=== PATIENT | male | born 1960 | race Two or more races ===

== ENCOUNTER 2020-11-09 14:19 | Emergency (ER) | payer OTHER, SELFPAY ==
[2020-11-09 15:17] VITALS: BP 148/77; BP 159/99; PULSE 102; PULSE 92; RESP 18; TEMP 36.3; O2SAT 100; O2SAT 95; BMI 17.4
--- NOTE | 2020-11-09 16:31 | ED.BACK ---
HPI - Back Pain/Injury General Chief Complaint: Back Pain/Injury Stated Complaint: back pain/fall Time Seen by Provider: 11/09/20 16:21 Source: patient Mode of arrival: ambulatory Limitations: no limitations History of Present Illness HPI Narrative: Patient's history of chronic back pain history of IVDA heroin and cocaine use HIV with undetectable counts history of epidural abscess in 05/23 treated with antibiotics complaining of ongoing pain since then. Patient denies any fever or chills, any acute weakness in the legs no urinary complaints spoke to his primary care doctor last month who advised him to go to hospital for further checkup MD elicited complaint: back pain Pertinent past history: prior back pain Onset (ago): month(s) Timing: constant Severity: moderate Quality: dull Location: lumbar spine Exacerbating factors: movement Relieving factors: none Associated symptoms: weakness Related Data Allergies Allergy/AdvReac Type Severity Reaction Status Date / Time aspirin [ASA] Allergy Intermediate HIVES Unverified 07/21/20 15:26 tuberculin, purified protein Allergy Intermediate RASH, Unverified 07/21/20 15:26 deriva ITCHING [TUBERCULIN,PURIF.PROT.DERIV.] chlorthalidone AdvReac Severe hypokalemia Unverified 07/21/20 15:26 [CHLORTHALIDONE] tb serum Allergy Unknown Uncoded 11/19/19 00:00 Review of Systems Review of Systems: Constitutional : No Weight loss, No Fever, No Chills ENT/Mouth : No sore throat, No Rhinorrhea Eyes: No Eye Pain, No Swelling Cardiovascular : No Chest Pain, no palpitations Respiratory : No Cough, No Sputum, no shortness of breath Gastrointestinal : no Nausea, No Vomiting, No Diarrhea, No abdominal Pain, no black stools Genitourinary : No Dysuria, No Urinary Frequency Musculoskeletal : Back pain++ No Myalgias, No Joint Swelling Skin : No Skin Lesions, No rash Neuro : No Weakness, No Numbness, No Dizziness, No Headache Psych : No Anxiety/Panic, No Depression Heme/Lymph: No Bruising, No Lymphadenopathy Endocrine : No Polyuria, No Polydipsia All other systems reviewed and are negative PMFSH Past Medical History Medical History Back pain Epidural abscess High cholesterol HIV (human immunodeficiency virus infection) HTN (hypertension) Leg cramp Social History Social History Advance Directives: No Advance Directives Information Provided: No Physical Exam Vital Signs: Vital Signs: Last Vital Signs Temp 97.4 F 11/09/20 15:17 Pulse 92 11/09/20 15:17 Resp 18 11/09/20 15:17 BP 148/77 H 11/09/20 15:17 Pulse Ox 95 11/09/20 15:17 Body Mass Index 17.4 Const: General: no acute distress Nutritional Appearance: thin Orientation/consciousness: patient oriented x3 HENMT: Head: Yes normal to inspection and Yes normocephalic Ears: hearing grossly normal bilaterally Mouth: Normal oral and palatal mucosa present Eyes: General: appearance normal, both eyes and all related structures Neck: Neck: Yes normal visual inspection, Yes full ROM and Yes no meningeal signs Chest: Chest palpation & inspection: normal inspection of the chest and normal palpation of entire chest wall Resp: Effort & Inspection: normal respiratory effort Auscultation: clear to auscultation bilaterally Cardio: Rate: regular rate Rhythm: regular rhythm Heart sounds: S1 normal heart sound present and S2 normal heart sound present GI: Inspection: Yes normal to inspection Palpation (GI): Soft to palpation and nontender : General: Yes no CVA tenderness Back/Spine/Pelvis: Back: no CVA tenderness Cervical Spine: cervical spasm Thoracic/Lumbar Spine: straight leg raise negative bilaterally, thoraco-lumbar ROM limited, thoraco-lumbar spasm and No straight leg raise positive Pelvis: no pain with anterior-posterior compression Skin: General skin exam: no rashes or lesions noted Neuro: General: patient oriented x3, tone normal, moves all extremities, Normal light touch and pain sensation, no meningeal signs, no focal motor deficits and CN's II-XI intact bilaterally Gait exam (Neuro): Antalgic gait present and Assistive device used (Cane) Motor exam (neuro): 5/5 motor strength present throughout Course Course Course Narrative: 16:55 : Labs were ordered but patient eloped from the ER MDM - Back Pain/Injury Lab Data Result diagrams: 11/09/20 16:46 11/09/20 16:46
[2020-11-09 16:56] LABS: MANUAL DIFF FLAG NO
--- NOTE | 2020-11-09 16:56 | PC.NURSE ---
Pt presents to the ed with c/o lower back pain. He is alert, rr even, speaks in full sentences, skin is pwdi, and he is in nad. Seen by Dr Aguilar, orders provided. Blood work obtained and sent. Shortly after lab draw pt elopes department.
[2020-11-09 16:58] LABS: Basophils Absolute Auto 0.1 X10*3/uL (0.0-0.2); Basophils Percent Auto 0.6 % (0-2); Eosinophils Absolute Auto 0.1 X10*3/uL (0.0-0.4); Eosinophils Percent Auto 0.8 % (0-4); Hematocrit 39.5 % (42-52); Hemoglobin 12.6 g/dl (14.0-18.0); Imm Gran Abs Auto 0.02 X10*3/uL (0.00-0.03); Imm Gran Pct Auto 0.2 % (0.0-0.4); Lymphocytes Absolute Auto 1.4 X10*3/uL (1.2-4.9); Lymphocytes Percent Auto 16.3 % (20-40); Mean Corpuscular HGB Conc 31.9 g/dl (31.0-36.0); Mean Corpuscular Hemoglobin 28.1 pg (27.0-33.0); Mean Corpuscular Volume 88.2 fL (80-98); Mean Platelet Volume 9.6 fL (9.4-12.4); Monocytes Absolute Auto 0.2 X10*3/uL (0.1-1.2); Monocytes Percent Auto 2.7 % (2-11); Neutrophils Absolute Auto 6.7 X10*3/uL (2.0-8.3); Neutrophils Percent Auto 79.4 % (45-73); Platelet Count 269 X10*3/uL (160-400); Red Blood Count 4.48 X10*6/uL (4.60-5.80); Red Cell Distribution Width 15.2 % (11.0-16.0); White Blood Count 8.4 X10*3/uL (4.8-10.8)
[2020-11-09 17:31] LABS: Alanine Aminotransferase 22 U/L (0-40); Albumin Level 4.5 g/dL (3.5-5.0); Alkaline Phosphatase 227 U/L (39-117); Anion Gap 14 (12-20); Aspartate Amino Transferase 26 U/L (5-37); Bilirubin Direct 0.2 mg/dL (0.0-0.5); Bilirubin Total 0.3 mg/dL (0.0-1.0); Blood Urea Nitrogen 15 mg/dL (9-16); C Reactive Protein 1.14 mg/dL (< or = 0.50); Calcium 9.2 mg/dL (8.4-10.2); Carbon Dioxide 30 mmol/L (22-29); Chloride 100 mmol/L (96-108); Creatinine Clr Calc Pharmacy 75.1; Estimated Glomerular Filt Rate > 60; Glucose Random 94 mg/dL (60-115); Potassium 4.1 mmol/l (3.3-5.1); Sodium 140 mmol/L (135-145); Total Protein 7.6 g/dL (6.5-8.0)
[2020-11-09 18:04] LABS: Erythrocyte Sedimentation Rate 33 MM/HR (0-15)
== END 2020-11-09 17:00 | disposition left against medical advice (07) ==
PROVIDERS: Emergency Provider Internal Medicine
DX: M54.5 Low back pain (principal); F11.10 Opioid abuse, uncomplicated; F14.10 Cocaine abuse, uncomplicated; Z21 Asymptomatic human immunodeficiency virus [HIV] infection status
CPT/HCPCS: 36415; 80048; 80076; 85025; 85652; 86140; 99283

== ENCOUNTER 2020-11-18 13:39 | Outpatient (REF) | payer OTHER, SELFPAY ==
--- NOTE | 2020-11-18 | MR_ITS ---
EXAMINATION: MR LUMBAR SPINE WITHOUT AND WITH CONTRAST CLINICAL INFORMATION: Osteomyelitis of L4-L5. Ongoing pain and weakness. COMPARISON: CT lumbar spine 05/07/2020. TECHNIQUE: MRI of the lumbar spine was obtained using routine sequences with and without contrast. Intravenous contrast: Gadavist 5.5 mL FINDINGS: 10 mm anterolisthesis of L4 and L5 is present unchanged compared with 05/07/2010. Marked erosion of the L4 inferior facets and the L5 superior facet bilaterally is present with enhancing phlegmon-like material noted in the expected location of the L4-L5 facet joint spaces bilaterally. Prominent surrounding enhancement is associated with the left and right L4-L5 facets and a peripherally enhancing fluid collection measuring 11 mm in maximum dimension is noted posterior to the expected location of the right L4-L5 facet immediately lateral to the superior margin of the right L5 lamina. No vertebral body compression deformities are identified. The conus medullaris terminates at the level of T12-L1. The conus medullaris is normal in appearance. T12-L1: No central or foraminal stenoses. Normal intervertebral disc. L1-L2: No central or foraminal stenoses. Normal intervertebral discs. L2-L3: No effusions central or foraminal stenoses. Minimal bilateral parasagittal disc protrusions. Mild bilateral ligamentum flavum hypertrophy. L3-L4: Moderate right foraminal stenosis. Partial bilateral subarticular recess effacement with bilateral parasagittal disc protrusions minimally abutting the traversing bilateral L4 nerve roots. Additionally, moderate bilateral ligamentum flavum hypertrophy is present at this level. L4-L5: Marked bilateral foraminal stenoses. Marked central stenosis. Findings arise in the setting of 10 mm anterolisthesis of L4 and L5 and the presence of a marked posterior broad-based disc bulge with bilateral intraforaminal extension in combination with moderate bilateral ligamentum flavum hypertrophy. Near-complete effacement of the adjacent thecal sac CSF space is noted in greater than 75% bilateral foraminal narrowing is present with bilateral exiting L4 nerve root impingement. L5-S1: Moderate left foraminal stenosis. Mild right foraminal stenosis. Findings arise secondary to a mild posterior broad-based disc bulge in combination with moderate left facet hypertrophic changes resulting in 50% left foraminal narrowing. Trace fluid is present in the left and right L5-S1 facet joints no adjacent subchondral enhancement or edema is noted. MR/MR lumbar spine wo/w con IMPRESSION: 1. L4-L5 bilateral facet joint marked subchondral erosions with intra-articular and periarticular enhancing tissue and a trace fluid collection with peripheral enhancement adjacent to the right facet joint. Overall, findings may represent active bilateral L4-L5 septic arthritis or the sterile sequela of septic arthritis. Aseptic, post infectious changes may present on MR imaging with marked enhancement for as long as several months after the antecedent infection has been cleared. Alternatively, recrudescent or chronic infection could present with similar findings. Facet erosions appear to be progressed compared with 05/07/2020. 10 mm degenerative anterolisthesis of L4 and L5 is unchanged in degree compared with 05/07/2020. The setting of ongoing pain and weakness, findings are suspicious for persistent bilateral L4-L5 septic arthritis. 2. L4-L5 marked central and marked bilateral foraminal stenoses. 3. L3-L4 moderate right foraminal stenosis and mild central stenosis with mild abutment upon the left and right traversing L4 nerve roots. 4. L5-S1 moderate left foraminal stenosis. This critical result was discussed with Dr. Palmira HAGER by telephone at 11/20/2020 1:57 PM and it was ascertained that the content and urgency of the report was understood at the time of direct communication.
== END 2020-11-18 13:40 | disposition home or self-care (01) ==
LOC: HO.MRI 13:39
PROVIDERS: Visit Provider Family Medicine
DX: F11.20 Opioid dependence, uncomplicated (principal); M46.20 Osteomyelitis of vertebra, site unspecified
CPT/HCPCS: 72158; A9585

== ENCOUNTER 2020-12-21 13:38 | Emergency (ER) | payer OTHER, SELFPAY ==
[2020-12-21 13:51] VITALS: BP 130/71; BP 170/90; PULSE 74; PULSE 94; RESP 16; TEMP 36.8; O2SAT 97; BMI 22.8
--- NOTE | 2020-12-21 14:14 | ED.GENADULT ---
HPI - General Adult General Chief complaint: General Medical Stated complaint: ABCESS Time Seen by Provider: 12/21/20 13:49 Source: patient Mode of arrival: ambulatory Limitations: no limitations History of Present Illness HPI narrative: 60 yo male with past medical history of HIV on DTG +FTC/TAF with cd4 534, IV drug abuse here with abnormal MRI. Of note, the patient was admitted to [facility] May 08 for an L4-L5 epidural abscess with L4-L5 facet joint osteomyelitis and extra-spinal abscess. He underwent CT aspiration of the abscess and was discharged to a SNF with a PICC line on linezolid. He was discharged from [facility] 06/01/20 and did complete antibiotics which was post to complete on June 21. He never followed up with [facility]. He was seen outpatient by his primary care doctor for worsening low back pain which radiated to his legs with numbness in the feet approximately 6 weeks ago. He had an outpatient MRI on November 18 which showed L4-L5 bilateral facet joint marked subchondral erosions with intra-articular and periarticular enhancing tissue and a trace fluid collection with peripheral enhancement adjacent to the right facet joint. Overall findings may represent active bilateral L4-L5 septic arthritis. Patient tells me he was referred to the emergency department for further evaluation. He does tell me that he uses heroin daily up to 20 bags and his last use was this morning. He tells me that he has had persistent pain and feels like both of his legs buckle on him when he walks. He is ambulatory with his cane. He is also complaining of some foot numbness which is bilateral. No complaints of saddle anesthesia or incontinence. Related Data Allergies Allergy/AdvReac Type Severity Reaction Status Date / Time aspirin [ASA] Allergy Intermediate HIVES Unverified 07/21/20 15:26 tuberculin, purified protein Allergy Intermediate RASH, Unverified 07/21/20 15:26 deriva ITCHING [TUBERCULIN,PURIF.PROT.DERIV.] chlorthalidone AdvReac Severe hypokalemia Unverified 07/21/20 15:26 [CHLORTHALIDONE] tb serum Allergy Unknown Uncoded 11/19/19 00:00 Review of Systems Review of Systems: Yes all other systems are reviewed and are negative Constitutional: Constitutional: Reports no additional constitutional complaints, Denies body ache(s), Denies chills, Denies fever(s), Denies headache(s) and Denies weakness Eyes: Eyes: Reports no additional eye complaints and Denies change in vision ENT: Reports system reviewed and no additional complaints, except as documented, Denies dizziness, Denies headache(s), Denies nasal congestion, Denies nasal discharge and Denies neck pain Cardiovascular: Cardiovascular: Reports no additional cardiovascular complaints, Denies chest pain, Denies leg edema and Denies dyspnea Respiratory: Respiratory: Reports no additional respiratory complaints, Denies cough and Denies dyspnea Gastrointestinal: Gastrointestinal: Reports no additional gastrointestinal complaints, Denies abdominal pain, Denies diarrhea, Denies nausea and Denies vomiting Genitourinary: Genitourinary: Denies urinary incontinence Musculoskeletal: Musculoskeletal: Reports no additional musculoskeletal complaints, Reports back pain, Denies arthralgias, Denies joint swelling, Denies neck pain, Reports numbness and Denies tingling Integumentary/Breasts: Skin/Breast: Reports system reviewed and no additional complaints, except as docu and Denies rash Neurologic: Reports system reviewed and no additional complaints, except as documented, Denies Abnormal speech present, Denies dizziness, Denies headache(s), Reports numbness, Denies tingling and Denies weakness PMFSH Past Medical History Attestation statement: The following information was validated with the patient. Source: old records reviewed and nursing notes reviewed Medical History Back pain Epidural abscess High cholesterol HIV (human immunodeficiency virus infection) HTN (hypertension) Leg cramp Social History Social History Smoking Status: Current every day smoker Use of substances other than those prescribed or required for medical reasons: Yes Substance Use Type: Heroin Substance Use Frequency: Chronic Longstanding Last Used Substance: Hours (ago) Advance Directives: No Advance Directives Information Provided: Yes Physical Exam Vital Signs: Vital Signs: Last Vital Signs Temp 98.2 F 12/21/20 13:51 Pulse 74 12/21/20 13:51 Resp 16 12/21/20 13:51 BP 130/71 12/21/20 13:51 Pulse Ox 97 12/21/20 13:51 Body Mass Index 22.8 Const: General: cooperative, healthy appearing, comfortable and no acute distress Orientation/consciousness: patient oriented x3 Limitations: no limitations HENMT: Head: Yes normal to inspection Ears: hearing grossly normal bilaterally General nose exam: Normal external nose present Face and sinus: Yes normal facial exam Mouth: Normal oral and palatal mucosa present Throat: Yes posterior oropharynx normal Eyes: General: appearance normal, both eyes and all related structures Pupils: Equal, round and reactive pupils present Neck: Neck: Yes normal visual inspection Chest: Chest palpation & inspection: normal inspection of the chest Resp: Effort & Inspection: normal respiratory effort Auscultation: clear to auscultation bilaterally Cardio: Rate: regular rate Rhythm: regular rhythm Peripheral pulses: Peripheral pulses 2+ throughout GI: Inspection: Yes normal to inspection Palpation (GI): Soft to palpation and nontender Auscultation: normal bowel sounds Rectal Exam - Male: Yes normal sphincter tone (Perianal sensation present) Back/Spine/Pelvis: Other: Patient has lower midline lumbar tenderness with no step-offs or deformities. Thoracic/Lumbar Spine: thoracic and lumbar spine normal to inspection Skin: General skin exam: no rashes or lesions noted Neuro: Other: ambulatory with cane Patient is able to lift the right leg with no difficulty. He does have pain with the left straight leg raise. Patient has 4/5 strength with dorsiflexion and plantar flexion. General: patient oriented x3 and normal sensation to monofilament Cranial nerves: Yes Equal, round and reactive pupils present Cognition (Neuro): normal cognition Speech: No Abnormal speech present Sensory Exam: sensory level loss detected (diminished sensation over bilateral dorsal feet to light touch) Deep tendon reflexes (DTR's): Right patellar reflex intensity grade: 2+ and Left patellar reflex intensity grade: 2+ Extrem: General: Yes normal to inspection Course Course Course Narrative: 60-year-old male with a past medical history of HIV, IV drug abuse and epidural abscess is here with abnormal MRI. Patient tells me that last year in May he had an epidural abscess which he did not complete IV antibiotic treatment for. He tells me over the last month he has had increasing pain in his lower back with weakness in his bilateral lower extremities and numbness. He was seen by his primary care doctor and had a MRI of the lumbar spine 11/18. He followed up in the office with his primary care doctor on November 24 and he was referred to the emergency department for further evaluation as his MRI was concerning for septic arthritis of the spine. The patient was initially referred to [facility] ED however due to transportation and his concern for management of his pain he wanted to come to [facility] instead. Neuro exam shows 4/5 LE strength with intact reflexes, sensation loss over dorsal foot, normal rectal tone and perianal sensation. PVR 208ml. 1400-reviewed MRI from November 18 which shows L4-L5 bilateral facet joint marked subchondral erosions with intra-articular and periarticular enhancing tissue and trace fluid collection with peripheral enhancement adjacent to the right facet joint. May be septic arthritis versus osteomyelitis. There is only a trace fluid collections or less likely epidural abscess. However, the patient did not complete treatment last year for his epidural abscess and there is concern for persistence of this. Patient is adamant that he does not want to go to [facility] and for fear that he may leave against medical advice and not get the appropriate treatment and I did discussed this with our medicine team here. They recommended I speak to the neurosurgical team at [facility] to discuss. 1430-Spoke to Mady PAUL at [facility]. She reviewed the MRI from November and compared this to the previous MRI in May of 2020. Findings are more consistent with septic arthritis. There is no fluid collection that needs drainage. She does not think the patient needs neurosurgical intervention but does need to be managed medically with IV antibiotics and infectious disease consult. At this time she believes it is appropriate the patient can stay at [facility] with q.4 hours neuro checks, medicine and ID management. 1630-spoke to Medicine team Dr. Bailey. Is concerned that patient may have worsening or progressive symptoms and may need neurosurgical intervention and we do not have neurosurgery and this hospital. He feels the patient should be transferred to a tertiary care center. 1630-spoke to neurosurgery BEVERLY thomas. As there is no neurosurgical intervention patient will need to be admitted to the medicine service. Call out to medicine team to admit. 1700-Spoke to Tish DENIS at [facility]. Accepting physician Dr Dominguez. Medical Decision Making Medical Records Medical records reviewed: Yes I reviewed the patient's medical records. Lab Data Lab results reviewed: Yes I reviewed the patient's lab results. Result diagrams: 12/21/20 14:27 12/21/20 14:27 Labs: Lab Results 12/21/20 12/21/20 12/21/20 Range/Units 14:26 14:27 14:27 WBC 7.9 (4.8-10.8) X10*3/uL RBC 3.84 L (4.60-5.80) X10*6/uL Hgb 11.1 L (14.0-18.0) g/dl Hct 34.5 L (42-52) % MCV 89.8 (80-98) fL MCH 28.9 (27.0-33.0) pg MCHC 32.2 (31.0-36.0) g/dl RDW 15.9 (11.0-16.0) % Plt Count 216 (160-400) X10*3/uL MPV 9.8 (9.4-12.4) fL Immature Gran % (Auto) 0.3 (0.0-0.4) % Neut % (Auto) 67.3 (45-73) % Lymph % (Auto) 22.5 (20-40) % Noble % (Auto) 4.8 (2-11) % Eos % (Auto) 4.6 H (0-4) % Baso % (Auto) 0.5 (0-2) % Lymph # (Auto) 1.8 (1.2-4.9) X10*3/uL Noble # (Auto) 0.4 (0.1-1.2) X10*3/uL Eos # (Auto) 0.4 (0.0-0.4) X10*3/uL Baso # (Auto) 0.0 (0.0-0.2) X10*3/uL Abs Immat Gran (auto) 0.02 (0.00-0.03) X10*3/uL Absolute Neuts (auto) 5.3 (2.0-8.3) X10*3/uL Absolute Nucleated RBC 0.000 (0.0-0.012) X10*3/uL Nucleated RBC % (auto) 0.0 (0.0-0.2) /100WBC Sodium 139 (135-145) mmol/L Potassium 4.3 (3.3-5.1) mmol/L Chloride 103 (96-108) mmol/L Carbon Dioxide 28 (22-29) mmol/L Anion Gap 12 (12-20) BUN 18 H (9-16) mg/dL Creatinine 0.81 (0.5-1.4) mg/dL Estim Creat Clear Calc 94.4 Estimated GFR > 60 Random Glucose 74 (60-115) mg/dL Lactic Acid 0.4 L (0.5-2.0) mmol/L Calcium 8.5 D (8.4-10.2) mg/dL Urine Color Urine Appearance Urine pH (5.0-8.0) Ur Specific Robbins (1.005-1.025) Urine Protein (NEG-TRACE) MG/DL Urine Glucose (UA) (NEG) MG/DL Urine Ketones (NEG) MG/DL Urine Blood (NEG) Urine Nitrite (NEG) Ur Leukocyte Esterase (NEG) COVID-19 (OSAWLDO) (Negative) COVID-19 Clin Com 12/21/20 12/21/20 Range/Units 14:30 16:12 WBC (4.8-10.8) X10*3/uL RBC (4.60-5.80) X10*6/uL Hgb (14.0-18.0) g/dl Hct (42-52) % MCV (80-98) fL MCH (27.0-33.0) pg MCHC (31.0-36.0) g/dl RDW (11.0-16.0) % Plt Count (160-400) X10*3/uL MPV (9.4-12.4) fL Immature Gran % (Auto) (0.0-0.4) % Neut % (Auto) (45-73) % Lymph % (Auto) (20-40) % Noble % (Auto) (2-11) % Eos % (Auto) (0-4) % Baso % (Auto) (0-2) % Lymph # (Auto) (1.2-4.9) X10*3/uL Noble # (Auto) (0.1-1.2) X10*3/uL Eos # (Auto) (0.0-0.4) X10*3/uL Baso # (Auto) (0.0-0.2) X10*3/uL Abs Immat Gran (auto) (0.00-0.03) X10*3/uL Absolute Neuts (auto) (2.0-8.3) X10*3/uL Absolute Nucleated RBC (0.0-0.012) X10*3/uL Nucleated RBC % (auto) (0.0-0.2) /100WBC Sodium (135-145) mmol/L Potassium (3.3-5.1) mmol/L Chloride (96-108) mmol/L Carbon Dioxide (22-29) mmol/L Anion Gap (12-20) BUN (9-16) mg/dL Creatinine (0.5-1.4) mg/dL Estim Creat Clear Calc Estimated GFR Random Glucose (60-115) mg/dL Lactic Acid (0.5-2.0) mmol/L Calcium (8.4-10.2) mg/dL Urine Color YELLOW Urine Appearance CLEAR Urine pH 6.0 (5.0-8.0) Ur Specific Robbins >= 1.030 H (1.005-1.025) Urine Protein NEG (NEG-TRACE) MG/DL Urine Glucose (UA) NEG (NEG) MG/DL Urine Ketones NEG (NEG) MG/DL Urine Blood NEG (NEG) Urine Nitrite NEG (NEG) Ur Leukocyte Esterase NEG (NEG) COVID-19 (OSWALDO) Negative (Negative) COVID-19 Clin Com See Note Critical Care Time Critical Care Time Critical Care Time: Yes Total Critical Care Time: 60 Attestation: Neurological re-evaluations, discussion with medicine here, discussion with neurosurgery at [facility], discussion with medicine at [facility]. Discharge Plan Discharge Clinical Impression: Septic arthritis of lumbar spine Patient Disposition: [facility] Transfer Details: [facility]
--- NOTE | 2020-12-21 14:24 | PC.NURSE ---
CALL PLACED @ 1422 TO [facility] PT TX LINE @[email or web address] SYED REQUEST MJ ANSWERS,TAKES PT INFO AND ASKS TO SPEAK WITH SYED LYNCH TAKE OVER CALL RIGHT AWAY
--- NOTE | 2020-12-21 14:29 | PC.NURSE ---
RETURN CALL FROM 1425, REQUESTS TO SPEAK WITH SYED LYNCH TAKES OVER CALL RIGHT AWAY
--- NOTE | 2020-12-21 14:30 | PC.NURSE ---
1424 RETURN CALL FROM [facility], REQUESTS TO SPEAK WITH SYED LYNCH TAKES OVER CALL RIGHT AWAY
[2020-12-21 14:31] LABS: MANUAL DIFF FLAG NO
[2020-12-21 14:34] LABS: Basophils Percent Auto 0.5 % (0-2); Eosinophils Absolute Auto 0.4 X10*3/uL (0.0-0.4); Eosinophils Percent Auto 4.6 % (0-4); Hematocrit 34.5 % (42-52); Hemoglobin 11.1 g/dl (14.0-18.0); Imm Gran Abs Auto 0.02 X10*3/uL (0.00-0.03); Imm Gran Pct Auto 0.3 % (0.0-0.4); Lymphocytes Absolute Auto 1.8 X10*3/uL (1.2-4.9); Lymphocytes Percent Auto 22.5 % (20-40); Mean Corpuscular HGB Conc 32.2 g/dl (31.0-36.0); Mean Corpuscular Hemoglobin 28.9 pg (27.0-33.0); Mean Corpuscular Volume 89.8 fL (80-98); Mean Platelet Volume 9.8 fL (9.4-12.4); Monocytes Absolute Auto 0.4 X10*3/uL (0.1-1.2); Monocytes Percent Auto 4.8 % (2-11); Neutrophils Absolute Auto 5.3 X10*3/uL (2.0-8.3); Neutrophils Percent Auto 67.3 % (45-73); Platelet Count 216 X10*3/uL (160-400); Red Blood Count 3.84 X10*6/uL (4.60-5.80); Red Cell Distribution Width 15.9 % (11.0-16.0); White Blood Count 7.9 X10*3/uL (4.8-10.8)
[2020-12-21 14:59] LABS: COVID-19 Test Negative (Negative); IDNOW Serial# 9DD0AD1C
[2020-12-21 15:02] LABS: Lactic Acid 0.4 mmol/L (0.5-2.0)
[2020-12-21 15:05] LABS: Anion Gap 12 (12-20); Blood Urea Nitrogen 18 mg/dL (9-16); Calcium 8.5 mg/dL (8.4-10.2); Carbon Dioxide 28 mmol/L (22-29); Chloride 103 mmol/L (96-108); Creatinine Clr Calc Pharmacy 94.4; Estimated Glomerular Filt Rate > 60; Glucose Random 74 mg/dL (60-115); Potassium 4.3 mmol/L (3.3-5.1); Sodium 139 mmol/L (135-145)
[2020-12-21 16:19] LABS: Glucose Urine UA NEG (NEG); Leukocyte Esterase Urine NEG (NEG); Nitrite Urine NEG (NEG); Specific Gravity - Urine >= 1.030 (1.005-1.025); Urine Blood NEG (NEG); Urine Ketones NEG (NEG); Urine Protein NEG (NEG-TRACE)
[2020-12-21 16:28] LABS: Appearance Urine CLEAR; Color Urine YELLOW
[2020-12-21] MEDS: vancomycin HCL 1,000 MG in 0.9 % Sodium Chloride 250 ML 270 MG IV (17:01)
[2020-12-21 17:03] VITALS: BP 124/47; PULSE 74; RESP 16; TEMP 36.7; O2SAT 96
--- NOTE | 2020-12-21 19:47 | PC.NURSE ---
REPORT GIVEN TO KIM WARD AT [facility]. AWAITING TRANSPORT FOR TRANSFER TO [facility].
[2020-12-21] MEDS: oxyCODONE HCl Immed Release 5 MG TABLET 10 MG PO (20:31)
== END 2020-12-21 20:54 | disposition short-term general hospital (02) ==
PROVIDERS: Nurse Practitioner Family; Emergency Provider Emergency Medicine
DX: M46.56 Other infective spondylopathies, lumbar region (principal); F11.10 Opioid abuse, uncomplicated; I10 Essential (primary) hypertension; F17.200 Nicotine dependence, unspecified, uncomplicated; Z20.822 Contact with and (suspected) exposure to COVID-19; Z71.6 Tobacco abuse counseling; Z21 Asymptomatic human immunodeficiency virus [HIV] infection status; Z79.899 Other long term (current) drug therapy
CPT/HCPCS: 36415; 51798; 80048; 81003; 83605; 85025; 87040; 87635; 96365; 99284; 99285; 99291; J3370

== ENCOUNTER 2021-09-08 00:41 | Emergency (ER) | payer OTHER, SELFPAY ==
--- NOTE | 2021-09-08 00:56 | ED.SKABFB ---
HPI - Skin/Abscess/Foreign Bdy General Chief complaint: Skin/Abscess/Foreign Body Stated complaint: rash Time Seen by Provider: 09/08/21 00:55 Source: patient Mode of arrival: ambulatory Limitations: no limitations History of Present Illness HPI narrative: Patient been having itching and rash for last 3 days patient's partner also has a rash for 2 weeks poor hygiene at home rodents in the house Related Data Allergies Allergy/AdvReac Type Severity Reaction Status Date / Time aspirin [ASA] Allergy Intermediate HIVES Unverified 07/21/20 15:26 tuberculin, purified protein Allergy Intermediate RASH, Unverified 07/21/20 15:26 deriva ITCHING [TUBERCULIN,PURIF.PROT.DERIV.] chlorthalidone AdvReac Severe hypokalemia Unverified 07/21/20 15:26 [CHLORTHALIDONE] tb serum Allergy Unknown Uncoded 11/19/19 00:00 Review of Systems Review of Systems: Yes all other systems are reviewed and are negative PMFSH Past Medical History Medical History Back pain Epidural abscess High cholesterol HIV (human immunodeficiency virus infection) HTN (hypertension) Leg cramp Social History Social History Substance Use Type: Heroin Advance Directives: No Advance Directives Information Provided: No Physical Exam Const: General: no acute distress HENMT: Head: Yes normocephalic Skin: Other: Scratch arabella nonspecific erythematous rash is likely bug bites no signs of infection mostly is in the exposed area MDM - Skin/Abscess/Foreign Bdy MDM Narrative Medical decision making narrative: Patient with rash nonspecific likely bedbugs, eloped from ER before the discharge Discharge Plan Discharge Clinical Impression: Bed bug bite Qualifiers: Encounter type: initial encounter Qualified Code(s): W57.XXXA - Bitten or stung by nonvenomous insect and other nonvenomous arthropods, initial encounter Patient Disposition: Elopement
[2021-09-08 00:59] VITALS: BP 154/88; PULSE 82
--- NOTE | 2021-09-08 01:07 | PC.NURSE ---
pt was very restless and didnt agree with his treatment plan so he decided to leave after being seen by the provider. steady gait. alert oriented, no s/s/ of distress.
== END 2021-09-08 01:00 | disposition left against medical advice (07) ==
PROVIDERS: Emergency Provider Internal Medicine; PCP Nurse Practitioner Primary Care
DX: T14.8XXA Other injury of unspecified body region, initial encounter (principal); W57.XXXA Bitten or stung by nonvenomous insect and other nonvenomous arthropods, initial encounter; R21 Rash and other nonspecific skin eruption; I10 Essential (primary) hypertension; B20 Human immunodeficiency virus [HIV] disease; Y93.89 Activity, other specified; Y92.032 Bedroom in apartment as the place of occurrence of the external cause; Y99.9 Unspecified external cause status
CPT/HCPCS: 99281

== ENCOUNTER 2021-11-08 10:35 | Emergency (ER) | payer OTHER, SELFPAY ==
[2021-11-08 11:23] VITALS: BP 116/72; BP 168/98; PULSE 104; PULSE 60; RESP 14; TEMP 36.4; O2SAT 97; BMI 19.3
--- NOTE | 2021-11-08 11:35 | ED.SKABFB ---
HPI - Skin/Abscess/Foreign Bdy General Chief complaint: Skin/Abscess/Foreign Body Stated complaint: ITCHY ALL OVER Time Seen by Provider: 11/08/21 11:27 Source: patient Mode of arrival: ambulatory Limitations: language barrier (Bengali-speaking) History of Present Illness HPI narrative: 60-year-old male presenting to the ED with complaints of a rash to his entire body since September that is itchy in nature. Apparently the patient has poor hydrating and has rodents at home. He reports that he was seen here in September, and was told that he had bedbugs and given no treatment. Then he went to another location to be evaluated possibly his PCP although patient is a poor historian and reports they sent the cream to the pharmacy although no one has delivered the cream. Therefore he came here for further evaluation treatment because this morning he noticed he had a mite to his fingernail he cut his finger nail and pulled out a mite. He is nervous that he might get a mite in his eye. He denies any other complaints or concerns at this time. MD complaint: rash Onset (ago): month(s) Location: generalized Severity: moderate Quality: constant and pruritic Pain Consistency: constant Relieving factors: none Exacerbating factors: none Context: other (See above) Associated symptoms: denies other symptoms Treatments prior to arrival: other (See above) Related Data Previous Rx's Medication Instructions Recorded diphenhydramine HCl 2 % topical 1 appl TOPICAL QID PRN #103 ml 11/08/21 gel (Benadryl) diphenhydramine HCl 25 mg tablet 50 mg PO TID PRN #30 tab 11/08/21 (Benadryl Allergy) permethrin 5 % topical cream 1 appl TOPICAL Q14D #60 g 11/08/21 Allergies Allergy/AdvReac Type Severity Reaction Status Date / Time aspirin [ASA] Allergy Intermediate HIVES Unverified 07/21/20 15:26 tuberculin, purified protein Allergy Intermediate RASH, Unverified 07/21/20 15:26 deriva ITCHING [TUBERCULIN,PURIF.PROT.DERIV.] chlorthalidone AdvReac Severe hypokalemia Unverified 07/21/20 15:26 [CHLORTHALIDONE] tb serum Allergy Unknown Uncoded 11/19/19 00:00 Review of Systems Review of Systems: Constitutional : No Fever, No Chills , no body aches, no recent illness Head/Face: No facial swelling, No facial redness ENT/Mouth : No oral/throat swelling, No Hoarseness, No Swallowing Difficulty Eyes: No Eye Pain, No Swelling, No Redness Cardiovascular : No Chest Pain, No SOB, No palpitations Respiratory : No Cough, No Sputum, No Wheezing, No Smoke Exposure, No Dyspnea Gastrointestinal : No Nausea, No Vomiting, No Diarrhea, No abdominal Pain Genitourinary : No Dysuria, No Urinary Frequency, No Hematuria Musculoskeletal : No joint pain, No Myalgias, No Joint Swelling Skin : + Skin Lesions, + rash Neuro : No Weakness, No Numbness, No Headache, No dizziness, No tingling Psych : No Anxiety/Panic, No Depression Heme/Lymph: No Bruising, No Lymphadenopathy Endocrine : No Polyuria, No Polydipsia Denies changes in lotions or detergents. Denies new medications or any changes in medications. Denies drainage from rash. Denies any recent sick contacts or recent travel. Yes all other systems are reviewed and are negative PMFSH Past Medical History Attestation statement: The following information was validated with the patient. Medical History Back pain Epidural abscess High cholesterol HIV (human immunodeficiency virus infection) HTN (hypertension) Leg cramp Social History Social History Substance Use Type: Heroin Advance Directives: No Advance Directives Information Provided: No Physical Exam Vital Signs: Vital Signs: Last Vital Signs Temp 97.5 F 11/08/21 11:23 Pulse 60 11/08/21 11:23 Resp 14 11/08/21 11:23 BP 116/72 11/08/21 11:23 Pulse Ox 97 11/08/21 11:23 BMI result Body Mass Index 19.3 vital signs have been reviewed as normal and appeared to be correct. Blood pressure normal Heart rate normal. Respiration rate normal. Temperature normal. Oxygen saturation normal. Appearance: Alert. Oriented X3. No acute distress. Head: Normal external exam. Normocephalic. Atraumatic. Eyes: PERRLA. EOMI. Conjunctiva and sclera normal. Eyelids normal. ENT: Pharynx normal. Uvula midline. Moist mucous membranes. Neck: Normal inspection. Neck supple. FROM. CVS: Normal heart rate and rhythm. Respiratory: No respiratory distress. Painless inspiration. Skin: Skin warm and dry. Normal skin color. Normal skin turgor. Scattered throughout the patient's body he is noted to have lesions that are pruritic with mild erythema likely bites of some nature. No streaking/induration/fluctuance or signs of infection noted. No additional rashes/lesions/lacerations noted. Extremities: Extremities exhibit normal range of motion. Extremities nontender. Neuro: Oriented X 3. No motor deficit. No sensory deficit. Reflexes normal. Normal steady gait. No focal neuro deficits noted. Vascular: + radial pulses/+ 2 distal pedal pulses/+2 dorsalis pedis b/l. Normal cap refill. No cyanosis noted to upper extremity nails and lower extremity toes nails. Course Course Course Narrative: 60-year-old male presenting to the ED with complaints of a rash to his entire body since September that is itchy in nature. Apparently the patient has poor hydrating and has rodents at home. He reports that he was seen here in September, and was told that he had bedbugs and given no treatment. Then he went to another location to be evaluated possibly his PCP although patient is a poor historian and reports they sent the cream to the pharmacy although no one has delivered the cream. Therefore he came here for further evaluation treatment because this morning he noticed he had a mite to his fingernail he cut his finger nail and pulled out a mite. He is nervous that he might get a mite in his eye. He denies any other complaints or concerns at this time. On exam it appears that the patient has possible bite of some nature possibly bedbugs. Therefore I explained to him that usually they have to have professionals removed the bug from his house and patient continues to request for the cream that he was prescribed and has not been delivered to his house possibly for scabies although this does not appear like scabies on my exam although patient keeps requesting for cream therefore will give him topical Benadryl, scabies treatment due to patient requesting an p.o. Benadryl and instructions to follow-up with primary care provider. Patient understands agrees with this plan. MDM - Skin/Abscess/Foreign Bdy Medical Records Attestation: I reviewed the patient's medical records. Discharge Plan Discharge Clinical Impression: Insect bites Patient Disposition: Home, Self-Care Instructions: Insect Bite or Sting (ED), Bed Bugs (ED) Additional Instructions: Follow-up with your primary care provider Prescriptions: New Benadryl 2 % gel 1 appl topical QID PRN (Reason: itching) Qty: 103 RF: 0 diphenhydramine HCl [Benadryl Allergy] 25 mg tablet 50 mg PO TID PRN (Reason: itching) Qty: 30 RF: 0 permethrin 5 % cream 1 appl topical Q14D Qty: 60 RF: 2 Print Language: Bengali
== END 2021-11-08 12:21 | disposition home or self-care (01) ==
LOC: HO.ED 11:48
PROVIDERS: Emergency Provider Emergency Medicine
DX: T14.8XXA Other injury of unspecified body region, initial encounter (principal); W57.XXXA Bitten or stung by nonvenomous insect and other nonvenomous arthropods, initial encounter; Y93.9 Activity, unspecified; Y92.009 Unspecified place in unspecified non-institutional (private) residence as the place of occurrence of the external cause; Y99.9 Unspecified external cause status
CPT/HCPCS: 99283

== ENCOUNTER 2022-02-07 11:17 | Emergency (ER) | payer OTHER, SELFPAY ==
[2022-02-07 11:33] VITALS: BP 149/92; PULSE 82; O2SAT 99
--- NOTE | 2022-02-07 17:38 | ED.SKABFB ---
HPI - Skin/Abscess/Foreign Bdy General Chief complaint: Skin/Abscess/Foreign Body Stated complaint: MULTIPLE BUG BITES ALL OVER BODY PER EMS History of Present Illness HPI narrative: This patient eloped and was not seen by me Related Data Previous Rx's Medication Instructions Recorded diphenhydramine HCl 2 % topical 1 appl TOPICAL QID PRN #103 ml 11/08/21 gel (Benadryl) diphenhydramine HCl 25 mg tablet 50 mg PO TID PRN #30 tab 11/08/21 (Benadryl Allergy) permethrin 5 % topical cream 1 appl TOPICAL Q14D #60 g 11/08/21 Allergies Allergy/AdvReac Type Severity Reaction Status Date / Time aspirin [ASA] Allergy Intermediate HIVES Unverified 07/21/20 15:26 tuberculin, purified protein Allergy Intermediate RASH, Unverified 07/21/20 15:26 deriva ITCHING [TUBERCULIN,PURIF.PROT.DERIV.] chlorthalidone AdvReac Severe hypokalemia Unverified 07/21/20 15:26 [CHLORTHALIDONE] tb serum Allergy Unknown Uncoded 11/19/19 00:00 PMFSH Past Medical History Medical History (Updated 02/07/22 @ 17:39 by BEVERLY Aguirre) Back pain Epidural abscess High cholesterol HTN (hypertension) Leg cramp Spinal cord abscess Surgical History (Updated 12/11/21 @ 11:33 by SAJAN Kumar) H/O colonoscopy Social History Social History Substance Use Type: Heroin Advance Directives: Yes Advance Directives Information Provided: Yes Advance Directives on File: No Discharge Plan Discharge Clinical Impression: Eloped from emergency department Patient Disposition: Elopement Prescriptions: No Action Benadryl 2 % gel 1 appl topical QID PRN (Reason: itching) Qty: 103 0RF diphenhydramine HCl [Benadryl Allergy] 25 mg tablet 50 mg PO TID PRN (Reason: itching) Qty: 30 0RF permethrin 5 % cream 1 appl topical Q14D Qty: 60 2RF Rx Instructions: apply second treatment 14 days after first treatment if live lice remain Discharge Date/Time: 02/07/22 13:14
== END 2022-02-07 13:14 | disposition left against medical advice (07) ==
PROVIDERS: Emergency Provider Emergency Medicine Emergency Medical Services; PCP Nurse Practitioner Primary Care
DX: T14.8XXA Other injury of unspecified body region, initial encounter (principal); W57.XXXA Bitten or stung by nonvenomous insect and other nonvenomous arthropods, initial encounter; Y93.9 Activity, unspecified; Y92.9 Unspecified place or not applicable; Y99.9 Unspecified external cause status; Z79.899 Other long term (current) drug therapy
CPT/HCPCS: 99281

== ENCOUNTER 2022-03-02 15:52 | Emergency (ER) | payer OTHER, SELFPAY ==
[2022-03-02 15:56] VITALS: BP 154/98; PULSE 92
[2022-03-02 16:00] VITALS: BP 132/77; PULSE 79; RESP 16; TEMP 36.9; O2SAT 99; BMI 16.7
--- NOTE | 2022-03-02 16:12 | ED_ITS ---
HPI - Skin/Abscess/Foreign Bdy General Chief complaint: Animal Bite Stated complaint: MITES BITING HANDS Time Seen by Provider: 03/02/22 16:00 Source: patient Mode of arrival: EMS Limitations: no limitations History of Present Illness HPI narrative: Patient presents emergency department for evaluation of an itchy rash all over his body. Reports has been present for about 1 month. States his is having similar symptoms but she is currently admitted to an inpatient psych facility. He states that last year he was treated for similar symptoms for ?mites?. He states that he feels something crawling all over him and he feels like he is being bitten. He admits to IV drug usage, injecting cocaine and heroin. Related Data Previous Rx's Medication Instructions Recorded diphenhydramine HCl 2 % topical 1 appl TOPICAL QID PRN #103 ml 11/08/21 gel (Benadryl) diphenhydramine HCl 25 mg tablet 50 mg PO TID PRN #30 tab 11/08/21 (Benadryl Allergy) permethrin 5 % topical cream 1 appl TOPICAL Q14D #60 g 11/08/21 permethrin 5 % topical cream 1 appl TOPICAL Q14D #60 g 03/02/22 Allergies Allergy/AdvReac Type Severity Reaction Status Date / Time aspirin [ASA] Allergy Intermediate HIVES Unverified 07/21/20 15:26 tuberculin, purified protein Allergy Intermediate RASH, Unverified 07/21/20 15:26 deriva ITCHING [TUBERCULIN,PURIF.PROT.DERIV.] chlorthalidone AdvReac Severe hypokalemia Unverified 07/21/20 15:26 [CHLORTHALIDONE] tb serum Allergy Unknown Uncoded 11/19/19 00:00 Review of Systems Review of Systems: Constitutional: No weight loss, fever, chills, weakness or fatigue. Skin: Diffuse pruritic rash Cardiovascular: No chest pain, chest pressure or chest discomfort. No palpitations or pedal edema. Respiratory: No shortness of breath, cough or sputum production. Gastrointestinal: No anorexia, nausea, vomiting or diarrhea. No abdominal pain or blood in stool. Genitourinary: No burning micturition. No urinary frequency or incontinence. Musculoskeletal: No muscle pain, back pain, joint pain or stiffness. Psychiatric: No depression or anxiety. Yes all other systems are reviewed and are negative PMFSH Past Medical History Medical History Back pain Epidural abscess High cholesterol HTN (hypertension) Leg cramp Spinal cord abscess Surgical History H/O colonoscopy Social History Social History Substance Use Type: Heroin Advance Directives: No Advance Directives Information Provided: No Physical Exam Vital Signs: Vital Signs: Last Vital Signs Temp 98.5 F 03/02/22 16:00 Pulse 79 03/02/22 16:00 Resp 16 03/02/22 16:00 BP 132/77 03/02/22 16:00 Pulse Ox 99 03/02/22 16:00 BMI result Body Mass Index 16.7 Vital signs have been reviewed as normal and appeared to be correct. Blood pressure normal.? Heart rate normal.? Respiration rate normal. Temperature normal.? Oxygen saturation normal. Appearance: Alert.?Oriented to person, place and time. No acute distress.?Normal affect. Eyes: Pupils equal, round and reactive to light.? ENT: Pharynx normal.?? Neck: Normal inspection.? Neck supple.?? CVS: Heart sounds normal. Normal heart rate and rhythm.? Pulses normal.?? Respiratory: No respiratory distress.? Lung sounds clear to auscultation bilaterally?? Abdomen: Soft and non-tender. Normoactive bowel sounds. Skin: Skin warm and dry.? Normal skin color.? Macular lesions to the bilateral arms, torso, head, and lower extremities. Linear abrasions likely consistent with scratch arteaga. IV injection site marked to bilateral arms without concern for cellulitis Extremities: No lower extremity edema.? No calf ttp? Neuro: Moves all extremities spontaneously. Sensation intact bilaterally. CN II- XII intact. No focal neuro deficits. Ambulates with normal steady gait. Course Course Course Narrative: Patient is a 71-year-old male with a past medical history of late tubular adenoma of colon, osteoarthritis, cholelithiasis, restless leg syndrome, hypercholesterolemia, hypertension, chronic hepatitis-C, asthma, HIV, substance abuse. He presents emergency department for evaluation of a pruritic rash which is reportedly consistent with prior ?might? which improved with permethrin cream. Patient is without any constitutional symptoms. Rash spares the palms of the hands and soles of the feet, no Osler's nodes, no petechiae, he is without chest pain, palpitations, shortness of breath or difficulty breathing. Rashes present to the sides and webbing of the fingers, along the extensor aspect of elbows. Based on his history and presenting rashes this is concerning for scabies. Advised plan of care for treatment with permethrin to be applied to th e entire body from head to the soles of feet, advised to leave on for 8-14 hours before washing off. May repeat in 14 days if symptoms are still present. Advised home care measures. Discussed follow-up with primary care provider. Advised reasons return back to the emergency department. All questions were answered, he was discharged home in stable condition. Discharge Plan Discharge Clinical Impression: Scabies Patient Disposition: Home, Self-Care Instructions: Scabies (ED) Additional Instructions: Use permethrin cream to entire body from head to stools and feet, leave on for 8-14 hours and then shower to remove. May repeat in 14 days if symptoms are still present. Follow-up with your primary care provider. Return to emergency department any new or worsening symptoms or concerns Prescriptions: New permethrin 5 % cream 1 appl topical Q14D Qty: 60 0RF Rx Instructions: apply second treatment 14 days after first treatment if live lice remain No Action Benadryl 2 % gel 1 appl topical QID PRN (Reason: itching) Qty: 103 0RF diphenhydramine HCl [Benadryl Allergy] 25 mg tablet 50 mg PO TID PRN (Reason: itching) Qty: 30 0RF permethrin 5 % cream 1 appl topical Q14D Qty: 60 2RF Rx Instructions: apply second treatment 14 days after first treatment if live lice remain Interventions: ED Discharge Assessment Last Done: 03/02/22 16:32 Discharge Date/Time: 03/02/22 16:33
== END 2022-03-02 16:33 | disposition home or self-care (01) ==
PROVIDERS: Emergency Provider Internal Medicine; PCP Nurse Practitioner Primary Care
DX: B86 Scabies (principal); F11.10 Opioid abuse, uncomplicated; F14.10 Cocaine abuse, uncomplicated; Z79.899 Other long term (current) drug therapy
CPT/HCPCS: 99283

== ENCOUNTER 2022-03-06 16:07 | Emergency (ER) | payer OTHER, SELFPAY | END 2022-03-06 18:59 | disposition left against medical advice (07) | PROVIDERS: Emergency Provider Emergency Medicine | DX: Z04.9 Encounter for examination and observation for unspecified reason (principal) ==

== ENCOUNTER 2022-04-05 23:07 | Emergency (ER) | payer OTHER, SELFPAY ==
--- NOTE | ~2022-04-05 | CT_ITS ---
EXAMINATION: NONCONTRAST HEAD CT NONCONTRAST CERVICAL SPINE CT INDICATION INFORMATION: Fall with neck injury COMPARISON: 05/14/2018 TECHNIQUE: Separate noncontrast CT examinations of the head and cervical spine were performed. Coronal head CT images and coronal and sagittal cervical spine images were created at the technologist workstation. DLP: 1682 mGy-cm DOSE LOWERING TECHNIQUES: This CT examination was performed using dose optimization techniques as appropriate, variously including the following: - Automated exposure control - Adjustment of mA and/or kV according to patient size (this includes techniques or standardized protocols for targeted exams were dose is matched to indication/reason for exam; i.e. extremities or head) - Use of iterative reconstruction technique FINDINGS: Head: Suboptimal assessment in some regions due to motion artifact. There is no evidence of acute intracranial hemorrhage or territorial infarction. No abnormal mass-effect or midline shift is seen. Rios to white matter differentiation is well preserved. No extra-axial fluid collections are identified. The ventricles are normal in size. There is no abnormal attenuation within the brain parenchyma. No acute fracture is seen. High left frontal scalp skin isai are present. There is slight opacification of the left maxillary sinus. The mastoid air cells are well-aerated. Cervical spine: There is slight grade 1 anterolisthesis of C2 on C3 and retrolisthesis of C3 on C4, similar to prior. Vertebral body heights are maintained. There is disc space narrowing throughout the mid and lower cervical spine with associated endplate osteophytes. Mild to moderate bilateral facet arthropathy. No evidence of acute fracture. No prevertebral soft tissue swelling. Visualized portions of the lung apices are unremarkable. The thyroid gland is unremarkable. CT/CT cervical spine wo con IMPRESSION: 1. Head: No acute intracranial findings. 2. Cervical spine: No acute findings identified. Degenerative changes as noted above.
[2022-04-05 23:16] VITALS: BP 116/67; PULSE 74; O2SAT 99; BMI 25.0
[2022-04-05 23:37] VITALS: BP 90/58; PULSE 68; RESP 8; TEMP 36.4; O2SAT 97
--- NOTE | 2022-04-05 23:42 | ED.HEATRA ---
HPI - Head Injury General Chief complaint: Head Injury Stated complaint: Fall W/ Headstrike w/use of heroin Time Seen by Provider: 04/05/22 23:37 Source: patient and EMS Mode of arrival: EMS Limitations: no limitations History of Present Illness HPI Narrative: 61-year-old male came in for evaluation of heroin overdose and fall with head injury. 61-year-old male admitted to using 1 and half bag of heroin, patient sustained a fall hurting the left side of his head, was given 2 mg of Narcan by EMS patient became more awake. In the ED patient is unresponsive to verbal or painful stimuli, sustained 4 cm laceration to the left side of his head, pupil with pinpoint pupils, patient was given 4 mg of nasal Narcan and patient responded shortly after, BS was 91, vital signs were stable. Patient kept an cervical spine collar. No SI or HI or hallucination. Related Data Previous Rx's Medication Instructions Recorded diphenhydramine HCl 2 % topical 1 appl TOPICAL QID PRN #103 ml 11/08/21 gel (Benadryl) diphenhydramine HCl 25 mg tablet 50 mg PO TID PRN #30 tab 11/08/21 (Benadryl Allergy) permethrin 5 % topical cream 1 appl TOPICAL Q14D #60 g 11/08/21 permethrin 5 % topical cream 1 appl TOPICAL Q14D #60 g 03/02/22 Allergies Allergy/AdvReac Type Severity Reaction Status Date / Time aspirin [ASA] Allergy Intermediate HIVES Unverified 07/21/20 15:26 tuberculin, purified protein Allergy Intermediate RASH, Unverified 07/21/20 15:26 deriva ITCHING [TUBERCULIN,PURIF.PROT.DERIV.] chlorthalidone AdvReac Severe hypokalemia Unverified 07/21/20 15:26 [CHLORTHALIDONE] tb serum Allergy Unknown Uncoded 11/19/19 00:00 Review of Systems Review of Systems: All other systems are reviewed and are negative Constitutional: Reports as per HPI and Reports no additional constitutional complaints Eyes: Reports as per HPI and Reports no additional eye complaints Reports system reviewed and no additional complaints, except as documented Cardiovascular: Reports as per HPI and Reports no additional cardiovascular complaints Respiratory: Reports as per HPI and Reports no additional respiratory complaints Gastrointestinal: Reports as per HPI and Reports no additional gastrointestinal complaints Genitourinary: Reports no additional female genitourinary complaints Musculoskeletal: Reports no additional musculoskeletal complaints Skin/Breast: Reports system reviewed and no additional complaints, except as docu Psychiatric: Reports no additional psychiatric complaints Endocrine: Reports no additional endocrine complaints Hematologic/Lymphatic: Reports no additional hematologic/lymphatic complaints Allergic/Immunologic: Reports no additional allergic/immunologic complaints Reports system reviewed and no additional complaints, except as documented and Reports Abnormal speech present [facility] Past Medical History Medical History Back pain Epidural abscess High cholesterol HTN (hypertension) Leg cramp Spinal cord abscess Surgical History H/O colonoscopy Social History Social History Substance Use Type: Heroin Advance Directives: No Physical Exam Vital Signs: Vital Signs: Last Vital Signs Temp 97.6 F 04/05/22 23:37 Pulse 69 04/06/22 02:40 Resp 12 04/06/22 02:40 BP 113/67 04/06/22 02:40 Pulse Ox 98 04/06/22 02:40 BMI result Body Mass Index 25.0 Vital signs have been reviewed as appeared to be correct. Blood pressure normal. Heart rate normal. Respiration rate normal. Temperature normal. Oxygen saturation normal. Appearance: Alert. Oriented X3. No acute distress. Head: Normal external exam. Normocephalic. Atraumatic. No Fraire signs noted. No raccoon eyes noted, 4 cm laceration to the left parietal area with no active bleeding. Eyes: PERRLA. EOMI. Conjunctiva and sclera normal. Eyelids normal. ENT: TM's Normal. Pharynx normal. Uvula midline. Moist mucous membranes. No trismus noted. No drooling noted. No muffled voice noted. Neck: Normal inspection. Neck supple. FROM. No adenopathy. Thyroid Normal. No meningeal signs. No neck mass noted. CVS: Normal heart rate and rhythm. Heart sound normal. No murmurs noted. Pulses normal throughout. Respiratory: No respiratory distress. Painless inspiration. Breath sounds normal. No wheezes/rales/rhonchi noted. Chest nontender. No accessory muscle usage noted or decreased air movement noted. Abdomen: Soft and nontender. Bowel sounds normal in all 4 quadrants. No distention noted. No organomegaly noted. No visible injury noted. Back: No CVA tenderness. Full range of motion noted. Skin: Skin warm and dry. Normal skin color. Normal skin turgor. No rashes/lesions/lacerations noted. Extremities: No lower extremity edema. Extremities exhibit normal range of motion. Extremities nontender. Neuro: Oriented X 3. Cranial nerve exam: II-XII are grossly intact No motor deficit. No sensory deficit. Reflexes normal. Course Course Course Narrative: Assessment and plan. 61-year-old male came in after using heroin and fall. Patient after Narcan have intact neuro exam, patient observed in the emergency department with stable vital signs, patient now is awake ready for discharge. MDM - Head Injury Lab Data Labs: Lab Results 04/05/22 Range/Units 23:33 POC Glucose 91 (60-115) mg/dL Imaging Data Head/C-spine CT: Attestation: I personally reviewed and interpreted this imaging study as follows: Radiologist's impression: 1.? Head: No acute intracranial findings. 2.? Cervical spine: No acute findings identified. Degenerative changes as noted above. Procedures Laceration Laceration 1: Site: scalp Side (If applicable): left Size (cm): 4 Description: linear Depth: simple, single layer Pre-repair: wound explored Skin layer closed with: other (Staple) Number of sutures: 10 Discharge Plan Discharge Clinical Impression: Laceration of scalp, Heroin overdose, Head injury Patient Disposition: Home, Self-Care Instructions: Laceration (ED) Additional Instructions: See your PCP or come back to the emergency department for staple removal Prescriptions: No Action Benadryl 2 % gel 1 appl topical QID PRN (Reason: itching) Qty: 103 0RF diphenhydramine HCl [Benadryl Allergy] 25 mg tablet 50 mg PO TID PRN (Reason: itching) Qty: 30 0RF permethrin 5 % cream 1 appl topical Q14D Qty: 60 2RF Rx Instructions: apply second treatment 14 days after first treatment if live lice remain permethrin 5 % cream 1 appl topical Q14D Qty: 60 0RF Rx Instructions: apply second treatment 14 days after first treatment if live lice remain Referrals: Ilda Reid NP [Primary Care Provider] -
--- NOTE | 2022-04-06 00:09 | PC.NURSE ---
Pt arrived to our facility alert and oriented after receiving narcan from EMS. Shortly afterwards, pt was found to be breathing with five respirations per minute while laying in bed. Pt was given 4 mg nasal narcan. Pt is currently thrashing in bed, complaining that we made him dope sick . Pt is waiting to receive CT scan.
[2022-04-06] MEDS: Naloxone HCl Nasal TAKE HOME 4 MG SPRAY NOSTRILALT (00:15)
[2022-04-06 01:37] LABS: Glucose, Whole Blood 91 mg/dL (60-115)
--- NOTE | 2022-04-06 01:49 | MHC.CARE ---
CARE Team met with pt due to SUDE eval. Pt appeared somnolent and thrashing, appearing to be uncomfortable. Pt declined SUDE at this time and any detox services/referrals.
[2022-04-06 02:40] VITALS: BP 113/67; PULSE 69; RESP 12; O2SAT 98
== END 2022-04-06 06:37 | disposition home or self-care (01) ==
PROVIDERS: Emergency Provider Emergency Medicine; PCP Nurse Practitioner Primary Care
DX: T40.1X1A Poisoning by heroin, accidental (unintentional), initial encounter (principal); S01.01XA Laceration without foreign body of scalp, initial encounter; S09.90XA Unspecified injury of head, initial encounter; I10 Essential (primary) hypertension; W19.XXXA Unspecified fall, initial encounter; Y93.9 Activity, unspecified; Y99.9 Unspecified external cause status; Y92.9 Unspecified place or not applicable
CPT/HCPCS: 12002; 70450; 72125; 82947; 99282; 99284

== ENCOUNTER 2022-06-07 | Emergency (ER) | payer OTHER, SELFPAY ==
--- NOTE | ~2022-06-07 | CT_ITS ---
EXAMINATION: CT HIP WITHOUT CONTRAST, RIGHT CLINICAL INFORMATION: Hip pain COMPARISON: 01/06/2019 TECHNIQUE: Multidetector CT imaging of the right hip was performed without the use of intravenous contrast. Coronal and sagittal reformats are reviewed. This CT examination was performed using dose optimization techniques as appropriate, variously including the following: *Automated exposure control *Adjustment of mA and/or kV according to patient size (this includes techniques or standardized protocols for targeted exams where dose is matched to indication/reason for exam; i.e. extremities or head) *Use of iterative reconstruction technique DLP: 152 mGy-cm FINDINGS: No acute fracture or dislocation. Femoral head is spherical. Hip joint space is observed. Small acetabular and femoral collar marginal osteophytes. Mild degenerative changes of the symphysis pubis and right sacroiliac joints. No suspicious osseous abnormalities. Imaged viscera shows no acute findings. No hernias. Scrotal jacoby present within the left hemiscrotum. CT/CT hip RT wo con IMPRESSION: No acute fracture or dislocation.
[2022-06-07 00:09] VITALS: BP 136/79; BP 138/82; PULSE 80; PULSE 89; RESP 16; TEMP 36.8; O2SAT 98; O2SAT 99; BMI 16.2
[2022-06-07 00:17] VITALS: BP 136/79; PULSE 83; RESP 14; TEMP 36.8; O2SAT 99
--- NOTE | 2022-06-07 01:46 | ED_ITS ---
HPI - Extremity Problem General Chief complaint: Extremity Problem Stated complaint: R HIP PAIN,DENIES TRAUMA PER EMS Time Seen by Provider: 06/07/22 01:21 History of Present Illness HPI Narrative: Patient is a 61-year-old male presents today with having right hip pain. Positive history of osteoarthritis in the right hip. Positive history of IV drug use. Patient has HIV is currently taking his retroviral medications. Patient denies any fever chills. No cough no congestion or upper respiratory symptoms. No diaphoresis. Patient is from home. No chest pain or shortness of breath no nausea no vomiting pain has been ongoing for days. History of the same pain in the past. Denies any trauma. Related Data Previous Rx's Medication Instructions Recorded diphenhydramine HCl 2 % topical 1 appl topical QID PRN itching 11/08/21 gel (Benadryl) #103 mL diphenhydramine HCl 25 mg tablet 50 mg PO TID PRN itching #30 tabs 11/08/21 (Benadryl Allergy) permethrin 5 % topical cream 1 appl topical Q14D scabies 2 11/08/21 doses #60 grams permethrin 5 % topical cream 1 appl topical Q14D 2 doses #60 03/02/22 grams Allergies Allergy/AdvReac Type Severity Reaction Status Date / Time aspirin [ASA] Allergy Intermediate HIVES Unverified 07/21/20 15:26 tuberculin, purified protein Allergy Intermediate RASH, Unverified 07/21/20 15:26 deriva ITCHING [TUBERCULIN,PURIF.PROT.DERIV.] chlorthalidone AdvReac Severe hypokalemia Unverified 07/21/20 15:26 [CHLORTHALIDONE] tb serum Allergy Unknown Uncoded 11/19/19 00:00 Review of Systems Review of Systems: No fever no chills no chest pain or shortness breath no nausea no vomiting Yes all other systems are reviewed and are negative PMFSH Past Medical History Attestation statement: The following information was validated with the patient. Medical History Back pain Epidural abscess High cholesterol HTN (hypertension) Leg cramp Spinal cord abscess Surgical History H/O colonoscopy Social History Social History Alcohol intake: never Patient Tobacco Use Status: Current everyday Tobacco user Use of substances other than those prescribed or required for medical reasons: Yes Substance Use Type: Crack/Cocaine and Heroin Substance Use Frequency: Daily Advance Directives: No Advance Directives Information Provided: No Physical Exam Vital Signs: Vital Signs: Last Vital Signs Temp 98.2 F 06/07/22 00:17 Pulse 83 06/07/22 00:17 Resp 14 06/07/22 00:17 BP 136/79 06/07/22 00:17 Pulse Ox 99 06/07/22 00:17 O2 Del Method 06/07/22 00:17 BMI result Body Mass Index 16.2 Appearance: Alert. Oriented X3. No acute distress. Eyes: Pupils equal, round and reactive to light. ENT: Pharynx normal. Neck: Normal inspection. Neck supple. No lymph nodes noted. No crepitus CVS: Normal heart rate and rhythm. Pulses normal. Normal S1 and S2 Respiratory: No respiratory distress. Breath sounds normal. No Wheezing. No rales Abdomen: Soft and nontender. No rigidity. No distention. good BS x4 Skin: Skin warm and dry. Normal skin color. Normal skin turgor. Extremities: No lower extremity edema. Neurovascular intact to all extremities. No Lacerations. No Rash. Range of motion at the right hip grossly intact. Neuro: Oriented X 3. No motor deficit. No sensory deficit. Moving all extermities. No slurred speech MDM - Extremity (Nontraumatic) MDM Narrative Medical decision making narrative: Patient's pain is chronic. X-ray showed no evidence of fracture. There is good range of motion the white count is normal. There is no evidence for septic joint. There is no spinal tenderness. No evidence for spinal abscess today. Patient is to be discharged home. Follow up on an outpatient basis. Told to stop using heroin. In stable condition. Lab Data Attestation: I reviewed the patient's lab results. Result diagrams: 06/07/22 02:03 06/07/22 02:03 Labs: Lab Results 06/07/22 06/07/22 06/07/22 Range/Units 02:03 02:03 02:03 WBC 7.8 (4.8-10.8) X10*3/uL RBC 3.88 L (4.60-5.80) X10*6/uL Hgb 10.0 L (14.0-18.0) g/dl Hct 31.5 L (42.0-52.0) % MCV 81.2 (80.0-98.0) fL MCH 25.8 L (27.0-33.0) pg MCHC 31.7 (31.0-36.0) g/dl RDW 14.6 (11.0-16.0) % Plt Count 386 (160-400) X10*3/uL MPV 10.1 (9.4-12.4) fL Immature Gran % (Auto) 0.4 (0.0-0.4) % Neut % (Auto) 80.6 H (45-73) % Lymph % (Auto) 10.9 L (20-40) % [place] % (Auto) 6.3 (2-11) % Eos % (Auto) 1.4 (0-4) % Baso % (Auto) 0.4 (0-2) % Lymph # (Auto) 0.9 L (1.2-4.9) X10*3/uL [place] # (Auto) 0.5 (0.1-1.2) X10*3/uL Eos # (Auto) 0.1 (0.0-0.4) X10*3/uL Baso # (Auto) 0.0 (0.0-0.2) X10*3/uL Abs Immat Gran (auto) 0.03 (0.00-0.03) X10*3/uL Absolute Neuts (auto) 6.3 (2.0-8.3) x10*3/uL Absolute Nucleated RBC 0.000 (0.0-0.012) X10*3/uL Nucleated RBC % (auto) 0.0 (0.0-0.2) /100WBC ESR 45 H (0-15) MM/HR Sodium 139 (135-145) mmol/L Potassium 3.8 (3.3-5.1) mmol/L Chloride 104 (96-108) mmol/L Carbon Dioxide 25 (22-29) mmol/L Anion Gap 14 (12-20) BUN 24 H (9-16) mg/dL Creatinine 0.75 (0.5-1.4) mg/dL Estim Creat Clear Calc 71.9 Estimated GFR > 60 Random Glucose 105 D (60-115) mg/dL Calcium 9.0 (8.4-10.2) mg/dL C-Reactive Protein 1.04 H (< or = 0.50) mg/dL Discharge Plan Discharge Clinical Impression: Osteoarthritis Patient Disposition: Home, Self-Care Instructions: Osteoarthritis (ED) Prescriptions: No Action Benadryl 2 % gel 1 appl topical QID PRN (Reason: itching) Qty: 103 0RF diphenhydramine HCl [Benadryl Allergy] 25 mg tablet 50 mg PO TID PRN (Reason: itching) Qty: 30 0RF permethrin 5 % cream 1 appl topical Q14D Qty: 60 2RF Rx Instructions: apply second treatment 14 days after first treatment if live lice remain permethrin 5 % cream 1 appl topical Q14D Qty: 60 0RF Rx Instructions: apply second treatment 14 days after first treatment if live lice remain Referrals: Ilda Reid EXTENSION COURSE COORDINATOR [Primary Care Provider] -
[2022-06-07 02:07] LABS: MANUAL DIFF FLAG NO
[2022-06-07 02:09] LABS: Basophils Percent Auto 0.4 % (0-2); Eosinophils Absolute Auto 0.1 X10*3/uL (0.0-0.4); Eosinophils Percent Auto 1.4 % (0-4); Hematocrit 31.5 % (42.0-52.0); Imm Gran Abs Auto 0.03 X10*3/uL (0.00-0.03); Imm Gran Pct Auto 0.4 % (0.0-0.4); Lymphocytes Absolute Auto 0.9 X10*3/uL (1.2-4.9); Lymphocytes Percent Auto 10.9 % (20-40); Mean Corpuscular HGB Conc 31.7 g/dl (31.0-36.0); Mean Corpuscular Hemoglobin 25.8 pg (27.0-33.0); Mean Corpuscular Volume 81.2 fL (80.0-98.0); Mean Platelet Volume 10.1 fL (9.4-12.4); Monocytes Absolute Auto 0.5 X10*3/uL (0.1-1.2); Monocytes Percent Auto 6.3 % (2-11); Neutrophils Absolute Auto 6.3 x10*3/uL (2.0-8.3); Neutrophils Percent Auto 80.6 % (45-73); Platelet Count 386 X10*3/uL (160-400); Red Blood Count 3.88 X10*6/uL (4.60-5.80); Red Cell Distribution Width 14.6 % (11.0-16.0); White Blood Count 7.8 X10*3/uL (4.8-10.8)
[2022-06-07 02:26] LABS: Anion Gap 14 (12-20); Blood Urea Nitrogen 24 mg/dL (9-16); C Reactive Protein 1.04 mg/dL (< or = 0.50); Carbon Dioxide 25 mmol/L (22-29); Chloride 104 mmol/L (96-108); Creatinine Clr Calc Pharmacy 71.9; Estimated Glomerular Filt Rate > 60; Glucose Random 105 mg/dL (60-115); Potassium 3.8 mmol/L (3.3-5.1); Sodium 139 mmol/L (135-145)
[2022-06-07 02:40] LABS: Erythrocyte Sedimentation Rate 45 MM/HR (0-15)
[2022-06-07 04:10] VITALS: BP 113/72; PULSE 70; RESP 18; O2SAT 99
[2022-06-07] MEDS: Cyclobenzaprine HCl 10 MG TABLET PO (05:02)
[2022-06-07] MEDS: Ibuprofen 600 MG TABLET PO (05:02)
--- NOTE | 2022-06-07 05:09 | PC.NURSE ---
Pt. was discharged home after CT scan results were negative. Pt. agreed to this discharge, this RN present while he was on the phone arranging a ride home with his sister. This RN wheeled pt. out to lobby to wait for ride from sister. When sister arrived, this RN was called to front lobby with Deon Benoit MD. Sister was stating that pt. was in too much pain to go home and would not be able to get up to fifth floor apartment due to excrutiating pain. Deon Benoit MD and this RN present at front entrance of ED speaking with pt. and his sister. MD offered both to give patient a dose of Motrin and for pt. to come back into ED for further evaluation and an MRI in the morning if he was in too much pain to go home. Pt. adamantly refused re-admission multiple times and refused dose of Motrin. again offered Motrin and explained to pt. that he as unable to prescribe any stronger narcotic pain medications due to pt. being an active heroin user. Pt. stated to that he was going to go home and shoot as much heroin as he could. Pt. finally agreed to MD's offer for a dose of Flexeril and Motrin and was medicated prior to leaving, but pt. continued refusing to come back into ED, stating to that it was too late. advised pt. and pt.'s sister that we are here 27/05 and they are always welcome to come back if symptoms worsen or he changes his mind about wanting further evaluation.
== END 2022-06-07 04:55 | disposition home or self-care (01) ==
PROVIDERS: Emergency Provider Emergency Medicine Emergency Medical Services; PCP Nurse Practitioner Primary Care
DX: M16.11 Unilateral primary osteoarthritis, right hip (principal); M25.551 Pain in right hip; F19.10 Other psychoactive substance abuse, uncomplicated; B20 Human immunodeficiency virus [HIV] disease; I10 Essential (primary) hypertension; E78.5 Hyperlipidemia, unspecified; F17.200 Nicotine dependence, unspecified, uncomplicated; Z79.899 Other long term (current) drug therapy
CPT/HCPCS: 36415; 73700; 80048; 85025; 85652; 86140; 99284

== ENCOUNTER 2022-08-29 20:57 | Emergency (ER) | payer OTHER, SELFPAY ==
[2022-08-29 21:10] VITALS: BP 116/64; BP 118/78; PULSE 102; PULSE 68; RESP 16; TEMP 37.2; O2SAT 97; O2SAT 99; BMI 18.1
--- OUTSIDE RECORDS SUMMARY | 2022-08-29 21:17 | XMS_ITS | Continuity of Care Document ---
:1960 Author Organization [facility] Address [address] [place] [id number]- Care Team Providers Name Role Phone Karol HAGER, Hetal Primary Care Physician Encounter [facility] Date(s): 05/08/20 - 05/13/[address] [address]- [facility] Discharge Disposition: A-Transfer SNF Attending Physician: Jane Bynum MD Admitting Physician: Giles Ignacio MD Referring Physician: Giles Ignacio MD Allergies, Adverse Reactions, Alerts Substance Reaction Severity Status aspirin Tuberculin allergy Active tuberculin purified protein derivative Active Immunizations Given and Recorded Vaccine Date Status Refusal Reason tetanus/diphtheria/pertussis, acel(Tdap) 04/30/10 Given Medications baclofen 20 mg oral tablet 20 mg, 1, tablet, By Mouth, 3 times a day, # 90 tablet, Refills 0, Tot. Refills 0, Maintenance, 05/13/20 9:17:00 EDT, Print Requisition Start Date: 05/13/20 Status: Ordereddoxepin 100 mg oral capsule TAKE ONE CAPSULE BY MOUTH EVERY DAY AT BEDTIME Start Date: 03/11/17 Status: OrderedFlovent HFA 110 mcg/inh inhalation aerosol USE 1 PUFF BY MOUTH TWICE DAILY Start Date: 03/11/17 Status: Orderedfluticasone-vilanterol Inhalation, Daily, 0 Refills, Maintenance, 05/13/20 9:16:00 EDT, Inhaler Start Date: 05/13/20 Status: Orderedgabapentin 800 mg oral tablet 1 tablet = 800 mg, By Mouth, 4 times a day, 0 Refills, Maintenance, 08/30/15 10:38:20 Start Date: 08/30/15 Status: OrderedHYDROmorphone 4 mg oral tablet 1 tablet = 4 mg, By Mouth, Every 4 hours, PRN Pain , Severe, # 18 tablet, 0 Refills, Acute 05/14/20 9:17:00 EDT, 05/13/20 9:16:00 EDT, Tablet, Partial fill upon patient request Start Date: 05/13/20 Stop Date: 05/14/20 Status: Orderedlisinopril 10 mg oral tablet TAKE 1 TABLET BY MOUTH EVERY DAY Start Date: 03/11/17 Status: Orderedmorphine 30 mg/8 to 12 hr oral tablet, extended release 1 tablet = 30 mg, By Mouth, Every 12 hours, # 28 tablet, 0 Refills, Maintenance, 05/13/20 9:16:00 EDT, ER Tablet, Partial fill upon patient request Start Date: 05/13/20 Stop Date: 05/27/20 Status: OrderedMultivitamin Tablet 1 tablet, By Mouth, Daily, 0 Refills, Maintenance, 05/08/20 3:11:00 EDT, Tablet Start Date: 05/08/20 Status: OrderedOdefsey oral tablet TAKE 1 TABLET BY MOUTH EVERY DAY AT BEDTIME Start Date: 03/11/17 Status: Orderedomeprazole 20 mg oral delayed release tablet 1 tablet = 20 mg, By Mouth, Daily, 0 Refills, Maintenance, 11/02/15 8:57:40 Start Date: 11/02/15 Status: Orderedpravastatin 40 mg oral tablet TAKE 1 TABLET BY ORAL ROUTE EVERY NIGHT Start Date: 03/11/17 Status: OrderedrOPINIRole 1 mg oral tablet 4 tablet = 4 mg, By Mouth, 3 times a day, 0 Refills, Maintenance, 05/13/20 9:15:00 EDT, Tablet Start Date: 05/13/20 Status: OrderedTivicay 50 mg oral tablet 1 tablet = 50 mg, By Mouth, Daily, # 30 tablet, 0 Refills, Maintenance, 05/08/20 3:06:00 EDT, Tablet Start Date: 05/08/20 Status: OrderedTylenol 325 mg oral tablet 650 mg, 2, tablet, By Mouth, Every 6 hours, PRN, # 120 tablet, Refills 0, Maintenance, Pain , Mild, 05/08/20 3:02:00 EDT Start Date: 05/08/20 Status: Orderedvancomycin 1 g/250 mL-D5% intravenous solution See Instructions, 1gm IV Infusion Every 12 hours till 06/21/2020, # 50 each, 0 Refills, Acute 05/14/20 9:18:00 EDT, 05/13/20 9:18:00 EDT Start Date: 05/13/20 Stop Date: 05/14/20 Status: Orderedzolpidem 10 mg oral tablet 1 tablet = 10 mg, By Mouth, Daily at bedtime, PRN for sleep, # 10 tablet, 0 Refills, Acute 05/14/20 9:17:00 EDT, 05/13/20 9:17:00 EDT, Tablet Start Date: 05/13/20 Stop Date: 05/14/20 Status: Ordered Problem List Condition Effective Dates Status Health Status Informant Marijuana use(Confirmed) Active Chronic obstructive pulmonary disease Active (COPD)(Confirmed) Foot pain(Confirmed) Active H/O traumatic brain injury(Confirmed) Active History of HIV infection(Confirmed) Active Knee pain, bilateral(Confirmed) Active Low back pain(Confirmed) Active Myofascial pain(Confirmed) Active Neck pain(Confirmed) Active Nicotine use disorder(Confirmed) Active Heroin use(Confirmed) Active Shoulder pain(Confirmed) Active 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 REPORT STATUS : PRELIMINARY REPORT TEST:Deep Wound Culture STATUS:Auth (Verified) BODY SITE: SOURCE:ABSCES COLLECTED DATE/TIME:05/09/20 2:46 PMDeep Wound Culture SPECIMEN DESCRIPTION : ABSCESS BACK LIMVOL SPECIAL REQUESTS : NONE GRAM STAIN : 1+ POLYMORPHONUCLEAR LEUKOCYTES 3+ RBC'S NO ORGANISMS SEEN CULTURE : NO GROWTH 2 DAYS REPORT STATUS : FINAL 05/11/2020TEST:Blood Culture STATUS:Auth (Verified) BODY SITE: SOURCE:Blood COLLECTED DATE/TIME:05/08/20 8:01 AMBlood Culture SPECIMEN DESCRIPTION : BLOOD R AC SPECIAL REQUESTS : NONE CULTURE : NO GROWTH 5 DAYS. REPORT STATUS : FINAL 05/13/2020TEST:Blood Culture, Second Order STATUS:Auth (Verified) BODY SITE: SOURCE:Blood COLLECTED DATE/TIME:05/08/20 8:01 AMBlood Culture, Second Order SPECIMEN DESCRIPTION : BLOOD L AC SPECIAL REQUESTS : NONE CULTURE : NO GROWTH 5 DAYS. REPORT STATUS : FINAL 05/13/2020 Vital Signs Most recent to oldest 1 2 3 4 [Reference Range]: Height 168 cm 168 cm 168 cm (05/13/20 8:21 AM) (05/13/20 8:03 AM) (05/12/20 7:00 PM) Weight 61.3 kg 59 kg (05/13/20 6:54 AM) (05/08/20 1:29 AM) Oxygen Saturation 100 % 100 % 100 % [94-100 %] (05/13/20 8:21 AM) (05/13/20 8:03 AM) (05/12/20 7:00 PM) Pulse Rate [55-90 bpm] 86 bpm 84 bpm 84 bpm (05/13/20 8:21 AM) (05/13/20 8:03 AM) (05/12/20 7:00 PM) Body Mass Index 20.9 [18.5-24.99] (05/08/20 1:29 AM) Blood Pressure 133/77 mm Hg 138/69 mm Hg 138/69 mm Hg [90-138/55-84 mm Hg] (05/13/20 8:21 AM) (05/13/20 8:03 AM) (05/13/20 7 :52 AM) Respiratory Rate [16-30 18 br/min 18 br/min 18 br/min 18 b r/min br/min] (05/13/20 5:07 PM) (05/13/20 4:02 PM) (05/13/20 3:02 PM) (05/13/20 3:02 PM) Temperature [96.8-100.4 98.5 DegF 100.7 DegF 98.6 DegF DegF] (05/13/20 8:21 AM) *H* (05/12/20 7:00 PM) (05/13/20 8:03 AM) Mode of Delivery Room air Room air Room air (Oxygen) (05/13/20 8:21 AM) (05/13/20 8:03 AM) (05/12/20 7:00 PM) Blood pressure sites Arm, left Arm, left Arm, left (05/13/20 8:21 AM) (05/13/20 8:03 AM) (05/12/20 7:00 PM) Temperature Route Oral Oral Oral (05/13/20 8:21 AM) (05/13/20 8:03 AM) (05/12/20 7:00 PM) Dry Weight 60 kg (05/08/20 1:29 AM) Weight Obtained Via Bed scale (05/13/20 6:54 AM) Social History Social History Type Response Smoking Status Current every day smoker; Ty pe: Cigarettes; Tobacco use times per day: 5-6 cigarettes/day; entered on: 03/11/17 Sex
--- OUTSIDE RECORDS SUMMARY | 2022-08-29 21:17 | XMS_ITS | Continuity of Care Document ---
:1960 Author Organization [facility] Address [address] [place] [address]- Care Team Providers Name Role Phone Hetal Roberson MD Primary Care Physician Encounter [facility] Date(s): 07/19/20 - 08/18/20 [facility] [address] [place] [id number] Attending Physician: Laura Dunham Admitting Physician: Laura Dunham Referring Physician: AdmtrLaura Allergies, Adverse Reactions, Alerts Substance Reaction Severity [...] Maintenance, 08/30/15 10:38:20 Start Date: 08/30/15 Status: Orderedlisinopril 10 mg oral tablet TAKE [...] 05/08/20 3:02:00 EDT Start Date: 05/08/20 Status: Ordered Problem List Condition Effective Dates [...] Active predominant pain(Confirmed) Mid back pain(Confirmed) Active Social History Social History Type Response Smoking Status Current every day smoker; Ty pe: Cigarettes; Tobacco use times per day: 5-6 cigarettes/day; entered on: 03/11/17 Sex
--- OUTSIDE RECORDS SUMMARY | 2022-08-29 21:17 | XMS_ITS | Continuity of Care Document ---
:1960 Author Organization [facility] Address [address] [place] [address]- Care Team Providers Name Role Phone Hetal Roberson MD Primary Care Physician En[place] [facility] Date(s): 03/07/22 - 03/07/[address] [address]- Discharge Disposition: A-D/C Home Attending Physician: Oly Deshpande MD Admitting Physician: Oly Deshpande MD Referring Physician: Not on Staff, Referring MD Allergies, Adverse Reactions, Alerts Substance Reaction [...] EDT, Print Requisition Start Date: 05/13/20 Status: OrderedCombivent Respimat 20 mcg-100 mcg/inh inhalation aerosol 0 Refills, Maintenance, 12/21/20 22:46:00 EST, Partial fill upon patient request if the prescriptionis for a schedule II opioid drug. Start Date: 12/21/20 Status: OrderedDescovy 200 mg-25 mg oral tablet 1 tablet, By Mouth, Daily, # 30 tablet, 0 Refills, Maintenance, 12/21/20 23:06:00 EST, Tablet, Partial fill upon patient request if the prescription is for a schedule II opioid drug. Start Date: 12/21/20 Status: Ordereddoxepin 150 mg oral capsule 0 Refills, Maintenance, 12/21/20 22:46:00 EST, Partial fill upon patient request if the prescriptionis for a schedule II opioid drug. Start Date: 12/21/20 Status: OrderedFlovent HFA 110 mcg/inh inhalation aerosol USE 1 PUFF BY MOUTH TWICE DAILY Start Date: 03/11/17 Status: Orderedfluticasone-vilanterol Inhalation, Daily, 0 Refills, Maintenance, 05/13/20 9:16:00 EDT, Inhaler Start Date: 05/13/20 Status: Orderedgabapentin 800 mg oral tablet 1 tablet = 800 mg, By Mouth, 4 times a day, 0 Refills, Maintenance, 08/30/15 10:38:20 Start Date: 08/30/15 Status: Orderedlisinopril 20 mg oral tablet Refills 0, Maintenance, 12/21/20 22:46:00 EST, Partial fill upon patient request if the prescriptionis for a schedule II opioid drug. Start Date: 12/21/20 Status: Orderedmorphine 30 mg/8 to 12 hr oral tablet, extended release 1 tablet = 30 mg, By Mouth, Every 12 hours, # 28 tablet, 0 Refills, Maintenance, 05/13/20 9:16:00 EDT, ER Tablet, Partial fill upon patient request Start Date: 05/13/20 Stop Date: 05/27/20 Status: OrderedMultivitamin Tablet 1 tablet, By Mouth, Daily, 0 Refills, Maintenance, 05/08/20 3:11:00 EDT, Tablet Start Date: 05/08/20 Status: Orderednaproxen 500 mg oral tablet 0 Refills, Maintenance, 12/21/20 22:46:00 EST, Partial fill upon patient request if the prescriptionis for a schedule II opioid drug. Start Date: 12/21/20 Status: Orderedomeprazole 20 mg oral delayed release [...] Active predominant pain(Confirmed) Mid back pain(Confirmed) Active Vital Signs Most recent to oldest [Reference Range]: 1 Oxygen Saturation [94-100 %] 100 % (03/07/22 8:58 AM) Pulse Rate [55-90 bpm] 74 bpm (03/07/22 8:58 AM) Blood Pressure [90-138/55-84 mm Hg] 147/80 mm Hg *H* (03/07/22 8:58 AM) Respiratory Rate [16-30 br/min] 18 br/min (03/07/22 8:58 AM) Temperature [96.8-100.4 DegF] 98.6 DegF (03/07/22 8:58 AM) Mode of Delivery (Oxygen) Room air (03/07/22 8:58 AM) Temperature Route Oral (03/07/22 8:58 AM) Social History Social History Type Response Smoking Status Current every day smoker; Ty pe: Cigarettes; Tobacco use times per day: 5-6 cigarettes/day; entered on: 03/11/17 Sex
--- OUTSIDE RECORDS SUMMARY | 2022-08-29 21:17 | XMS_ITS | Continuity of Care Document ---
:1960 Author Organization [facility] Address [address] [place] [address]- Care Team Providers Name Role Phone Hetal Roberson MD Primary Care Physician Encounter [facility] Date(s): 06/03/20 - 07/03/20 [facility] [address] [place] [id number]- [facility] Allergies, Adverse Reactions, Alerts Substance Reaction Severity [...]
--- OUTSIDE RECORDS SUMMARY | 2022-08-29 21:17 | XMS_ITS | Continuity of Care Document ---
:1960 Author Organization [facility] Address [address] [place] [address]- Care Team Providers Name Role Phone Hetal Roberson MD Primary Care Physician Encounter [facility] Date(s): 05/30/20 - 06/29/20 [facility] [address] [place] [phone]- [facility] Allergies, Adverse Reactions, Alerts Substance Reaction Severity [...]
--- OUTSIDE RECORDS SUMMARY | 2022-08-29 21:17 | XMS_ITS | Continuity of Care Document ---
:1960 Author Organization [facility] Address [address] [place] [address]- Care Team Providers Name Role Phone Hetal Roberson MD Primary Care Physician Encounter [facility] Date(s): 06/14/20 - 07/14/20 [facility] [address] [place] [phone]- [facility] Allergies, Adverse Reactions, Alerts Substance [...]
--- OUTSIDE RECORDS SUMMARY | 2022-08-29 21:18 | XMS_ITS | Continuity of Care Document ---
:1960 Author Organization [facility] Infect[facility] Disease Address [address] [place] [address]- Care Team Providers Name Role Phone Hetal Roberson MD Primary Care Physician Encounter [facility] [place] Date(s): 06/08/20 - 07/08/20 [facility] Infect[facility] [address] [place] [id number]- [facility] Allergies, Adverse Reactions, Alerts Substance Reaction Severity [...]
--- OUTSIDE RECORDS SUMMARY | 2022-08-29 21:18 | XMS_ITS | Continuity of Care Document ---
:1960 Author Organization [facility] Address [address] [place] [address]- Care Team Providers Name Role Phone Hetal Roberson MD Primary Care Physician Encounter [facility] [place] Date(s): 06/03/20 - 06/04/[address] [address]- [facility] Discharge Disposition: A-D/C Walkout Attending Physician: Not on Staff, Attending MD Admitting Physician: Not on Staff, Admitting MD Referring Physician: Not on Staff, Referring [...] Maintenance, 08/30/15 10:38:20 Start Date: 08/30/15 Status: Orderedlinezolid 600 mg oral tablet 1 tablet = 600 mg, By Mouth, Every 12 hours, for 17 days, # 34 tablet, 0 Refills, Acute 06/20/20 13:02:00 EDT, 06/03/20 13:02:00 EDT, [facility], 168, cm, 05/13/20 8:21:00 EDT, Height, 60, kg, 05/08/20 2:44:00 EDT, Dry Weight Start Date: 06/03/20 Stop Date: 06/20/20 Status: Orderedlisinopril 10 mg oral tablet TAKE [...] Vital Signs Most recent to oldest [Reference 1 2 3 Range]: Oxygen Saturation [94-100 %] 91 % 100 % 97 % *L* (06/04/20 2:40 AM) (06/03/20 7:58 P M) (06/04/20 5:49 AM) Pulse Rate [55-90 bpm] 88 bpm 89 bpm 96 bpm (06/04/20 5:49 AM) (06/04/20 2:40 AM) *H* (06/03/20 7:58 PM ) Blood Pressure [90-138/55-84 mm 130/68 mm Hg 145/71 mm Hg 124/80 mm Hg Hg] (06/04/20 5:49 AM) *H* (06/03/20 7:58 P M) (06/04/20 2:40 AM) Respiratory Rate [16-30 br/min] 18 br/min 18 br/min 18 br/min (06/04/20 5:49 AM) (06/04/20 2:40 AM) (06/03/20 7:58 PM) Temperature [96.8-100.4 DegF] 97.6 DegF 97.8 DegF 98 .5 DegF (06/04/20 5:49 AM) (06/04/20 2:40 AM) (06/03/20 7:58 PM) Mode of Delivery (Oxygen) Room air Room air Room a ir (06/04/20 5:49 AM) (06/04/20 2:40 AM) (06/03/20 7:58 PM) Blood pressure sites Arm, left Arm, right Arm, right (8/1/20 5:49 AM) (06/04/20 2:40 AM) (06/03/20 7:58 PM) Temperature Route Oral Oral Oral (06/04/20 5:49 AM) (06/04/20 2:40 AM) (06/03/20 7:58 PM) Social History Social History Type Response Smoking Status Current every day smoker; Ty pe: Cigarettes; Tobacco use times per day: 5-6 cigarettes/day; entered on: 03/11/17 Sex
--- OUTSIDE RECORDS SUMMARY | 2022-08-29 21:18 | XMS_ITS | Continuity of Care Document ---
:1960 Author Organization [facility] Infect[facility] Disease Address [address] [place] [address]- Care Team Providers Name Role Phone Hetal Roberson MD Primary Care Physician Encounter [facility] [place] Date(s): 06/22/20 - 07/22/20 [facility] [address] [place] [id number] [facility] Allergies, Adverse Reactions, Alerts Substance [...]
--- OUTSIDE RECORDS SUMMARY | 2022-08-29 21:18 | XMS_ITS | Continuity of Care Document ---
:1960 Author Organization [address], [address] [place] [address]- Care Team Providers Name Role Phone Hetal Roberson MD Primary Care Physician Encounter [facility] [place] Date(s): 06/17/20 - 07/17/[address], [address] [place] [address]- [facility] Allergies, Adverse Reactions, Alerts Substance Reaction [...]
--- OUTSIDE RECORDS SUMMARY | 2022-08-29 21:18 | XMS_ITS | Continuity of Care Document ---
:1960 Author Organization [facility] Infectious Disease Address [address] [place] [address]- Care Team Providers Name Role Phone Hetal Roberson MD Primary Care Physician Encounter [facility] [place] Date(s): 06/09/20 - 07/09/20 [facility] [address] [place] [address]- [facility] Allergies, Adverse Reactions, Alerts Substance Reaction [...]
--- OUTSIDE RECORDS SUMMARY | 2022-08-29 21:18 | XMS_ITS | Continuity of Care Document ---
:1960 Author Organization [facility] Address [address] [place] [address]- Care Team Providers Name Role Phone Karol HAGER, Hetal Primary Care Physician Encounter [facility] [place] Date(s): 12/21/20 - 12/23/[address] [address] Discharge Disposition: A-D/C AMA Attending Physician: Martha Rodríguez MD Admitting Physician: Jorge Dominguez DO Referring Physician: Not on Staff, Referring MD [...] EDT, Inhaler Start Date: 05/13/20 Status: Orderedgabapentin 400 mg oral capsule 800 mg, Capsule, By Mouth, 12/23/20 13:00:00 EST Start Date: 12/23/20 Stop Date: 12/23/20 Status: Completedgabapentin 800 mg oral tablet 1 tablet = [...] Maintenance, 11/02/15 8:57:40 Start Date: 11/02/15 Status: OrderedoxyCODONE 5 mg oral tablet 10 mg, Tablet, By Mouth, Every 6 hours, PRN for Pain , Moderate, Routine, 12/21/20 23:29:00 EST Start Date: 12/21/20 Stop Date: 12/24/20 Status: Discontinuedpravastatin 40 mg oral tablet TAKE 1 TABLET [...] Active Vital Signs Most recent to oldest 1 2 3 [Reference Range]: Height 172 cm 172 cm 172 cm (12/23/20 7:43 AM) (12/22/20 11:33 PM) (12/22/20 8: 16 PM) Weight 58.9 kg (12/21/20 9:58 PM) Oxygen Saturation [94-100 %] 100 % 98 % 99 % (12/23/20 11:00 AM) (12/23/20 7:43 AM) (12/22/20 11 :33 PM) Pulse Rate [55-90 bpm] 73 bpm 69 bpm 70 bpm (12/23/20 11:00 AM) (12/23/20 7:43 AM) (12/22/20 11 :33 PM) Body Mass Index [18.5-24.99] 19.91 (12/21/20 9:58 PM) Blood Pressure [90-138/55-84 151/82 mm Hg 130/78 mm Hg 127 /71 mm Hg mm Hg] *H* (12/23/20 7:43 AM) (12/22/20 11:33 PM) (12/23/20 11:00 AM) Respiratory Rate [16-30 16 br/min 16 br/min 17 br/mi n br/min] (12/23/20 12:25 PM) (12/23/20 12:25 PM) (12/23/20 1 1:00 AM) Temperature [96.8-100.4 97.8 DegF 98.3 DegF 98.5 Deg F DegF] (12/23/20 11:00 AM) (12/23/20 7:43 AM) (12/22/20 11 :33 PM) Mode of Delivery (Oxygen) Room air Room air Room a ir (12/23/20 11:00 AM) (12/23/20 7:43 AM) (12/22/20 11 :33 PM) Blood pressure sites Arm, right Arm, right Arm, right (12/23/20 11:00 AM) (12/23/20 7:43 AM) (12/22/20 11 :33 PM) Temperature Route Temporal Temporal Temporal (12/23/20 11:00 AM) (12/23/20 7:43 AM) (12/22/20 11 :33 PM) Dry Weight 58.9 kg (12/21/20 9:58 PM) Weight Obtained Via Bed scale (12/21/20 9:58 PM) Dry Weight Obtained Via Bed scale (12/21/20 9:58 PM) Social History Social History Type Response Smoking Status Current every day smoker; Ty pe: Cigarettes; Tobacco use times per day: 5-6 cigarettes/day; entered on: 03/11/17 Sex
--- OUTSIDE RECORDS SUMMARY | 2022-08-29 21:18 | XMS_ITS | Continuity of Care Document ---
:1960 Author Organization [facility] Infectious Disease Address [address] [place] [address]- Care Team Providers Name Role Phone Hetal Roberson MD Primary Care Physician [place] [facility] [place] Date(s): 06/01/20 - 07/01/20 [facility] Infect[facility] [address] [place] [address] [facility] Allergies, Adverse Reactions, Alerts Substance Reaction [...]
--- OUTSIDE RECORDS SUMMARY | 2022-08-29 21:18 | XMS_ITS | Continuity of Care Document ---
:1960 Author Organization [facility] Address [address] [place] [address]- Care Team Providers Name Role Phone Hetal Roberson MD Primary Care Physician [place] [facility] [place] Date(s): 06/20/20 - 07/22/[address] [address]- [facility] Attending Physician: Rashad Padilla MD Admitting Physician: Rashad Padilla MD Referring Physician: Rashad Padilla MD Allergies, Adverse Reactions, Alerts Substance Reaction [...]
--- OUTSIDE RECORDS SUMMARY | 2022-08-29 21:18 | XMS_ITS | Continuity of Care Document ---
:1960 Author Organization [facility] Infectious Disease Address [address] [place] [address]- Care Team Providers Name Role Phone Hetal Roberson MD Primary Care Physician Encounter [facility] [place] Date(s): 06/22/20 - 08/18/20 [facility] Infect[facility] [address] [place] [address]- [facility] Attending Physician: Javier Hart MD Admitting Physician: Javier Hart MD Allergies, Adverse Reactions, Alerts Substance Reaction [...]
--- OUTSIDE RECORDS SUMMARY | 2022-08-29 21:18 | XMS_ITS | Continuity of Care Document ---
:1960 Author Organization [facility] Infectious Disease Address [address] [place] [address]- Care Team Providers Name Role Phone Hetal Roberson MD Primary Care Phys[id number] - 07/14/20 [facility] Infectious Disease [address] [place] [address] [facility] Attending Physician: Javier Hart MD Admitting Physician: Javier Hart MD Referring Physician: Hetal Roberson MD Allergies, Adverse Reactions, Alerts Substance Reaction [...]
--- OUTSIDE RECORDS SUMMARY | 2022-08-29 21:18 | XMS_ITS | Continuity of Care Document ---
:1960 Author Organization [facility] Infectious Disease Address [address] [place] [address]- Care Team Providers Name Role Phone Hetal Roberson MD Primary Care Physician Encounter [facility] [place] Date(s): 06/20/20 - 07/20/20 [facility] Infectious Disease [address] [place] [address] [facility] Allergies, Adverse Reactions, Alerts Substance [...]
--- OUTSIDE RECORDS SUMMARY | 2022-08-29 21:18 | XMS_ITS ---
:1960 Author Care Team Providers Name Role Phone [facility] OTHER [phone] Allergies Code Code System Name Reaction Severity Status Onset 28954 RxNorm Vancomycin Rash Moderate Active 0 1191 RxNorm Aspirin ? ? Active ? 8948 RxNorm Tuberculin, Purified ? ? Active ? Protein Derivative Medications No Medications Reported Notes: meds reviewed, not up to date, see mar for complete list Problems Name Status Onset Date Source ? Mixed Hyperlipidemia Active 05/14/2020 ? Tobacco Dependence Syndrome Active 05/14/2020 ? Intravenous Drug User Active 05/14/2020 ? Primary Insomnia Active 05/14/2020 ? Epidural Abscess Active 05/14/2020 ? Restless Legs Active 05/14/2020 ? Chronic Pain Syndrome Active 05/14/2020 ? Hypertensive Disorder Active 05/14/2020 ? Chronic Obstructive Lung Disease Active 05/14/2020 ? Gastroesophageal Reflux Disease without Esophagitis Active 05/14/2020 ? Human Immunodeficiency Virus Infection Active 0 ? History of Traumatic Brain Injury Active 05/14/2020 ? Tooth Disorder Active 05/27/2020 ? Procedures None recorded. Results Lab Results None recorded. Past Encounters None recorded. Social History Tobacco Smoking Status Heavy Tobacco Smoker (1/2 pack per da y) Vaccine List None recorded. Plan of Care Reminders Provider Appointments None recorded. ? ? Lab None recorded. ? ? Referral None recorded. ? ? Procedures None recorded. ? ? Surgeries None recorded. ? ? Imaging None recorded. ? ? Vitals 06/01/2020 08:31AM Discharge Summary Blood Pressure 120/56 mm[Hg] 05/30/2020 01:02PM Acute Rounding Visit Blood Pressure 116/66 mm[Hg] 05/27/2020 11:54AM Acute Rounding Visit Blood Pressure 115/67 mm[Hg] 05/25/2020 02:43PM Acute Rounding Visit Blood Pressure 110/55 mm[Hg] 05/20/2020 07:42AM Telemed Admitting H&P Blood Pressure 115/60 mm[Hg] 05/14/2020 09:26AM Initial Intake Note Blood Pressure 124/67 mm[Hg]
--- NOTE | 2022-08-29 21:35 | ED.OVERDOSE ---
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 Now patient back to normal saturating 98% at room Related Data Previous Rx's Medication Instructions Recorded diphenhydramine HCl 2 % topical 1 appl topical QID PRN itching 11/08/21 gel (Benadryl) #103 mL diphenhydramine HCl 25 mg tablet 50 mg PO TID PRN itching #30 tabs 11/08/21 (Benadryl Allergy) permethrin 5 % topical cream 1 appl topical Q14D scabies 2 11/08/21 doses #60 grams permethrin 5 % topical cream 1 appl topical Q14D 2 doses #60 03/02/22 grams Allergies Allergy/AdvReac Type Severity Reaction Status Date / Time aspirin [ASA] Allergy Intermediate HIVES Unverified 07/21/20 15:26 tuberculin, purified protein Allergy Intermediate RASH, Unverified 07/21/20 15:26 deriva ITCHING [TUBERCULIN,PURIF.PROT.DERIV.] chlorthalidone AdvReac Severe hypokalemia Unverified 07/21/20 15:26 [CHLORTHALIDONE] tb serum Allergy Unknown Uncoded 11/19/19 00:00 Review of Systems Review of Systems: Yes all other systems are reviewed and are negative PMFSH Past Medical History Medical History Back pain Epidural abscess High cholesterol HTN (hypertension) Leg cramp Spinal cord abscess Surgical History H/O colonoscopy Social History Social History Alcohol intake: former Patient Tobacco Use Status: Current someday Tobacco user Use of substances other than those prescribed or required for medical reasons: Yes Substance Use Type: Heroin Substance Use Frequency: Monthly Last Used Substance: Just Prior to Admission Any prior treatment program specific to substance use: No Advance Directives: No Advance Directives Information Provided: No Physical Exam Vital Signs: Vital Signs: Last Vital Signs Temp 98.9 F 08/29/22 21:56 Pulse 65 08/29/22 21:56 Resp 19 08/29/22 21:56 BP 120/76 08/29/22 21:56 Pulse Ox 98 08/29/22 21:56 O2 Del Method 08/29/22 21:56 BMI result Body Mass Index 18.1 Appearance: Alert. Oriented X3. No acute distress. Eyes: PERRLA, No Nystagmus ENT: Pharynx normal. Oral Mucosa moist Neck: Normal inspection. Neck supple. CVS: Normal heart rate and rhythm. Pulses normal. Respiratory: No respiratory distress. Equal air entry bilateral, no wheezing/rales/rhonchi Abdomen: Soft and nontender. Bowel sounds are present, no mass palpable, no CVA tenderness Skin: Skin warm and dry. Normal skin color. Normal skin turgor. Extremities: No lower extremity edema. No calf tenderness Neuro: Oriented X 3. No motor deficit. No sensory deficit.No cerebellar signs , cranial nerves II-XII intact MDM - Overdose MDM Narrative Medical decision making narrative: patient with opiate use disorder understand not to use narcotics , on methadone will follow with methadone clinic Discharge Plan Discharge Clinical Impression: Opiate overdose Patient Disposition: Home, Self-Care Instructions: Narcotic Use Disorder (ED) Additional Instructions: do not use heroin if you need help please go to detox Prescriptions: No Action Benadryl 2 % gel 1 appl topical QID PRN (Reason: itching) Qty: 103 0RF diphenhydramine HCl [Benadryl Allergy] 25 mg tablet 50 mg PO TID PRN (Reason: itching) Qty: 30 0RF permethrin 5 % cream 1 appl topical Q14D Qty: 60 2RF Rx Instructions: apply second treatment 14 days after first treatment if live lice remain permethrin 5 % cream 1 appl topical Q14D Qty: 60 0RF Rx Instructions: apply second treatment 14 days after first treatment if live lice remain
[2022-08-29 21:56] VITALS: BP 120/76; PULSE 65; RESP 19; TEMP 37.2; O2SAT 98
== END 2022-08-29 22:27 | disposition home or self-care (01) ==
PROVIDERS: Emergency Provider Internal Medicine; PCP Nurse Practitioner Primary Care
DX: T40.1X1A Poisoning by heroin, accidental (unintentional), initial encounter (principal); Y92.9 Unspecified place or not applicable; Z79.899 Other long term (current) drug therapy
CPT/HCPCS: 99284

== ENCOUNTER 2022-10-10 11:02 | Outpatient (REF) | payer OTHER, SELFPAY ==
--- NOTE | ~2022-10-10 | MR_ITS ---
EXAMINATION: MR LUMBAR SPINE WITHOUT CONTRAST CLINICAL INFORMATION: 61-year-old with low back pain and history of epidural/extraspinal abscess. COMPARISON: 11/18/2020 MRI TECHNIQUE: Sagittal T1, sagittal T2, sagittal STIR and partial axial T2-weighted imaging were performed. The patient aborted the procedure prior to completion secondary to pain and therefore the study is limited. There are limitations related to motion artifact as well. FINDINGS: Coronal Alignment: Mild lumbar levocurvature slightly less prominent than on the previous exam. Sagittal Alignment: Redemonstrated is approximately 6 to 7 mm of grade 1 spondylolisthesis at L4-L5 similar to previous study. There is trace anterolisthesis at L5-S1 as well, stable in appearance. Otherwise the lumbar spine is anatomically aligned. Lumbosacral Junction: Normal. 5 nonrib-bearing lumbar-type vertebral bodies. Vertebral Bodies: Since the previous study, there has been significant endplate destruction at the L4-L5 intervertebral disc space with development of anterior wedging of L5 and posterior wedging of L4 consistent with partial collapse of the inferior endplate of L4 and superior endplate of L5. Remaining vertebral body heights are well-maintained. Disc Spaces and Endplates: The intervertebral disc space heights at the remainder of the lumbar levels appear stable and well maintained. There are [id number] degrees of anterolateral spondylosis throughout the lumbar spine similar to the previous exam. There appears to be complete replacement of the L4-L5 intervertebral disc space with inflammatory tissue consistent with discitis osteomyelitis. Spinal Canal: Severe spinal canal stenosis at L4-L5 progressed from previous study with severe crowding of the intradural nerve roots. Bone Marrow: Bone marrow edema within the L4 and L5 vertebral bodies associated with probable sclerotic changes along the endplates which can be sequelae of discitis osteomyelitis. STIR images are very limited due to motion artifact but there appears to be some edema extending into the posterior elements of L4 and L5, not well characterized due to motion. Conus Medullaris: Terminates at T12. Morphology and signal is normal. L5-S1: Slight anterolisthesis with diffuse disc bulging similar to previous exam without significant thecal sac encroachment or canal stenosis. There is facet arthropathy bilaterally, left more than right, unchanged in appearance, with a left-sided facet joint effusion, which was noted to enhance on the previous study. There is moderate bilateral neural foraminal stenosis, left more than right, unchanged in appearance. L4-L5: Unroofing of the posterior disc margin is again noted consistent with spondylolisthesis. Severe bilateral facet arthropathy is noted with severe collapse of the L4-L5 intervertebral disc, with retropulsion of the superior endplate of the compressed L5 vertebral body since the previous exam, contributing to progression of a severe spinal canal stenosis at this level and marked crowding of the intradural nerve roots with severe lateral recess stenosis and probable encroachment on the L5 nerve roots bilaterally progressed from previous study. Severe bilateral neural foraminal stenosis is progressed. Findings at this level are consistent with persistent infectious or inflammatory changes involving the facet joints, now also manifesting as possible discitis osteomyelitis with endplate destruction and partial vertebral body collapse. L3-L4: Disc bulging is noted with mild flattening of the ventral dural sac and moderate bilateral facet arthrosis similar to the previous exam. There is crowding of the subarticular zones bilaterally, stable in appearance, without significant central canal stenosis. Moderate bilateral neural foraminal stenosis is noted with impingement on the exiting L3 nerve roots, unchanged in appearance. L2-L3: Small right subarticular to foraminal disc protrusion without neural impingement, stable in appearance. Left lateral foraminal/extraforaminal disc protrusion probably abutting the extra foraminal left L2 nerve root, stable in appearance. No significant canal stenosis. Vizz-ka-[id number] bilateral facet arthropathy, stable in appearance. L1-L2: Trace retrolisthesis noted at this level on current study without significant disc bulge or herniation. Mild bilateral facet arthrosis is unchanged without significant canal stenosis. There is mild neural foraminal stenosis bilaterally without neural impingement. Bilateral facet arthropathy noted at T11-T12 and T10-T11, unchanged in appearance. Paraspinal/Retroperitoneal: The visualized paravertebral soft tissues are remarkable for some edematous changes in the paraspinal soft tissues adjacent to the L4-L5 level consistent with an infectious and/or inflammatory process. MR/MR lumbar spine wo con IMPRESSION: 1. 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 Suspect persistent, chronic infectious or inflammatory changes involving the L4-L5 facet joints bilaterally and periarticular soft tissues with inflammatory changes in the soft tissues of the paraspinal region at the L4-L5 level. 2. Progression of severe spinal canal stenosis at L4-L5 since previous exam with severe bilateral neural foraminal stenosis at this level progressed from previous exam. 3. Stable grade 1 spondylolisthesis at L4-L5 and stable trace anterolisthesis at L5-S1 with multilevel bilateral facet arthropathy and disc bulging largely unchanged with moderate bilateral neural foraminal stenosis at L5-S1 and L3-L4 with encroachment on the exiting L3 and L5 nerve roots bilaterally. 4. Some limitations related to motion artifact. The [facility] staff will call to confirm receipt of this report with acknowledgement of the findings and any recommendations.
== END 2022-10-10 11:03 | disposition home or self-care (01) ==
LOC: HO.MRI 11:02
PROVIDERS: Visit Provider Nurse Practitioner Primary Care
DX: M54.50 Low back pain, unspecified (principal)
CPT/HCPCS: 72148

== ENCOUNTER 2023-05-16 23:01 | Emergency (ER) | payer OTHER, SELFPAY ==
--- NOTE | 2023-05-16 | ECG_ITS ---
Test Reason : CHEST AND HIP PAIN Blood Pressure : / mmHG Vent. Rate : 094 BPM Atrial Rate : 094 BPM P-R Int : 128 ms QRS Dur : 082 ms QT Int : 358 ms P-R-T Axes : 062 051 074 degrees QTc Int : 447 ms Normal sinus rhythm Normal ECG When compared with ECG of 21-MAR-2019 08:20, No significant change was found Referred By: Generic ED Physician Electronically Signed By:RANDALL SUÁREZ MD
--- NOTE | ~2023-05-16 | CT_ITS ---
EXAMINATION: CT ABDOMEN AND PELVIS WITH CONTRAST CLINICAL INFORMATION: Left hip pain, prior infection COMPARISON: 02/20/2016 TECHNIQUE: Multidetector volumetric images were obtained from the superior aspect of the liver through the pubic symphysis following administration 85 mL of Omnipaque 350 intravenous contrast. Sagittal and coronal reformatted images were obtained on the technologist's workstation. Oral contrast: No This CT examination was performed using dose optimization techniques as appropriate, variously including the following: *Automated exposure control *Adjustment of mA and/or kV according to patient size (this includes techniques or standardized protocols for targeted exams where dose is matched to indication/reason for exam; i.e. extremities or head) *Use of iterative reconstruction technique DLP: 384 mGy-cm FINDINGS: LUNG BASES: The visualized lung bases are unremarkable. LIVER, GALLBLADDER, AND BILIARY TREE: The liver is normal in size, shape, and attenuation. Mild intrahepatic biliary ductal dilatation noted. Gallbladder appears contracted. PANCREAS: Borderline dilated pancreatic duct. No definite surrounding inflammation though assessment is limited due to lack of intra-abdominal fat. SPLEEN: Unremarkable. ADRENAL GLANDS: Unremarkable. KIDNEYS AND URETERS: No hydronephrosis or obstructing calculus bilaterally. There are several scattered bilateral renal calculi measuring up to 7 mm. BLADDER: Moderately distended without significant wall thickening. GASTROINTESTINAL TRACT: No evidence of bowel obstruction. No significant bowel wall thickening is seen. Appendix appears nondilated. ABDOMINAL WALL: No significant hernia is appreciated. LYMPH NODES: Mildly prominent retroperitoneal lymph nodes are suspected to be reactive in nature. VASCULAR: There is atherosclerotic calcification along the aorta and iliac arteries. PELVIC VISCERA: Unremarkable. OSSEOUS STRUCTURES: There is redemonstrated severe collapse of the L4 and L5 vertebral bodies with disc space narrowing. Anterolisthesis of L4 on L5 is also noted, and these findings were also present on MRI 10/10/2022 suspicious for sequelae of osteomyelitis. There is associated narrowing of the central canal also seen previously. There are associated fluid collection at this level extending into the bilateral psoas muscles, such as on coronal image 58. The larger left psoas muscle collection measures approximately 2.9 x 1.4 cm in the axial plane, while the right collection measures approximately 2.4 x 1.2 cm. There is also some irregularity of the L3 inferior endplate which is new compared to prior, suspicious for sequelae of spread of infection compared to prior. CT/CT abdomen pelvis w IV con IMPRESSION: 1. Redemonstrated severe collapse of the L4 and L5 vertebral bodies with disc space narrowing, suspicious for sequelae of osteomyelitis. There are adjacent fluid collections extending into the bilateral psoas muscles, suspicious for associated abscesses. There is also some irregularity of the L3 inferior endplate which is new compared to prior, suspicious for sequelae spreading infection, which may be further assessed with MRI. Redemonstrated severe central canal narrowing at L4-L5. 2. Mild intrahepatic biliary ductal dilatation and borderline dilated pancreatic duct. Correlation with LFTs is recommended. 3. Bilateral renal calculi without hydronephrosis.
--- NOTE | ~2023-05-16 | XR_ITS ---
EXAMINATION: XR SHOULDER, RIGHT CLINICAL INFORMATION: Pain COMPARISON: 03/16/2019 TECHNIQUE: Three views of the right shoulder. FINDINGS: Glenohumeral alignment is anatomic. There is slight elevation of the humeral head suggesting chronic rotator cuff injury. No acute fracture is seen. There is suspected chronic resorption of the distal clavicle, with adjacent degenerative change at the acromion. XR/XR shoulder RT min 2V IMPRESSION: No acute findings identified. Chronic appearing changes as noted above.
[2023-05-16 23:43] LABS: Hematocrit 30.1 % (42.0-52.0); Hemoglobin 9.5 g/dl (14.0-18.0); Mean Corpuscular HGB Conc 31.6 g/dl (31.0-36.0); Mean Corpuscular Hemoglobin 24.9 pg (27.0-33.0); Platelet Count 354 X10*3/uL (160-400); Red Blood Count 3.81 X10*6/uL (4.60-5.80); Red Cell Distribution Width 15.5 % (11.0-16.0); White Blood Count 20.6 X10*3/uL (4.8-10.8)
[2023-05-16 23:48] VITALS: BP 126/85; BP 128/68; PULSE 74; PULSE 95; RESP 18; TEMP 36.9; O2SAT 100; O2SAT 98; BMI 16.7
[2023-05-17 00:01] LABS: Alanine Aminotransferase 12 U/L (0-40); Albumin Level 3.6 g/dL (3.5-5.0); Alkaline Phosphatase 117 U/L (39-117); Anion Gap 14 (12-20); Aspartate Amino Transferase 16 U/L (5-37); Bilirubin Total 0.7 mg/dL (0.0-1.0); Blood Urea Nitrogen 17 mg/dL (9-16); Calcium 10.3 mg/dL (8.4-10.2); Carbon Dioxide 28 mmol/L (22-29); Chloride 99 mmol/L (96-108); Creatinine Clr Calc Pharmacy 74.9; Estimated Glomerular Filt Rate > 60; Glucose Random 106 mg/dL (60-115); Potassium 4.1 mmol/L (3.3-5.1); Sodium 137 mmol/L (135-145); Total Protein 7.8 g/dL (6.5-8.0)
[2023-05-17 01:00] VITALS: BP 110/57; PULSE 86; RESP 18; TEMP 36.9; O2SAT 100
[2023-05-17 02:10] VITALS: BP 110/54; PULSE 79; RESP 14; TEMP 37; O2SAT 97
--- NOTE | 2023-05-17 03:13 | ED.GENADULT ---
HPI - General Adult General Chief complaint: General Medical Stated complaint: CHEST, HIP PAIN Time Seen by Provider: 05/17/23 02:32 Source: patient Mode of arrival: EMS History of Present Illness HPI narrative: 62-year-old male who states he has had a previous left pelvis infection and was treated here at [facility], states that he is now having difficulty walking on that hip and also reports right shoulder pain and redness. Related Data Previous Rx's Medication Instructions Recorded diphenhydramine HCl 2 % topical 1 appl topical QID PRN itching 11/08/21 gel (Benadryl) #103 mL diphenhydramine HCl 25 mg tablet 50 mg PO TID PRN itching #30 tabs 11/08/21 (Benadryl Allergy) permethrin 5 % topical cream 1 appl topical Q14D scabies 2 11/08/21 doses #60 grams permethrin 5 % topical cream 1 appl topical Q14D 2 doses #60 03/02/22 grams Allergies Allergy/AdvReac Type Severity Reaction Status Date / Time aspirin [ASA] Allergy Intermediate HIVES Unverified 07/21/20 15:26 tuberculin, purified protein Allergy Intermediate RASH, Unverified 07/21/20 15:26 deriva ITCHING [TUBERCULIN,PURIF.PROT.DERIV.] chlorthalidone AdvReac Severe hypokalemia Unverified 07/21/20 15:26 [CHLORTHALIDONE] tb serum Allergy Unknown Uncoded 11/19/19 00:00 Review of Systems Review of Systems: Pertinent positives and negatives as stated in HPI [facility] Past Medical History Source: nursing notes reviewed Medical History Back pain Epidural abscess High cholesterol HTN (hypertension) Leg cramp Spinal cord abscess Surgical History H/O colonoscopy Social History Social History Alcohol intake: current Alcohol intake frequency: holidays/special occasions only Patient Tobacco Use Status: Current someday Tobacco user Smoked in Last 30 Days: Yes Use of substances other than those prescribed or required for medical reasons: Yes Substance Use Type: Crack/Cocaine Substance Use Frequency: Occasionally Advance Directives: No Advance Directives Information Provided: No Physical Exam ED Vital Signs: Vital Signs - 24 hr 05/16/23 23:48 05/17/23 01:00 05/17/23 02:10 Temperature 98.4 F 98.4 F 98.6 F Pulse Rate 74 86 79 Respiratory Rate 18 18 14 Blood Pressure 126/85 110/57 L 110/54 L Pulse Oximetry 98 100 97 Oxygen Delivery Method Room Air Room Air Room Air 05/17/23 05:49 Temperature 98.1 F Pulse Rate 58 Respiratory Rate 12 Blood Pressure 94/54 L Pulse Oximetry 95 Oxygen Delivery Method Room Air BMI result Body Mass Index 16.7 VITAL SIGNS: Reviewed. GENERAL: Cachectic, in no acute distress. HEAD: Normocephalic/atraumatic EYES: PERRLA, EOMI EARS: Ext canals without abnormality NOSE: Nares patent bilateral OROPHARYNX: no oral lesions noted, posterior pharynx clear NECK: Supple, no adenopathy LUNGS: Normal breath sounds. No adventitious sounds or accessory muscle use. SpO2<97> CARDIOVASCULAR: Regular rate and rhythm without noted murmurs, no JVD or lower extremity edema. ABDOMEN: Soft, non-tender, non-distended with bowel sounds. PELVIS: Stable, extensive tenderness to palpation over the greater trochanter RIGHT SHOULDER: There is noted erythema and swelling to the joint without obvious erythema or induration MUSCULOSKELETAL: No tenderness, deformities, or effusions noted on gross inspection. EXTREMITIES: No cyanosis, clubbing or edema. SKIN: Inspection of the skin reveals no rashes NEUROLOGIC: Alert and oriented x 4. Strength and sensation to light touch were grossly intact x 4. Medications Administered Generic Name Dose Route Start Last Admin Trade Name Freq PRN Reason Stop Dose Admin Vancomycin HCl 1,250 mg/ 250 mls @ 166.667 mls/hr 05/17/23 05:45 05/17/23 06:02 Sodium Chloride IV 05/17/23 07:14 166.67 mls/hr ONCE ONE Administration Discontinued Medications Generic Name Dose Route Start Last Admin Trade Name Freq PRN Reason Stop Dose Admin Acetaminophen 975 mg 05/17/23 04:02 05/17/23 04:12 Acetaminophen 325 Mg Tablet PO 05/17/23 04:03 975 mg ONCE ONE Administration Hydromorphone HCl 0.5 mg 05/17/23 05:37 05/17/23 05:41 Hydromorphone Hcl 0.5 Mg/0.5 Ml Syringe IVPUSH 05/17/23 05:38 0.5 mg ONCE ONE Administration Protocol Piperacillin Sod/Tazobactam 50 mls @ 100 mls/hr 05/17/23 03:09 05/17/23 03:57 Sod 3.375 gm/ Sodium Chloride IV 05/17/23 03:38 Infused ONCE ONE Infusion Sodium Chloride 1,000 mls @ 999 mls/hr 05/17/23 04:15 05/17/23 05:05 Ns IV 05/17/23 05:15 Infused .Q1H1M BRY Infusion Iohexol 85 ml 05/17/23 04:03 05/17/23 04:04 Iohexol 350 Mg/Ml 100 Ml Infus..Btl IV 05/17/23 04:04 85 ml ONCE ONE Administration Medical Decision Making Medical Decision Making [facility] Narrative: 0313: 62-year-old male with history and clinical presentation, DDX: Abscess, sepsis. Labs, imaging, UA, lactic acid, blood cultures, antibiotics. 0544: I reviewed all investigations, hematologic indices are consistent with leukocytosis, chronically stable anemia. Chemistry indices are grossly within normal limits, CRP is pending. Right shoulder x-ray negative for fracture or dislocation and otherwise my interpretation is in agreement with radiology's impression. CT scan is significant for findings suggestive osteomyelitis and abscesses extending into the bilateral psoas muscles. I discussed the entire case with the inpatient hospitalist who accepts admission. Vancomycin has also been ordered given the CT scan findings. On further examination, patient reports bilateral great toe numbness but denies any saddle anesthesia and denies any bowel or bladder issues but states he has significant problems with bearing weight on the left lower extremity. At this time, I think it is most appropriate for patient to be transferred to a higher level of care where neural surgery is available for intervention as needed, to include Interventional Radiology for any abscess drainage and I discussed this at length with the inpatient hospitalist who agrees. 0610: I discussed case with Dr. Knowles who accepts transfer, ED to ED. Differential Diagnosis Differential Diagnoses: The differential diagnosis associated with the presentation includes Please see the discussion above Consult Healthcare Provider Management of the patient was discussed with: Hospitalist Please see the discussion above Lab Data [facility] Lab Attestation statement: I reviewed the patient's lab results. Please see the discussion above 05/16/23:37 05/16/23 23:37 Labs: Lab Results 05/16/23 05/16/23 05/17/23 Range/Units 23:37 23:37 02:43 WBC 20.6 H (4.8-10.8) X10*3/uL RBC 3.81 L (4.60-5.80) X10*6/uL Hgb 9.5 L (14.0-18.0) g/dl Hct 30.1 L (42.0-52.0) % MCV 79.0 L (80.0-98.0) fL MCH 24.9 L (27.0-33.0) pg MCHC 31.6 (31.0-36.0) g/dl RDW 15.5 (11.0-16.0) % Plt Count 354 (160-400) X10*3/uL MPV 10.0 (9.4-12.4) fL Absolute Nucleated RBC 0.000 (0.0-0.012) X10*3/uL Nucleated RBC % (auto) 0.0 (0.0-0.2) /100WBC Sodium 137 (135-145) mmol/L Potassium 4.1 (3.3-5.1) mmol/L Chloride 99 (96-108) mmol/L Carbon Dioxide 28 (22-29) mmol/L Anion Gap 14 (12-20) BUN 17 H (9-16) mg/dL Creatinine 0.73 (0.5-1.4) mg/dL Estim Creat Clear Calc 74.9 Estimated GFR > 60 Random Glucose 106 (60-115) mg/dL Lactic Acid (0.5-2.0) mmol/L Calcium 10.3 H D (8.4-10.2) mg/dL Total Bilirubin 0.7 (0.0-1.0) mg/dL AST 16 (5-37) U/L ALT 12 (0-40) U/L Alkaline Phosphatase 117 (39-117) U/L Troponin I High Sens 3.7 (<3.5-35.0) ng/L C-Reactive Protein 24.33 H (< or = 0.50) mg/dL Total Protein 7.8 (6.5-8.0) g/dL Albumin 3.6 (3.5-5.0) g/dL Urine Color Urine Appearance Urine pH (5.0-9.0) Ur Specific [place] (1.005-1.025) Urine Protein (Neg-Trace) mg/dL Urine Glucose (UA) (Negative) mg/dL Urine Ketones (Negative) mg/dL Urine Blood (Negative) Urine Nitrite (Negative) Ur Leukocyte Esterase (Negative) 05/17/23 05/17/23 Range/Units 03:31 05:57 WBC (4.8-10.8) X10*3/uL RBC (4.60-5.80) X10*6/uL Hgb (14.0-18.0) g/dl Hct (42.0-52.0) % MCV (80.0-98.0) fL MCH (27.0-33.0) pg MCHC (31.0-36.0) g/dl RDW (11.0-16.0) % Plt Count (160-400) X10*3/uL MPV (9.4-12.4) fL Absolute Nucleated RBC (0.0-0.012) X10*3/uL Nucleated RBC % (auto) (0.0-0.2) /100WBC Sodium (135-145) mmol/L Potassium (3.3-5.1) mmol/L Chloride (96-108) mmol/L Carbon Dioxide (22-29) mmol/L Anion Gap (12-20) BUN (9-16) mg/dL Creatinine (0.5-1.4) mg/dL Estim Creat Clear Calc Estimated GFR Random Glucose (60-115) mg/dL Lactic Acid 1.0 (0.5-2.0) mmol/L Calcium (8.4-10.2) mg/dL Total Bilirubin (0.0-1.0) mg/dL AST (5-37) U/L ALT (0-40) U/L Alkaline Phosphatase (39-117) U/L Troponin I High Sens (<3.5-35.0) ng/L C-Reactive Protein (< or = 0.50) mg/dL Total Protein (6.5-8.0) g/dL Albumin (3.5-5.0) g/dL Urine Color Yellow Urine Appearance Hazy Urine pH 6.0 (5.0-9.0) Ur Specific [place] 1.020 (1.005-1.025) Urine Protein Trace (Neg-Trace) mg/dL Urine Glucose (UA) Negative (Negative) mg/dL Urine Ketones Negative (Negative) mg/dL Urine Blood Large (3+) H (Negative) Urine Nitrite Negative (Negative) Ur Leukocyte Esterase Negative (Negative) Independent Interpretation I performed an independent interpretation of an: EKG Interpretation: Normal sinus rhythm, HR-94, MA/QRS/QTC is within normal limits. External Record Review External record reviewed: Outpatient record and Prior outpatient labs Critical Care Time Critical Care Time Critical Care Time: Yes Total Critical Care Time: 45 Attestation: I personally attest to this time spent taking care of the patient. Discharge Plan Discharge Clinical Impression: Osteomyelitis of spine, Psoas muscle abscess, Sepsis Patient Disposition: Xfer [facility] Transfer Details: Requires neurosurgery consultation Prescriptions: No Action Benadryl 2 % gel 1 appl topical QID PRN (Reason: itching) Qty: 103 0RF diphenhydramine HCl [Benadryl Allergy] 25 mg tablet 50 mg PO TID PRN (Reason: itching) Qty: 30 0RF permethrin 5 % cream 1 appl topical Q14D Qty: 60 2RF Rx Instructions: apply second treatment 14 days after first treatment if live lice remain permethrin 5 % cream 1 appl topical Q14D Qty: 60 0RF Rx Instructions: apply second treatment 14 days after first treatment if live lice remain
[2023-05-17 03:15] LABS: Troponin-I High Sensitivity 3.7 ng/L (<3.5-35.0)
[2023-05-17] MEDS: Piperacillin Sodium/Tazobactam 3.375 GM in 0.9 % Sodium Chloride 50 ML IV (03:25)
[2023-05-17] MEDS: iohexoL 350 MG/ML 100 ML INFUS..BTL 85 ML IV (04:04)
[2023-05-17] MEDS: Acetaminophen 325 MG TABLET 975 MG PO (04:12)
[2023-05-17] MEDS: 0.9 % Sodium Chloride 1,000 ML 999 ML IV (04:12)
[2023-05-17] MEDS: HYDROmorphone HCl 0.5 MG/0.5 ML SYRINGE IVPUSH (05:41)
--- NOTE | 2023-05-17 05:45 | PC.NURSE ---
Pt currently resting quietly in bed, reporting 9/10 pain in his right hip, and minor pain in his right shoulder. Pt has an IV in the left AC and was given dilaudid for pain. Pt is A&Ox4, GCS 15. Presents to the ER after having a spinal and hip infection, now having a lot of pain in his hip and shoulder. Pt has an increased WBC and will be getting IV antibiotics.
[2023-05-17 05:49] VITALS: BP 94/54; PULSE 58; RESP 12; TEMP 36.7; O2SAT 95
[2023-05-17 05:58] LABS: C Reactive Protein 24.33 mg/dL (< or = 0.50)
[2023-05-17] MEDS: vancomycin HCL 1,250 MG in 0.9 % Sodium Chloride 250 ML 166.67 MG IV (06:02)
[2023-05-17 06:04] LABS: Appearance Urine Hazy; Color Urine Yellow; Glucose Urine UA Negative (Negative); Leukocyte Esterase Urine Negative (Negative); Nitrite Urine Negative (Negative); UMIC TRIGGER UACC YES; Urine Blood Large (3+) (Negative); Urine Ketones Negative (Negative); Urine Protein Trace mg/dL (Neg-Trace)
[2023-05-17 06:16] LABS: Bacteria Urine None Seen (None Seen); Hyaline Casts Urine 0-2 /LPF (0-2); RBC Urine >20 /HPF (0-2); Squamous Epithelial Cell Urine 0-2 /HPF (0-2); UACC Culture Trigger YES
[2023-05-17 06:36] LABS: Amphetamine Screen Urine Not Detected (Not Detect); Barbiturates, Urine Not Detected (Not Detect); Benzodiazepines Screen Urine Not Detected (Not Detect); Cannabinoid Screen Urine Not Detected (Not Detect); Cocaine Screen Urine POSITIVE (Not Detect); Fentanyl, urine POSITIVE (Not Detect); Opiate Screen Urine POSITIVE (Not Detect); Phencyclidine Screen Urine Not Detected (Not Detect)
--- NOTE | 2023-05-17 06:47 | MHC.EDTECH ---
Addendum entered by Natalie Dunbar 05/17/23 06:50: call out to [facility] at 0601 Original Note: call out to [facility] transfer line per DR. Diop. Transfer was accepted to [facility] ED to DR Knowles
--- NOTE | 2023-05-17 06:50 | MHC.EDTECH ---
call out to sarita at 0630 for transport to [facility] Ed, eta given was 0730
[2023-05-17 07:59] VITALS: BP 124/73; PULSE 74; RESP 12; O2SAT 100
--- NOTE | 2023-05-17 09:37 | PHA.MEDREC ---
Pharmacy Consult ? Medication Reconciliation Patient transfer to [facility], med rec not completed
== END 2023-05-17 09:30 | disposition short-term general hospital (02) ==
PROVIDERS: Emergency Provider Student in an Organized Health Care Education/Training Program
DX: M25.511 Pain in right shoulder (principal); R07.89 Other chest pain; M25.552 Pain in left hip; M25.551 Pain in right hip; M46.20 Osteomyelitis of vertebra, site unspecified; F17.210 Nicotine dependence, cigarettes, uncomplicated; Z71.6 Tobacco abuse counseling; Z79.899 Other long term (current) drug therapy
CPT/HCPCS: 36415; 73030; 74177; 80053; 80307; 81001; 81003; 83605; 84484; 85027; 86140; 87040; 87077; 87086; 87088; 87186; 87205; 93005; 96361; 96365; 96366; 96367; 96375; 99285; J1170; J2543; J3371; Q9967

== ENCOUNTER → 2023-05-16 23:24 | Outpatient (BNV) | payer OTHER, SELFPAY | PROVIDERS: Emergency Provider Student in an Organized Health Care Education/Training Program; Visit Provider Internal Medicine Cardiovascular Disease | DX: R07.9 Chest pain, unspecified (principal) | CPT/HCPCS: 93010 ==

== ENCOUNTER 2023-07-26 23:36 | Inpatient (IN) | payer OTHER, SELFPAY ==
--- NOTE | ~2023-07-26 | XR_ITS ---
EXAMINATION: XR CHEST CLINICAL INFORMATION: Dyspnea COMPARISON: 05/07/2020 TECHNIQUE: 2 views of the chest were obtained. FINDINGS: Lung volumes are symmetric. No focal consolidation is seen. There is suggestion of central peribronchial thickening. No evidence of pneumothorax, pleural effusion, or pulmonary edema. Cardiac size is within normal limits. Calcification is present at the aortic arch. No acute osseous findings are seen. XR/XR chest 2V IMPRESSION: Suggestion of central peribronchial thickening which may reflect acute or chronic airways disease.
--- NOTE | ~2023-07-26 | US_ITS ---
EXAMINATION: US VENOUS WITH DOPPLER UPPER EXTREMITY, RIGHT CLINICAL INFORMATION: Right arm swelling COMPARISON: None available. TECHNIQUE: Ultrasound of the upper extremity is performed using compression sonography and color and pulse Doppler flow with assessment of augmentation of flow. There is also imaging and Doppler assessment of the jugular and subclavian veins. Spectral analysis with color-flow imaging is performed. FINDINGS: Respiratory variation, normal compression, and augmented flow are noted throughout the upper extremity including the axillary, brachial, cephalic, and radial and ulnar veins. There is normal flow in the internal jugular and subclavian veins. There is no visible deep or superficial thrombophlebitis. Soft tissue edema noted throughout. IV visualized in the distal cephalic vein. Multiple lymph nodes are noted in the infraclavicular and axillary region the largest measuring up to 1.0 cm in short axis some of which demonstrate loss of fatty hilum. Complex fluid collection visualized at the mid anterior forearm measuring 6.1 x 0.9 x 3.3 cm with questionable overlying flow. This correlates with patient's stated site of injection. US/US venous duplex UE RT IMPRESSION: 1. No DVT demonstrated in the right upper extremity. 2. IV visualized in the distal cephalic vein. 3. Multiple lymph nodes are noted in the infraclavicular and axillary region the largest measuring up to 1.0 cm in short axis some of which demonstrate loss of fatty hilum. 4. Complex fluid collection visualized at the mid anterior forearm measuring 6.1 x 0.9 x 3.3 cm with questionable overlying flow. This correlates with patient's stated site of injection. Correlation with physical exam.
--- NOTE | ~2023-07-26 | MR_ITS ---
EXAMINATION: MR LUMBAR SPINE WITHOUT AND WITH CONTRAST CLINICAL INFORMATION: Possible discitis as myelitis. COMPARISON: MRI lumbar spine 10/10/2022. TECHNIQUE: Multiplanar MR imaging of the lumbar spine was performed without and with contrast. A total of 5 mL Gadavist was utilized for this examination. FINDINGS: There is worsening edema and enhancement involving the L4 and L5 vertebral segments and there is ongoing erosion of the adjoining endplates and fragmentation of the L4 and L5 vertebral bodies. There is retropulsion of the upper posterior corner of the L5 vertebral body now causing severe canal stenosis at the level of L4-L5. In addition to this finding there is progression of spinal infection, now with new edema and enhancement representing discitis osteomyelitis at the L3-L4 intervertebral disc space. There is paraspinal edema involving the psoas muscles. Otherwise no discrete drainable psoas abscess. The tip of the conus medullaris is located at L1. No mass effect on the conus. Visualized distal cord signal intensity is normal. At L1-L2 the annular contour is normal. No canal or neuroforaminal compromise. At L2-L3 there is a bulging disc. No canal stenosis. No mass effect on the traversing or foraminal nerve roots. At L3-L4 there is a shallow left subdural protrusion superimposed upon a bulging disc. Bilateral facet degenerative change. No canal stenosis. And mild to moderate mass effect on both L3 foraminal nerve roots, greater on the left. At L4-L5 there is severe canal stenosis and severe compression of both L4 foraminal nerve roots. At L5-S1 there is a bulging disc. No canal stenosis. Moderate to severe compression of both L5 foraminal nerve roots. MR/MR lumbar spine wo/w con IMPRESSION: There is progression of spinal infection. Specifically there is worsening destruction of the L4 and L5 vertebral segments and there is new discitis osteomyelitis involving the L3-L4 intervertebral disc space. There is progressive fragmentation of L5 and there is retropulsion of the upper posterior corner of the L5 vertebral body now causing severe canal stenosis at L4-L5. Otherwise no canal compromise. There are varying degrees of mass effect on the foraminal nerve roots at multiple levels as described above. For instance there is severe compression of both L4 foraminal nerve roots related to degenerative changes at L4-L5 and moderate to severe compression of both L5 foraminal nerve roots related to degenerative changes at L5-S1.
--- NOTE | ~2023-07-26 | CT_ITS ---
EXAMINATION: CT ABDOMEN AND PELVIS WITH CONTRAST CLINICAL INFORMATION: Abdominal/back pain COMPARISON: 05/17/2023 TECHNIQUE: Multidetector volumetric images were obtained from the superior aspect of the liver through the pubic symphysis following administration 85 mL of Omnipaque 350 intravenous contrast. Sagittal and coronal reformatted images were obtained on the technologist's workstation. Oral contrast: No This CT examination was performed using dose optimization techniques as appropriate, variously including the following: *Automated exposure control *Adjustment of mA and/or kV according to patient size (this includes techniques or standardized protocols for targeted exams where dose is matched to indication/reason for exam; i.e. extremities or head) *Use of iterative reconstruction technique DLP: 271 mGy-cm FINDINGS: Limited evaluation throughout due to motion artifact. LUNG BASES: Grossly clear. LIVER, GALLBLADDER, AND BILIARY TREE: The liver is normal in size, shape, and attenuation. No focal hepatic lesion identified. Periportal edema is noted. Gallbladder is not visualized. PANCREAS: Unremarkable. SPLEEN: Unremarkable. ADRENAL GLANDS: Unremarkable. KIDNEYS AND URETERS: There is a calculus at the left ureterovesicular junction measuring 5 mm, new from prior, with minimal left hydronephrosis. Left nephrogram may be slightly delayed. Multiple scattered calculi redemonstrated throughout the kidneys. Small left lower pole renal cyst is suspected; no hydronephrosis. BLADDER: Partially distended and grossly unremarkable. GASTROINTESTINAL TRACT: No evidence of bowel obstruction. Limited assessment for wall thickening in the sigmoid colon due to luminal collapse. Moderate stool is seen elsewhere in the colon. No free air or significant free fluid is seen. ABDOMINAL WALL: No significant hernia is appreciated. LYMPH NODES: Normal. VASCULAR: There is atherosclerotic calcification along the aorta and iliac arteries. PELVIC VISCERA: Unremarkable. OSSEOUS STRUCTURES: Redemonstrated severe collapse of L4 and L5 with disc space narrowing and central stenosis. Additional irregularity of the L3 inferior endplate is also noted. Overall appearance remains suspicious for sequelae of discitis/osteomyelitis. CT/CT abdomen pelvis w IV con IMPRESSION: 1. Calculus at the left ureterovesicular junction measuring 5 mm, new from prior, with minimal left hydronephrosis. 2. Redemonstrated findings at L3-L5 suspicious for sequelae of discitis/osteomyelitis. If clinically warranted, this could be further assessed with MRI.
[2023-07-27] VITALS (13 sets, daily range): BP systolic 77–118; BP diastolic 42–65; PULSE 51–110; RESP 12–18; TEMP 36.4–38.8; O2SAT 96–100; BMI 16.7
--- NOTE | 2023-07-27 00:34 | ED.GENADULT ---
HPI - General Adult General Chief complaint: General Medical Stated complaint: dizziness, nausea Time Seen by Provider: 07/26/23 23:54 Source: patient Mode of arrival: EMS Limitations: no limitations History of Present Illness HPI narrative: Patient is 62 years old with history of HIV unknown last CD4 count, hypertension, IV substance abuse, hepatitis-C, recent epidural abscess received IV antibiotic 05/17/2023 comes back as for last few days complaining of body aches and back pain again febrile on arrival 101.9. Nausea no vomiting no abdominal pain pain is more on the left side as compared to the right side and lower back no neck pain Related Data Home Medications Medication Instructions Recorded Confirmed baclofen 20 mg tablet 20 mg PO TID 05/17/23 07/27/23 gabapentin 800 mg tablet 800 mg PO TID 05/17/23 07/27/23 multivitamin 1 tab PO DAILY 05/17/23 07/27/23 ropinirole 4 mg tablet 4 mg PO TID 05/17/23 07/27/23 albuterol sulfate 90 mcg/actuation 2 puff inhalation Q6H PRN wheezing 07/27/23 07/27/23 aerosol inhaler (Ventolin HFA) bictegravir 50 mg-emtricitabine 1 tab PO QAM 07/27/23 07/27/23 200 mg-tenofovir alafenam 25 mg tablet (Biktarvy) doxepin 150 mg capsule 150 mg PO BEDTIME 07/27/23 07/27/23 ferrous sulfate 325 mg (65 mg 325 mg PO QAM 07/27/23 07/27/23 iron) tablet (FeroSul) fluticasone 250 mcg-salmeterol 50 1 ea inhalation BID 07/27/23 07/27/23 mcg/dose blistr powdr for inhalation nystatin 100,000 unit/mL oral 1 ml PO QID 07/27/23 07/27/23 suspension oxycodone 5 mg tablet 5 mg PO Q6H 07/27/23 07/27/23 pravastatin 40 mg tablet 40 mg PO QPM 07/27/23 07/27/23 Allergies Allergy/AdvReac Type Severity Reaction Status Date / Time aspirin [ASA] Allergy Intermediate HIVES Verified 07/27/23 00:14 tuberculin, purified protein Allergy Intermediate RASH, Verified 07/27/23 00:14 deriva ITCHING [TUBERCULIN,PURIF.PROT.DERIV.] chlorthalidone AdvReac Severe hypokalemia Verified 07/27/23 00:14 [CHLORTHALIDONE] tb serum Allergy Unknown Hives Uncoded 07/27/23 00:14 Review of Systems Review of Systems: Yes all other systems are reviewed and are negative FORMERLY [facility], [facility] Past Medical History Medical History Spinal cord abscess Epidural abscess High cholesterol Leg cramp HTN (hypertension) Back pain Surgical History H/O colonoscopy Social History Social History Alcohol intake: current Alcohol intake frequency: holidays/special occasions only Patient Tobacco Use Status: Current someday Tobacco user Smoked in Last 30 Days: Yes Use of substances other than those prescribed or required for medical reasons: Yes Substance Use Type: Crack/Cocaine and Heroin Advance Directives: No Advance Directives Information Provided: Yes Physical Exam ED Vital Signs: Vital Signs - 24 hr 07/27/23 00:15 07/27/23 00:22 Temperature 101.9 F H 99.6 F Pulse Rate 96 97 Respiratory Rate 12 16 Blood Pressure 118/64 114/58 L Pulse Oximetry 97 98 Oxygen Delivery Method Room Air Room Air BMI result Body Mass Index 16.7 Appearance: Alert. Oriented X3. No acute distress. Eyes: PERRLA, No Nystagmus ENT: Pharynx normal. Oral Mucosa moist Neck: Normal inspection. Neck supple. CVS: Normal heart rate and rhythm. Pulses normal. Respiratory: No respiratory distress. Equal air entry bilateral, no wheezing/rales/rhonchi Abdomen: Soft and nontender. Bowel sounds are present, no mass palpable, no CVA tenderness Skin: Skin warm and dry. Normal skin color. Normal skin turgor. Extremities: No lower extremity edema. No calf tenderness back: Diffuse lumbar tenderness no deformity no skin coloration Neuro: Oriented X 3. No motor deficit. No sensory deficit.No cerebellar signs , cranial nerves II-XII intact Medications Administered Generic Name Dose Route Start Last Admin Trade Name Freq PRN Reason Stop Dose Admin Enoxaparin Sodium 40 mg 07/27/23 05:00 07/27/23 04:46 Enoxaparin Sodium 40 Mg/0.4 Ml Syringe SUBCUT 40 mg Q24H BRY Administration Piperacillin Sod/Tazobactam 100 mls @ 200 mls/hr 07/27/23 06:00 07/27/23 05:38 Sod 4.5 gm/ Sodium Chloride IV 200 mls/hr Q6H BRY Administration Discontinued Medications Generic Name Dose Route Start Last Admin Trade Name Freq PRN Reason Stop Dose Admin Sodium Chloride 1,000 mls @ 999 mls/hr 07/27/23 00:35 07/27/23 04:39 Ns IV 07/27/23 01:35 Infused .Q1H1M ONE Infusion Vancomycin HCl 1,000 mg/ 270 mls @ 270 mls/hr 07/27/23 00:36 07/27/23 02:40 Sodium Chloride IV 07/27/23 01:35 Not Given ONCE ONE Piperacillin Sod/Tazobactam 50 mls @ 100 mls/hr 07/27/23 00:36 07/27/23 02:41 Sod 3.375 gm/ Sodium Chloride IV 07/27/23 01:05 Infused ONCE ONE Infusion Vancomycin HCl 1,250 mg/ 250 mls @ 166.667 mls/hr 07/27/23 01:00 07/27/23 04:40 Sodium Chloride IV 07/27/23 02:29 Infused ONCE ONE Infusion Iohexol 85 ml 07/27/23 03:35 07/27/23 03:36 Iohexol 350 Mg/Ml 100 Ml Infus..Btl IV 07/27/23 03:36 85 ml ONCE ONE Administration Medical Decision Making Medical Decision Making [facility] Narrative: Patient with diffuse body aches with fever with kidney stone meeting criteria for sepsis received IV antibiotics will admit patient for IV hydration and antibiotic treatment patient received IV vancomycin Zosyn with sed rate was 55 and C-reactive protein 4.95 lactic acid was 1.8. Patient ambulatory with no neuro deficit admitted to the hospitalist service Differential Diagnosis Differential Diagnoses: The differential diagnosis associated with the presentation includes Epidural abscess/diskitis /kidney stone/osteomyelitis/sepsis Admission/Observation Consideration of admission/observation: Escalation of care including admission/observation considered Consult Healthcare Provider Management of the patient was discussed with: Hospitalist Lab Data [facility] Lab Attestation statement: I reviewed the patient's lab results. 07/27/23 00:42 07/27/23 00:42 Labs: Lab Results 07/27/23 07/27/23 Range/Units 00:42 00:46 WBC 5.5 (4.8-10.8) X10*3/uL RBC 2.98 L D (4.60-5.80) X10*6/uL Hgb 7.8 L (14.0-18.0) g/dl Hct 24.7 L (42.0-52.0) % MCV 82.9 (80.0-98.0) fL MCH 26.2 L (27.0-33.0) pg MCHC 31.6 (31.0-36.0) g/dl RDW 18.7 H (11.0-16.0) % Plt Count 267 (160-400) X10*3/uL MPV 10.8 (9.4-12.4) fL Absolute Nucleated RBC 0.000 (0.0-0.012) X10*3/uL Nucleated RBC % (auto) 0.0 (0.0-0.2) /100WBC ESR 55 H (0-15) MM/HR Sodium 138 (135-145) mmol/L Potassium 4.7 (3.3-5.1) mmol/L Chloride 104 (96-108) mmol/L Carbon Dioxide 22 (22-29) mmol/L Anion Gap 17 (12-20) BUN 20 H (9-16) mg/dL Creatinine 0.81 (0.5-1.4) mg/dL Estim Creat Clear Calc 67.5 Estimated GFR > 60 Random Glucose 75 (60-115) mg/dL Lactic Acid 1.8 (0.5-2.0) mmol/L Calcium 8.9 D (8.4-10.2) mg/dL Total Bilirubin 0.4 (0.0-1.0) mg/dL AST 51 H (5-37) U/L ALT 21 (0-40) U/L Alkaline Phosphatase 102 (39-117) U/L C-Reactive Protein 4.95 H (< or = 0.50) mg/dL Total Protein 6.5 (6.5-8.0) g/dL Albumin 3.1 L (3.5-5.0) g/dL Urine Color Yellow Urine Appearance Clear Urine pH 6.0 (5.0-9.0) Ur Specific [place] <= 1.005 (1.005-1.025) Urine Protein Trace (Neg-Trace) mg/dL Urine Glucose (UA) Negative (Negative) mg/dL Urine Ketones Negative (Negative) mg/dL Urine Blood Large (3+) H (Negative) Urine Nitrite Negative (Negative) Ur Leukocyte Esterase Small (1+) H (Negative) Urine RBC >20 H (0-2) /HPF Urine WBC 11-20 H (0-5) /HPF Ur Squamous Epith Cells 0-2 (0-2) /HPF Urine Bacteria None Seen (None Seen) Hyaline Casts 0-2 (0-2) /LPF Radiology Impression Discussion of test interpretation with radiology: I have reviewed the radiologist's reading. Radiologist Impression: [place] [id number] CT Scan Report Signed Patient: Bronson Interiano MR#: [id number] : 1960 Acct:[id number] Age/Sex: 62 / M ADM Date: 07/27/23 Loc: HO.ED Attending Dr: Ordering Physician: Agusto Munroe MD Date of Service: 07/27/23 Procedure(s): CT abdomen pelvis w IV con Accession Number(s): [id number] cc: Physician,Unknown ; Agusto Munroe MD~ EXAMINATION: CT ABDOMEN AND PELVIS WITH CONTRAST CLINICAL INFORMATION: Abdominal/back pain COMPARISON: 05/17/2023 TECHNIQUE: Multidetector volumetric images were obtained from the superior aspect of the liver through the pubic symphysis following administration 85 mL of Omnipaque 350 intravenous contrast. Sagittal and coronal reformatted images were obtained on the technologist's workstation. Oral contrast: No This CT examination was performed using dose optimization techniques as appropriate, variously including the following: *Automated exposure control *Adjustment of mA and/or kV according to patient size (this includes techniques or standardized protocols for targeted exams where dose is matched to indication/reason for exam; i.e. extremities or head) *Use of iterative reconstruction technique DLP: 271 mGy-cm FINDINGS: Limited evaluation throughout due to motion artifact. LUNG BASES: Grossly clear. LIVER, GALLBLADDER, AND BILIARY TREE: The liver is normal in size, shape, and attenuation. No focal hepatic lesion identified. Periportal edema is noted. Gallbladder is not visualized. PANCREAS: Unremarkable. SPLEEN: Unremarkable. ADRENAL GLANDS: Unremarkable. KIDNEYS AND URETERS: There is a calculus at the left ureterovesicular junction measuring 5 mm, new from prior, with minimal left hydronephrosis. Left nephrogram may be slightly delayed. Multiple scattered calculi redemonstrated throughout the kidneys. Small left lower pole renal cyst is suspected; no hydronephrosis. BLADDER: Partially distended and grossly unremarkable. GASTROINTESTINAL TRACT: No evidence of bowel obstruction. Limited assessment for wall thickening in the sigmoid colon due to luminal collapse. Moderate stool is seen elsewhere in the colon. No free air or significant free fluid is seen. ABDOMINAL WALL: No significant hernia is appreciated. LYMPH NODES: Normal. VASCULAR: There is atherosclerotic calcification along the aorta and iliac arteries. PELVIC VISCERA: Unremarkable. OSSEOUS STRUCTURES: Redemonstrated severe collapse of L4 and L5 with disc space narrowing and central stenosis. Additional irregularity of the L3 inferior endplate is also noted. Overall appearance remains suspicious for sequelae of discitis/osteomyelitis. CT/CT abdomen pelvis w IV con IMPRESSION: 1. Calculus at the left ureterovesicular junction measuring 5 mm, new from prior, with minimal left hydronephrosis. 2. Redemonstrated findings at L3-L5 suspicious for sequelae of discitis/osteomyelitis. If clinically warranted, this could be further assessed with MRI. Discharge Plan Discharge Clinical Impression: Kidney stone on left side, Sepsis, Back pain Patient Disposition: Admitted As Inpatient
[2023-07-27 01:13] LABS: Hematocrit 24.7 % (42.0-52.0); Hemoglobin 7.8 g/dl (14.0-18.0); Mean Corpuscular HGB Conc 31.6 g/dl (31.0-36.0); Mean Corpuscular Hemoglobin 26.2 pg (27.0-33.0); Mean Corpuscular Volume 82.9 fL (80.0-98.0); Mean Platelet Volume 10.8 fL (9.4-12.4); Platelet Count 267 X10*3/uL (160-400); Red Blood Count 2.98 X10*6/uL (4.60-5.80); Red Cell Distribution Width 18.7 % (11.0-16.0); White Blood Count 5.5 X10*3/uL (4.8-10.8)
[2023-07-27 01:15] LABS: Appearance Urine Clear; Color Urine Yellow; Glucose Urine UA Negative (Negative); Leukocyte Esterase Urine Small (1+) (Negative); Nitrite Urine Negative (Negative); Specific Gravity - Urine <= 1.005 (1.005-1.025); UMIC TRIGGER UACC YES; Urine Blood Large (3+) (Negative); Urine Ketones Negative (Negative); Urine Protein Trace mg/dL (Neg-Trace)
[2023-07-27] MEDS: 0.9 % Sodium Chloride 1,000 ML 999 ML IV ×2 (01:21→08:15)
[2023-07-27 01:23] LABS: Bacteria Urine None Seen (None Seen); Hyaline Casts Urine 0-2 /LPF (0-2); RBC Urine >20 /HPF (0-2); Squamous Epithelial Cell Urine 0-2 /HPF (0-2); UACC Culture Trigger YES
[2023-07-27 01:26] LABS: Lactic Acid 1.8 mmol/L (0.5-2.0)
[2023-07-27] MEDS: Piperacillin Sodium/Tazobactam 3.375 GM in 0.9 % Sodium Chloride 50 ML IV (01:31)
[2023-07-27 01:34] LABS: Anion Gap 17 (12-20)
--- NOTE | 2023-07-27 01:34 | PC.NURSE ---
Pt BIBA reporting 10/10 lower back pain. Reports discharge from [facility] for a spinal infection. Patient also having chills, temp upon arrival orak 101.9 improving 99.6 orally. endorses using heroin and cocaine approximately 4 hours prior to coming to ER
[2023-07-27 01:38] LABS: Alanine Aminotransferase 21 U/L (0-40); Albumin Level 3.1 g/dL (3.5-5.0); Alkaline Phosphatase 102 U/L (39-117); Aspartate Amino Transferase 51 U/L (5-37); Bilirubin Total 0.4 mg/dL (0.0-1.0); Blood Urea Nitrogen 20 mg/dL (9-16); C Reactive Protein 4.95 mg/dL (< or = 0.50); Calcium 8.9 mg/dL (8.4-10.2); Carbon Dioxide 22 mmol/L (22-29); Chloride 104 mmol/L (96-108); Creatinine Clr Calc Pharmacy 67.5; Estimated Glomerular Filt Rate > 60; Glucose Random 75 mg/dL (60-115); Potassium 4.7 mmol/L (3.3-5.1); Sodium 138 mmol/L (135-145); Total Protein 6.5 g/dL (6.5-8.0)
[2023-07-27 02:12] LABS: Erythrocyte Sedimentation Rate 55 MM/HR (0-15)
[2023-07-27] MEDS: vancomycin HCL 1,250 MG in 0.9 % Sodium Chloride 250 ML 166.67 MG IV (02:17)
[2023-07-27] MEDS: iohexoL 350 MG/ML 100 ML INFUS..BTL 85 ML IV (03:36)
--- NOTE | 2023-07-27 04:28 | P.HPHOSP_ITS ---
History of Present Illness Date of Service: 07/27/23 Chief Complaint: Fever This is a 62-year-old male with pertinent history of HIV, unknown last CD4 count, essential hypertension, IV substance use disorder, hepatitis-C who presents to the emergency department for evaluation of fevers. Patient states he was recently discharged from outside facility on 07/24 for spinal infection . Since discharge, patient states he has been lethargic and drowsy. Admits to using IV heroin and IV cocaine prior to presentation. Also has been complaining of fevers and chills. Does endorse back pain which has been progressive and without any relieving factors. No chest discomfort, palpitations, shortness of breath, abdominal pain, changes in urinary or bowel habits. In the emergency department, patient was found to be septic and imaging concerning for discitis/osteomyelitis. Also noted calculus at the left ureterovesical junction Review of Systems 2 Constitutional: Constitutional: Reports chills, Reports fatigue, Reports fever(s), Reports lethargy and Reports malaise Cardiovascular: Cardiovascular: Reports no additional cardiovascular complaints Respiratory: Respiratory: Reports no additional respiratory complaints Gastrointestinal: Gastrointestinal: Reports no additional gastrointestinal complaints Genitourinary: Genitourinary: Reports no additional male genitourinary complaints Endocrine: Endocrine: Reports fatigue PMFSH Medical History Spinal cord abscess Epidural abscess High cholesterol Leg cramp HTN (hypertension) Back pain Surgical History H/O colonoscopy Social History Alcohol intake: current Alcohol intake frequency: holidays/special occasions only Patient Tobacco Use Status: Current someday Tobacco user Smoked in Last 30 Days: Yes Use of substances other than those prescribed or required for medical reasons: Yes Substance Use Type: Crack/Cocaine and Heroin Advance Directives: No Advance Directives Information Provided: Yes Meds Allergies Allergy/AdvReac Type Severity Reaction Status Date / Time aspirin [ASA] Allergy Intermediate HIVES Verified 07/27/23 00:14 tuberculin, purified protein Allergy Intermediate RASH, Verified 07/27/23 00:14 deriva ITCHING [TUBERCULIN,PURIF.PROT.DERIV.] chlorthalidone AdvReac Severe hypokalemia Verified 07/27/23 00:14 [CHLORTHALIDONE] tb serum Allergy Unknown Hives Uncoded 07/27/23 00:14 Active Medications: Current Medications Acetaminophen (Acetaminophen 325 Mg Tablet) 650 mg PO Q6H PRN PRN Reason: Pain, Mild (Pain Scale 1-3) Enoxaparin Sodium (Enoxaparin Sodium 40 Mg/0.4 Ml Syringe) 40 mg SUBCUT Q24H BRY Piperacillin Sod/Tazobactam (Sod 4.5 gm/ Sodium Chloride) 100 mls @ 200 mls/hr IV Q6H BRY Melatonin (Melatonin 3 Mg Tablet) 6 mg PO BEDTIME PRN PRN Reason: Insomnia Ondansetron HCl (Ondansetron Hcl 4 Mg/2 Ml Vial) 4 mg IVPUSH Q8H PRN PRN Reason: Nausea and Vomiting Pharmacy Consult (Consult Rx Vancomycin Dosing) 1 each MISCELLANE DAILY PRN PRN Reason: Consult order Sodium Chloride (0.9 % Sodium Chloride Flush 3 Ml Syringe) 3 ml IVFLUSH QSHIFT [facility] Home Medications Medication Instructions Recorded Confirmed Last Taken Type baclofen 20 mg tablet 20 mg PO TID 05/17/23 05/17/23 Unknown History dolutegravir 50 mg tablet (Tivicay) 50 mg PO DAILY 05/17/23 05/17/23 Unknown History emtricitabine 200 mg-tenofovir 1 tab PO DAILY 05/17/23 05/17/23 Unknown History alafenamide fumarate 25 mg tablet (Descovy) gabapentin 800 mg tablet 800 mg PO TID 05/17/23 05/17/23 Unknown History lisinopril 20 mg tablet 20 mg PO DAILY 05/17/23 05/17/23 Unknown History multivitamin 1 tab PO DAILY 05/17/23 05/17/23 Unknown History naproxen 500 mg tablet 500 mg PO BID 05/17/23 05/17/23 Unknown History pravastatin 40 mg tablet 40 mg PO DAILY 05/17/23 05/17/23 Unknown History ropinirole 4 mg tablet 4 mg PO TID 05/17/23 05/17/23 Unknown History sennosides 8.6 mg tablet (senna) 17.2 mg PO DAILY 05/17/23 05/17/23 Unknown History Physical Exam 2 Vital Signs and Narrative: Vital Signs: Last Vital Signs Temp 99.6 F 07/27/23 00:22 Pulse 97 07/27/23 00:22 Resp 16 07/27/23 00:22 BP 114/58 L 07/27/23 00:22 Pulse Ox 98 07/27/23 00:22 O2 Del Method Room Air 07/27/23 00:22 BMI result Body Mass Index 16.7 Middle-aged male lying in bed in no distress Neck supple, no JVD Regular rate and rhythm, S1-S2 heard Decreased breath sounds at bases Abdomen soft nontender, no guarding, no rigidity Patient is awake, alert and oriented to self, place, time and person ; no focal motor deficit Musculoskeletal: Extremities with track arteaga, tenderness present in the lower lumbar and sacral spine Psych: Normal mood No pedal edema Results Labs 07/27/23 00:42 07/27/23 00:42 Labs: Laboratory Results - last 24 hr 07/27/23 07/27/23 00:42 00:46 MCV 82.9 MCH 26.2 L MCHC 31.6 RDW 18.7 H Plt Count 267 MPV 10.8 Absolute Nucleated RBC 0.000 Nucleated RBC % (auto) 0.0 ESR 55 H Anion Gap 17 Estim Creat Clear Calc 67.5 Estimated GFR > 60 Random Glucose 75 Lactic Acid 1.8 Calcium 8.9 D Total Bilirubin 0.4 AST 51 H ALT 21 Alkaline Phosphatase 102 C-Reactive Protein 4.95 H Total Protein 6.5 Albumin 3.1 L Urine Color Yellow Urine Appearance Clear Urine pH 6.0 Ur Specific [place] <= 1.005 Urine Protein Trace Urine Glucose (UA) Negative Urine Ketones Negative Urine Blood Large (3+) H Urine Nitrite Negative Ur Leukocyte Esterase Small (1+) H Urine RBC >20 H Urine WBC 11-20 H Ur Squamous Epith Cells 0-2 Urine Bacteria None Seen Hyaline Casts 0-2 Imaging Radiologist's Impressions: Impressions Chest X-Ray 07/27/23 03:35 IMPRESSION: Suggestion of central peribronchial thickening which may reflect acute or chronic airways disease. Abdomen/Pelvis CT 07/27/23 03:39 IMPRESSION: 1. Calculus at the left ureterovesicular junction measuring 5 mm, new from prior, with minimal left hydronephrosis. 2. Redemonstrated findings at L3-L5 suspicious for sequelae of discitis/osteomyelitis. If clinically warranted, this could be further assessed with MRI. Assessment and Plan (1) Sepsis: Status: Acute Plan This is a 62-year-old male with pertinent history of HIV, unknown last CD4 count, essential hypertension, IV substance use disorder, hepatitis-C who presents to the emergency department for evaluation of fevers. #. Sepsis due to ?discitis/osteomyelitis: Resuscitated with IV crystalloids. Initiating empiric IV antibiotics. Does have a history of epidural abscess. Obtain outside records. Imaging with sequelae of discitis/osteomyelitis. Will consult Infectious Disease for further assistance. Blood culture and lactic acid obtained #. Imaging with calculus at left ureterovesical junction with mild hydronephrosis. Consulting Urology #. Substance use disorder. Admits to using cocaine and heroin. UDS pending. Consulting Addiction team and care team #. Homelessness. darkroom worker consult #. HIV: Unknown last CD4 count. CD4 and viral load pending. Consulted Infectious Disease as above. Unknown compliance with HAART #. Normocytic anemia. Hemoglobin above transfusion threshold #. Hepatitis-C. Will need outpatient follow-up and treatment Med rec pending DVT prophylaxis: Lovenox Full code Admit as inpatient and will require two night minimum hospital stay for IV antibiotics Time Spent With Patient Time: Total time managing care of this patient today ____ minutes. Quality Stroke Does the patient have a stroke diagnosis?: No VTE Prior VTE?: No VTE Risk Level:: Medical - moderate - high VTE Device Contraindication: Treatment Not Indicated VTE Drug Contraindication: N/A - Med Ordered
[2023-07-27] MEDS: Enoxaparin Sodium 40 MG/0.4 ML SYRINGE SUBCUT (04:46)
[2023-07-27] MEDS: Piperacillin Sodium/Tazobactam 4.5 GM in 0.9 % Sodium Chloride 100 ML IV ×3 (05:38→18:14)
--- NOTE | 2023-07-27 06:56 | PHA.PROG ---
Admission Date/Time: July 27, 2023 04:25 Indication: SEPSIS Weight in k.895 kg Adjusted body weight in Kg: [place] body weight in Kg: Obesity Dosing Indication % IBW: Serum Creatinine - Last 168 Hours 07/27/23 00:42 Creatinine 0.81 Estimated CrCl and GFR - Last 168 Hours 07/27/23 00:42 Estim Creat Clear Calc 67.5 Estimated GFR > 60 Vancomycin Loading Dose: 1250 Current Vancomycin Dosing Regimen: 750 Q12 Vancomycin Monitoring using AUC goal of 400 - 600 range with trough as surrogate marker: 521 Date and Time for next Vancomycin Level to be drawn: 07/28 @0900 Pharmacist Comments on Vancomycin Plan: APPROPRIATE LOAD GIVEN IN ED. Vancomycin dosing will take advantage of [employer] as a clinical decision support tool that uses Bayesian modeling to calculate individual patient's pharmacokinetic parameters and forecast the patient's drug concentration time course with the target goal AUC 24 range of 400 - 600 mg/L/hr.
--- NOTE | 2023-07-27 07:18 | PHA.MEDREC ---
Pharmacy Consult ? Medication Reconciliation Pharmacy has completed the medication reconciliation. Reviewed med rec done by nursing
[2023-07-27 07:22] LABS: Alanine Aminotransferase 23 U/L (0-40); Albumin Level 2.7 g/dL (3.5-5.0); Alkaline Phosphatase 101 U/L (39-117); Anion Gap 12 (12-20); Aspartate Amino Transferase 49 U/L (5-37); Bilirubin Total 0.6 mg/dL (0.0-1.0); Blood Urea Nitrogen 20 mg/dL (9-16); Calcium 8.2 mg/dL (8.4-10.2); Carbon Dioxide 23 mmol/L (22-29); Chloride 106 mmol/L (96-108); Creatinine Clr Calc Pharmacy 62.9; Estimated Glomerular Filt Rate > 60; Glucose Random 83 mg/dL (60-115); Potassium 3.8 mmol/L (3.3-5.1); Sodium 137 mmol/L (135-145); Total Protein 5.4 g/dL (6.5-8.0)
[2023-07-27] MEDS: 0.9 % Sodium Chloride Flush 3 ML SYRINGE IVFLUSH ×3 (08:02→20:04)
--- NOTE | 2023-07-27 08:06 | PC.NURSE ---
Pt is alert/oriented. Sitting up eating breakfast . Reports 10/10 back pain from neck to tailbone. No grimace noted at this time. SBP 70s, pt denies dizziness or SOB, Alejandra Mcghee aware. Afebrile temp 98.5. Other vitals WNL. Skin sl pale, warm and dry. Awaits admit orders
--- NOTE | 2023-07-27 08:17 | PC.NURSE ---
NS bolus ordered/started
[2023-07-27] MEDS: Albumin Human 25 % 100 ML IV ×2 (09:10→10:35)
--- NOTE | 2023-07-27 09:13 | PC.NURSE ---
Dr. Bailey at bedside. axox4, bp soft ivf and albumin infusing per order, sats 99% RA, nsr on monitor 61 bpm, neuros intact, lung sounds cta, respirations even and unlabored. pt denies questions/concerns at this time. call vinson within reach.
--- NOTE | 2023-07-27 09:22 | PC.NURSE ---
Methadone dose verified by [facility], faxed to pharmacy
--- NOTE | 2023-07-27 09:50 | PC.NURSE ---
Addendum entered by Jenny Sparrow 07/27/23 10:04: no new orders at this time. Addendum entered by Jenny Sparrow 07/27/23 09:50: pt denies cp/sob/dizziness. Original Note: ivf infused. bp 87/46. albumin infusing. Alejandra PAUL aware.
[2023-07-27 10:39] LABS: Mean Corpuscular HGB Conc 31.4 g/dl (31.0-36.0); Mean Corpuscular Hemoglobin 26.3 pg (27.0-33.0); Mean Corpuscular Volume 83.7 fL (80.0-98.0); Mean Platelet Volume 9.8 fL (9.4-12.4); Platelet Count 189 X10*3/uL (160-400); Red Blood Count 2.51 X10*6/uL (4.60-5.80); Red Cell Distribution Width 19.1 % (11.0-16.0); White Blood Count 14.2 X10*3/uL (4.8-10.8)
[2023-07-27] MEDS: Acetaminophen 325 MG TABLET 650 MG PO ×2 (10:40→20:03)
--- NOTE | 2023-07-27 10:41 | PC.NURSE ---
2nd albumin infusing. pt reported 10/10 pain prn given. vitals as documented.
[2023-07-27 10:43] LABS: Hemoglobin 6.6 g/dl (14.0-18.0)
--- NOTE | 2023-07-27 10:53 | PC.NURSE ---
Alejandra PAUL notified for critical; to obtain stool occult when pt has bm.
[2023-07-27 11:15] LABS: Iron 8 mcg/dL (45-160); Percent Iron Saturation 4 % (15-50); Total Iron Binding Capacity 187 mcg/dL (228-428); Unsaturated Iron Binding 179 ug/dL
[2023-07-27 11:35] LABS: Ferritin 237 ng/mL (20-250)
--- NOTE | 2023-07-27 11:37 | PC.NURSE ---
manual bp 96/58 Alejandra PAUL notified. +1 pitting edema RUE; pt reports recent iv drug use of extremity. no redness/tenderness noted.
[2023-07-27] MEDS: vancomycin HCL 750 MG in 0.9 % Sodium Chloride 250 ML 265 MG IV ×2 (11:52→22:59)
--- NOTE | 2023-07-27 11:55 | P.CNGI_ITS ---
History of Present Illness Data of Consult Service Date: 07/27/23 Requesting physician: Alejandra Mcghee Primary Care Provider: Unknown Physician HPI Reason for consult: anemia 62-year-old male with history of HIV, unknown last CD4 count, essential hypertension, IV substance use disorder, hepatitis-C who I am seeing for assessment for anemia. He presents with 1 week of fatigue, worsening back pain-worse with movement and bending, no releiving factors with reduced mobility and stiffness and fevers. He has problems with para spinal abscess treated recently at [facility]. He has ongoing drug abuse issues and uses IV heroin and cocaine. H had labs which confirmed normocytic anemia, but he denies overt bleeding, melena, epistaxis, hematuria. No chest discomfort, palpitations, shortness of breath, abdominal pain, changes in urinary or bowel habits. LABS: HGB: 7.8 now 6.6, with raised WCC, CRP 5, low iron sat, nml ferritin UA - large blood IMAGING: CT- discitis, atherosclerosis, kidney stone Review of Systems 2 Review of Systems: Constitutional : No Weight loss, No Fever, No Chills ENT/Mouth : No sore throat, No Rhinorrhea Eyes: No Swelling, No Redness Cardiovascular : No Chest Pain, No SOB, No Edema Respiratory : No Cough, No Sputum, No Wheezing Gastrointestinal : see HPI Genitourinary : NO Dysuria, No Urinary Frequency, No Hematuria, No Urgency Musculoskeletal : + joint pain, No Myalgias, No Joint Swelling Skin : No Skin Lesions, No rash Neuro : + Weakness, No Numbness, No Dizziness, No Headache Psych : No Anxiety/Panic, No Depression Heme/Lymph: No Bruising, No Lymphadenopathy Endocrine : No Polyuria, No Polydipsia All other systems reviewed and are negative. [facility] Past Medical History Medical History Spinal cord abscess Epidural abscess High cholesterol Leg cramp HTN (hypertension) Back pain Family History Pertinent family history: no fh of hiv Surgical History Surgical History H/O colonoscopy Social History Social History Household Members: Other Housing: Homeless Alcohol intake: current Alcohol intake frequency: holidays/special occasions only Patient Tobacco Use Status: Current someday Tobacco user Tobacco use type: Cigarette Cigarettes Per Day: 2 Smoked in Last 30 Days: Yes Patient Interested in Nicotine Replacement: No Use of substances other than those prescribed or required for medical reasons: Yes Substance Use Type: Crack/Cocaine and Heroin Substance Use Type Other:: cocaine occasion Substance Use Frequency: Daily Last Used Substance: Days (ago) Currently Displaying Signs/Symptoms of Drug Intoxication Withdrawal: No Any prior treatment program specific to substance use: Yes Have you been hit, kicked, punched, or otherwise hurt by someone within the past year? If so, by whom?: No Do you feel safe in your current relationship?: Yes Is there a partner from a previous relationship who is making you feel unsafe now?: No Are you made to feel afraid or neglected: No Advance Directives: No Advance Directives Information Provided: Yes Do you have thoughts of harming others: None Do you have a plan to hurt others: No Plan Recently lost weight without trying: Yes How much weight loss: 34pounds or more Eating poorly because of decreased appetite: No Nutrition screen score: 6 Nutrition Risks: Dental problems Poor oral hygiene: Yes Meds Allergies Allergy/AdvReac Type Severity Reaction Status Date / Time aspirin [ASA] Allergy Intermediate HIVES Verified 07/27/23 00:14 tuberculin, purified protein Allergy Intermediate RASH, Verified 07/27/23 00:14 deriva ITCHING [TUBERCULIN,PURIF.PROT.DERIV.] chlorthalidone AdvReac Severe hypokalemia Verified 07/27/23 00:14 [CHLORTHALIDONE] tb serum Allergy Unknown Hives Uncoded 07/27/23 00:14 Active Medications: Current Medications Acetaminophen (Acetaminophen 325 Mg Tablet) 650 mg PO Q6H PRN PRN Reason: Pain, Mild (Pain Scale 1-3) Last Admin: 07/27/23 10:40 Dose: 650 mg Albuterol Sulfate (Albuterol Sulfate 90 Mcg 8 Gm Inhaler) 2 puff INHALE Q6H PRN PRN Reason: wheezing Bictegravir/Emtricitabine/Tenofovir (Bictegrav/Emtricit/Tenofov Ala Tablet) 1 tab PO DAILY BRY Enoxaparin Sodium (Enoxaparin Sodium 40 Mg/0.4 Ml Syringe) 40 mg SUBCUT Q24H BRY Last Admin: 07/27/23 04:46 Dose: 40 mg Fluticasone/Vilanterol (Fluticasone/Vilanterol 100/25 Blst.W.Dev) 1 puff INHALE RDAILY [facility] Piperacillin Sod/Tazobactam (Sod 4.5 gm/ Sodium Chloride) 100 mls @ 200 mls/hr IV Q6H [facility] Last Infusion: 07/27/23 08:02 Dose: Infused Vancomycin HCl 750 mg/ Sodium (Chloride) 265 mls @ 265 mls/hr IV Q12H [facility] Last Admin: 07/27/23 11:52 Dose: 265 mls/hr Sodium Chloride (Ns) 100 mls @ 100 mls/hr IV ONCE ONE Stop: 07/27/23 12:14 Melatonin (Melatonin 3 Mg Tablet) 6 mg PO BEDTIME PRN PRN Reason: Insomnia Nystatin (Nystatin Oral Susp 500,000 Unit/5 Ml Oral.Susp) 100,000 unit PO QID [facility]; Protocol Ondansetron HCl (Ondansetron Hcl 4 Mg/2 Ml Vial) 4 mg IVPUSH Q8H PRN PRN Reason: Nausea and Vomiting Pharmacy Consult (Consult Rx Vancomycin Dosing) 1 each MISCELLANE DAILY PRN PRN Reason: Consult order Sodium Chloride (0.9 % Sodium Chloride Flush 3 Ml Syringe) 3 ml IVFLUSH QSHIFT [facility] Last Admin: 07/27/23 08:02 Dose: 3 ml Home Medications Medication Instructions Recorded Confirmed Last Taken Type baclofen 20 mg tablet 10 mg PO TID 05/17/23 07/27/23 Unknown History gabapentin 800 mg tablet 800 mg PO TID 05/17/23 07/27/23 Unknown History multivitamin 1 tab PO DAILY 05/17/23 07/27/23 Unknown History ropinirole 4 mg tablet 4 mg PO TID 05/17/23 07/27/23 Unknown History albuterol sulfate 90 mcg/actuation 2 puff inhalation Q6H PRN wheezing 07/27/23 07/27/23 Unknown History aerosol inhaler (Ventolin HFA) bictegravir 50 mg-emtricitabine 1 tab PO QAM 07/27/23 07/27/23 Unknown History 200 mg-tenofovir alafenam 25 mg tablet (Biktarvy) doxepin 150 mg capsule 150 mg PO BEDTIME 07/27/23 07/27/23 Unknown History ferrous sulfate 325 mg (65 mg 325 mg PO DAILY 07/27/23 07/27/23 Unknown History iron) tablet (FeroSul) fluticasone 250 mcg-salmeterol 50 1 ea inhalation BID 07/27/23 07/27/23 Unknown History mcg/dose blistr powdr for inhalation methadone 10 mg/mL oral syringe 60 mg PO DAILY 07/27/23 07/27/23 07/26/23 History (FOR ORAL USE ONLY) 60 nystatin 100,000 unit/mL oral 1 ml PO QID 07/27/23 07/27/23 Unknown History suspension oxycodone 5 mg tablet 5 mg PO Q6H 07/27/23 07/27/23 Unknown History pravastatin 40 mg tablet 40 mg PO BEDTIME 07/27/23 07/27/23 Unknown History Physical Exam 2 Vital Signs: Vital Signs: Last Vital Signs Temp 98.1 F 07/27/23 09:17 Pulse 54 07/27/23 10:36 Resp 12 07/27/23 10:36 BP 96/58 L 07/27/23 11:37 Pulse Ox 99 07/27/23 09:17 O2 Del Method Room Air 07/27/23 09:17 BMI result Body Mass Index 16.7 EXAM: GENERAL: The patient is well developed and nontoxic. VITAL SIGNS:see workflow HEENT: Nonicteric sclerae, PERRLA, EOMI. Oropharynx clear. Moist mucous membranes. Conjunctivae appear well perfused. No thyroid mass. CHEST: Chest wall is nontender. HEART: Regular rate and rhythm without murmurs. LUNGS: Clear to auscultation bilaterally. ABDOMEN: Soft, positive bowel sounds, nontender, no organomegaly.no flank tenderness GENITAL:not done RECTAL: not done SKIN: No rash, no excessive bruising, petechiae, or purpura. NEUROLOGIC: Cranial nerves II-XII intact without motor/sensory deficit. spine: reduced ROM, swelling and induration lower back Results Labs 07/27/23 14:59 07/27/23 06:20 Labs: Short CBC 07/27/23 07/27/23 Range/Units 00:42 10:30 WBC 5.5 14.2 H (4.8-10.8) X10*3/uL Hgb 7.8 L 6.6 L* (14.0-18.0) g/dl Hct 24.7 L 21.0 L* (42.0-52.0) % Plt Count 267 189 D (160-400) X10*3/uL BMP 07/27/23 07/27/23 00:42 06:20 Sodium 138 137 Potassium 4.7 3.8 Chloride 104 106 Carbon Dioxide 22 23 BUN 20 H 20 H Creatinine 0.81 0.87 Calcium 8.9 D 8.2 L D Liver Function 07/27/23 07/27/23 Range/Units 00:42 06:20 Total Bilirubin 0.4 0.6 (0.0-1.0) mg/dL AST 51 H 49 H (5-37) U/L ALT 21 23 (0-40) U/L Alkaline Phosphatase 102 101 (39-117) U/L Albumin 3.1 L 2.7 L (3.5-5.0) g/dL Urine 07/27/23 Range/Units 00:42 Urine Color Yellow Urine Appearance Clear Urine pH 6.0 (5.0-9.0) Ur Specific [place] <= 1.005 (1.005-1.025) Urine Protein Trace (Neg-Trace) mg/dL Urine Glucose (UA) Negative (Negative) mg/dL Imaging CT scan - abdomen: Attestation: I personally reviewed and interpreted this imaging study as follows: (renal stone, spinal dgeenration and inflamamtion lumbar area) Assessment and Plan (1) Anemia: Qualifiers: Anemia type: unspecified type Qualified Code(s): D64.9 - Anemia, unspecified Status: Acute Plan 1/Anemia, iron def but also maybe related to microcytic anemia, medication, stress gastritis, anemia of chronic disease, no overt GI bleeding PLAN: 1/ wait work up for spinal issues, depending on that can book for egd,colo in near future, meantme can use low dose PPI in case of stress ulceration. Time Spent With Patient Time: Total time managing care of this patient today ____ minutes. Procedures Date of Service Date of Service: 07/28/23
--- NOTE | 2023-07-27 12:01 | PC.NURSE ---
2nd iv established. iv abx infusing.
--- NOTE | 2023-07-27 12:06 | HE.PHANOTE ---
RE:methadone Last dose form sent to pharmacy, [facility] last dose 60mg on 07/26/23
[2023-07-27] MEDS: Bictegrav/Emtricit/Tenofov Ala TABLET 1 TAB PO (13:22)
--- NOTE | 2023-07-27 13:32 | PC.NURSE ---
Addendum entered by Geraldine Francis 07/27/23 13:44: Blood bank aware Original Note: Alejandra PA to bedside discussing plan for bld transfusion, pt declines at this time states i want to wait until later , Alejandra to order repeat CBC. Consent in chart
[2023-07-27] MEDS: Omeprazole 20 MG CAPSULE.DR PO (14:01)
[2023-07-27] MEDS: methADONE HCl 20 MG/2 ML ORAL.CONC 60 MG PO (14:02)
[2023-07-27] MEDS: Nystatin Oral Susp 500,000 UNIT/5 ML ORAL.SUSP 100000 UNIT PO ×3 (14:03→20:03)
--- NOTE | 2023-07-27 14:14 | HO.PM.IMPN ---
Subjective Subjective Date of Service: 07/27/23 Interval History: seen and examined this morning follow up for fever having low back pain - this seems to be chronic fever x1 day, no respiratory or urinary symptoms Review of Systems Review of Systems: Yes all other systems are reviewed and are negative Constitutional Constitutional: Denies chills and Reports fever(s) Cardiovascular Cardiovascular: Denies chest pain, Denies palpitations and Denies dyspnea Respiratory Respiratory: Denies cough and Denies dyspnea Gastrointestinal Gastrointestinal: Denies abdominal pain, Denies melena, Denies hematochezia, Denies nausea and Denies vomiting Endocrine Endocrine: Denies palpitations Physical Exam Vital Signs: Vital Signs: Last Vital Signs Temp 98.1 F 07/27/23 09:17 Pulse 63 07/27/23 13:57 Resp 12 07/27/23 10:36 BP 105/55 L 07/27/23 13:57 Pulse Ox 100 07/27/23 13:57 O2 Del Method Room Air 07/27/23 13:57 BMI result Body Mass Index 16.7 Const: Other: frail, cachectic appearing male. awake, alert, in NAD Orientation/consciousness: patient oriented x3 Resp: Effort & Inspection: normal respiratory effort, able to speak in complete sentences, no respiratory distress and no use of accessory muscles Auscultation: clear to auscultation bilaterally Cardio: Rate: regular rate Heart sounds: S1 normal heart sound present and S2 normal heart sound present GI: Inspection: No distended Palpation (GI): Soft to palpation, nontender and no guarding Skin: Other: warm/dry Neuro: General: patient oriented x3, moves all extremities and CN's II-XI intact bilaterally Extrem: Other: swelling RUE, no erythema; trace leg edema b/l Objective Data Active Medications Acetaminophen (Acetaminophen 325 Mg Tablet) 650 mg PO Q6H PRN PRN Reason: Pain, Mild (Pain Scale 1-3) Last Admin: 07/27/23 10:40 Dose: 650 mg Documented By: CHELLE Albuterol Sulfate (Albuterol Sulfate 90 Mcg 8 Gm Inhaler) 2 puff INHALE Q6H PRN PRN Reason: wheezing Bictegravir/Emtricitabine/Tenofovir (Bictegrav/Emtricit/Tenofov Ala Tablet) 1 tab PO DAILY BRY Last Admin: 07/27/23 13:22 Dose: 1 tab Documented By: CHELLE Enoxaparin Sodium (Enoxaparin Sodium 40 Mg/0.4 Ml Syringe) 40 mg SUBCUT Q24H [facility] Last Admin: 07/27/23 04:46 Dose: 40 mg Documented By: RENETTA Fluticasone/Vilanterol (Fluticasone/Vilanterol 100/25 Blst.W.Dev) 1 puff INHALE RDAILY [facility] Piperacillin Sod/Tazobactam (Sod 4.5 gm/ Sodium Chloride) 100 mls @ 200 mls/hr IV Q6H [facility] Last Infusion: 07/27/23 14:03 Dose: Infused Documented By: DELORES Vancomycin HCl 750 mg/ Sodium (Chloride) 265 mls @ 265 mls/hr IV Q12H [facility] Last Infusion: 07/27/23 13:56 Dose: Infused Documented By: DELORES Melatonin (Melatonin 3 Mg Tablet) 6 mg PO BEDTIME PRN PRN Reason: Insomnia Methadone HCl (Methadone Hcl 20 Mg/2 Ml Oral.Conc) 60 mg PO DAILY [facility] Last Admin: 07/27/23 14:02 Dose: 60 mg Documented By: DELORES Nystatin (Nystatin Oral Susp 500,000 Unit/5 Ml Oral.Susp) 100,000 unit PO QID [facility]; Protocol Last Admin: 07/27/23 14:03 Dose: 100,000 unit Documented By: DELORES Omeprazole (Omeprazole 20 Mg Capsule.Dr) 20 mg PO DAILY@0630 [facility] Last Admin: 07/27/23 14:01 Dose: 20 mg Documented By: DELORES Pharmacy Consult (Consult Rx Vancomycin Dosing) 1 each MISCELLANE DAILY PRN PRN Reason: Consult order Sodium Chloride (0.9 % Sodium Chloride Flush 3 Ml Syringe) 3 ml IVFLUSH QSHIFT [facility] Last Admin: 07/27/23 08:02 Dose: 3 ml Documented By: DELORES Labs 07/27/23 10:30 07/27/23 06:20 Labs: Laboratory Results - last 24 hr 07/27/23 07/27/23 07/27/23 00:42 00:46 06:20 MCV 82.9 MCH 26.2 L MCHC 31.6 RDW 18.7 H Plt Count 267 MPV 10.8 Absolute Nucleated RBC 0.000 Nucleated RBC % (auto) 0.0 ESR 55 H Anion Gap 17 12 Estim Creat Clear Calc 67.5 62.9 Estimated GFR > 60 > 60 Random Glucose 75 83 Lactic Acid 1.8 Calcium 8.9 D 8.2 L D Iron 8 L TIBC 187 L % Saturation 4 L Unsat Iron Binding 179 Ferritin 237 Total Bilirubin 0.4 0.6 AST 51 H 49 H ALT 21 23 Alkaline Phosphatase 102 101 C-Reactive Protein 4.95 H Total Protein 6.5 5.4 L Albumin 3.1 L 2.7 L Urine Color Yellow Urine Appearance Clear Urine pH 6.0 Ur Specific [place] <= 1.005 Urine Protein Trace Urine Glucose (UA) Negative Urine Ketones Negative Urine Blood Large (3+) H Urine Nitrite Negative Ur Leukocyte Esterase Small (1+) H Urine RBC >20 H Urine WBC 11-20 H Ur Squamous Epith Cells 0-2 Urine Bacteria None Seen Hyaline Casts 0-2 Blood Type Antibody Screen Crossmatch 07/27/23 07/27/23 10:30 11:34 MCV 83.7 MCH 26.3 L MCHC 31.4 RDW 19.1 H Plt Count 189 D MPV 9.8 Absolute Nucleated RBC 0.000 Nucleated RBC % (auto) 0.0 ESR Anion Gap Estim Creat Clear Calc Estimated GFR Random Glucose Lactic Acid Calcium Iron TIBC % Saturation Unsat Iron Binding Ferritin Total Bilirubin AST ALT Alkaline Phosphatase C-Reactive Protein Total Protein Albumin Urine Color Urine Appearance Urine pH Ur Specific [place] Urine Protein Urine Glucose (UA) Urine Ketones Urine Blood Urine Nitrite Ur Leukocyte Esterase Urine RBC Urine WBC Ur Squamous Epith Cells Urine Bacteria Hyaline Casts Blood Type A Positive Antibody Screen NEGATIVE Crossmatch See Detail Assessment and Plan (1) Anemia: Status: Acute (2) HIV (human immunodeficiency virus infection): Status: Acute (3) Sepsis: Status: Acute Plan This is a 62-year-old male with pertinent history of HIV, unknown last CD4 count, essential hypertension, IV substance use disorder, hepatitis-C who presents to the emergency department for evaluation of fevers. Sepsis met sepsis criteria with fever and elevated HR. lactic acid normal. no recurrent fever. BP low this am - pt asymptomatic. anemia, poor nutrition likely contributing h/o epidural abscess/paraspinal abscess/discitis/MRSA bacteremia in may - treated at [facility] s/p drainage of paraspinal abscess 05/22. completed 6 weeks of IV daptomycin on 07/02 (at [facility]) Imaging with sequelae of discitis/osteomyelitis. back pain chronic. inflammatory markers lower then previous so unclear if cause of fever cxr with central peribronchial thickening, no focal consolidation - pt without respiratory symptoms Infectious Disease consult pending urine culture, blood cultures pending started on vancomycin/zosyn, will continue for now left kidney stone Imaging with calculus at left ureterovesical junction with mild hydronephrosis Urology consult pending Substance use disorder Admits to using cocaine and heroin UDS pending Addiction medicine consult pending continue home dose of methadone acute on chronic normocytic anemia H/H dropped to 6.6/21.0, h/h 8.2/26.5 on 05/30; 11.0/37 on 07/16 diagnosed to have iron def anemia at [facility] during previous admission and recommended outpatient screening colonoscopy pt denies active bleeding, iron studies pending stool occult pending seen by GI - rec low dose PPI in case of stress ulceration, otherwise if no active bleeding further work up likely as outpatient one unit of blood ordered, pt declined for now - prefers to wait and repeat H/H this afternoon HIV: Unknown last CD4 count. CD4 and viral load pending Consulted Infectious Disease as above reports compliance with HAART, but unclear Hepatitis-C Will need outpatient follow-up Moderate protein calorie malnutrition bmi 16.7 loss of muscle mass, subcutaneous fat will add supplements DVT prophylaxis: Lovenox Full code attending - dr. strickland Requires ongoing inpatient hospital stay for IV antibiotics, close monitoring of anemia Time Spent With Patient Time: Total time managing care of this patient today ____ minutes. Quality Stroke Does the patient have a stroke diagnosis?: No VTE Prior VTE?: No VTE Risk Level:: Medical - moderate - high VTE Device Contraindication: Treatment Not Indicated VTE Drug Contraindication: N/A - Med Ordered
--- NOTE | 2023-07-27 15:04 | PC.NURSE ---
report given to S3 SYLVIA Kohler. Reached out to transport.
[2023-07-27 15:22] LABS: Hematocrit 22.3 % (42.0-52.0)
[2023-07-27 15:55] LABS: Hemoglobin 6.9 g/dl (14.0-18.0)
[2023-07-27] MEDS: Lactated Ringers 1,000 ML 100 ML IVCONT (16:25)
[2023-07-27 16:46] LABS: OBS Int Ctl Valid YES; OBS1 NEGATIVE (NEGATIVE)
[2023-07-27 22:40] LABS: Amphetamine Screen Urine Not Detected (Not Detect); Barbiturates, Urine Not Detected (Not Detect); Benzodiazepines Screen Urine Not Detected (Not Detect); Cannabinoid Screen Urine Not Detected (Not Detect); Cocaine Screen Urine POSITIVE (Not Detect); Fentanyl, urine POSITIVE (Not Detect); Opiate Screen Urine Not Detected (Not Detect); Phencyclidine Screen Urine Not Detected (Not Detect)
[2023-07-28] MEDS: Piperacillin Sodium/Tazobactam 4.5 GM in 0.9 % Sodium Chloride 100 ML IV ×4 (00:04→17:24)
[2023-07-28] MEDS: Lactated Ringers 1,000 ML 100 ML IVCONT ×3 (01:21→21:17)
[2023-07-28 03:54] VITALS: BP 130/69; PULSE 50; RESP 18; TEMP 36.4; O2SAT 99
[2023-07-28] MEDS: Enoxaparin Sodium 40 MG/0.4 ML SYRINGE SUBCUT (05:19)
[2023-07-28] MEDS: Omeprazole 20 MG CAPSULE.DR PO (05:19)
[2023-07-28] MEDS: Acetaminophen 325 MG TABLET 650 MG PO (05:20)
[2023-07-28 07:08] VITALS: BP 140/77; PULSE 59; RESP 18; TEMP 36.7; O2SAT 99
[2023-07-28] MEDS: methADONE HCl 20 MG/2 ML ORAL.CONC 60 MG PO (08:30)
[2023-07-28] MEDS: 0.9 % Sodium Chloride Flush 3 ML SYRINGE IVFLUSH (08:30)
[2023-07-28] MEDS: Nystatin Oral Susp 500,000 UNIT/5 ML ORAL.SUSP 100000 UNIT PO ×4 (08:30→22:03)
[2023-07-28] MEDS: Ferrous Sulfate 324 MG TABLET.DR PO (08:31)
[2023-07-28] MEDS: Bictegrav/Emtricit/Tenofov Ala TABLET 1 TAB PO (08:31)
[2023-07-28] MEDS: Multivitamin TABLET 1 TAB PO (08:31)
--- NOTE | 2023-07-28 08:35 | PM.CNGS ---
History of Present Illness Consult details Consult date: 07/28/23 Requesting physician: Alejandra Mcghee Narrative: 62-year-old male patient with history of HIV, hypertension, IV substance use, hepatitis-C presenting with complaints of fever with a recent history of a spinal infection. Patient apparently injected combination of IV heroin and cocaine in the right forearm prior to presentation and feels he may have missed the vein. He now has an area of swelling in the forearm adjacent to the injection site. He does report some pain associated with this. Duplex scanning of the right arm revealed no DVT. Multiple lymph nodes were noted in the infraclavicular and axillary region the largest measuring 1 cm. A complex fluid collection was visualized the site of swelling measuring approximately 6.1 x 0.9 x 3.3 cm with adjacent venous flow. This correlates to the patient's injection site. Surgical consultation was requested for further management. Review of Systems Review of Systems: Yes all other systems are reviewed and are negative Constitutional: Constitutional: Reports body ache(s), Reports chills, Reports fatigue and Reports fever(s) Musculoskeletal: Musculoskeletal: Reports myalgias, Denies limited range of motion, Denies numbness and Denies radiating pain into limb Integumentary/Breasts: Skin/Breast: Reports skin swelling Neurologic: Denies numbness Endocrine: Endocrine: Reports fatigue PMFSH Past Medical History Medical History Spinal cord abscess Epidural abscess High cholesterol Leg cramp HTN (hypertension) Back pain Surgical History Surgical History H/O colonoscopy Social History Social History Household Members: Other Housing: Homeless Alcohol intake: current Alcohol intake frequency: holidays/special occasions only Patient Tobacco Use Status: Current someday Tobacco user Tobacco use type: Cigarette Cigarettes Per Day: 2 Smoked in Last 30 Days: Yes Patient Interested in Nicotine Replacement: No Use of substances other than those prescribed or required for medical reasons: Yes Substance Use Type: Crack/Cocaine and Heroin Substance Use Type Other:: cocaine occasion Substance Use Frequency: Daily Last Used Substance: Days (ago) Currently Displaying Signs/Symptoms of Drug Intoxication Withdrawal: No Any prior treatment program specific to substance use: Yes Have you been hit, kicked, punched, or otherwise hurt by someone within the past year? If so, by whom?: No Do you feel safe in your current relationship?: Yes Is there a partner from a previous relationship who is making you feel unsafe now?: No Are you made to feel afraid or neglected: No Advance Directives: No Advance Directives Information Provided: Yes Do you have thoughts of harming others: None Do you have a plan to hurt others: No Plan Recently lost weight without trying: Yes How much weight loss: 34pounds or more Eating poorly because of decreased appetite: No Nutrition screen score: 6 Nutrition Risks: Dental problems Poor oral hygiene: Yes Meds Allergies Allergy/AdvReac Type Severity Reaction Status Date / Time aspirin [ASA] Allergy Intermediate HIVES Verified 07/27/23 00:14 tuberculin, purified protein Allergy Intermediate RASH, Verified 07/27/23 00:14 deriva ITCHING [TUBERCULIN,PURIF.PROT.DERIV.] chlorthalidone AdvReac Severe hypokalemia Verified 07/27/23 00:14 [CHLORTHALIDONE] tb serum Allergy Unknown Hives Uncoded 07/27/23 00:14 Active Medications: Current Medications Acetaminophen (Acetaminophen 325 Mg Tablet) 650 mg PO Q6H PRN PRN Reason: Pain, Mild (Pain Scale 1-3) Last Admin: 07/28/23 05:20 Dose: 650 mg Albuterol Sulfate (Albuterol Sulfate 90 Mcg 8 Gm Inhaler) 2 puff INHALE Q6H PRN PRN Reason: wheezing Bictegravir/Emtricitabine/Tenofovir (Bictegrav/Emtricit/Tenofov Ala Tablet) 1 tab PO DAILY [facility] Last Admin: 07/27/23 13:22 Dose: 1 tab Enoxaparin Sodium (Enoxaparin Sodium 40 Mg/0.4 Ml Syringe) 40 mg SUBCUT Q24H [facility] Last Admin: 07/28/23 05:19 Dose: 40 mg Ferrous Sulfate (Ferrous Sulfate 324 Mg Tablet.Dr) 324 mg PO DAILY [facility] Fluticasone/Vilanterol (Fluticasone/Vilanterol 100/25 Blst.W.Dev) 1 puff INHALE RDAILY [facility] Last Admin: 07/28/23 07:54 Dose: Not Given Piperacillin Sod/Tazobactam (Sod 4.5 gm/ Sodium Chloride) 100 mls @ 200 mls/hr IV Q6H [facility] Last Infusion: 07/28/23 06:22 Dose: Infused Vancomycin HCl 750 mg/ Sodium (Chloride) 265 mls @ 265 mls/hr IV Q12H [facility] Last Infusion: 07/28/23 00:28 Dose: Infused Lactated Ringer's (Lr) 1,000 mls @ 100 mls/hr IVCONT .Q10H [facility] Last Admin: 07/28/23 01:21 Dose: 100 mls/hr Melatonin (Melatonin 3 Mg Tablet) 6 mg PO BEDTIME PRN PRN Reason: Insomnia Methadone HCl (Methadone Hcl 20 Mg/2 Ml Oral.Conc) 60 mg PO DAILY [facility] Last Admin: 07/27/23 14:02 Dose: 60 mg Multivitamins/Vitamin C (Multivitamin Tablet) 1 tab PO DAILY [facility] Nystatin (Nystatin Oral Susp 500,000 Unit/5 Ml Oral.Susp) 100,000 unit PO QID [facility]; Protocol Last Admin: 07/27/23 20:03 Dose: 100,000 unit Omeprazole (Omeprazole 20 Mg Capsule.Dr) 20 mg PO DAILY@0630 [facility] Last Admin: 07/28/23 05:19 Dose: 20 mg Pharmacy Consult (Consult Rx Vancomycin Dosing) 1 each MISCELLANE DAILY PRN PRN Reason: Consult order Sodium Chloride (0.9 % Sodium Chloride Flush 3 Ml Syringe) [facility] Last Admin: 07/27/23 20:04 Dose: 3 ml Home Medications Medication Instructions Recorded Confirmed Last Taken Type baclofen 20 mg tablet 10 mg PO TID 05/17/23 07/27/23 Unknown History gabapentin 800 mg tablet 800 mg PO TID 05/17/23 07/27/23 Unknown History multivitamin 1 tab PO DAILY 05/17/23 07/27/23 Unknown History ropinirole 4 mg tablet 4 mg PO TID 05/17/23 07/27/23 Unknown History albuterol sulfate 90 mcg/actuation 2 puff inhalation Q6H PRN wheezing 07/27/23 07/27/23 Unknown History aerosol inhaler (Ventolin HFA) bictegravir 50 mg-emtricitabine 1 tab PO QAM 07/27/23 07/27/23 Unknown History 200 mg-tenofovir alafenam 25 mg tablet (Biktarvy) doxepin 150 mg capsule 150 mg PO BEDTIME 07/27/23 07/27/23 Unknown History ferrous sulfate 325 mg (65 mg 325 mg PO DAILY 07/27/23 07/27/23 Unknown History iron) tablet (FeroSul) fluticasone 250 mcg-salmeterol 50 1 ea inhalation BID 07/27/23 07/27/23 Unknown History mcg/dose blistr powdr for inhalation methadone 10 mg/mL oral syringe 60 mg PO DAILY 07/27/23 07/27/23 07/26/23 History (FOR ORAL USE ONLY) 60 nystatin 100,000 unit/mL oral 1 ml PO QID 07/27/23 07/27/23 Unknown History suspension oxycodone 5 mg tablet 5 mg PO Q6H 07/27/23 07/27/23 Unknown History pravastatin 40 mg tablet 40 mg PO BEDTIME 07/27/23 07/27/23 Unknown History Physical Exam Vital Signs: Vital Signs: Last Vital Signs Temp 98.0 F 07/28/23 07:08 Pulse 59 07/28/23 07:08 Resp 18 07/28/23 07:08 BP 140/77 H 07/28/23 07:08 Pulse Ox 99 07/28/23 07:08 O2 Del Method Room Air 07/28/23 07:08 BMI result Body Mass Index 16.7 Const: General: cooperative and no acute distress Nutritional Appearance: well nourished Orientation/consciousness: patient oriented x3 Limitations: no limitations HEENT: Head: Yes normocephalic and Yes atraumatic Ears: hearing grossly normal bilaterally Resp: Effort & Inspection: normal respiratory effort, no audible wheezes, no cough and no respiratory distress Cardio: Jugular venous distension: no JVD GI: Inspection: Yes normal to inspection Skin: Other: Warm, dry, no rash Neuro: General: patient oriented x3 Extrem: Other: Right forearm with area of increased edema adjacent to an area of forearm track arteaga. There is minimal erythema and no fluctuance to indicate underlying abscess. Site is tender to palpation. Elbow/forearm/wrist images: 1. Area of swelling right arm 2. Results Labs 07/27/23 14:59 07/27/23 06:20 Labs: Abnormal lab results 07/27/23 07/27/23 07/27/23 Range/Units 06:20 10:30 11:34 WBC 14.2 H (4.8-10.8) X10*3/uL RBC 2.51 L (4.60-5.80) X10*6/uL Hgb 6.6 L* (14.0-18.0) g/dl Hct 21.0 L* (42.0-52.0) % MCH 26.3 L (27.0-33.0) pg RDW 19.1 H (11.0-16.0) % Iron 8 L (45-160) mcg/dL TIBC 187 L (228-428) mcg/dL % Saturation 4 L (15-50) % Urine Fentanyl Screen (Not Detect) Urine Cocaine Screen (Not Detect) Crossmatch See Detail 07/27/23 07/27/23 Range/Units 14:59 22:12 WBC (4.8-10.8) X10*3/uL RBC (4.60-5.80) X10*6/uL Hgb 6.9 L* (14.0-18.0) g/dl Hct 22.3 L (42.0-52.0) % MCH (27.0-33.0) pg RDW (11.0-16.0) % Iron (45-160) mcg/dL TIBC (228-428) mcg/dL % Saturation (15-50) % Urine Fentanyl Screen POSITIVE H (Not Detect) Urine Cocaine Screen POSITIVE H (Not Detect) Crossmatch Short CBC 07/27/23 07/27/23 Range/Units 10:30 14:59 WBC 14.2 H (4.8-10.8) X10*3/uL Hgb 6.6 L* 6.9 L* (14.0-18.0) g/dl Hct 21.0 L* 22.3 L (42.0-52.0) % Plt Count 189 D (160-400) X10*3/uL Urine 07/27/23 Range/Units 00:42 Urine Color Yellow Urine Appearance Clear Urine pH 6.0 (5.0-9.0) Ur Specific [place] <= 1.005 (1.005-1.025) Urine Protein Trace (Neg-Trace) mg/dL Urine Glucose (UA) Negative (Negative) mg/dL All other labs normal. Assessment and Plan (1) Substance abuse: Status: Acute Plan 62-year-old male patient with recent history of IVDA, found to have an area of swelling in the right forearm with adjacent track arteaga from previous IV injections. Ultrasound reveals a complex fluid collection corresponding to the area of swelling. On examination there is swelling and light erythema without fluctuance to indicate underlying abscess. Findings are suggestive of a subcutaneous injection but no evidence of abscess at this time. Would not recommend surgical intervention at this time. Patient may benefit from arm elevation and warm compresses to the right arm. Patient has an intravenous placed in the upper right arm which may aggravate the forearm swelling. Suggest switching to an alternate site. Time Spent With Patient Time: Total time managing care of this patient today ____ minutes. Procedures Date of Service Date of Service: 07/28/23
--- NOTE | 2023-07-28 09:58 | MHC.CM.PN ---
PT REPORTS HE IS HOMELESS AFTER LOSING HIS APARTMENT ON THE OF LAST MONTH HE SAYS HE HAS BEEN STAYING ON THE STREET MOST OF THE TIME, HIS ALSO HAS A TENT IN THE [place] HE USES A ROLLATOR TO AMBULATE HE IS CONNECTED TO HIS MMTP PROGRAM FOR SERVICES HE IS INTERESTED IN ASSISTANCE WITH HOUSING 413CARES PROVIDED CURRENTLY IT IS UNCLEAR IF HE WILL NEED LT IV ABX HE IS AWARE HE WILL HAVE TO GO TO A SNF FOR THAT HIS IMM WAS DELIVERED DCP TBD PENDING ID CONSULT STR VS PRISON
[2023-07-28 10:23] LABS: Creatinine Clr Calc Pharmacy 64.4; Estimated Glomerular Filt Rate > 60
[2023-07-28 10:25] LABS: Vancomycin Random 14.6 mcg/mL (15-20)
--- NOTE | 2023-07-28 10:28 | HE.PHANOTE ---
Vancomycin Dosing Level 14.6 today. Continue current regimen. Next level 07/29 @ 2100. Benito GrossD
[2023-07-28] MEDS: vancomycin HCL 750 MG in 0.9 % Sodium Chloride 250 ML 265 MG IV ×2 (10:52→23:33)
[2023-07-28 11:53] LABS: Hematocrit 28.9 % (42.0-52.0); Hemoglobin 8.9 g/dl (14.0-18.0); Mean Corpuscular HGB Conc 30.8 g/dl (31.0-36.0); Mean Corpuscular Hemoglobin 26.3 pg (27.0-33.0); Mean Corpuscular Volume 85.5 fL (80.0-98.0); Mean Platelet Volume 10.9 fL (9.4-12.4); Platelet Count 264 X10*3/uL (160-400); Red Blood Count 3.38 X10*6/uL (4.60-5.80); Red Cell Distribution Width 18.6 % (11.0-16.0); White Blood Count 11.7 X10*3/uL (4.8-10.8)
--- NOTE | 2023-07-28 13:07 | PM.UROCN ---
History of Present Illness Consult details Consult date: 07/28/23 Narrative: CC: Distal left ureteric stone 62-year-old male Prior HIV, hepatitis-C Question of epidural abscess Comes back with pain on left side Creat 0.8, WBC 11.6 There is a calculus at the left ureterovesicular junction measuring 5 mm, new from prior, with minimal left hydronephrosisinine If oain persists recommend procedure Review of Systems Constitutional: Constitutional: Reports as per HPI and Reports no additional constitutional complaints Cardiovascular: Cardiovascular: Reports as per HPI and Reports no additional cardiovascular complaints Respiratory: Respiratory: Reports as per HPI and Reports no additional respiratory complaints Gastrointestinal: Gastrointestinal: Reports as per HPI and Reports no additional gastrointestinal complaints Genitourinary: Genitourinary: Reports as per HPI Musculoskeletal: Musculoskeletal: Reports no additional musculoskeletal complaints and Reports as per HPI Neurologic: Reports system reviewed and no additional complaints, except as documented and Reports as per HPI PMFSH Past Medical History Medical History Spinal cord abscess Epidural abscess High cholesterol Leg cramp HTN (hypertension) Back pain Surgical History Surgical History H/O colonoscopy Social History Social History Household Members: Other Housing: Homeless Alcohol intake: current Alcohol intake frequency: holidays/special occasions only Patient Tobacco Use Status: Current someday Tobacco user Tobacco use type: Cigarette Cigarettes Per Day: 2 Smoked in Last 30 Days: Yes Patient Interested in Nicotine Replacement: No Use of substances other than those prescribed or required for medical reasons: Yes Substance Use Type: Crack/Cocaine and Heroin Substance Use Type Other:: cocaine occasion Substance Use Frequency: Daily Last Used Substance: Days (ago) Currently Displaying Signs/Symptoms of Drug Intoxication Withdrawal: No Any prior treatment program specific to substance use: Yes Have you been hit, kicked, punched, or otherwise hurt by someone within the past year? If so, by whom?: No Do you feel safe in your current relationship?: Yes Is there a partner from a previous relationship who is making you feel unsafe now?: No Are you made to feel afraid or neglected: No Advance Directives: No Advance Directives Information Provided: Yes Do you have thoughts of harming others: None Do you have a plan to hurt others: No Plan Recently lost weight without trying: Yes How much weight loss: 34pounds or more Eating poorly because of decreased appetite: No Nutrition screen score: 6 Nutrition Risks: Dental problems Poor oral hygiene: Yes service: No Meds Allergies Allergy/AdvReac Type Severity Reaction Status Date / Time aspirin [ASA] Allergy Intermediate HIVES Verified 07/27/23 00:14 tuberculin, purified protein Allergy Intermediate RASH, Verified 07/27/23 00:14 deriva ITCHING [TUBERCULIN,PURIF.PROT.DERIV.] chlorthalidone AdvReac Severe hypokalemia Verified 07/27/23 00:14 [CHLORTHALIDONE] tb serum Allergy Unknown Hives Uncoded 07/27/23 00:14 Active Medications: Current Medications Acetaminophen (Acetaminophen 325 Mg Tablet) 650 mg PO Q6H PRN PRN Reason: Pain, Mild (Pain Scale 1-3) Last Admin: 07/28/23 05:20 Dose: 650 mg Albuterol Sulfate (Albuterol Sulfate 90 Mcg 8 Gm Inhaler) 2 puff INHALE Q6H PRN PRN Reason: wheezing Bictegravir/Emtricitabine/Tenofovir (Bictegrav/Emtricit/Tenofov Ala Tablet) 1 tab PO DAILY COUNTS [facility]CLUDE 234 BEDS AT THE [facility] Last Admin: 07/28/23 08:31 Dose: 1 tab Enoxaparin Sodium (Enoxaparin Sodium 40 Mg/0.4 Ml Syringe) 40 mg SUBCUT Q24H COUNTS INCLUDE 234 BEDS AT THE [facility] Last Admin: 07/28/23 05:19 Dose: 40 mg Ferrous Sulfate (Ferrous Sulfate 324 Mg Tablet.Dr) 324 mg PO DAILY COUNTS INCLUDE 234 BEDS AT THE [facility] Last Admin: 07/28/23 08:31 Dose: 324 mg Fluticasone/Vilanterol (Fluticasone/Vilanterol 100/25 Blst.W.Dev) 1 puff INHALE RDAILY COUNTS INCLUDE 234 BEDS AT THE [facility] Last Admin: 07/28/23 07:54 Dose: Not Given Piperacillin Sod/Tazobactam (Sod 4.5 gm/ Sodium Chloride) 100 mls @ 200 mls/hr IV Q6H COUNTS INCLUDE 234 BEDS AT THE [facility] Last Admin: 07/28/23 12:04 Dose: 100 mls/hr Vancomycin HCl 750 mg/ Sodium (Chloride) 265 mls @ 265 mls/hr IV Q12H COUNTS INCLUDE 234 BEDS AT THE [facility] Last Infusion: 07/28/23 11:52 Dose: Infused Lactated Ringer's (Lr) 1,000 mls @ 100 mls/hr IVCONT .Q10H COUNTS INCLUDE 234 BEDS AT THE [facility] Last Admin: 07/28/23 09:25 Dose: 100 mls/hr Melatonin (Melatonin 3 Mg Tablet) 6 mg PO BEDTIME PRN PRN Reason: Insomnia Methadone HCl (Methadone Hcl 20 Mg/2 Ml Oral.Conc) 60 mg PO DAILY COUNTS INCLUDE 234 BEDS AT THE [facility] Last Admin: 07/28/23 08:30 Dose: 60 mg Multivitamins/Vitamin C (Multivitamin Tablet) 1 tab PO DAILY COUNTS INCLUDE 234 BEDS AT THE [facility] Last Admin: 07/28/23 08:31 Dose: 1 tab Nystatin (Nystatin Oral Susp 500,000 Unit/5 Ml Oral.Susp) 100,000 unit PO QID COUNTS INCLUDE 234 BEDS AT THE [facility]; Protocol Last Admin: 07/28/23 08:30 Dose: 100,000 unit Omeprazole (Omeprazole 20 Mg Capsule.Dr) 20 mg PO DAILY@0630 COUNTS INCLUDE 234 BEDS AT THE [facility] Last Admin: 07/28/23 05:19 Dose: 20 mg Pharmacy Consult (Consult Rx Vancomycin Dosing) 1 each MISCELLANE DAILY PRN PRN Reason: Consult order Sodium Chloride (0.9 % Sodium Chloride Flush 3 Ml Syringe) 3 ml IVFLUSH QSHIFT COUNTS INCLUDE 234 BEDS AT THE [facility] Last Admin: 07/28/23 08:30 Dose: 3 ml Home Medications Medication Instructions Recorded Confirmed Last Taken Type baclofen 20 mg tablet 10 mg PO TID 05/17/23 07/27/23 Unknown History gabapentin 800 mg tablet 800 mg PO TID 05/17/23 07/27/23 Unknown History multivitamin 1 tab PO DAILY 05/17/23 07/27/23 Unknown History ropinirole 4 mg tablet 4 mg PO TID 05/17/23 07/27/23 Unknown History albuterol sulfate 90 mcg/actuation 2 puff inhalation Q6H PRN wheezing 07/27/23 07/27/23 Unknown History aerosol inhaler (Ventolin HFA) bictegravir 50 mg-emtricitabine 1 tab PO QAM 07/27/23 07/27/23 Unknown History 200 mg-tenofovir alafenam 25 mg tablet (Biktarvy) doxepin 150 mg capsule 150 mg PO BEDTIME 07/27/23 07/27/23 Unknown History ferrous sulfate 325 mg (65 mg 325 mg PO DAILY 07/27/23 07/27/23 Unknown History iron) tablet (FeroSul) fluticasone 250 mcg-salmeterol 50 1 ea inhalation BID 07/27/23 07/27/23 Unknown History mcg/dose blistr powdr for inhalation methadone 10 mg/mL oral syringe 60 mg PO DAILY 07/27/23 07/27/23 07/26/23 History (FOR ORAL USE ONLY) 60 nystatin 100,000 unit/mL oral 1 ml PO QID 07/27/23 07/27/23 Unknown History suspension oxycodone 5 mg tablet 5 mg PO Q6H 07/27/23 07/27/23 Unknown History pravastatin 40 mg tablet 40 mg PO BEDTIME 07/27/23 07/27/23 Unknown History Physical Exam Vital Signs: Vital Signs: Last Vital Signs Temp 98.0 F 07/28/23 07:08 Pulse 59 07/28/23 07:08 Resp 18 07/28/23 07:08 BP 140/77 H 07/28/23 07:08 Pulse Ox 99 07/28/23 07:08 O2 Del Method Room Air 07/28/23 07:08 BMI result Body Mass Index 16.7 Const: General: cooperative, healthy appearing, comfortable and no acute distress Orientation/consciousness: patient oriented x3 HEENT: Face and sinus: Yes normal facial exam Mouth: moist mucous membranes Neck: Neck: Yes normal visual inspection, Yes full ROM and Yes trachea midline Chest: Chest palpation & inspection: normal inspection of the chest Resp: Effort & Inspection: normal respiratory effort, able to speak in complete sentences and no respiratory distress GI: Inspection: Yes normal to inspection Back/Spine/Pelvis: Cervical Spine: normal cervical lordosis Thoracic/Lumbar Spine: thoracic and lumbar spine normal to inspection Skin: General skin exam: no rashes or lesions noted Neuro: General: patient oriented x3, tone normal and moves all extremities Extrem: General: Yes normal to inspection and Yes capillary refill normal Results Labs 07/28/23 11:24 07/28/23 09:19 Labs: Abnormal lab results 07/27/23 07/27/23 07/27/23 Range/Units 11:34 14:59 22:12 WBC (4.8-10.8) X10*3/uL RBC (4.60-5.80) X10*6/uL Hgb 6.9 L* (14.0-18.0) g/dl Hct 22.3 L (42.0-52.0) % MCH (27.0-33.0) pg MCHC (31.0-36.0) g/dl RDW (11.0-16.0) % Random Vancomycin (15-20) mcg/mL Urine Fentanyl Screen POSITIVE H (Not Detect) Urine Cocaine Screen POSITIVE H (Not Detect) Crossmatch See Detail 07/28/23 07/28/23 Range/Units 09:19 11:24 WBC 11.7 H (4.8-10.8) X10*3/uL RBC 3.38 L D (4.60-5.80) X10*6/uL Hgb 8.9 L D (14.0-18.0) g/dl Hct 28.9 L D (42.0-52.0) % MCH 26.3 L (27.0-33.0) pg MCHC 30.8 L (31.0-36.0) g/dl RDW 18.6 H (11.0-16.0) % Random Vancomycin 14.6 L (15-20) mcg/mL Urine Fentanyl Screen (Not Detect) Urine Cocaine Screen (Not Detect) Crossmatch Short CBC 07/27/23 07/28/23 Range/Units 14:59 11:24 WBC 11.7 H (4.8-10.8) X10*3/uL Hgb 6.9 L* 8.9 L D (14.0-18.0) g/dl Hct 22.3 L 28.9 L D (42.0-52.0) % Plt Count 264 D (160-400) X10*3/uL BMP 07/28/23 09:19 Creatinine 0.85 Urine 07/27/23 Range/Units 00:42 Urine Color Yellow Urine Appearance Clear Urine pH 6.0 (5.0-9.0) Ur Specific [place] <= 1.005 (1.005-1.025) Urine Protein Trace (Neg-Trace) mg/dL Urine Glucose (UA) Negative (Negative) mg/dL All other labs normal. Assessment and Plan (1) Kidney stone on left side: Status: Acute Plan Follow for pain Time Spent With Patient Time: Total time managing care of this patient today ____ minutes. Procedures Date of Service Date of Service: 07/28/23
[2023-07-28 15:15] VITALS: BP 128/67; PULSE 50; RESP 16; TEMP 36.3; O2SAT 97
--- NOTE | 2023-07-28 15:48 | P.PNIM_ITS ---
Subjective Subjective Date of Service: 07/28/23 Interval History: seen and examined this morning follow up for fever,bacteremia no recurrent fever no overnight events back pain - pt states is chronic Review of Systems Review of Systems: Yes all other systems are reviewed and are negative Constitutional Constitutional: Denies chills and Denies fever(s) Cardiovascular Cardiovascular: Denies chest pain, Denies palpitations and Denies dyspnea Respiratory Respiratory: Denies cough and Denies dyspnea Gastrointestinal Gastrointestinal: Denies abdominal pain, Denies nausea and Denies vomiting Endocrine Endocrine: Denies palpitations Physical Exam 2 Vital Signs: Vital Signs: Last Vital Signs Temp 97.3 F 07/28/23 15:15 Pulse 50 07/28/23 15:15 Resp 16 07/28/23 15:15 BP 128/67 07/28/23 15:15 Pulse Ox 97 07/28/23 15:15 O2 Del Method Room Air 07/28/23 15:15 BMI result Body Mass Index 16.7 Const: Other: frail, cachectic appearing male. awake, alert, in NAD Orientation/consciousness: patient oriented x3 Resp: Effort & Inspection: normal respiratory effort, able to speak in complete sentences, no respiratory distress and no use of accessory muscles A uscultation: clear to auscultation bilaterally Cardio: Rate: regular rate Heart sounds: S1 normal heart sound present and S2 normal heart sound present GI: Inspection: No distended Palpation (GI): Soft to palpation, nontender and no guarding Skin: Other: warm/dry Neuro: General: patient oriented x3, moves all extremities and CN's II-XI intact bilaterally Extrem: Other: swelling RUE below elbow primarily, no erythema; trace leg edema b/l Objective Data Active Medications Acetaminophen (Acetaminophen 325 Mg Tablet) 650 mg PO Q6H PRN PRN Reason: Pain, Mild (Pain Scale 1-3) Last Admin: 07/28/23 05:20 Dose: 650 mg Documented By: NOEORALAshok Albuterol Sulfate (Albuterol Sulfate 90 Mcg 8 Gm Inhaler) 2 puff INHALE Q6H PRN PRN Reason: wheezing Bictegravir/Emtricitabine/Tenofovir (Bictegrav/Emtricit/Tenofov Ala Tablet) 1 tab PO DAILY BRY Last Admin: 07/28/23 08:31 Dose: 1 tab Documented By: TONG Enoxaparin Sodium (Enoxaparin Sodium 40 Mg/0.4 Ml Syringe) 40 mg SUBCUT Q24H [facility] Last Admin: 07/28/23 05:19 Dose: 40 mg Documented By: OTIS Ferrous Sulfate (Ferrous Sulfate 324 Mg Tablet.) 324 mg PO DAILY [facility] Last Admin: 07/28/23 08:31 Dose: 324 mg Documented By: TOGN Fluticasone/Vilanterol (Fluticasone/Vilanterol 100/25 Blst.W.Dev) 1 puff INHALE RDAILY [facility] Last Admin: 07/28/23 07:54 Dose: Not Given Documented By: ALIE Non-Admin Reason: pharmacy called Piperacillin Sod/Tazobactam (Sod 4.5 gm/ Sodium Chloride) 100 mls @ 200 mls/hr IV Q6H [facility] Last Infusion: 07/28/23 13:04 Dose: Infused Documented By: TONG Vancomycin HCl 750 mg/ Sodium (Chloride) 265 mls @ 265 mls/hr IV Q12H [facility] Last Infusion: 07/28/23 11:52 Dose: Infused Documented By: TONG Lactated Ringer's (Lr) 1,000 mls @ 100 mls/hr IVCONT .Q10H [facility] Last Admin: 07/28/23 09:25 Dose: 100 mls/hr Documented By: TONG Melatonin (Melatonin 3 Mg Tablet) 6 mg PO BEDTIME PRN PRN Reason: Insomnia Methadone HCl (Methadone Hcl 20 Mg/2 Ml Oral.Conc) 60 mg PO DAILY [facility] Last Admin: 07/28/23 08:30 Dose: 60 mg Documented By: TONG Multivitamins/Vitamin C (Multivitamin Tablet) 1 tab PO DAILY [facility] Last Admin: 07/28/23 08:31 Dose: 1 tab Documented By: TONG Nystatin (Nystatin Oral Susp 500,000 Unit/5 Ml Oral.Susp) 100,000 unit PO QID [facility]; Protocol Last Admin: 07/28/23 13:10 Dose: 100,000 unit Documented By: TONG Omeprazole (Omeprazole 20 Mg Capsule.) 20 mg PO DAILY@0630 [facility] Last Admin: 07/28/23 05:19 Dose: 20 mg Documented By: OTIS Pharmacy Consult (Consult Rx Vancomycin Dosing) 1 each MISCELLANE DAILY PRN PRN Reason: Consult order Sodium Chloride (0.9 % Sodium Chloride Flush 3 Ml Syringe) 3 ml IVFLUSH QSHIFT BRY Last Admin: 07/28/23 15:16 Dose: Not Given Documented By: TONG Non-Admin Reason: IV Running Labs 07/28/23 11:24 07/28/23 09:19 Labs: Laboratory Results - last 24 hr 07/27/23 07/27/23 07/27/23 11:34 16:20 22:12 MCV MCH MCHC RDW Plt Count MPV Absolute Nucleated RBC Nucleated RBC % (auto) Estim Creat Clear Calc Estimated GFR Stool Occult Blood NEGATIVE Random Vancomycin Urine Opiates Screen Not Detected Urine Fentanyl Screen POSITIVE H Ur Barbiturates Screen Not Detected Ur Phencyclidine Scrn Not Detected Ur Amphetamines Screen Not Detected U Benzodiazepines Scrn Not Detected Urine Cocaine Screen POSITIVE H U Marijuana (THC) Screen Not Detected Blood Type A Positive Antibody Screen NEGATIVE Crossmatch See Detail 07/28/23 07/28/23 09:19 11:24 MCV 85.5 MCH 26.3 L MCHC 30.8 L RDW 18.6 H Plt Count 264 D MPV 10.9 Absolute Nucleated RBC 0.000 Nucleated RBC % (auto) 0.0 Estim Creat Clear Calc 64.4 Estimated GFR > 60 Stool Occult Blood Random Vancomycin 14.6 L Urine Opiates Screen Urine Fentanyl Screen Ur Barbiturates Screen Ur Phencyclidine Scrn Ur Amphetamines Screen U Benzodiazepines Scrn Urine Cocaine Screen U Marijuana (THC) Screen Blood Type Antibody Screen Crossmatch Microbiology Microbiology Results: Microbiology 07/27/23 Unknown Urine Culture - Final Urine clean catch - Clean Catch Midstream Lactobacillus species 07/27/23 01:24 Blood Culture - Final Blood - Venous Bacillus species 07/27/23 01:23 Blood Culture - Preliminary Blood - Venous No growth after 24 hours. Assessment and Plan (1) Anemia: Status: Acute (2) Bacteremia: Status: Acute (3) Kidney stone on left side: Status: Acute Plan This is a 62-year-old male with pertinent history of HIV, unknown last CD4 count, essential hypertension, IV substance use disorder, hepatitis-C who presents to the emergency department for evaluation of fevers. Sepsis met sepsis criteria with fever and elevated HR. lactic acid normal. no recurrent fever. BP low this am - pt asymptomatic. anemia, poor nutrition likely contributing h/o epidural abscess/paraspinal abscess/discitis/MRSA bacteremia in [place] - [place] [facility] [place] of [place]aspinal [place]22. completed 6 weeks of IV daptomycin on 07/02 (at [facility]) Imaging with sequelae of discitis/osteomyelitis. back pain chronic. inflammatory markers lower then previous seems less likely cause of fever cxr with central peribronchial thickening, no focal consolidation - pt without respiratory symptoms does have distal left ureteric stone Infectious Disease consult pending urine culture pending, blood cultures with GPR started on vancomycin/zosyn, will continue for now left kidney stone Imaging with calculus at left ureterovesical junction with mild hydronephrosis seen by urology -> if pain persists recommend procedure Substance use disorder Admits to using cocaine and heroin UDS pending seen by addiction medicine continue home dose of methadone increased acute on chronic normocytic anemia has history of iron def anemia, and likely component of chronic disease H/H dropped to 6.6/21.0, h/h 8.2/26.5 on 05/30; 11.0/37 on 07/16 diagnosed to have iron def anemia [place] [facility] [place] and recommended outpatient screening colonoscopy pt denies active bleeding stool occult negative seen by GI - rec low dose PPI in case of stress ulceration, rec inpatient egd/colonoscopy after infectious workup complete s/p 1U rbc with appropriate rise in H/H continue iron supplementation HIV: Unknown last CD4 count. CD4 and viral load pending Consulted Infectious Disease as above reports compliance with HAART, but unclear Hepatitis-C Will need outpatient follow-up Moderate protein calorie malnutrition bmi 16.7 loss of muscle mass, subcutaneous fat will add supplements DVT prophylaxis: Lovenox Full code attending - dr. apple Requires ongoing inpatient hospital stay for IV antibiotics, close monitoring of anemia Time Spent With Patient Time: Total time managing care of this patient today ____ minutes. Quality Stroke Does the patient have a stroke diagnosis?: No VTE Prior VTE?: No VTE Risk Level:: Medical - moderate - high VTE Device Contraindication: Treatment Not Indicated VTE Drug Contraindication: N/A - Med Ordered
[2023-07-28 20:00] VITALS: BP 126/66; PULSE 66; RESP 18; TEMP 36.1; O2SAT 98
--- NOTE | 2023-07-28 20:47 | HO.ADDICT_ITS ---
History of Present Illness Date of Service: Chief Complaint: Fever Reason for Consult: OUD Discussed with referring provider: Yes Sources of Information: patient interviewed and chart reviewed HPI Narrative: Patient is a 62 year old male with dx of HIV, DORIE currently medically admitted with sepsis. Consult requested as patient reported IVDU prior to. admission. Chart reviewed, patient receiving methadone 60mg QD via [facility]. Patient seen in room 346. Awake, alert, pleasant and engaged in interview. Reporting some back pain, but overall appearing comfortable and in no distress. He reports he was previously on methadone 120mg, but due to missing 5 days at the clinic, they started me from the beginning again . Timeline reported by patient is a bit unclear as he was reporting being discharged from [facility] 2 weeks ago and restarting methadone a week and a half ago. He states he is currently experiencing homelessness and was supposed to live with his neice in [place] after discharge from [facility], however she changed her mind and he reports sleeping in [facility] since leaving [facility] ([facility]). Chart review shows that patient was actually discharged from [facility] at the end of June and not 2 weeks ago. Discussed current methadone dose, he reports wanting to increase methadone dose, and states that IVDU was his attempt to manage his back pain. Patient very knowledgable regarding harm reduction and is engaged with various treatment providers including [facility] where he has primary care, ID care and case management. Review of Systems Constitutional: Reports as per HPI (denies any withdrawal sx ) Diagnostics Vital Signs (24Hr): Vital Signs - 24 hr 07/28/23 03:54 07/28/23 07:08 07/28/23 15:15 Temperature 97.6 F 98.0 F 97.3 F Pulse Rate 50 59 50 Respiratory Rate 18 18 16 Blood Pressure 130/69 140/77 H 128/67 Pulse Oximetry 99 99 97 Oxygen Delivery Method Room Air Room Air Room Air 07/28/23 20:00 Temperature 97.0 F Pulse Rate 66 Respiratory Rate 18 Blood Pressure 126/66 Pulse Oximetry 98 Oxygen Delivery Method Room Air BMI result Body Mass Index 16.7 Labs 07/28/23 11:24 07/28/23 09:19 Labs: Laboratory Results - last 48 hr 07/27/23 07/27/23 07/27/23 00:42 00:46 06:20 WBC 5.5 RBC 2.98 L D Hgb 7.8 L Hct 24.7 L MCV 82.9 MCH 26.2 L MCHC 31.6 RDW 18.7 H Plt Count 267 MPV 10.8 Absolute Nucleated RBC 0.000 Nucleated RBC % (auto) 0.0 ESR 55 H Sodium 138 137 Potassium 4.7 3.8 Chloride 104 106 Carbon Dioxide 22 23 Anion Gap 17 12 BUN 20 H 20 H Creatinine 0.81 0.87 Estim Creat Clear Calc 67.5 62.9 Estimated GFR > 60 > 60 Random Glucose 75 83 Lactic Acid 1.8 Calcium 8.9 D 8.2 L D Iron 8 L TIBC 187 L % Saturation 4 L Unsat Iron Binding 179 Ferritin 237 Total Bilirubin 0.4 0.6 AST 51 H 49 H ALT 21 23 Alkaline Phosphatase 102 101 C-Reactive Protein 4.95 H Total Protein 6.5 5.4 L Albumin 3.1 L 2.7 L Hold Green Top Urine Color Yellow Urine Appearance Clear Urine pH 6.0 Ur Specific [place] <= 1.005 Urine Protein Trace Urine Glucose (UA) Negative Urine Ketones Negative Urine Blood Large (3+) H Urine Nitrite Negative Ur Leukocyte Esterase Small (1+) H Urine RBC >20 H Urine WBC 11-20 H Ur Squamous Epith Cells 0-2 Urine Bacteria None Seen Hyaline Casts 0-2 Stool Occult Blood Random Vancomycin Urine Opiates Screen Urine Fentanyl Screen Ur Barbiturates Screen Ur Phencyclidine Scrn Ur Amphetamines Screen U Benzodiazepines Scrn Urine Cocaine Screen U Marijuana (THC) Screen Blood Type Antibody Screen Crossmatch 07/27/23 07/27/23 07/27/23 10:30 11:34 14:59 WBC 14.2 H RBC 2.51 L Hgb 6.6 L* 6.9 L* Hct 21.0 L* 22.3 L MCV 83.7 MCH 26.3 L MCHC 31.4 RDW 19.1 H Plt Count 189 D MPV 9.8 Absolute Nucleated RBC 0.000 Nucleated RBC % (auto) 0.0 ESR Sodium Potassium Chloride Carbon Dioxide Anion Gap BUN Creatinine Estim Creat Clear Calc Estimated GFR Random Glucose Lactic Acid Calcium Iron TIBC % Saturation Unsat Iron Binding Ferritin Total Bilirubin AST ALT Alkaline Phosphatase C-Reactive Protein Total Protein Albumin Hold Green Top See Note Urine Color Urine Appearance Urine pH Ur Specific [place] Urine Protein Urine Glucose (UA) Urine Ketones Urine Blood Urine Nitrite Ur Leukocyte Esterase Urine RBC Urine WBC Ur Squamous Epith Cells Urine Bacteria Hyaline Casts Stool Occult Blood Random Vancomycin Urine Opiates Screen Urine Fentanyl Screen Ur Barbiturates Screen Ur Phencyclidine Scrn Ur Amphetamines Screen U Benzodiazepines Scrn Urine Cocaine Screen U Marijuana (THC) Screen Blood Type A Positive Antibody Screen NEGATIVE Crossmatch See Detail 07/27/23 07/27/23 07/28/23 16:20 22:12 09:19 WBC RBC Hgb Hct MCV MCH MCHC RDW Plt Count MPV Absolute Nucleated RBC Nucleated RBC % (auto) ESR Sodium Potassium Chloride Carbon Dioxide Anion Gap BUN Creatinine 0.85 Estim Creat Clear Calc 64.4 Estimated GFR > 60 Random Glucose Lactic Acid Calcium Iron TIBC % Saturation Unsat Iron Binding Ferritin Total Bilirubin AST ALT Alkaline Phosphatase C-Reactive Protein Total Protein Albumin Hold Green Top Urine Color Urine Appearance Urine pH Ur Specific [place] Urine Protein Urine Glucose (UA) Urine Ketones Urine Blood Urine Nitrite Ur Leukocyte Esterase Urine RBC Urine WBC Ur Squamous Epith Cells Urine Bacteria Hyaline Casts Stool Occult Blood NEGATIVE Random Vancomycin 14.6 L Urine Opiates Screen Not Detected Urine Fentanyl Screen POSITIVE H Ur Barbiturates Screen Not Detected Ur Phencyclidine Scrn Not Detected Ur Amphetamines Screen Not Detected U Benzodiazepines Scrn Not Detected Urine Cocaine Screen POSITIVE H U Marijuana (THC) Screen Not Detected Blood Type Antibody Screen Crossmatch 07/28/23 11:24 WBC 11.7 H RBC 3.38 L D Hgb 8.9 L D Hct 28.9 L D MCV 85.5 MCH 26.3 L MCHC 30.8 L RDW 18.6 H Plt Count 264 D MPV 10.9 Absolute Nucleated RBC 0.000 Nucleated RBC % (auto) 0.0 ESR Sodium Potassium Chloride Carbon Dioxide Anion Gap BUN Creatinine Estim Creat Clear Calc Estimated GFR Random Glucose Lactic Acid Calcium Iron TIBC % Saturation Unsat Iron Binding Ferritin Total Bilirubin AST ALT Alkaline Phosphatase C-Reactive Protein Total Protein Albumin Hold Green Top Urine Color Urine Appearance Urine pH Ur Specific [place] Urine Protein Urine Glucose (UA) Urine Ketones Urine Blood Urine Nitrite Ur Leukocyte Esterase Urine RBC Urine WBC Ur Squamous Epith Cells Urine Bacteria Hyaline Casts Stool Occult Blood Random Vancomycin Urine Opiates Screen Urine Fentanyl Screen Ur Barbiturates Screen Ur Phencyclidine Scrn Ur Amphetamines Screen U Benzodiazepines Scrn Urine Cocaine Screen U Marijuana (THC) Screen Blood Type Antibody Screen Crossmatch Imaging Radiology Impressions: ITS Impressions Chest X-Ray 07/27/23 03:35 IMPRESSION: Suggestion of central peribronchial thickening which may reflect acute or chronic airways disease. Abdomen/Pelvis CT 07/27/23 03:39 IMPRESSION: 1. Calculus at the left ureterovesicular junction measuring 5 mm, new from prior, with minimal left hydronephrosis. 2. Redemonstrated findings at L3-L5 suspicious for sequelae of discitis/osteomyelitis. If clinically warranted, this could be further assessed with MRI. Venous Duplex 07/27/23 13:13 IMPRESSION: 1. No DVT demonstrated in the right upper extremity. 2. IV visualized in the distal cephalic vein. 3. Multiple lymph nodes are noted in the infraclavicular and axillary region the largest measuring up to 1.0 cm in short axis some of which demonstrate loss of fatty hilum. 4. Complex fluid collection visualized at the mid anterior forearm measuring 6.1 x 0.9 x 3.3 cm with questionable overlying flow. This correlates with patient's stated site of injection. Correlation with physical exam. Mental Status Exam Mental Status Exam Level of Consciousness: Awake, Appropriate and Alert Mood Description: Calm and Appropriate Medications Medications Current Medications Acetaminophen (Acetaminophen 325 Mg Tablet) 650 mg PO Q6H PRN PRN Reason: Pain, Mild (Pain Scale 1-3) Last Admin: 07/28/23 05:20 Dose: 650 mg Albuterol Sulfate (Albuterol Sulfate 90 Mcg 8 Gm Inhaler) 2 puff INHALE Q6H PRN PRN Reason: wheezing Baclofen (Baclofen 10 Mg Tablet) 10 mg PO TID [facility] Bictegravir/Emtricitabine/Tenofovir (Bictegrav/Emtricit/Tenofov Ala Tablet) 1 tab PO DAILY [facility] Last Admin: 07/28/23 08:31 Dose: 1 tab Doxepin HCl (Doxepin Hcl 25 Mg Capsule) 150 mg PO BEDTIME [facility] Enoxaparin Sodium (Enoxaparin Sodium 40 Mg/0.4 Ml Syringe) 40 mg SUBCUT Q24H [facility] Last Admin: 07/28/23 05:19 Dose: 40 mg Ferrous Sulfate (Ferrous Sulfate 324 Mg Tablet.) 324 mg PO DAILY [facility] Last Admin: 07/28/23 08:31 Dose: 324 mg Fluticasone/Vilanterol (Fluticasone/Vilanterol 100/25 Blst.W.Dev) 1 puff INHALE RDAILY [facility] Last Admin: 07/28/23 07:54 Dose: Not Given Gabapentin (Gabapentin 400 Mg Capsule) 400 mg PO TID [facility] Piperacillin Sod/Tazobactam (Sod 4.5 gm/ Sodium Chloride) 100 mls @ 200 mls/hr IV Q6H [facility] Last Infusion: 07/28/23 18:36 Dose: Infused Vancomycin HCl 750 mg/ Sodium (Chloride) 265 mls @ 265 mls/hr IV Q12H [facility] Last Infusion: 07/28/23 11:52 Dose: Infused Lactated Ringer's (Lr) 1,000 mls @ 100 mls/hr IVCONT .Q10H [facility] Last Admin: 07/28/23 09:25 Dose: 100 mls/hr Melatonin (Melatonin 3 Mg Tablet) 6 mg PO BEDTIME PRN PRN Reason: Insomnia Methadone HCl (Methadone Hcl 20 Mg/2 Ml Oral.Conc) 65 mg PO DAILY [facility] Multivitamins/Vitamin C (Multivitamin Tablet) 1 tab PO DAILY [facility] Last Admin: 07/28/23 08:31 Dose: 1 tab Nystatin (Nystatin Oral Susp 500,000 Unit/5 Ml Oral.Susp) 100,000 unit PO QID [facility]; Protocol Last Admin: 07/28/23 17:24 Dose: 100,000 unit Omeprazole (Omeprazole 20 Mg Capsule.Dr) 20 mg PO DAILY@0630 [facility] Last Admin: 07/28/23 05:19 Dose: 20 mg Pharmacy Consult (Consult Rx Vancomycin Dosing) 1 each MISCELLANE DAILY PRN PRN Reason: Consult order Pravastatin Sodium (Pravastatin Sodium 40 Mg Tablet) 40 mg PO BEDTIME [facility] Ropinirole HCl (Ropinirole Hcl 2 Mg Tablet) 4 mg PO TID [facility] Sodium Chloride (0.9 % Sodium Chloride Flush 3 Ml Syringe) 3 ml IVFLUSH QSHIFT [facility] Last Admin: 07/28/23 15:16 Dose: Not Given Allergies Allergies Allergy/AdvReac Type Severity Reaction Status Date / Time aspirin [ASA] Allergy Intermediate HIVES Verified 07/27/23 00:14 tuberculin, purified protein Allergy Intermediate RASH, Verified 07/27/23 00:14 deriva ITCHING [TUBERCULIN,PURIF.PROT.DERIV.] chlorthalidone AdvReac Severe hypokalemia Verified 07/27/23 00:14 [CHLORTHALIDONE] tb serum Allergy Unknown Hives Uncoded 07/27/23 00:14 Assessment & Plan Assessment & Plan (1) Opioid use disorder: Status: Acute Code(s): F11.90 - Opioid use, unspecified, uncomplicated Assessment and Plan: * methadone dose increased to 65mg QD * check in with [facility] regarding dosing history * will continue to follow Total time managing care of this patient today __35__ minutes. PMFSH Past Medical History Medical History Spinal cord abscess Epidural abscess High cholesterol Leg cramp HTN (hypertension) Back pain Surgical History Surgical History H/O colonoscopy Social History Social History Household Members: Other Housing: Homeless Alcohol intake: current Alcohol intake frequency: holidays/special occasions only Patient Tobacco Use Status: Current someday Tobacco user Tobacco use type: Cigarette Cigarettes Per Day: 2 Smoked in Last 30 Days: Yes Patient Interested in Nicotine Replacement: No Use of substances other than those prescribed or required for medical reasons: Yes Substance Use Type: Crack/Cocaine and Heroin Substance Use Type Other:: cocaine occasion Substance Use Frequency: Daily Last Used Substance: Days (ago) Currently Displaying Signs/Symptoms of Drug Intoxication Withdrawal: No Any prior treatment program specific to substance use: Yes Have you been hit, kicked, punched, or otherwise hurt by someone within the past year? If so, by whom?: No Do you feel safe in your current relationship?: Yes Is there a partner from a previous relationship who is making you feel unsafe now?: No Are you made to feel afraid or neglected: No Advance Directives: No Advance Directives Information Provided: Yes Do you have thoughts of harming others: None Do you have a plan to hurt others: No Plan Recently lost weight without trying: Yes How much weight loss: 34pounds or more Eating poorly because of decreased appetite: No Nutrition screen score: 6 Nutrition Risks: Dental problems Poor oral hygiene: Yes service: No
[2023-07-28 21:23] LABS: Vancomycin Trough 15.2 mcg/mL (10.0-20.0)
[2023-07-28] MEDS: Pravastatin Sodium 40 MG TABLET PO (22:03)
[2023-07-28] MEDS: Gabapentin 400 MG CAPSULE PO (22:03)
[2023-07-28] MEDS: Baclofen 10 MG TABLET PO (22:03)
[2023-07-28] MEDS: rOPINIRole HCL 2 MG TABLET 4 MG PO (22:04)
[2023-07-28] MEDS: Doxepin HCl 25 MG CAPSULE 150 MG PO (22:04)
[2023-07-29] MEDS: Piperacillin Sodium/Tazobactam 4.5 GM in 0.9 % Sodium Chloride 100 ML IV ×3 (00:54→12:07)
[2023-07-29 04:00] VITALS: BP 109/54; PULSE 86; RESP 20; TEMP 36.1; O2SAT 95
[2023-07-29] MEDS: Enoxaparin Sodium 40 MG/0.4 ML SYRINGE SUBCUT (05:54)
[2023-07-29] MEDS: Omeprazole 20 MG CAPSULE.DR PO (05:56)
[2023-07-29 06:17] LABS: Anion Gap 14 (12-20); Blood Urea Nitrogen 15 mg/dL (9-16); Calcium 8.1 mg/dL (8.4-10.2); Carbon Dioxide 22 mmol/L (22-29); Chloride 110 mmol/L (96-108); Creatinine Clr Calc Pharmacy 64.4; Estimated Glomerular Filt Rate > 60; Glucose Random 121 mg/dL (60-115); Potassium 3.4 mmol/L (3.3-5.1); Sodium 143 mmol/L (135-145)
[2023-07-29 07:09] VITALS: BP 130/70; PULSE 48; RESP 18; TEMP 36.4; O2SAT 97
--- NOTE | 2023-07-29 07:35 | HE.PHANOTE ---
RE VANCO SCR REMAINS STABLE. WILL CONTINUE DOSE IS, NEXT LEVEL DUE 07/30 @ 0900. PER INSIGHT, SUSPECTED AUC IS 521 AND A TROUGH OF 16.2 ORQUIDEA
[2023-07-29] MEDS: Fluticasone/Vilanterol 100/25 BLST.W.DEV 1 PUFF INHALE (07:36)
[2023-07-29 07:37] VITALS: PULSE 50; RESP 16; O2SAT 97
[2023-07-29] MEDS: Ferrous Sulfate 324 MG TABLET.DR PO (08:11)
[2023-07-29] MEDS: Multivitamin TABLET 1 TAB PO (08:11)
[2023-07-29] MEDS: Gabapentin 400 MG CAPSULE PO ×3 (08:11→21:57)
[2023-07-29] MEDS: Bictegrav/Emtricit/Tenofov Ala TABLET 1 TAB PO (08:11)
[2023-07-29] MEDS: Baclofen 10 MG TABLET PO ×3 (08:11→21:58)
[2023-07-29] MEDS: rOPINIRole HCL 2 MG TABLET 4 MG PO ×3 (08:11→21:57)
[2023-07-29] MEDS: Nystatin Oral Susp 500,000 UNIT/5 ML ORAL.SUSP 100000 UNIT PO ×4 (08:12→22:01)
[2023-07-29] MEDS: methADONE HCl 20 MG/2 ML ORAL.CONC 65 MG PO (08:12)
[2023-07-29] MEDS: Lactated Ringers 1,000 ML 100 ML IVCONT (09:06)
--- NOTE | 2023-07-29 10:46 | P.PNIM_ITS ---
Subjective Subjective Date of Service: 07/29/23 Interval History: seen and examined this morning follow up for fever,bacteremia no recurrent fever no overnight events back pain - pt states is chronic Review of Systems Review of Systems: Yes all other systems are reviewed and are negative Constitutional Constitutional: Denies chills and Denies fever(s) Cardiovascular Cardiovascular: Denies chest pain, Denies palpitations and Denies dyspnea Respiratory Respiratory: Denies cough and Denies dyspnea Gastrointestinal Gastrointestinal: Denies abdominal pain, Denies nausea and Denies vomiting Endocrine Endocrine: Denies palpitations Physical Exam 2 Vital Signs: Vital Signs: Last Vital Signs Temp 97.6 F 07/29/23 07:09 Pulse 50 07/29/23 07:37 Resp 16 07/29/23 07:37 BP 130/70 07/29/23 07:09 Pulse Ox 97 07/29/23 07:09 O2 Del Method Room Air 07/29/23 07:09 BMI result Body Mass Index 16.7 Appearing in no acute distress lung sounds are clear to auscultation heart regular rate rhythm, clear S1, S2 positive bowel sounds, abdomen is soft, nontender neuro patient is alert x3, no focal deficits Objective Data Active Medications Acetaminophen (Acetaminophen 325 Mg Tablet) 650 mg PO Q6H PRN PRN Reason: Pain, Mild (Pain Scale 1-3) Last Admin: 07/28/23 05:20 Dose: 650 mg Documented By: OTIS Albuterol Sulfate (Albuterol Sulfate 90 Mcg 8 Gm Inhaler) 2 puff INHALE Q6H PRN PRN Reason: wheezing Baclofen (Baclofen 10 Mg Tablet) 10 mg PO TID [facility] Last Admin: 07/29/23 08:11 Dose: 10 mg Documented By: KEKE Bictegravir/Emtricitabine/Tenofovir (Bictegrav/Emtricit/Tenofov Ala Tablet) 1 tab PO DAILY [facility] Last Admin: 07/29/23 08:11 Dose: 1 tab Documented By: KEKE Doxepin HCl (Doxepin Hcl 25 Mg Capsule) 150 mg PO BEDTIME [facility] Last Admin: 07/28/23 22:04 Dose: 150 mg Documented By: YUNG Enoxaparin Sodium (Enoxaparin Sodium 40 Mg/0.4 Ml Syringe) 40 mg SUBCUT Q24H [facility] Last Admin: 07/29/23 05:54 Dose: 40 mg Documented By: YUNG Ferrous Sulfate (Ferrous Sulfate 324 Mg Tablet.) 324 mg PO DAILY [facility] Last Admin: 07/29/23 08:11 Dose: 324 mg Documented By: KEKE Fluticasone/Vilanterol (Fluticasone/Vilanterol 100/25 Blst.W.Dev) 1 puff INHALE RDAILY [facility] Last Admin: 07/29/23 07:36 Dose: 1 puff Documented By: KHAI Gabapentin (Gabapentin 400 Mg Capsule) 400 mg PO TID [facility] Last Admin: 07/29/23 08:11 Dose: 400 mg Documented By: KEKE Piperacillin Sod/Tazobactam (Sod 4.5 gm/ Sodium Chloride) 100 mls @ 200 mls/hr IV Q6H [facility] Last Infusion: 07/29/23 06:36 Dose: Infused Documented By: YUNG Vancomycin HCl 750 mg/ Sodium (Chloride) 265 mls @ 265 mls/hr IV Q12H [facility] Last Infusion: 07/29/23 00:53 Dose: Infused Documented By: YUNG Lactated Ringer's (Lr) 1,000 mls @ 100 mls/hr IVCONT .Q10H [facility] Last Admin: 07/29/23 09:06 Dose: 100 mls/hr Documented By: CORINA Melatonin (Melatonin 3 Mg Tablet) 6 mg PO BEDTIME PRN PRN Reason: Insomnia Methadone HCl (Methadone Hcl 20 Mg/2 Ml Oral.Conc) 65 mg PO DAILY [facility] Last Admin: 07/29/23 08:12 Dose: 65 mg Documented By: KEKE Multivitamins/Vitamin C (Multivitamin Tablet) 1 tab PO DAILY [facility] [place] Last Admin: 07/29/23 08:11 Dose: 1 tab Documented By: KEKE Nystatin (Nystatin Oral Susp 500,000 Unit/5 Ml Oral.Susp) 100,000 unit PO QID [facility]; Protocol Last Admin: 07/29/23 08:12 Dose: 100,000 unit Documented By: KEKE Omeprazole (Omeprazole 20 Mg Capsule.) 20 mg PO DAILY@0630 [facility] Last Admin: 07/29/23 05:56 Dose: 20 mg Documented By: [email or web address] Pharmacy Consult (Consult Rx Vancomycin Dosing) 1 each MISCELLANE DAILY PRN PRN Reason: Consult order Pravastatin Sodium (Pravastatin Sodium 40 Mg Tablet) 40 mg PO BEDTIME [facility] [place] Last Admin: 07/28/23 22:03 Dose: 40 mg Documented By: YUNG Ropinirole HCl (Ropinirole Hcl 2 Mg Tablet) 4 mg PO TID [facility] Last Admin: 07/29/23 08:11 Dose: 4 mg Documented By: KEKE Sodium Chloride (0.9 % Sodium Chloride Flush 3 Ml Syringe) 3 ml IVFLUSH QSHIFT [facility] Last Admin: 07/29/23 08:19 Dose: Not Given Documented By: KEKE Non-Admin Reason: IV Running Labs 07/28/23 11:24 07/29/23 05:16 Labs: Laboratory Results - last 24 hr 07/28/23 07/28/23 07/29/23 11:24 20:57 05:16 MCV 85.5 MCH 26.3 L MCHC 30.8 L RDW 18.6 H Plt Count 264 D MPV 10.9 Absolute Nucleated RBC 0.000 Nucleated RBC % (auto) 0.0 Hold Purple Top Anion Gap 14 Estim Creat Clear Calc 64.4 Estimated GFR > 60 Random Glucose 121 H Calcium 8.1 L Vancomycin Trough 15.2 07/29/23 Unknown MCV MCH MCHC RDW Plt Count MPV Absolute Nucleated RBC Nucleated RBC % (auto) Hold Purple Top SEE NOTE Anion Gap Estim Creat Clear Calc Estimated GFR Random Glucose Calcium Vancomycin Trough Microbiology Microbiology Results: Microbiology 07/27/23 01:23 Blood Culture - Preliminary Blood - Venous No growth after 48 hours. 07/27/23 Unknown Urine Culture - Final Urine clean catch - Clean Catch Midstream Lactobacillus species 07/27/23 01:24 Blood Culture - Final Blood - Venous Bacillus species Assessment and Plan (1) Anemia: Status: Acute (2) Bacteremia: Status: Acute (3) Kidney stone on left side: Status: Acute Plan 62-year-old male with pertinent history of HIV, unknown last CD4 count, essential hypertension, IV substance use disorder, hepatitis-C who presents to the emergency department for evaluation of fevers. Sepsis h/o epidural abscess/paraspinal abscess/discitis/MRSA bacteremia in may - treated at [facility] s/p drainage of paraspinal abscess 05/22. completed 6 weeks of IV daptomycin on 07/02 (at [facility]) Imaging with sequelae of discitis/osteomyelitis. back pain chronic. inflammatory markers lower then previous seems less likely cause of fever cxr with central peribronchial thickening, no focal consolidation - pt without respiratory symptoms does have distal left ureteric stone urine culture lactobacillus blood cultures with bacillus species ID consult>Likely contaminant, Stop vancomycin/zosyn, may use Doxy for arm cellulitis bacillus species bacteremia 1/2 ID consult>Likely contaminant, Stop vancomycin/zosyn, may use Doxy for arm cellulitis left kidney stone Imaging with calculus at left ureterovesical junction with mild hydronephrosis seen by urology -> if pain persists recommend procedure Substance use disorder Admits to using cocaine and heroin seen by addiction medicine continue home dose of methadone increased acute on chronic normocytic anemia has history of iron def anemia, and likely component of chronic disease stool occult negative seen by GI - rec low dose PPI in case of stress ulceration, rec inpatient egd/colonoscopy after infectious workup complete s/p 1U rbc with appropriate rise in H/H continue iron supplementation HIV Unknown last CD4 count. CD4 and viral load pending Consulted Infectious Disease as above reports compliance with HAART, but unclear Hepatitis-C Will need outpatient follow-up Moderate protein calorie malnutrition bmi 16.7 loss of muscle mass, subcutaneous fat will add supplements DVT prophylaxis: Lovenox Full code attending - Dr. Nguyen Requires ongoing inpatient hospital stay for IV antibiotics, close monitoring of anemia Time Spent With Patient Time: Total time managing care of this patient today ____ minutes. Quality Stroke Does the patient have a stroke diagnosis?: No VTE Prior VTE?: No VTE Risk Level:: Medical - moderate - high VTE Device Contraindication: Treatment Not Indicated VTE Drug Contraindication: N/A - Med Ordered
[2023-07-29] MEDS: vancomycin HCL 750 MG in 0.9 % Sodium Chloride 250 ML 265 MG IV ×2 (10:55→23:25)
[2023-07-29 11:23] VITALS: BMI 16.7
--- NOTE | 2023-07-29 11:28 | MHC.CLN ---
PT IS MODERATELY MALNOURISHED PT WITH MILDLY DEPLETED SUBCUTANEOUS FAT AND MUSCLE MASS, BMI 16 WITH CHRONIC POOR PO INTAKE R/T IVDU AND HOMELESSNESS DIET RX: REGULAR-APPROPRIATE PT RECEIVING ENSURE BID-WILL CHANGE ENSURE MAX TO PROVIDE 300KCALS, 60G PROTEIN MONITOR PO INTAKE CLOSELY SEE ALSO FULL CLINICAL NUTRITION ASSESSMENT
--- NOTE | 2023-07-29 12:59 | MHC.RECOVRN ---
Attempt to make contact with pt, pt sleeping at this time. Allowed to rest, blanket, wordsearch and notebook left at bedside for pt when he awakens.
--- NOTE | 2023-07-29 14:30 | P.CDIM_ITS ---
PROVIDER RESPONSE TEXT: To clarify, the appropriate diagnosis supported by the clinical indicators: Iron deficiency anemia QUERY TEXT: PHYSICIAN'S DOCUMENTATION REQUEST Date of Query: 07/29/2023 11:49 AM EDT Patient Name: Bronson Interiano Admit Date: 07/27/2023 Dear Shireen Hunt, A review of the medical record indicates additional documentation may be needed. Please review below and update the documentation accordingly. Clinical Indicators: PN: Acute on chronic normocytic anemia History of iron deficiency anemia H/H dropped to 6.6/21.0 Iron: 8 L BP 77/42 Asymptomatic anemia, lethargic and malaise Based on the above, could you clarify which of the following is the most likely type of anemia you ar e evaluating, treating, and/or monitoring? Iron deficiency anemia secondary to chronic blood loss Iron deficiency anemia Other (explain)Clinically unable to determine (explain)Thank you, Ayala Carmona, CCS, CDIS Use of terms such as suspected, likely, concern for, or probable (associated with a specific diagnosi s that is being evaluated, monitored, or treated as if it exists) are acceptable and can be coded in the inpatient se tting, when documented at the time of discharge. Please use your independent medical judgment in providing your response. THIS QUERY IS PART OF THE PERMANENT MEDICAL RECORD
--- NOTE | 2023-07-29 14:42 | MHC.CM.PN ---
per rounds pt not ready for dc has a urology consult
--- NOTE | 2023-07-29 14:52 | W.PM.IDCN ---
History of Present Illness Data of Consult Service Date: 07/29/23 Requesting physician: Shireen uHnt Primary Care Provider: Unknown Physician HPI Reason for consult: fever of unknown origin,HIV He presents to ER with fever of 101 for a day and weakness. He says he is homeless now and was evicted due to drugs in home. He injects right antecubital and there is swelling but no drainable abscess and was seen by Surgery. He reports some back discomfort but no changes in neurologic exam. He had MRSA bacteremia 05/17/2023 and L3-L5 abscess and received 6 weeks IV Daptomycin after seen at [facility] and was done 07/02. Review of Systems Review of Systems: Yes all other systems are reviewed and are negative PMFSH Past Medical History Medical History Spinal cord abscess Epidural abscess High cholesterol Leg cramp HTN (hypertension) Back pain Surgical History Surgical History H/O colonoscopy Social History Social History Household Members: Other Housing: Homeless Alcohol intake: current Alcohol intake frequency: holidays/special occasions only Patient Tobacco Use Status: Current someday Tobacco user Tobacco use type: Cigarette Cigarettes Per Day: 2 Smoked in Last 30 Days: Yes Patient Interested in Nicotine Replacement: No Use of substances other than those prescribed or required for medical reasons: Yes Substance Use Type: Crack/Cocaine and Heroin Substance Use Type Other:: cocaine occasion Substance Use Frequency: Daily Last Used Substance: Days (ago) Currently Displaying Signs/Symptoms of Drug Intoxication Withdrawal: No Any prior treatment program specific to substance use: Yes Have you been hit, kicked, punched, or otherwise hurt by someone within the past year? If so, by whom?: No Do you feel safe in your current relationship?: Yes Is there a partner from a previous relationship who is making you feel unsafe now?: No Are you made to feel afraid or neglected: No Advance Directives: No Advance Directives Information Provided: Yes Do you have thoughts of harming others: None Do you have a plan to hurt others: No Plan Recently lost weight without trying: Yes How much weight loss: 34pounds or more Eating poorly because of decreased appetite: No Nutrition screen score: 6 Nutrition Risks: Dental problems Poor oral hygiene: Yes service: No Meds Allergies Allergy/AdvReac Type Severity Reaction Status Date / Time aspirin [ASA] Allergy Intermediate HIVES Verified 07/27/23 00:14 tuberculin, purified protein Allergy Intermediate RASH, Verified 07/27/23 00:14 deriva ITCHING [TUBERCULIN,PURIF.PROT.DERIV.] chlorthalidone AdvReac Severe hypokalemia Verified 07/27/23 00:14 [CHLORTHALIDONE] tb serum Allergy Unknown Hives Uncoded 07/27/23 00:14 Active Medications: Current Medications Acetaminophen (Acetaminophen 325 Mg Tablet) 650 mg PO Q6H PRN PRN Reason: Pain, Mild (Pain Scale 1-3) Last Admin: 07/28/23 05:20 Dose: 650 mg Albuterol Sulfate (Albuterol Sulfate 90 Mcg 8 Gm Inhaler) 2 puff INHALE Q6H PRN PRN Reason: wheezing Baclofen (Baclofen 10 Mg Tablet) 10 mg PO TID [facility] Last Admin: 07/29/23 08:11 Dose: 10 mg Bictegravir/Emtricitabine/Tenofovir (Bictegrav/Emtricit/Tenofov Ala Tablet) 1 tab PO DAILY [facility] Last Admin: 07/29/23 08:11 Dose: 1 tab Doxepin HCl (Doxepin Hcl 25 Mg Capsule) 150 mg PO BEDTIME [facility] Last Admin: 07/28/23 22:04 Dose: 150 mg Enoxaparin Sodium (Enoxaparin Sodium 40 Mg/0.4 Ml Syringe) 40 mg SUBCUT Q24H [facility] Last Admin: 07/29/23 05:54 Dose: 40 mg Ferrous Sulfate (Ferrous Sulfate 324 Mg Tablet.Dr) 324 mg PO DAILY [facility] Last Admin: 07/29/23 08:11 Dose: 324 mg Fluticasone/Vilanterol (Fluticasone/Vilanterol 100/25 Blst.W.Dev) 1 puff INHALE RDAILY [facility] Last Admin: 07/29/23 07:36 Dose: 1 puff Gabapentin (Gabapentin 400 Mg Capsule) 400 mg PO TID [facility] Last Admin: 07/29/23 08:11 Dose: 400 mg Piperacillin Sod/Tazobactam (Sod 4.5 gm/ Sodium Chloride) 100 mls @ 200 mls/hr IV Q6H [facility] Last Infusion: 07/29/23 12:55 Dose: Infused Vancomycin HCl 750 mg/ Sodium (Chloride) 265 mls @ 265 mls/hr IV Q12H [facility] Last Infusion: 07/29/23 12:08 Dose: Infused Lactated Ringer's (Lr) 1,000 mls @ 100 mls/hr IVCONT .Q10H [facility] Last Admin: 07/29/23 09:06 Dose: 100 mls/hr Melatonin (Melatonin 3 Mg Tablet) 6 mg PO BEDTIME PRN PRN Reason: Insomnia Methadone HCl (Methadone Hcl 20 Mg/2 Ml Oral.Conc) 65 mg PO DAILY [facility] Last Admin: 07/29/23 08:12 Dose: 65 mg Multivitamins/Vitamin C (Multivitamin Tablet) 1 tab PO DAILY [facility] Last Admin: 07/29/23 08:11 Dose: 1 tab Nystatin (Nystatin Oral Susp 500,000 Unit/5 Ml Oral.Susp) 100,000 unit PO QID [facility]; Protocol Last Admin: 07/29/23 12:53 Dose: 100,000 unit Omeprazole (Omeprazole 20 Mg Capsule.Dr) 20 mg PO DAILY@0630 [facility] Last Admin: 07/29/23 05:56 Dose: 20 mg Pharmacy Consult (Consult Rx Vancomycin Dosing) 1 each MISCELLANE DAILY PRN PRN Reason: Consult order Pravastatin Sodium (Pravastatin Sodium 40 Mg Tablet) 40 mg PO BEDTIME [facility] Last Admin: 07/28/23 22:03 Dose: 40 mg Ropinirole HCl (Ropinirole Hcl 2 Mg Tablet) 4 mg PO TID [facility] Last Admin: 07/29/23 08:11 Dose: 4 mg Sodium Chloride (0.9 % Sodium Chloride Flush 3 Ml Syringe) 3 ml IVFLUSH QSHIFT [facility] Last Admin: 07/29/23 08:19 Dose: Not Given Home Medications Medication Instructions Recorded Confirmed Last Taken Type baclofen 20 mg tablet 10 mg PO TID 05/17/23 07/27/23 Unknown History gabapentin 800 mg tablet 800 mg PO TID 05/17/23 07/27/23 Unknown History multivitamin 1 tab PO DAILY 05/17/23 07/27/23 Unknown History ropinirole 4 mg tablet 4 mg PO TID 05/17/23 07/27/23 Unknown History albuterol sulfate 90 mcg/actuation 2 puff inhalation Q6H PRN wheezing 07/27/23 07/27/23 Unknown History aerosol inhaler (Ventolin HFA) bictegravir 50 mg-emtricitabine 1 tab PO QAM 07/27/23 07/27/23 Unknown History 200 mg-tenofovir alafenam 25 mg tablet (Biktarvy) doxepin 150 mg capsule 150 mg PO BEDTIME 07/27/23 07/27/23 Unknown History ferrous sulfate 325 mg (65 mg 325 mg PO DAILY 07/27/23 07/27/23 Unknown History iron) tablet (FeroSul) fluticasone 250 mcg-salmeterol 50 1 ea inhalation BID 07/27/23 07/27/23 Unknown History mcg/dose blistr powdr for inhalation methadone 10 mg/mL oral syringe 60 mg PO DAILY 07/27/23 07/27/23 07/26/23 History (FOR ORAL USE ONLY) 60 nystatin 100,000 unit/mL oral 1 ml PO QID 07/27/23 07/27/23 Unknown History suspension oxycodone 5 mg tablet 5 mg PO Q6H 07/27/23 07/27/23 Unknown History pravastatin 40 mg tablet 40 mg PO BEDTIME 07/27/23 07/27/23 Unknown History Physical Exam Vital Signs: Vital Signs: Last Vital Signs Temp 97.6 F 07/29/23 07:09 Pulse 50 07/29/23 07:37 Resp 16 07/29/23 07:37 BP 130/70 07/29/23 07:09 Pulse Ox 97 07/29/23 07:09 O2 Del Method Room Air 07/29/23 07:09 BMI result Body Mass Index 16.7 Const: Other: cachectic male General: cooperative HEENT: Head: Yes normal to inspection Face and sinus: Yes normal facial exam Mouth: Normal oral and palatal mucosa present Teeth and gingiva: dentition normal Eyes: General: appearance normal, both eyes and all related structures Pupils: Equal, round and reactive pupils present Resp: Effort & Inspection: normal respiratory effort Cardio: Rate: regular rate Rhythm: regular rhythm GI: Palpation (GI): Soft to palpation and nontender : General: Yes no CVA tenderness Back/Spine/Pelvis: Back: no CVA tenderness Skin: General skin exam: no rashes or lesions noted Neuro: General: moves all extremities Cranial nerves: Yes Equal, round and reactive pupils present Extrem: General: Yes normal to inspection Psych: Appearance: grossly normal Results Labs 07/28/23 11:24 07/29/23 05:16 Labs: BMP 07/29/23 05:16 Sodium 143 Potassium 3.4 Chloride 110 H Carbon Dioxide 22 BUN 15 Creatinine 0.85 Calcium 8.1 L Microbiology Microbiology Results: Microbiology 07/27/23 01:23 Blood - Venous Blood Culture - Preliminary No growth after 48 hours. 07/27/23 Unknown Urine clean catch - Clean Catch Midstream Urine Culture - Final Lactobacillus species 07/27/23 01:24 Blood - Venous Blood Culture - Final Bacillus species Assessment and Plan (1) Opioid use disorder: Status: Acute (2) Bacteremia: Status: Acute He only has 1/2 bacillus in blood,likely contaminant. He has possible arm source of fever with area looking clearer now but site of injection. Also kidney stone left UV junction could have caused fever if obstructed transiently and lactobacillus not likely infection source either. He may not be taking HIV medication correctly although says taking daily so that could be source of infection. (3) Kidney stone on left side: Status: Acute Plan Stop IV antibiotics and give po Doxycycline cover arm source as long as area remains stable. Continue Biktarvy Check HIV viral load and CD4 count and Hepatitis C viral load. Time Spent With Patient Time: Total time managing care of this patient today ____ minutes.
[2023-07-29 15:14] VITALS: BP 140/66; PULSE 58; RESP 16; TEMP 36.4; O2SAT 98
[2023-07-29] MEDS: Doxycycline Monohydrate 100 MG CAPSULE PO (16:25)
--- NOTE | 2023-07-29 17:16 | MHC.RECOVRN ---
T/w met with pt to follow up on methadone dosing. Pt reports he feels well, endorsed some sickness at nighttime. Main symptom has been body aches. Pt reports he received a split dose from [facility] because his dose wore off too soon for him, so the dose was split to bid. [facility] confirmed back in April pt was receiving 60mg in the morning and 55mg in the evening adminstered by [facility]. Pt has since lost services with [facility]. Pt appears in good spirits at this time, working on a crossword puzzle when t/w entered the room. Someone from recovery to follow up with the pt tomorrow.
[2023-07-29 20:00] VITALS: BP 172/82; PULSE 71; RESP 18; TEMP 36.7; O2SAT 96
[2023-07-29] MEDS: Doxepin HCl 25 MG CAPSULE 150 MG PO (21:58)
[2023-07-29] MEDS: Pravastatin Sodium 40 MG TABLET PO (21:58)
[2023-07-30] MEDS: 0.9 % Sodium Chloride Flush 3 ML SYRINGE IVFLUSH ×4 (00:44→21:03)
[2023-07-30 03:28] VITALS: BP 157/74; PULSE 53; RESP 16; TEMP 36.6; O2SAT 96
[2023-07-30] MEDS: Doxycycline Monohydrate 100 MG CAPSULE PO ×2 (03:38→15:25)
[2023-07-30 03:39] LABS: Syphilis Screen Nonreactive (Nonreactive)
[2023-07-30] MEDS: Enoxaparin Sodium 40 MG/0.4 ML SYRINGE SUBCUT (05:31)
[2023-07-30] MEDS: Omeprazole 20 MG CAPSULE.DR PO (05:31)
[2023-07-30 06:46] LABS: MANUAL DIFF FLAG NO
[2023-07-30 07:05] LABS: Basophils Percent Auto 0.5 % (0-2); Eosinophils Absolute Auto 0.5 X10*3/uL (0.0-0.4); Eosinophils Percent Auto 8.5 % (0-4); Hematocrit 30.7 % (42.0-52.0); Hemoglobin 9.4 g/dl (14.0-18.0); Imm Gran Abs Auto 0.06 X10*3/uL (0.00-0.03); Lymphocytes Absolute Auto 1.1 X10*3/uL (1.2-4.9); Lymphocytes Percent Auto 18.3 % (20-40); Mean Corpuscular HGB Conc 30.6 g/dl (31.0-36.0); Mean Platelet Volume 10.6 fL (9.4-12.4); Monocytes Absolute Auto 0.3 X10*3/uL (0.1-1.2); Monocytes Percent Auto 4.2 % (2-11); Neutrophils Absolute Auto 4.2 x10*3/uL (2.0-8.3); Neutrophils Percent Auto 67.5 % (45-73); Platelet Count 345 X10*3/uL (160-400); Red Blood Count 3.61 X10*6/uL (4.60-5.80); Red Cell Distribution Width 18.5 % (11.0-16.0); White Blood Count 6.2 X10*3/uL (4.8-10.8)
[2023-07-30 07:10] LABS: Estimated Glomerular Filt Rate > 60
[2023-07-30 07:48] VITALS: BP 151/76; PULSE 54; RESP 16; TEMP 36.9; O2SAT 97
[2023-07-30] MEDS: Fluticasone/Vilanterol 100/25 BLST.W.DEV 1 PUFF INHALE (08:24)
[2023-07-30 08:25] VITALS: PULSE 62; RESP 16; O2SAT 98
--- NOTE | 2023-07-30 09:37 | P.PNIM_ITS ---
Subjective Subjective Date of Service: 07/30/23 Interval History: seen and examined this morning follow up for fever,bacteremia no recurrent fever no overnight events back pain - pt states is chronic Review of Systems Review of Systems: Yes all other systems are reviewed and are negative Constitutional Constitutional: Denies chills and Denies fever(s) Cardiovascular Cardiovascular: Denies chest pain, Denies palpitations and Denies dyspnea Respiratory Respiratory: Denies cough and Denies dyspnea Gastrointestinal Gastrointestinal: Denies abdominal pain, Denies nausea and Denies vomiting Endocrine Endocrine: Denies palpitations Physical Exam 2 Vital Signs: Vital Signs: Last Vital Signs Temp 98.4 F 07/30/23 07:48 Pulse 62 07/30/23 08:25 Resp 16 07/30/23 08:25 BP 151/76 H 07/30/23 07:48 Pulse Ox 97 07/30/23 07:48 O2 Del Method Room Air 07/30/23 07:48 BMI result Body Mass Index 16.7 Appearing in no acute distres lung sounds are clear to auscultation heart regular rate rhythm, clear S1, S2 positive bowel sounds, abdomen is soft, nontender neuro patient is alert x3, no focal deficits Objective Data Active Medications Acetaminophen (Acetaminophen 325 Mg Tablet) 650 mg PO Q6H PRN PRN Reason: Pain, Mild (Pain Scale 1-3) Last Admin: 07/28/23 05:20 Dose: 650 mg Documented By: OTIS Albuterol Sulfate (Albuterol Sulfate 90 Mcg 8 Gm Inhaler) 2 puff INHALE Q6H PRN PRN Reason: wheezing Baclofen (Baclofen 10 Mg Tablet) 10 mg PO TID [facility] Last Admin: 07/29/23 21:58 Dose: 10 mg Documented By: YUNG Bictegravir/Emtricitabine/Tenofovir (Bictegrav/Emtricit/Tenofov Ala Tablet) 1 tab PO DAILY [facility] Last Admin: 07/29/23 08:11 Dose: 1 tab Documented By: KEKE Doxepin HCl (Doxepin Hcl 25 Mg Capsule) 150 mg PO BEDTIME [facility] Last Admin: 07/29/23 21:58 Dose: 150 mg Documented By: YUNG Doxycycline Monohydrate (Doxycycline Monohydrate 100 Mg Capsule) 100 mg PO Q12H [facility] Last Admin: 07/30/23 03:38 Dose: 100 mg Documented By: YUNG Enoxaparin Sodium (Enoxaparin Sodium 40 Mg/0.4 Ml Syringe) 40 mg SUBCUT Q24H [facility] Last Admin: 07/30/23 05:31 Dose: 40 mg Documented By: YUNG Ferrous Sulfate (Ferrous Sulfate 324 Mg Tablet.) 324 mg PO DAILY [facility] Last Admin: 07/29/23 08:11 Dose: 324 mg Documented By: KEKE Fluticasone/Vilanterol (Fluticasone/Vilanterol 100/25 Blst.W.Dev) 1 puff INHALE RDAILY [facility] Last Admin: 07/30/23 08:24 Dose: 1 puff Documented By: YARELIS Gabapentin (Gabapentin 400 Mg Capsule) 400 mg PO TID [facility] Last Admin: 07/29/23 21:57 Dose: 400 mg Documented By: YUNG Vancomycin HCl 750 mg/ Sodium (Chloride) 265 mls @ 265 mls/hr IV Q12H [facility] Last Infusion: 07/30/23 00:48 Dose: Infused Documented By: YUNG Melatonin (Melatonin 3 Mg Tablet) 6 mg PO BEDTIME PRN PRN Reason: Insomnia Methadone HCl (Methadone Hcl 20 Mg/2 Ml Oral.Conc) 65 mg PO DAILY [facility] Last Admin: 07/29/23 08:12 Dose: 65 mg Documented By: KEKE Multivitamins/Vitamin C (Multivitamin Tablet) 1 tab PO DAILY [facility] Last Admin: 07/29/23 08:11 Dose: 1 tab Documented By: KEKE Nystatin (Nystatin Oral Susp 500,000 Unit/5 Ml Oral.Susp) 100,000 unit PO QID [facility]; Protocol Last Admin: 07/29/23 22:01 Dose: 100,000 unit Documented By: YUNG Omeprazole (Omeprazole 20 Mg Capsule.) 20 mg PO DAILY@0630 [facility] Last Admin: 07/30/23 05:31 Dose: 20 mg Documented By: YUNG Pravastatin Sodium (Pravastatin Sodium 40 Mg Tablet) 40 mg PO BEDTIME [facility] Last Admin: 07/29/23 21:58 Dose: 40 mg Documented By: YUNG Ropinirole HCl (Ropinirole Hcl 2 Mg Tablet) 4 mg PO TID [facility] Last Admin: 07/29/23 21:57 Dose: 4 mg Documented By: YUNG Sodium Chloride (0.9 % Sodium Chloride Flush 3 Ml Syringe) [facility] Last Admin: 07/30/23 00:44 Dose: 3 ml Documented By: YUNG Labs 07/30/23 05:18 07/30/23 05:18 Labs: Laboratory Results - last 24 hr 07/27/23 07/29/23 07/30/23 10:30 16:42 05:18 MCV 85.0 MCH 26.0 L MCHC 30.6 L RDW 18.5 H Plt Count 345 D MPV 10.6 Immature Gran % (Auto) 1.0 H Neut % (Auto) 67.5 Lymph % (Auto) 18.3 L [place] % (Auto) 4.2 Eos % (Auto) 8.5 H Baso % (Auto) 0.5 Lymph # (Auto) 1.1 L [place] # (Auto) 0.3 Eos # (Auto) 0.5 H Baso # (Auto) 0.0 Abs Immat Gran (auto) 0.06 H Absolute Neuts (auto) 4.2 Absolute Nucleated RBC 0.000 Nucleated RBC % (auto) 0.0 Smear Path Review SEE NOTE Estim Creat Clear Calc 76.0 Estimated GFR > 60 T.pallidum Ab (EIA) Nonreactive Assessment and Plan (1) Anemia: Status: Acute (2) Bacteremia: Status: Acute (3) Kidney stone on left side: Status: Acute Plan 62-year-old male with pertinent history of HIV, unknown last CD4 count, essential hypertension, IV substance use disorder, hepatitis-C who presents to the emergency department for evaluation of fevers. Hx of discitis h/o epidural abscess/paraspinal abscess/discitis/MRSA bacteremia in may - treated at [facility] s/p drainage of paraspinal abscess 05/22. completed 6 weeks of IV daptomycin on 07/02 (at [facility]) Imaging with sequelae of discitis/osteomyelitis. still with alot of back pain and difficulty with movements such as bending over no fever, but will re-assess lumbar MRI to make sure no repeat of infection Sepsis. Sepsis resolved cxr with central peribronchial thickening, no focal consolidation - pt without respiratory symptoms does have distal left ureteric stone urine culture lactobacillus blood cultures with bacillus species ID consult>Likely contaminant, Stop vancomycin/zosyn, may use Doxy for arm cellulitis bacillus species bacteremia 1/2 ID consult>Likely contaminant, Stop vancomycin/zosyn may use Doxy for arm cellulitis left kidney stone Imaging with calculus at left ureterovesical junction with mild hydronephrosis seen by urology> no procedure warranted at this time. Substance use disorder Admits to using cocaine and heroin seen by addiction medicine continue home dose of methadone increased acute on chronic normocytic anemia has history of iron def anemia, and likely component of chronic disease stool occult negative seen by GI - rec low dose PPI in case of stress ulceration, o/p egd/colonoscopy s/p 1U rbc with appropriate rise in H/H continue iron supplementation HIV CD4 192 reports compliance with HAART, but unclear Hepatitis-C Will need outpatient follow-up severe protein calorie malnutrition bmi 16.7 loss of muscle mass, subcutaneous fat will add supplements DVT prophylaxis: Lovenox Full code attending - Dr. Patrick NAGY likely plan to go to [facility] once medically clear Requires ongoing inpatient hospital stay for IV antibiotics, close monitoring of anemia Time Spent With Patient Time: Total time managing care of this patient today ____ minutes. Quality Stroke Does the patient have a stroke diagnosis?: No VTE Prior VTE?: No VTE Risk Level:: Medical - moderate - high VTE Device Contraindication: Treatment Not Indicated VTE Drug Contraindication: N/A - Med Ordered
[2023-07-30 09:45] LABS: Vancomycin Random 13.3 mcg/mL (15-20)
[2023-07-30] MEDS: methADONE HCl 20 MG/2 ML ORAL.CONC 65 MG PO (10:00)
[2023-07-30] MEDS: Nystatin Oral Susp 500,000 UNIT/5 ML ORAL.SUSP 100000 UNIT PO ×4 (10:01→21:01)
[2023-07-30] MEDS: Gabapentin 400 MG CAPSULE PO ×3 (10:01→21:02)
[2023-07-30] MEDS: Bictegrav/Emtricit/Tenofov Ala TABLET 1 TAB PO (10:02)
[2023-07-30] MEDS: Multivitamin TABLET 1 TAB PO (10:02)
[2023-07-30] MEDS: Ferrous Sulfate 324 MG TABLET.DR PO (10:02)
[2023-07-30] MEDS: Baclofen 10 MG TABLET PO ×3 (10:03→21:01)
[2023-07-30] MEDS: rOPINIRole HCL 2 MG TABLET 4 MG PO ×3 (10:04→21:01)
[2023-07-30] MEDS: vancomycin HCL 750 MG in 0.9 % Sodium Chloride 250 ML 265 MG IV ×2 (10:04→23:01)
--- NOTE | 2023-07-30 10:10 | HE.PHANOTE ---
RE VANCO SCR REMAINS STABLE. TROUGH WAS 13.3, RESULTING IN A CALCULATED AUC OF 471. CONTINUE CURRENT DOSE. NEXT LEVEL DUE 07/31 @ 2100 [place]
[2023-07-30 10:23] LABS: Absolute CD3 Count 333 cells/uL (840-3060); Absolute CD4 Count 192 cells/uL (490-1740); Absolute CD8 Count 140 cells/uL (180-1170); Absolute Lymphocytes 408 cells/uL (850-3900); CD4 CD8 Ratio 1.37 (0.86-5.00); Percent CD3 Cells 82 % (57-85); Percent CD4 Cells 47 % (30-61); Percent CD8 Cells 34 % (12-42)
--- NOTE | 2023-07-30 11:23 | MHC.RECOVRN ---
Met with pt at 1000 to follow up prior to pt receiving today's dose. Pt asleep, wakes to loud voice. Pt does not express concerns regarding methadone, is interested in a shower and speaking with provider, RN aware. Pt denies questions or concerns for t/w. T/w available as needed. Discussed with Jennifer Espana APRN.
[2023-07-30] MEDS: Acetaminophen 325 MG TABLET 650 MG PO ×2 (13:05→21:02)
--- NOTE | 2023-07-30 13:15 | P.CDIM_ITS ---
PROVIDER RESPONSE TEXT: To clarify, the appropriate diagnosis supported by the clinical indicators: Chronic osteomyelitis QUERY TEXT: PHYSICIAN'S DOCUMENTATION REQUEST Date of Query: 07/30/2023 08:48 AM EDT Patient Name: Bronson Interiano Admit Date: 07/27/2023 Dear Shireen Hunt, A review of the medical record indicates additional documentation may be needed. Please review below and update the documentation accordingly. Clinical Indicators: H&P: In the Ed the patient was found septic and imaging concerning for discitis/osteomyelitis. Resusc itated with IV crystalloids, IV empiric Abx. Chills, fatigue, fevers recently discharged from outside the facility on 07/24 for spinal infection, e ndorses back pain which is progressive without relief. h/o epidural abscess/paraspinal abscess/discitis/osteomyelitis. Imagining with sequelae of discitis/osteomyelitis. Based on the above, please clarify in the Progress Notes further specificity regarding the acuity of the Osteomyelitis. Acute osteomyelitis Subacute osteomyelitis Chronic osteomyelitis Other (explain)Clinically unable to determine (explain)Thank you, Ayala Carmona, CCS, CDIS Use of terms such as suspected, likely, concern for, or probable (associated with a specific diagnosi s that is being evaluated, monitored, or treated as if it exists) are acceptable and can be coded in the inpatient se tting, when documented at the time of discharge. Please use your independent medical judgment in providing your response. THIS QUERY IS PART OF THE PERMANENT MEDICAL RECORD
[2023-07-30 13:19] LABS: HIV RNA PCR Qn Copies 55 copies/mL (NOT DETECTED); HIV RNA PCR Qn Log Copies 1.74 (NOT DETECTED)
[2023-07-30 15:51] VITALS: BP 139/69; PULSE 58; RESP 20; TEMP 36.3; O2SAT 98
[2023-07-30 19:49] VITALS: BP 135/69; PULSE 59; RESP 18; TEMP 36; O2SAT 97
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
[2023-07-30] MEDS: Melatonin 3 MG TABLET 6 MG PO (21:01)
[2023-07-30] MEDS: Doxepin HCl 25 MG CAPSULE 150 MG PO (21:01)
[2023-07-30] MEDS: Pravastatin Sodium 40 MG TABLET PO (21:02)
[2023-07-31] MEDS: Doxycycline Monohydrate 100 MG CAPSULE PO ×2 (03:39→14:16)
[2023-07-31 04:00] VITALS: BP 128/65; PULSE 61; RESP 16; TEMP 36.2; O2SAT 93
[2023-07-31] MEDS: Enoxaparin Sodium 40 MG/0.4 ML SYRINGE SUBCUT (05:12)
[2023-07-31] MEDS: Omeprazole 20 MG CAPSULE.DR PO (05:12)
[2023-07-31 06:23] LABS: Estimated Glomerular Filt Rate > 60
[2023-07-31 07:25] VITALS: PULSE 58; RESP 16; O2SAT 98
[2023-07-31] MEDS: Fluticasone/Vilanterol 100/25 BLST.W.DEV 1 PUFF INHALE (07:25)
[2023-07-31 07:27] VITALS: BP 143/69; PULSE 54; RESP 16; TEMP 36.7; O2SAT 94
[2023-07-31] MEDS: Nystatin Oral Susp 500,000 UNIT/5 ML ORAL.SUSP 100000 UNIT PO ×4 (08:04→21:01)
[2023-07-31] MEDS: methADONE HCl 20 MG/2 ML ORAL.CONC 65 MG PO (08:04)
[2023-07-31] MEDS: Gabapentin 400 MG CAPSULE PO ×3 (08:05→21:00)
[2023-07-31] MEDS: rOPINIRole HCL 2 MG TABLET 4 MG PO ×3 (08:05→21:00)
[2023-07-31] MEDS: Bictegrav/Emtricit/Tenofov Ala TABLET 1 TAB PO (08:05)
[2023-07-31] MEDS: 0.9 % Sodium Chloride Flush 3 ML SYRINGE IVFLUSH ×3 (08:05→21:00)
[2023-07-31] MEDS: Multivitamin TABLET 1 TAB PO (08:05)
[2023-07-31] MEDS: Ferrous Sulfate 324 MG TABLET.DR PO (08:05)
[2023-07-31] MEDS: Baclofen 10 MG TABLET PO ×3 (08:05→21:00)
[2023-07-31] MEDS: Acetaminophen 325 MG TABLET 650 MG PO ×2 (08:16→14:17)
--- NOTE | 2023-07-31 10:59 | P.PNIM_ITS ---
Subjective Subjective Date of Service: 07/31/23 Interval History: c/o chronic back pain no fever Review of Systems Review of Systems: Yes all other systems are reviewed and are negative Physical Exam 2 Vital Signs: Vital Signs: Last Vital Signs Temp 98.1 F 07/31/23 07:27 Pulse 54 07/31/23 07:27 Resp 16 07/31/23 07:27 BP 143/69 H 07/31/23 07:27 Pulse Ox 94 07/31/23 07:27 O2 Del Method Room Air 07/31/23 07:27 BMI result Body Mass Index 16.7 Gen: in no acute distress, cachectic HEENT: sclera anicteric, moist mucus membranes Neck: supple Lungs: clear to auscultation bilaterally Heart: regular rate and rhythm, no murmurs Abd: soft, non-tender, non-distended Ext: no edema Skin: warm/well-perfused Neuro: alert and oriented x3, no focal findings Psych: appropriate affect Objective Data Active Medications Acetaminophen (Acetaminophen 325 Mg Tablet) 650 mg PO Q6H PRN PRN Reason: Pain, Mild (Pain Scale 1-3) Last Admin: 07/31/23 08:16 Dose: 650 mg Documented By: SEEMA Albuterol Sulfate (Albuterol Sulfate 90 Mcg 8 Gm Inhaler) 2 puff INHALE Q6H PRN PRN Reason: wheezing Baclofen (Baclofen 10 Mg Tablet) 10 mg PO TID [facility] Last Admin: 07/31/23 08:05 Dose: 10 mg Documented By: SEEMA Bictegravir/Emtricitabine/Tenofovir (Bictegrav/Emtricit/Tenofov Ala Tablet) 1 tab PO DAILY [facility] Last Admin: 07/31/23 08:05 Dose: 1 tab Documented By: SEEMA Doxepin HCl (Doxepin Hcl 25 Mg Capsule) 150 mg PO BEDTIME [facility] Last Admin: 07/30/23 21:01 Dose: 150 mg Documented By: OTIS Doxycycline Monohydrate (Doxycycline Monohydrate 100 Mg Capsule) 100 mg PO Q12H [facility] Last Admin: 07/31/23 03:39 Dose: 100 mg Documented By: OTIS Enoxaparin Sodium (Enoxaparin Sodium 40 Mg/0.4 Ml Syringe) 40 mg SUBCUT Q24H [facility] Last Admin: 07/31/23 05:12 Dose: 40 mg Documented By: OTIS Ferrous Sulfate (Ferrous Sulfate 324 Mg Tablet.) 324 mg PO DAILY [facility] Last Admin: 07/31/23 08:05 Dose: 324 mg Documented By: SEEMA Fluticasone/Vilanterol (Fluticasone/Vilanterol 100/25 Blst.W.Dev) 1 puff INHALE RDAILY [facility] Last Admin: 07/31/23 07:25 Dose: 1 puff Documented By: THO Gabapentin (Gabapentin 400 Mg Capsule) 400 mg PO TID [facility] Last Admin: 07/31/23 08:05 Dose: 400 mg Documented By: SEEMA Vancomycin HCl 750 mg/ Sodium (Chloride) 265 mls @ 265 mls/hr IV Q12H [facility] Last Infusion: 07/31/23 01:16 Dose: Infused Documented By: OTIS Melatonin (Melatonin 3 Mg Tablet) 6 mg PO BEDTIME PRN PRN Reason: Insomnia Last Admin: 07/30/23 21:01 Dose: 6 mg Documented By: OTIS Methadone HCl (Methadone Hcl 20 Mg/2 Ml Oral.Conc) 65 mg PO DAILY [facility] Last Admin: 07/31/23 08:04 Dose: 65 mg Documented By: SEEMA Multivitamins/Vitamin C (Multivitamin Tablet) 1 tab PO DAILY [facility] Last Admin: 07/31/23 08:05 Dose: 1 tab Documented By: SEEMA Nystatin (Nystatin Oral Susp 500,000 Unit/5 Ml Oral.Susp) 100,000 unit PO QID [facility]; Protocol Last Admin: 07/31/23 08:04 Dose: 100,000 unit Documented By: SEEMA Omeprazole (Omeprazole 20 Mg Capsule.) 20 mg PO DAILY@0630 [facility] Last Admin: 07/31/23 05:12 Dose: 20 mg Documented By: OTIS Pravastatin Sodium (Pravastatin Sodium 40 Mg Tablet) 40 mg PO BEDTIME [facility] Last Admin: 07/30/23 21:02 Dose: 40 mg Documented By: OTIS Ropinirole HCl (Ropinirole Hcl 2 Mg Tablet) 4 mg PO TID [facility] Last Admin: 07/31/23 08:05 Dose: 4 mg Documented By: SEEMA Sodium Chloride (0.9 % Sodium Chloride Flush 3 Ml Syringe) 3 ml IVFLUSH QSHIFT [facility] Last Admin: 07/31/23 08:05 Dose: 3 ml Documented By: SEEMA Labs 07/30/23 05:18 07/31/23 05:27 Labs: Laboratory Results - last 24 hr 07/27/23 07/31/23 06:19 05:27 Hold Purple Top SEE NOTE Estim Creat Clear Calc 72.0 Estimated GFR > 60 Lymphocyte Subset Cmmnt TNP HIV-1 RNA copies/mL 55 H HIV-1 RNA logcopies/mL 1.74 H Assessment and Plan (1) Anemia: Status: Acute (2) Bacteremia: Status: Acute (3) Kidney stone on left side: Status: Acute Plan d5 62yo M with HIV, HCV, HTN, OUD, recent epidural abscess/discitis/MRSA bacteremia treated at [facility] in May 2023 with drainage + 6 wk of IV daptomycin [completed 07/02/23] hx discitis/epidural abscess/paraspinal abscess/MRSA bacteremia - CT A/P with findings @ L3-L5 suspicious for sequelae of discitis/osteomyelitis; MRI L-spine pending sepsis - resolved. ?source. CXR with central peribronchial thickening but no focal consolidation; no respiratory symptoms. Calculus at L UVJ with mild hydronephrosis; no intervention at this time per Urology. 1 of 2 BCx with Bacillus sp, likely contaminant per ID; stop vanco + pip-sakina. Cellulitis on RUE- doxycycline d3/7 OUD cocaine abuse - Addiction Medicine consulted; methadone increased acute/chronic normocytic anemia - MIKE + ACD; FOBT negative - per GI, low-dose PPI for stress ulcer prevention, outpt EGD/C-scope - s/p 1u pRBCs 07/27/23 with appropriate rise in H/H - continue Fe supplementation HIV - viral load 55, CD4 192 (07/27/23) - continue Biktarvy; has been virologically suppressed [low-level viremia but RNA <200] as outpt for years chronic HCV - outpt treatment asthma without acute exac - continue ICS/LABA, prn JOSE DANIEL restless legs - ropinirole chronic pain - doxepin, baclofen, gabapentin sev pr-isaias malnutrition - Ensure VTE ppx - LMWH dispo - anticipate STR @ [facility] In my clinical judgment, the patient requires continued inpatient hospitalization for the following reasons: r/o active discitis/osteomyelitis Time Spent With Patient Time: Total time managing care of this patient today __40__ minutes. Quality Stroke Does the patient have a stroke diagnosis?: No VTE Prior VTE?: No VTE Risk Level:: Medical - moderate - high VTE Device Contraindication: Treatment Not Indicated VTE Drug Contraindication: N/A - Med Ordered
[2023-07-31 11:28] VITALS: RESP 18
[2023-07-31] MEDS: HYDROmorphone HCl 1 MG/ML SYRINGE IVPUSH (11:28)
--- NOTE | 2023-07-31 11:38 | MHC.CLN ---
F/U DIET RX: REGULAR-APPROPRIATE. PT RECEIVING ENSURE MAX PROTEIN BID. SUPPLEMENT PROVIDES 300 KCALS, 60 G PROTEIN. INTAKE USUALLY 100%. CONTINUE TO MONITOR PO INTAKE.
[2023-07-31] MEDS: gadobutroL 7.5 ML VIAL IVPUSH (12:33)
--- NOTE | 2023-07-31 13:52 | MHC.CM.PN ---
per rounds pt not ready for dc today he will be having an mri bed search in place
[2023-07-31] MEDS: vancomycin HCL 750 MG in 0.9 % Sodium Chloride 250 ML 265 MG IV (13:55)
[2023-07-31 14:54] LABS: HCV Log PCR 6.69 Log IU/mL (NOT DETECTED); HepC Viral Load 4870000 IU/mL (NOT DETECTED)
[2023-07-31 15:25] VITALS: BP 126/61; PULSE 67; RESP 18; TEMP 36.7; O2SAT 96
[2023-07-31 20:00] VITALS: BP 151/70; PULSE 75; RESP 16; TEMP 36.6; O2SAT 96
--- NOTE | 2023-07-31 20:16 | PC.NURSE ---
Assumed care at 07:00. Patient A&O x4, pleasant and cooperative with care. Ambulated with PT in hallway, 1 assist with walker, OOB to chair. Patient with continued back pain 9/10 dull and chronic, but also with pounding pain in between like a fist per patient. Patient medicated with tylenol with minimal effect. MD aware. Patient had MRI, to lay flat during test in context of back pain, MD ordered 1 mg IV diaudid, with effect. Patient with itching sensation especially to back, where he has blanchable redness, MD aware.
[2023-07-31] MEDS: Pravastatin Sodium 40 MG TABLET PO (21:00)
[2023-07-31] MEDS: Melatonin 3 MG TABLET 6 MG PO (21:00)
[2023-07-31] MEDS: Doxepin HCl 25 MG CAPSULE 150 MG PO (21:00)
[2023-07-31 21:47] LABS: Vancomycin Random 13.8 mcg/mL (15-20)
[2023-08-01] MEDS: Doxycycline Monohydrate 100 MG CAPSULE PO ×2 (02:53→14:07)
[2023-08-01 04:00] VITALS: BP 124/70; PULSE 62; RESP 16; TEMP 36.8; O2SAT 97
[2023-08-01] MEDS: Enoxaparin Sodium 40 MG/0.4 ML SYRINGE SUBCUT (05:00)
[2023-08-01] MEDS: Omeprazole 20 MG CAPSULE.DR PO (05:01)
[2023-08-01 05:53] LABS: Creatinine Clr Calc Pharmacy 81.7; Estimated Glomerular Filt Rate > 60
[2023-08-01 07:31] VITALS: BP 125/70; PULSE 60; RESP 16; TEMP 37; O2SAT 95
[2023-08-01] MEDS: rOPINIRole HCL 2 MG TABLET 4 MG PO ×3 (08:33→20:32)
[2023-08-01] MEDS: Nystatin Oral Susp 500,000 UNIT/5 ML ORAL.SUSP 100000 UNIT PO ×3 (08:33→17:40)
[2023-08-01] MEDS: methADONE HCl 20 MG/2 ML ORAL.CONC 65 MG PO (08:33)
[2023-08-01] MEDS: Gabapentin 400 MG CAPSULE PO ×3 (08:33→20:32)
[2023-08-01] MEDS: Baclofen 10 MG TABLET PO ×3 (08:34→20:32)
[2023-08-01] MEDS: 0.9 % Sodium Chloride Flush 3 ML SYRINGE IVFLUSH ×2 (08:34→16:00)
[2023-08-01] MEDS: Ferrous Sulfate 324 MG TABLET.DR PO (08:34)
[2023-08-01] MEDS: Multivitamin TABLET 1 TAB PO (08:34)
[2023-08-01] MEDS: Bictegrav/Emtricit/Tenofov Ala TABLET 1 TAB PO (08:34)
[2023-08-01] MEDS: Fluticasone/Vilanterol 100/25 BLST.W.DEV 1 PUFF INHALE (08:38)
[2023-08-01 08:40] VITALS: PULSE 67; RESP 16; O2SAT 96
--- NOTE | 2023-08-01 14:47 | P.CDIM_ITS ---
PROVIDER RESPONSE TEXT: To clarify, the appropriate diagnosis supported by the clinical indicators: HIV disease (AIDS) QUERY TEXT: PHYSICIAN'S DOCUMENTATION REQUEST Date of Query: 08/01/2023 08:03 AM EDT Patient Name: Bronson Interiano Admit Date: 07/27/2023 Dear Hetal Roberson, A review of the medical record indicates additional documentation may be needed. Please review below and update the documentation accordingly. PN: HIV - viral load 55, CD4 192 Continue Biktarvy, has been virologically surpressed. PN: HIV - CD4 192 reports compliance with HAART, but unclear. Please clarify in the Progress Notes further specificity regarding the patient's HIV status: HIV disease (AIDS) HIV infection without AIDS Other please specify Other (explain)Clinically unable to determine (explain)Thank you, Ayala Carmona, CCS, CDIS Use of terms such as suspected, likely, concern for, or probable (associated with a specific diagnosi s that is being evaluated, monitored, or treated as if it exists) are acceptable and can be coded in the inpatient se tting, when documented at the time of discharge. Please use your independent medical judgment in providing your response. THIS QUERY IS PART OF THE PERMANENT MEDICAL RECORD
[2023-08-01 15:34] VITALS: BP 127/71; PULSE 64; RESP 18; TEMP 36.4; O2SAT 97
[2023-08-01 19:58] VITALS: BP 137/71; PULSE 68; RESP 18; TEMP 36.6; O2SAT 97
[2023-08-01] MEDS: Pravastatin Sodium 40 MG TABLET PO (20:32)
[2023-08-01] MEDS: Doxepin HCl 25 MG CAPSULE 150 MG PO (20:32)
[2023-08-02 03:47] VITALS: BP 133/62; PULSE 67; RESP 16; TEMP 36.5; O2SAT 96
[2023-08-02] MEDS: Doxycycline Monohydrate 100 MG CAPSULE PO ×2 (04:24→14:37)
[2023-08-02] MEDS: Omeprazole 20 MG CAPSULE.DR PO (04:24)
[2023-08-02] MEDS: Enoxaparin Sodium 40 MG/0.4 ML SYRINGE SUBCUT (04:25)
[2023-08-02 05:21] LABS: Creatinine Clr Calc Pharmacy 84.2; Estimated Glomerular Filt Rate > 60
[2023-08-02 07:32] VITALS: BP 130/66; PULSE 63; RESP 16; TEMP 36.6; O2SAT 96
[2023-08-02] MEDS: methADONE HCl 20 MG/2 ML ORAL.CONC 65 MG PO (09:08)
[2023-08-02] MEDS: Baclofen 10 MG TABLET PO ×3 (09:10→20:18)
[2023-08-02] MEDS: Gabapentin 400 MG CAPSULE PO ×3 (09:10→20:18)
[2023-08-02] MEDS: Ferrous Sulfate 324 MG TABLET.DR PO (09:11)
[2023-08-02] MEDS: Multivitamin TABLET 1 TAB PO (09:11)
[2023-08-02] MEDS: Bictegrav/Emtricit/Tenofov Ala TABLET 1 TAB PO (09:11)
[2023-08-02] MEDS: rOPINIRole HCL 2 MG TABLET 4 MG PO ×3 (09:12→20:17)
[2023-08-02] MEDS: Nystatin Oral Susp 500,000 UNIT/5 ML ORAL.SUSP 100000 UNIT PO ×4 (09:13→20:17)
[2023-08-02] MEDS: Fluticasone/Vilanterol 100/25 BLST.W.DEV 1 PUFF INHALE (09:15)
[2023-08-02] MEDS: Acetaminophen 325 MG TABLET 650 MG PO (09:26)
--- NOTE | 2023-08-02 10:16 | MHC.CLN ---
F/U DIET RX: REGULAR-APPROPRIATE. PT RECEIVING ENSURE MAX PROTEIN BID. SUPPLEMENT PROVIDES 300 KCALS, 60 G PROTEIN. INTAKE USUALLY 100%. CONTINUE TO MONITOR PO INTAKE.
--- NOTE | 2023-08-02 14:27 | HO.PM.IMPN ---
Subjective Subjective Date of Service: 08/02/23 Interval History: c/o back pain no fever Review of Systems Review of Systems: Yes all other systems are reviewed and are negative Physical Exam Vital Signs: Vital Signs: Last Vital Signs Temp 97.8 F 08/02/23 07:32 Pulse 63 08/02/23 07:32 Resp 16 08/02/23 07:32 BP 130/66 08/02/23 07:32 Pulse Ox 96 08/02/23 07:32 O2 Del Method Room Air 08/02/23 07:32 BMI result Body Mass Index 16.7 Gen: in no acute distress, cachectic HEENT: sclera anicteric, moist mucus membranes Neck: supple Lungs: clear to auscultation bilaterally Heart: regular rate and rhythm, no murmurs Abd: soft, non-tender, non-distended Ext: no edema Skin: warm/well-perfused Neuro: alert and oriented x3, no focal findings Psych: appropriate affect Objective Data Active Medications Acetaminophen (Acetaminophen 325 Mg Tablet) 650 mg PO Q6H PRN PRN Reason: Pain, Mild (Pain Scale 1-3) Last Admin: 08/02/23 09:26 Dose: 650 mg Documented By: ELSI Albuterol Sulfate (Albuterol Sulfate 90 Mcg 8 Gm Inhaler) 2 puff INHALE Q6H PRN PRN Reason: wheezing Baclofen (Baclofen 10 Mg Tablet) 10 mg PO TID [facility] Last Admin: 08/02/23 09:10 Dose: 10 mg Documented By: ELSI Bictegravir/Emtricitabine/Tenofovir (Bictegrav/Emtricit/Tenofov Ala Tablet) 1 tab PO DAILY [facility] Last Admin: 08/02/23 09:11 Dose: 1 tab Documented By: ELSI Doxepin HCl (Doxepin Hcl 25 Mg Capsule) 150 mg PO BEDTIME [facility] Last Admin: 08/01/23 20:32 Dose: 150 mg Documented By: MARTHA Doxycycline Monohydrate (Doxycycline Monohydrate 100 Mg Capsule) 100 mg PO Q12H [facility] Last Admin: 08/02/23 04:24 Dose: 100 mg Documented By: IRISH Enoxaparin Sodium (Enoxaparin Sodium 40 Mg/0.4 Ml Syringe) 40 mg SUBCUT Q24H [facility] Last Admin: 08/02/23 04:25 Dose: 40 mg Documented By: IRISH Ferrous Sulfate (Ferrous Sulfate 324 Mg Tablet.) 324 mg PO DAILY [facility] Last Admin: 08/02/23 09:11 Dose: 324 mg Documented By: ELSI Fluticasone/Vilanterol (Fluticasone/Vilanterol 100/25 Blst.W.Dev) 1 puff INHALE RDAILY [facility] Last Admin: 08/02/23 09:15 Dose: 1 puff Documented By: ELSI Gabapentin (Gabapentin 400 Mg Capsule) 400 mg PO TID [facility] Last Admin: 08/02/23 09:10 Dose: 400 mg Documented By: ELSI Melatonin (Melatonin 3 Mg Tablet) 6 mg PO BEDTIME PRN PRN Reason: Insomnia Last Admin: 07/31/23 21:00 Dose: 6 mg Documented By: OTIS Methadone HCl (Methadone Hcl 20 Mg/2 Ml Oral.Conc) 65 mg PO DAILY [facility] Last Admin: 08/02/23 09:08 Dose: 65 mg Documented By: ELSI Comments: 15mg wasted Multivitamins/Vitamin C (Multivitamin Tablet) 1 tab PO DAILY [facility] Last Admin: 08/02/23 09:11 Dose: 1 tab Documented By: ELSI Nystatin (Nystatin Oral Susp 500,000 Unit/5 Ml Oral.Susp) 100,000 unit PO QID [facility]; Protocol Last Admin: 08/02/23 09:13 Dose: 100,000 unit Documented By: ELSI Omeprazole (Omeprazole 20 Mg Capsule.) 20 mg PO DAILY@0630 [facility] Last Admin: 08/02/23 04:24 Dose: 20 mg Documented By: IRISH Pravastatin Sodium (Pravastatin Sodium 40 Mg Tablet) 40 mg PO BEDTIME [facility] Last Admin: 08/01/23 20:32 Dose: 40 mg Documented By: MARTHA Ropinirole HCl (Ropinirole Hcl 2 Mg Tablet) 4 mg PO TID [facility] Last Admin: 08/02/23 09:12 Dose: 4 mg Documented By: ELSI Sodium Chloride (0.9 % Sodium Chloride Flush 3 Ml Syringe) [facility] Last Admin: 08/02/23 09:24 Dose: Not Given Documented By: ELSI Non-Admin Reason: No Access Labs 07/30/23 05:18 08/02/23 04:21 Labs: Laboratory Results - last 24 hr 08/02/23 04:21 Hold Purple Top SEE NOTE Estim Creat Clear Calc 84.2 Estimated GFR > 60 Assessment and Plan (1) Anemia: Status: Acute (2) Bacteremia: Status: Acute (3) Kidney stone on left side: Status: Acute Plan d6 62yo M with HIV, HCV, HTN, OUD, recent epidural abscess/discitis/MRSA bacteremia treated at [facility] in May 2023 with drainage + 6 wk of IV daptomycin [completed 07/02/23] hx discitis/epidural abscess/paraspinal abscess/MRSA bacteremia - CT A/P with findings @ L3-L5 suspicious for sequelae of discitis/osteomyelitis; MRI L-spine shows worsening osteomyelitis but was compared to MRI from 10/10/22, rather than most recent MRI from [facility] from 05/17/23, so I have requested that the [facility] MRI be uploaded to our server cashier and reviewed by the radiologist to see if he really has worsening osteomyelitis which would possibly prompt long-term IV ABX therapy sepsis - resolved. ?source. CXR with central peribronchial thickening but no focal consolidation; no respiratory symptoms. Calculus at L UVJ with mild hydronephrosis; no intervention at this time per Urology. 1 of 2 BCx with Bacillus sp, likely contaminant per ID; stop vanco + pip-sakina. Cellulitis on RUE- doxycycline / OUD cocaine abuse - Addiction Medicine consulted; methadone increased acute/chronic normocytic anemia - MIKE + ACD; FOBT negative - per GI, low-dose PPI for stress ulcer prevention, outpt EGD/C-scope - s/p 1u pRBCs 07/27/23 with appropriate rise in H/H - continue Fe supplementation HIV/AIDS - viral load 55, CD4 192 (07/27/23) - continue Biktarvy; has been virologically suppressed [low-level viremia but RNA <200] as outpt for years - no PCP prophylaxis given suppresed viral load and CD4 >100 chronic HCV - outpt treatment asthma without acute exac - continue ICS/LABA, prn JOSE DANIEL restless legs - ropinirole chronic pain - doxepin, baclofen, gabapentin sev pr-isaias malnutrition - Ensure VTE ppx - LMWH dispo - anticipate STR @ [facility] In my clinical judgment, the patient requires continued inpatient hospitalization for the following reasons: r/o active discitis/osteomyelitis Time Spent With Patient Time: Total time managing care of this patient today ____ minutes. Quality Stroke Does the patient have a stroke diagnosis?: No VTE Prior VTE?: No VTE Risk Level:: Medical - moderate - high VTE Device Contraindication: Treatment Not Indicated VTE Drug Contraindication: N/A - Med Ordered
--- NOTE | 2023-08-02 14:43 | MHC.CM.PN ---
EMR REVIEWED. PER MD ROUNDS PT NOT MEDICALLY CLEARED FOR DC AT THIS TIME. DC PLAN REMAINS STR AT [facility]. [facility] HAS BEEN UPDATED, AND STATES PT IS NOT ABLE TO BE ADMITTED OVER THE WEEKEND, SATURDAY EARLIEST. AWARE. GUEST DOSING COMPLETED WITH A START DATE OF 08/05, PER JESSICA AT [facility], AND HAS BEEN SEND TO [facility]. CM WILL CONTINUE TO FOLLOW.
[2023-08-02 15:09] VITALS: BP 129/65; PULSE 65; RESP 16; TEMP 36.5; O2SAT 95
[2023-08-02 19:12] VITALS: BP 126/61; PULSE 72; RESP 18; TEMP 36.4; O2SAT 97
[2023-08-02] MEDS: Doxepin HCl 25 MG CAPSULE 150 MG PO (20:18)
[2023-08-02] MEDS: Pravastatin Sodium 40 MG TABLET PO (20:18)
[2023-08-03] MEDS: Doxycycline Monohydrate 100 MG CAPSULE PO ×2 (02:37→15:00)
[2023-08-03] MEDS: Acetaminophen 325 MG TABLET 650 MG PO ×2 (02:37→15:09)
[2023-08-03] MEDS: Albuterol Sulfate 90 MCG 8 GM INHALER 2 PUFF INHALE (02:38)
[2023-08-03 02:56] VITALS: BP 124/71; PULSE 68; RESP 18; TEMP 36.3; O2SAT 98
[2023-08-03 05:26] LABS: Creatinine Clr Calc Pharmacy 82.9; Estimated Glomerular Filt Rate > 60
[2023-08-03] MEDS: Enoxaparin Sodium 40 MG/0.4 ML SYRINGE SUBCUT (06:37)
[2023-08-03] MEDS: Omeprazole 20 MG CAPSULE.DR PO (06:37)
[2023-08-03 07:35] VITALS: BP 110/68; PULSE 67; RESP 17; TEMP 36.3; O2SAT 98
[2023-08-03] MEDS: Fluticasone/Vilanterol 100/25 BLST.W.DEV 1 PUFF INHALE (07:54)
[2023-08-03 07:55] VITALS: PULSE 67; RESP 17; O2SAT 98
[2023-08-03] MEDS: Bictegrav/Emtricit/Tenofov Ala TABLET 1 TAB PO (08:20)
[2023-08-03] MEDS: rOPINIRole HCL 2 MG TABLET 4 MG PO ×3 (08:20→21:21)
[2023-08-03] MEDS: Baclofen 10 MG TABLET PO ×3 (08:20→21:22)
[2023-08-03] MEDS: Gabapentin 400 MG CAPSULE PO ×3 (08:20→21:21)
[2023-08-03] MEDS: Nystatin Oral Susp 500,000 UNIT/5 ML ORAL.SUSP 100000 UNIT PO ×4 (08:20→21:23)
[2023-08-03] MEDS: Multivitamin TABLET 1 TAB PO (08:20)
[2023-08-03] MEDS: Ferrous Sulfate 324 MG TABLET.DR PO (08:21)
[2023-08-03] MEDS: methADONE HCl 20 MG/2 ML ORAL.CONC 65 MG PO (08:21)
--- NOTE | 2023-08-03 09:10 | HO.PM.IMPN ---
Subjective Subjective Date of Service: 08/03/23 Interval History: no fever c/o back pain ambulating some Review of Systems Review of Systems: Yes all other systems are reviewed and are negative Physical Exam Vital Signs: Vital Signs: Last Vital Signs Temp 97.4 F 08/03/23 07:35 Pulse 67 08/03/23 07:55 Resp 17 08/03/23 07:55 BP 110/68 08/03/23 07:35 Pulse Ox 98 08/03/23 07:35 O2 Del Method Room Air 08/03/23 07:35 BMI result Body Mass Index 16.7 Gen: in no acute distress, cachectic HEENT: sclera anicteric, moist mucus membranes Neck: supple Lungs: clear to auscultation bilaterally Heart: regular rate and rhythm, no murmurs Abd: soft, non-tender, non-distended Ext: no edema, cellulitis of R forearm resolved Skin: warm/well-perfused Neuro: alert and oriented x3, no focal findings Psych: appropriate affect Objective Data Active Medications Acetaminophen (Acetaminophen 325 Mg Tablet) 650 mg PO Q6H PRN PRN Reason: Pain, Mild (Pain Scale 1-3) Last Admin: 08/03/23 02:37 Dose: 650 mg Documented By: SARAH Albuterol Sulfate (Albuterol Sulfate 90 Mcg 8 Gm Inhaler) 2 puff INHALE Q6H PRN PRN Reason: wheezing Last Admin: 08/03/23 02:38 Dose: 2 puff Documented By: SARAH Baclofen (Baclofen 10 Mg Tablet) 10 mg PO TID [facility] Last Admin: 08/03/23 08:20 Dose: 10 mg Documented By: KEKE Bictegravir/Emtricitabine/Tenofovir (Bictegrav/Emtricit/Tenofov Ala Tablet) 1 tab PO DAILY [facility] Last Admin: 08/03/23 08:20 Dose: 1 tab Documented By: KEKE Doxepin HCl (Doxepin Hcl 25 Mg Capsule) 150 mg PO BEDTIME [facility] Last Admin: 08/02/23 20:18 Dose: 150 mg Documented By: ELY Doxycycline Monohydrate (Doxycycline Monohydrate 100 Mg Capsule) 100 mg PO Q12H [facility] Last Admin: 08/03/23 02:37 Dose: 100 mg Documented By: SARAH Enoxaparin Sodium (Enoxaparin Sodium 40 Mg/0.4 Ml Syringe) 40 mg SUBCUT Q24H [facility] Last Admin: 08/03/23 06:37 Dose: 40 mg Documented By: SARAH Ferrous Sulfate (Ferrous Sulfate 324 Mg Tablet.) 324 mg PO DAILY [facility] Last Admin: 08/03/23 08:21 Dose: 324 mg Documented By: KEKE Fluticasone/Vilanterol (Fluticasone/Vilanterol 100/25 Blst.W.Dev) 1 puff INHALE RDAILY [facility] Last Admin: 08/03/23 07:54 Dose: 1 puff Documented By: SALMACARGilles Gabapentin (Gabapentin 400 Mg Capsule) 400 mg PO TID [facility] Last Admin: 08/03/23 08:20 Dose: 400 mg Documented By: KEKE Melatonin (Melatonin 3 Mg Tablet) 6 mg PO BEDTIME PRN PRN Reason: Insomnia Last Admin: 07/31/23 21:00 Dose: 6 mg Documented By: OTIS Methadone HCl (Methadone Hcl 20 Mg/2 Ml Oral.Conc) 65 mg PO DAILY [facility] Last Admin: 08/03/23 08:21 Dose: 65 mg Documented By: KEKE Multivitamins/Vitamin C (Multivitamin Tablet) 1 tab PO DAILY [facility] Last Admin: 08/03/23 08:20 Dose: 1 tab Documented By: KEKE Nystatin (Nystatin Oral Susp 500,000 Unit/5 Ml Oral.Susp) 100,000 unit PO QID [facility]; Protocol Last Admin: 08/03/23 08:20 Dose: 100,000 unit Documented By: KEKE Omeprazole (Omeprazole 20 Mg Capsule.) 20 mg PO DAILY@0630 [facility] Last Admin: 08/03/23 06:37 Dose: 20 mg Documented By: SARAH Pravastatin Sodium (Pravastatin Sodium 40 Mg Tablet) 40 mg PO BEDTIME [facility] Last Admin: 08/02/23 20:18 Dose: 40 mg Documented By: ELY Ropinirole HCl (Ropinirole Hcl 2 Mg Tablet) 4 mg PO TID [facility] Last Admin: 08/03/23 08:20 Dose: 4 mg Documented By: KEKE Sodium Chloride (0.9 % Sodium Chloride Flush 3 Ml Syringe) 3 ml IVFLUSH QSHIFT [facility] Last Admin: 08/03/23 08:27 Dose: Not Given Documented By: KEKE Non-Admin Reason: No Access Labs 07/30/23 05:18 08/03/23 04:56 Labs: Laboratory Results - last 24 hr 08/03/23 04:56 Hold Purple Top SEE NOTE Estim Creat Clear Calc 82.9 Estimated GFR > 60 ITS Impressions Chest X-Ray 07/27/23 03:35 IMPRESSION: Suggestion of central peribronchial thickening which may reflect acute or chronic airways disease. Abdomen/Pelvis CT 07/27/23 03:39 IMPRESSION: 1. Calculus at the left ureterovesicular junction measuring 5 mm, new from prior, with minimal left hydronephrosis. 2. Redemonstrated findings at L3-L5 suspicious for sequelae of discitis/osteomyelitis. If clinically warranted, this could be further assessed with MRI. Venous Duplex 07/27/23 13:13 IMPRESSION: 1. No DVT demonstrated in the right upper extremity. 2. IV visualized in the distal cephalic vein. 3. Multiple lymph nodes are noted in the infraclavicular and axillary region the largest measuring up to 1.0 cm in short axis some of which demonstrate loss of fatty hilum. 4. Complex fluid collection visualized at the mid anterior forearm measuring 6.1 x 0.9 x 3.3 cm with questionable overlying flow. This correlates with patient's stated site of injection. Correlation with physical exam. Lumbar Spine MRI 07/31/23 12:42 IMPRESSION: There is progression of spinal infection. Specifically there is worsening destruction of the L4 and L5 vertebral segments and there is new discitis osteomyelitis involving the L3-L4 intervertebral disc space. There is progressive fragmentation of L5 and there is retropulsion of the upper posterior corner of the L5 vertebral body now causing severe canal stenosis at L4-L5. Otherwise no canal compromise. There are varying degrees of mass effect on the foraminal nerve roots at multiple levels as described above. For instance there is severe compression of both L4 foraminal nerve roots related to degenerative changes at L4-L5 and moderate to severe compression of both L5 foraminal nerve roots related to degenerative changes at L5-S1. Addendum: This examination was compared with a lumbar spine from [facility] on 05/17/2023. There has been no substantial change in the extent and severity of the spinal infection when compared to this more recent prior examination. Assessment and Plan (1) Anemia: Status: Acute (2) Bacteremia: Status: Acute (3) Kidney stone on left side: Status: Acute Plan d7 62yo M with HIV, HCV, HTN, OUD, recent epidural abscess/discitis/MRSA bacteremia treated at [facility] in May 2023 with drainage + 6 wk of IV daptomycin [completed 07/02/23] hx discitis/epidural abscess/paraspinal abscess/MRSA bacteremia - CT A/P with findings @ L3-L5 suspicious for sequelae of discitis/osteomyelitis; MRI L-spine shows stable findings since prior MRI at [facility] 05/17/23, after which pt was treated with 6 wk of IV daptomycin. Discussed with ID, doubt acute infection at this time so no further IV antibiotics needed. sepsis - resolved. ?source. CXR with central peribronchial thickening but no focal consolidation; no respiratory symptoms. Calculus at L UVJ with mild hydronephrosis; no intervention at this time per Urology. 1 of 2 BCx with Bacillus sp, likely contaminant per ID; stopped vanco + pip-sakina. Cellulitis on RUE- doxycycline OUD cocaine abuse - Addiction Medicine consulted; methadone increased acute/chronic normocytic anemia - MIKE + ACD; FOBT negative - per GI, low-dose PPI for stress ulcer prevention, outpt EGD/C-scope - s/p 1u pRBCs 07/27/23 with appropriate rise in H/H - continue Fe supplementation HIV/AIDS - viral load 55, CD4 192 (07/27/23) - continue Biktarvy; has been virologically suppressed [low-level viremia but RNA <200] as outpt for years - no PCP prophylaxis given suppresed viral load and CD4 >100 chronic HCV - outpt treatment asthma without acute exac - continue ICS/LABA, prn JOSE DANIEL restless legs - ropinirole chronic pain - doxepin, baclofen, gabapentin sev pr-isaias malnutrition - Ensure VTE ppx - LMWH dispo - anticipate STR @ [facility]; methadone dose ordered and will be ready for transfer Saturday In my clinical judgment, the patient requires continued inpatient hospitalization for the following reasons: placement Time Spent With Patient Time: Total time managing care of this patient today __35__ minutes. Quality Stroke Does the patient have a stroke diagnosis?: No VTE Prior VTE?: No VTE Risk Level:: Medical - moderate - high VTE Device Contraindication: Treatment Not Indicated VTE Drug Contraindication: N/A - Med Ordered
[2023-08-03 11:38] VITALS: BP 122/63; PULSE 74; RESP 17; TEMP 36.6; O2SAT 98
[2023-08-03 15:25] VITALS: BP 127/61; PULSE 71; RESP 16; TEMP 36.7; O2SAT 96
[2023-08-03 20:00] VITALS: BP 152/78; PULSE 117; RESP 18; TEMP 36.8; O2SAT 97
[2023-08-03] MEDS: Doxepin HCl 25 MG CAPSULE 150 MG PO (21:20)
[2023-08-03] MEDS: Pravastatin Sodium 40 MG TABLET PO (21:21)
[2023-08-04] VITALS (8 sets, daily range): BP systolic 107–176; BP diastolic 58–85; PULSE 68–106; RESP 18–19; TEMP 36.3–37; O2SAT 94–99
[2023-08-04] MEDS: Acetaminophen 325 MG TABLET 650 MG PO (01:52)
[2023-08-04] MEDS: Doxycycline Monohydrate 100 MG CAPSULE PO ×2 (03:03→15:23)
[2023-08-04] MEDS: Enoxaparin Sodium 40 MG/0.4 ML SYRINGE SUBCUT (05:36)
[2023-08-04] MEDS: Omeprazole 20 MG CAPSULE.DR PO (05:37)
[2023-08-04] MEDS: Fluticasone/Vilanterol 100/25 BLST.W.DEV 1 PUFF INHALE (08:26)
[2023-08-04] MEDS: Multivitamin TABLET 1 TAB PO (08:49)
[2023-08-04] MEDS: rOPINIRole HCL 2 MG TABLET 4 MG PO ×3 (08:49→20:39)
[2023-08-04] MEDS: Ferrous Sulfate 324 MG TABLET.DR PO (08:49)
[2023-08-04] MEDS: Nystatin Oral Susp 500,000 UNIT/5 ML ORAL.SUSP 100000 UNIT PO ×4 (08:49→20:36)
[2023-08-04] MEDS: Baclofen 10 MG TABLET PO ×3 (08:50→20:38)
[2023-08-04] MEDS: Bictegrav/Emtricit/Tenofov Ala TABLET 1 TAB PO (08:50)
[2023-08-04] MEDS: Gabapentin 400 MG CAPSULE PO ×3 (08:50→20:38)
[2023-08-04] MEDS: methADONE HCl 20 MG/2 ML ORAL.CONC 65 MG PO (08:50)
--- NOTE | 2023-08-04 09:42 | HO.PM.IMPN ---
Subjective Subjective Date of Service: 08/04/23 Interval History: c/o back pain no fever arm infection better Review of Systems Review of Systems: Yes all other systems are reviewed and are negative Physical Exam Vital Signs: Vital Signs: Last Vital Signs Temp 98.3 F 08/04/23 07:21 Pulse 98 08/04/23 08:27 Resp 18 08/04/23 08:27 BP 107/58 L 08/04/23 07:21 Pulse Ox 97 08/04/23 07:21 O2 Del Method Room Air 08/04/23 07:21 BMI result Body Mass Index 16.7 Gen: in no acute distress, cachectic HEENT: sclera anicteric, moist mucus membranes Neck: supple Lungs: clear to auscultation bilaterally Heart: regular rate and rhythm, no murmurs Abd: soft, non-tender, non-distended Ext: no edema, cellulitis of R forearm resolved Skin: warm/well-perfused Neuro: alert and oriented x3, no focal findings Psych: appropriate affect Objective Data Active Medications Acetaminophen (Acetaminophen 325 Mg Tablet) 650 mg PO Q6H PRN PRN Reason: Pain, Mild (Pain Scale 1-3) Last Admin: 08/04/23 01:52 Dose: 650 mg Documented By: YUNG Albuterol Sulfate (Albuterol Sulfate 90 Mcg 8 Gm Inhaler) 2 puff INHALE Q6H PRN PRN Reason: wheezing Last Admin: 08/03/23 02:38 Dose: 2 puff Documented By: SARAH Baclofen (Baclofen 10 Mg Tablet) 10 mg PO TID [facility] Last Admin: 08/04/23 08:50 Dose: 10 mg Documented By: KEKE Bictegravir/Emtricitabine/Tenofovir (Bictegrav/Emtricit/Tenofov Ala Tablet) 1 tab PO DAILY [facility] Last Admin: 08/04/23 08:50 Dose: 1 tab Documented By: KEKE Doxepin HCl (Doxepin Hcl 25 Mg Capsule) 150 mg PO BEDTIME [facility] Last Admin: 08/03/23 21:20 Dose: 150 mg Documented By: YUNG Doxycycline Monohydrate (Doxycycline Monohydrate 100 Mg Capsule) 100 mg PO Q12H [facility] Last Admin: 08/04/23 03:03 Dose: 100 mg Documented By: YUNG Enoxaparin Sodium (Enoxaparin Sodium 40 Mg/0.4 Ml Syringe) 40 mg SUBCUT Q24H [facility] Last Admin: 08/04/23 05:36 Dose: 40 mg Documented By: YUNG Ferrous Sulfate (Ferrous Sulfate 324 Mg Tablet.) 324 mg PO DAILY [facility] Last Admin: 08/04/23 08:49 Dose: 324 mg Documented By: KEKE Fluticasone/Vilanterol (Fluticasone/Vilanterol 100/25 Blst.W.Dev) 1 puff INHALE RDAILY [facility] Last Admin: 08/04/23 08:26 Dose: 1 puff Documented By: SALMACARGilles Gabapentin (Gabapentin 400 Mg Capsule) 400 mg PO TID [facility] Last Admin: 08/04/23 08:50 Dose: 400 mg Documented By: KEKE Melatonin (Melatonin 3 Mg Tablet) 6 mg PO BEDTIME PRN PRN Reason: Insomnia Last Admin: 07/31/23 21:00 Dose: 6 mg Documented By: OTIS Methadone HCl (Methadone Hcl 20 Mg/2 Ml Oral.Conc) 65 mg PO DAILY [facility] Last Admin: 08/04/23 08:50 Dose: 65 mg Documented By: KEKE Multivitamins/Vitamin C (Multivitamin Tablet) 1 tab PO DAILY [facility] Last Admin: 08/04/23 08:49 Dose: 1 tab Documented By: KEKE Nystatin (Nystatin Oral Susp 500,000 Unit/5 Ml Oral.Susp) 100,000 unit PO QID [facility]; Protocol Last Admin: 08/04/23 08:49 Dose: 100,000 unit Documented By: KEKE Omeprazole (Omeprazole 20 Mg Capsule.) 20 mg PO DAILY@0630 [facility] Last Admin: 08/04/23 05:37 Dose: 20 mg Documented By: YUNG Pravastatin Sodium (Pravastatin Sodium 40 Mg Tablet) 40 mg PO BEDTIME [facility] Last Admin: 08/03/23 21:21 Dose: 40 mg Documented By: YUNG Ropinirole HCl (Ropinirole Hcl 2 Mg Tablet) 4 mg PO TID [facility] Last Admin: 08/04/23 08:49 Dose: 4 mg Documented By: KEKE Sodium Chloride (0.9 % Sodium Chloride Flush 3 Ml Syringe) 3 ml IVFLUSH QSHIFT [facility] Last Admin: 08/04/23 08:51 Dose: Not Given Documented By: KEKE Non-Admin Reason: No Access Labs 07/30/23 05:18 08/03/23 04:56 Assessment and Plan (1) Anemia: Status: Acute (2) Bacteremia: Status: Acute (3) Kidney stone on left side: Status: Acute Plan d8 62yo M with HIV, HCV, HTN, OUD, recent epidural abscess/discitis/MRSA bacteremia treated at [facility] in May 2023 with drainage + 6 wk of IV daptomycin [completed 07/02/23] hx discitis/epidural abscess/paraspinal abscess/MRSA bacteremia - CT A/P with findings @ L3-L5 suspicious for sequelae of discitis/osteomyelitis; MRI L-spine shows stable findings since prior MRI at [facility] 05/17/23, after which pt was treated with 6 wk of IV daptomycin. Discussed with ID, doubt acute infection at this time so no further IV antibiotics needed sepsis - resolved. ?source. CXR with central peribronchial thickening but no focal consolidation; no respiratory symptoms. Calculus at L UVJ with mild hydronephrosis; no intervention at this time per Urology. 1 of 2 BCx with Bacillus sp, likely contaminant per ID; stopped vanco + pip-sakina. Cellulitis on RUE- doxycycline / to finish tomorrow OUD cocaine abuse - Addiction Medicine consulted; methadone increased acute/chronic normocytic anemia - MIKE + ACD; FOBT negative - per GI, low-dose PPI for stress ulcer prevention, outpt EGD/C-scope - s/p 1u pRBCs 07/27/23 with appropriate rise in H/H - continue Fe supplementation HIV/AIDS - viral load 55, CD4 192 (07/27/23) - continue Biktarvy; has been virologically suppressed [low-level viremia but RNA <200] as outpt for years - no PCP prophylaxis given suppresed viral load and CD4 >100 chronic HCV - outpt treatment asthma without acute exac - continue ICS/LABA, prn JOSE DANIEL restless legs - ropinirole chronic pain - doxepin, baclofen, gabapentin sev pr-isaias malnutrition - Ensure tid VTE ppx - LMWH dispo - anticipate STR @ [facility]; methadone dose ordered and will be ready for transfer Saturday In my clinical judgment, the patient requires continued inpatient hospitalization for the following reasons: placement Time Spent With Patient Time: Total time managing care of this patient today ___35_ minutes. Quality Stroke Does the patient have a stroke diagnosis?: No VTE Prior VTE?: No VTE Risk Level:: Medical - moderate - high VTE Device Contraindication: Treatment Not Indicated VTE Drug Contraindication: N/A - Med Ordered
--- NOTE | 2023-08-04 09:50 | PM.DS ---
DS: Providers Provider Date of Service: 08/04/23 Date of admission: 07/27/23 04:25 Date of discharge: 08/05/23 Primary care physician: [facility] Consults: 07/27/23 04:27 Consult to Infectious Diseases Routine Consulting Provider: [facility] Infectious Disease Reason for consultation: ?discitis osteomyelitis 07/27/23 04:33 Addiction Medicine Routine Consulting Provider: Addiction Covering Reason for consultation: Cocaine and heroin use disorder Consult to Urology Routine Consulting Provider: Kit Riggs Reason for consultation: calculus at left ureterovesical junction 07/27/23 10:47 Consult to Gastroenterology Routine Consulting Provider: Lee Evans Reason for consultation: anemia Has provider been notified: No 07/28/23 07:13 Consult to General Surgery Routine Consulting Provider: [facility] General Surgeons Reason for consultation: fluid collection right arm; IVDU Has provider been notified: No DS: Diagnosis Discharge Diagnosis (1) Kidney stone on left side: Status: Acute (2) Sepsis: Status: Resolved (3) Cellulitis: Status: Acute (4) Back pain: Status: Acute (5) Opioid use disorder: Status: Acute (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 Patient states he was recently discharged from outside facility on 07/24 for spinal infection . Since discharge, patient states he has been lethargic and drowsy. Admits to using IV heroin and IV cocaine prior to presentation. Also has been complaining of fevers and chills. Does endorse back pain which has been progressive and without any relieving factors. No chest discomfort, palpitations, shortness of breath, abdominal pain, changes in urinary or bowel habits. In the emergency department, patient was found to be septic and imaging concerning for discitis/osteomyelitis. Also noted calculus at the left ureterovesical junction Mr Interiano is a homeless 62yo M with HIV, HCV, HTN, and OUD who recently had epidural and paraspinal abscesses with lumbar osteomyelitis, discitis, and MRSA bacteremia that was [place] [facility] [place] [facility] in May-June 2023 with drainage + 6 wk of IV daptomycin. Antibiotic therapy was completed 07/02/23. He was admitted to the hospitalist service here for concern of sepsis from recurrent infection. Hospital course by problem: hx recent osteomyelitis/discitis/epidural abscess/paraspinal abscess/MRSA bacteremia - CT A/P with findings @ L3-L5 suspicious for sequelae of discitis/osteomyelitis; MRI L-spine shows stable findings since prior MRI at [facility] [place]/17[place], after which pt was treated with 6 wk of IV daptomycin as above. discussed with ID, doubt acute infection at this time so no further IV antibiotics needed. sepsis - resolved. workup of non-ostemyelitis sources included: CXR with central peribronchial thickening but no focal consolidation; no respiratory symptoms. calculus at L UVJ with mild hydronephrosis; no intervention at this time per Urology; can follow-up as outpatient. 1 of 2 BCx with Bacillus species, likely contaminant per ID; stopped vancomycin + piperacillin-tazobactam. ultimately, the only acute infection was found to be nonpurulent cellulitis on his RUE, which was treated with 7 days of PO doxycycline with complete resolution. OUD cocaine abuse - Addiction Medicine consulted; methadone increased to 65 mg/d and to be continued at [facility] then as outpatient. acute/chronic normocytic anemia - likely due to MIKE + ACD; FOBT negative. Gastroenterology was consulted and recommended low-dose PPI for stress ulcer prevention and outpt EGD/C-scope. she was transfused 1u pRBCs 07/27/23 with appropriate rise in H/H. continue Fe supplementation HIV/AIDS - viral load 55, CD4 192 (07/27/23); continue Biktarvy. has been virologically suppressed [low-level viremia but RNA <200] as outpt for years; no PCP prophylaxis given suppresed viral load and CD4 >100. needs to follow-up with [facility] for HIV and primary care. chronic HCV - outpt treatment, either through [facility] HIV clinic or [facility] GI. sev pr-isaias malnutrition - given Ensure tid He was discharged to [facility] for short-term rehabilitation for less than 30 days . Time Spent with Patient Time attestation: Total time managing care of this patient today ___45_ minutes. Discharge coordination time: Greater than 30 minutes Quality: Safe Use of Opioids Does Pt have an Active Cancer Diagnosis on the Problem List?: No Quality: Stroke Does the patient have a stroke diagnosis?: No Physical Exam Vital Signs: Vital Signs: Last Vital Signs Temp 98.3 F 08/04/23 07:21 Pulse 98 08/04/23 08:27 Resp 18 08/04/23 08:27 BP 107/58 L 08/04/23 07:21 Pulse Ox 97 08/04/23 07:21 O2 Del Method Room Air 08/04/23 07:21 BMI result Body Mass Index 16.7 Gen: in no acute distress, cachectic HEENT: sclera anicteric, moist mucus membranes Neck: supple Lungs: clear to auscultation bilaterally Heart: regular rate and rhythm, no murmurs Abd: soft, non-tender, non-distended Ext: no edema, cellulitis of R forearm resolved Skin: warm/well-perfused Neuro: alert and oriented x3, no focal findings Psych: appropriate affect DS: Data Data Completed and Pending Completed studies during hospitalization [Text1]: Laboratory Results WBC 6.2 X10*3/uL (4.8-10.8) 07/30/23 05:18 RBC 3.61 X10*6/uL (4.60-5.80) L 07/30/23 05:18 Hgb 9.4 g/dl (14.0-18.0) L 07/30/23 05:18 Hct 30.7 % (42.0-52.0) L 07/30/23 05:18 MCV 85.0 fL (80.0-98.0) 07/30/23 05:18 MCH 26.0 pg (27.0-33.0) L 07/30/23 05:18 MCHC 30.6 g/dl (31.0-36.0) L 07/30/23 05:18 RDW 18.5 % (11.0-16.0) H 07/30/23 05:18 Plt Count 345 X10*3/uL (160-400) D 07/30/23 05:18 MPV 10.6 fL (9.4-12.4) 07/30/23 05:18 Immature Gran % (Auto) 1.0 % (0.0-0.4) H 07/30/23 05:18 Neut % (Auto) 67.5 % (45-73) 07/30/23 05:18 Lymph % (Auto) 18.3 % (20-40) L 07/30/23 05:18 [place] % (Auto) 4.2 % (2-11) 07/30/23 05:18 Eos % (Auto) 8.5 % (0-4) H 07/30/23 05:18 Baso % (Auto) 0.5 % (0-2) 07/30/23 05:18 Lymph # (Auto) 1.1 X10*3/uL (1.2-4.9) L 07/30/23 05:18 [place] # (Auto) 0.3 X10*3/uL (0.1-1.2) 07/30/23 05:18 Eos # (Auto) 0.5 X10*3/uL (0.0-0.4) H 07/30/23 05:18 Baso # (Auto) 0.0 X10*3/uL (0.0-0.2) 07/30/23 05:18 Abs Immat Gran (auto) 0.06 X10*3/uL (0.00-0.03) H 07/30/23 05:18 Absolute Neuts (auto) 4.2 x10*3/uL (2.0-8.3) 07/30/23 05:18 Absolute Nucleated RBC 0.000 X10*3/uL (0.0-0.012) 07/30/23 05:18 Nucleated RBC % (auto) 0.0 /100WBC (0.0-0.2) 07/30/23 05:18 Smear Path Review SEE NOTE 07/27/23 10:30 ESR 55 MM/HR (0-15) H 07/27/23 00:42 Hold Purple Top SEE NOTE 08/03/23 04:56 Sodium 143 mmol/L (135-145) 07/29/23 05:16 Potassium 3.4 mmol/L (3.3-5.1) 07/29/23 05:16 Chloride 110 mmol/L (96-108) H 07/29/23 05:16 Carbon Dioxide 22 mmol/L (22-29) 07/29/23 05:16 Anion Gap 14 (12-20) 07/29/23 05:16 BUN 15 mg/dL (9-16) 07/29/23 05:16 Creatinine 0.66 mg/dL (0.5-1.4) 08/03/23 04:56 Estim Creat Clear Calc 82.9 08/03/23 04:56 Estimated GFR > 60 08/03/23 04:56 Random Glucose 121 mg/dL (60-115) H 07/29/23 05:16 Lactic Acid 1.8 mmol/L (0.5-2.0) 07/27/23 00:46 Calcium 8.1 mg/dL (8.4-10.2) L 07/29/23 05:16 Iron 8 mcg/dL (45-160) L 07/27/23 06:20 TIBC 187 mcg/dL (228-428) L 07/27/23 06:20 % Saturation 4 % (15-50) L 07/27/23 06:20 Unsat Iron Binding 179 ug/dL 07/27/23 06:20 Ferritin 237 ng/mL (20-250) 07/27/23 06:20 Total Bilirubin 0.6 mg/dL (0.0-1.0) 07/27/23 06:20 AST 49 U/L (5-37) H 07/27/23 06:20 ALT 23 U/L (0-40) 07/27/23 06:20 Alkaline Phosphatase 101 U/L (39-117) 07/27/23 06:20 C-Reactive Protein 4.95 mg/dL (< or = 0.50) H 07/27/23 00:42 Total Protein 5.4 g/dL (6.5-8.0) L 07/27/23 06:20 Albumin 2.7 g/dL (3.5-5.0) L 07/27/23 06:20 Hold Green Top See Note 07/27/23 14:59 Urine Color Yellow 07/27/23 00:42 Urine Appearance Clear 07/27/23 00:42 Urine pH 6.0 (5.0-9.0) 07/27/23 00:42 Ur Specific [place] <= 1.005 (1.005-1.025) 07/27/23 00:42 Urine Protein Trace mg/dL (Neg-Trace) 07/27/23 00:42 Urine Glucose (UA) Negative mg/dL (Negative) 07/27/23 00:42 Urine Ketones Negative mg/dL (Negative) 07/27/23 00:42 Urine Blood Large (3+) (Negative) H 07/27/23 00:42 Urine Nitrite Negative (Negative) 07/27/23 00:42 Ur Leukocyte Esterase Small (1+) (Negative) H 07/27/23 00:42 Urine RBC >20 /HPF (0-2) H 07/27/23 00:42 Urine WBC 11-20 /HPF (0-5) H 07/27/23 00:42 Ur Squamous Epith Cells 0-2 /HPF (0-2) 07/27/23 00:42 Urine Bacteria None Seen (None Seen) 07/27/23 00:42 Hyaline Casts 0-2 /LPF (0-2) 07/27/23 00:42 Stool Occult Blood NEGATIVE (NEGATIVE) 07/27/23 16:20 Vancomycin Trough 15.2 mcg/mL (10.0-20.0) 07/28/23 20:57 Random Vancomycin 13.8 mcg/mL (15-20) L 07/31/23 21:30 Urine Opiates Screen Not Detected (Not Detect) 07/27/23 22:12 Urine Fentanyl Screen POSITIVE (Not Detect) H 07/27/23 22:12 Ur Barbiturates Screen Not Detected (Not Detect) 07/27/23 22:12 Ur Phencyclidine Scrn Not Detected (Not Detect) 07/27/23 22:12 Ur Amphetamines Screen Not Detected (Not Detect) 07/27/23 22:12 U Benzodiazepines Scrn Not Detected (Not Detect) 07/27/23 22:12 Urine Cocaine Screen POSITIVE (Not Detect) H 07/27/23 22:12 U Marijuana (THC) Screen Not Detected (Not Detect) 07/27/23 22:12 Lymphocyte Subset Cmmnt TNP 07/27/23 06:19 Total Lymphocytes 408 cells/uL (850-3900) L 07/27/23 06:19 % CD3 Cells 82 % (57-85) 07/27/23 06:19 Absolute CD3 Count 333 cells/uL (840-3060) L 07/27/23 06:19 % CD4 Cells 47 % (30-61) 07/27/23 06:19 Absolute CD4 Count 192 cells/uL (490-1740) L 07/27/23 06:19 CD4/CD8 Ratio 1.37 (0.86-5.00) 07/27/23 06:19 % CD8 Cells 34 % (12-42) 07/27/23 06:19 Absolute CD8 Count 140 cells/uL (180-1170) L 07/27/23 06:19 T.pallidum Ab (EIA) Nonreactive (Nonreactive) 07/29/23 16:42 Hep C Viral Load [id number] IU/mL (NOT DETECTED) H 07/29/23 16:42 Hep C Viral Load Log 6.69 Log IU/mL (NOT DETECTED) H 07/29/23 16:42 HIV-1 RNA copies/mL 55 copies/mL (NOT DETECTED) H 07/27/23 06:19 HIV-1 RNA logcopies/mL 1.74 (NOT DETECTED) H 07/27/23 06:19 Blood Type A Positive 07/27/23 11:34 Antibody Screen NEGATIVE 07/27/23 11:34 Crossmatch See Detail 07/27/23 11:34 Impressions Chest X-Ray 07/27/23 03:35 IMPRESSION: Suggestion of central peribronchial thickening which may reflect acute or chronic airways disease. Abdomen/Pelvis CT 07/27/23 03:39 IMPRESSION: 1. Calculus at the left ureterovesicular junction measuring 5 mm, new from prior, with minimal left hydronephrosis. 2. Redemonstrated findings at L3-L5 suspicious for sequelae of discitis/osteomyelitis. If clinically warranted, this could be further assessed with MRI. Venous Duplex 07/27/23 13:13 IMPRESSION: 1. No DVT demonstrated in the right upper extremity. 2. IV visualized in the distal cephalic vein. 3. Multiple lymph nodes are noted in the infraclavicular and axillary region the largest measuring up to 1.0 cm in short axis some of which demonstrate loss of fatty hilum. 4. Complex fluid collection visualized at the mid anterior forearm measuring 6.1 x 0.9 x 3.3 cm with questionable overlying flow. This correlates with patient's stated site of injection. Correlation with physical exam. Lumbar Spine MRI 07/31/23 12:42 IMPRESSION: There is progression of spinal infection. Specifically there is worsening destruction of the L4 and L5 vertebral segments and there is new discitis osteomyelitis involving the L3-L4 intervertebral disc space. There is progressive fragmentation of L5 and there is retropulsion of the upper posterior corner of the L5 vertebral body now causing severe canal stenosis at L4-L5. Otherwise no canal compromise. There are varying degrees of mass effect on the foraminal nerve roots at multiple levels as described above. For instance there is severe compression of both L4 foraminal nerve roots related to degenerative changes at L4-L5 and moderate to severe compression of both L5 foraminal nerve roots related to degenerative changes at L5-S1. Discharge Plan Discharge Anticipated Discharge Date/Time: 08/05/23 09:44 Patient Disposition: Xfer [facility] Discharge Diagnosis: hx discitis/epidural abscess/paraspinal abscess/MRSA bacteremia sepsis due to cellulitis opioid use disorder cocaine abuse acute/chronic normocytic anemia kidney stone HIV/AIDS hepatitis C severe protein-calorie malnutrition Referrals: [facility] [Other] - 1 Week [facility] [Provider Group] - 1 Week Kit Riggs MD [Physician] - 1 Month Lee Evans MD [Physician] - 1 Month Physician,Diallo Veliz [Primary Care Provider] - 1 Week Discharge Medications: New methadone [Methadose] 10 mg/mL Concentrate 65 mg PO DAILY Qty: 1 0RF Rx Instructions: Partial Fill upon patient request. acetaminophen 325 mg Tablet 650 mg PO Q6H PRN (Reason: Pain, Mild (Pain Scale 1-3)) Qty: 1 0RF omeprazole 20 mg Capsule,Delayed Release(Dr/Ec) 20 mg PO DAILY@0630 Qty: 30 0RF lidocaine [Lidocaine Pain Relief] 4 % Adhesive Patch,Medicated 1 patch transdermal DAILY Qty: 1 0RF Protocol: Apply to: Apply to: mid-lumbar Continued multivitamin Tablet 1 tab PO DAILY baclofen 20 mg tablet 10 mg PO TID gabapentin 800 mg tablet 800 mg PO TID ropinirole 4 mg tablet 4 mg PO TID fluticasone propion-salmeterol 250-50 mcg/dose blister with device 1 ea INHALATION BID nystatin 100,000 unit/mL suspension 1 ml PO QID pravastatin 40 mg tablet 40 mg PO BEDTIME ferrous sulfate [FeroSul] 325 mg (65 mg iron) tablet 325 mg PO DAILY albuterol sulfate [Ventolin HFA] 90 mcg/actuation HFA aerosol inhaler 2 puff inhalation Q6H PRN (Reason: wheezing) doxepin 150 mg capsule 150 mg PO BEDTIME Biktarvy 50-200-25 mg tablet 1 tab PO QAM Discontinued oxycodone 5 mg tablet 5 mg PO Q6H methadone 10 mg/mL Syringe 60 mg PO DAILY Patient Comments: Verified by [facility] Discharge Orders: Discharge Order (Routine); Ordered 08/06/23 Ordered By: Hermelinda Francis Diet: Ensure 1 can tid Activity on Discharge: As tolerated Stand Alone Forms: Patient Portal Discharge page Care Plan Goals: recovery from osteomyelitis/discitis avoid substance abuse and its complications control HIV Health Concerns: hx discitis/epidural abscess/paraspinal abscess/MRSA bacteremia sepsis due to cellulitis opioid use disorder cocaine abuse kidney stone acute/chronic normocytic anemia HIV/AIDS hepatitis C severe protein-calorie malnutrition Plan of Treatment: transfer to [facility] for STR for less than 30 days methadone to be arranged completed PO antibiotics for cellulitis avoid substance abuse continue Biktarvy drink plenty of water and follow up with Dr Riggs from [facility] Urology in 1 month for follow-up of kidney stone follow up with [facility] Gastroenterology in 1 month for EGD/colonoscopy to evaluate anemia follow up with either [facility] Gastroenterology or [facility] for HCV treatment take Ensure 1 can 3x a day follow up after discharge with [facility] for primary care and HIV care Assessment: See Discharge Summary. Discharged to short-term rehab for less than 30 days Discharge Date/Time: 08/06/23 15:35
[2023-08-04] MEDS: Lidocaine 4 % Patch ADH..PATCH 1 PATCH TRANSDERMA (10:13)
[2023-08-04] MEDS: 0.9 % Sodium Chloride Flush 3 ML SYRINGE IVFLUSH (20:37)
[2023-08-04] MEDS: Doxepin HCl 25 MG CAPSULE 150 MG PO (20:37)
[2023-08-04] MEDS: Pravastatin Sodium 40 MG TABLET PO (20:38)
--- NOTE | 2023-08-05 02:05 | PC.NURSE ---
Addendum entered by Gracie Gilbert RN 08/05/23 06:24: pt in room 346 was found with another needle on his bed. [employer] Offbearer Isamar and Security was notified. Isamar asked for a camera to be put in PT room. Pt has a camera in his room. Original Note: Pt in room 346 has a history of substance abuse, BILL CLERK saw a needle with blood in it on PT's bed. Pt said that it was his 's needle. Nurse before my shift said that pt had a needle in his room earlier. [employer]er Machine Offbearer Isamar was notified @ 11:38 pm. Security was notified. Securrity and [employer]er Machine Offbearer Isamar came down to PT's room. Security searched PT room. Security found black bag with cotton balls and needles in it. Security threw out black bag. [employer]er Machine Offbearer Isamar ordered that no visitors are allowed in PT's room.
[2023-08-05] MEDS: Doxycycline Monohydrate 100 MG CAPSULE PO (02:14)
[2023-08-05 03:25] VITALS: BP 117/65; PULSE 63; RESP 17; TEMP 36.6; O2SAT 97
[2023-08-05] MEDS: Enoxaparin Sodium 40 MG/0.4 ML SYRINGE SUBCUT (05:33)
[2023-08-05] MEDS: Omeprazole 20 MG CAPSULE.DR PO (05:34)
[2023-08-05 07:35] VITALS: BP 105/62; PULSE 61; RESP 18; TEMP 36.9; O2SAT 97
--- NOTE | 2023-08-05 09:01 | MHC.CLN ---
F/U DIET RX: REGULAR-APPROPRIATE. PT RECEIVING ENSURE MAX PROTEIN TID. SUPPLEMENT PROVIDES 450 KCALS, 90 G PROTEIN. INTAKE VARIABLE WITH MOST MEALS 100%. CONTINUE TO MONITOR PO INTAKE.
[2023-08-05] MEDS: rOPINIRole HCL 2 MG TABLET 4 MG PO ×3 (09:26→21:21)
[2023-08-05] MEDS: Bictegrav/Emtricit/Tenofov Ala TABLET 1 TAB PO (09:26)
[2023-08-05] MEDS: Gabapentin 400 MG CAPSULE PO ×3 (09:26→21:21)
[2023-08-05] MEDS: Ferrous Sulfate 324 MG TABLET.DR PO (09:26)
[2023-08-05] MEDS: Baclofen 10 MG TABLET PO ×3 (09:26→21:21)
[2023-08-05] MEDS: Multivitamin TABLET 1 TAB PO (09:26)
[2023-08-05] MEDS: Nystatin Oral Susp 500,000 UNIT/5 ML ORAL.SUSP 100000 UNIT PO ×4 (09:27→21:21)
[2023-08-05] MEDS: methADONE HCl 20 MG/2 ML ORAL.CONC 65 MG PO (09:27)
[2023-08-05] MEDS: Lidocaine 4 % Patch ADH..PATCH 1 PATCH TRANSDERMA (09:27)
[2023-08-05 12:00] VITALS: BP 114/60; PULSE 67; RESP 16; TEMP 36.7; O2SAT 97
--- NOTE | 2023-08-05 13:30 | PM.DS ---
DS: Providers Provider Date of Service: 08/05/23 Date of admission: 07/27/23 04:25 Primary care physician: Unknown Physician Consults: 07/27/23 04:27 Consult to Infectious Diseases Routine Consulting Provider: [facility] Infectious Disease Reason for consultation: ?discitis osteomyelitis 07/27/23 04:33 Addiction Medicine Routine Consulting Provider: Addiction Covering Reason for consultation: Cocaine and heroin use disorder Consult to Urology Routine Consulting Provider: Kit Riggs Reason for consultation: calculus at left ureterovesical junction 07/27/23 10:47 Consult to Gastroenterology Routine Consulting Provider: Lee Evans Reason for consultation: anemia Has provider been notified: No 07/28/23 07:13 Consult to General Surgery Routine Consulting Provider: [facility] General Surgeons Reason for consultation: fluid collection right arm; IVDU Has provider been notified: No DS: Diagnosis Discharge Diagnosis (1) Kidney stone on left side: Status: Acute (2) Sepsis: Status: Acute (3) Cellulitis: Status: Acute (4) Back pain: Status: Acute (5) Opioid use disorder: Status: Acute (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 Patient states he was recently discharged from outside facility on 07/24 for spinal infection . Since discharge, patient states he has been lethargic and drowsy. Admits to using IV heroin and IV cocaine prior to presentation. Also has been complaining of fevers and chills. Does endorse back pain which has been progressive and without any relieving factors. No chest discomfort, palpitations, shortness of breath, abdominal pain, changes in urinary or bowel habits. In the emergency department, patient was found to be septic and imaging concerning for discitis/osteomyelitis. Also noted calculus at the left ureterovesical junction Mr Interiano is a homeless 62yo M with HIV, HCV, HTN, and OUD who recently had epidural and paraspinal abscesses with lumbar osteomyelitis, discitis, and MRSA bacteremia that was treated at [facility] and [facility] in May-June 2023 with drainage + 6 wk of IV daptomycin. Antibiotic therapy was completed 07/02/23. He was admitted to the hospitalist service here for concern of sepsis from recurrent infection. Hospital course by problem: hx recent osteomyelitis/discitis/epidural abscess/paraspinal abscess/MRSA bacteremia - CT A/P with findings @ L3-L5 suspicious for sequelae of discitis/osteomyelitis; MRI L-spine shows stable findings since prior MRI at [facility] 05/17/23, after which pt was treated with 6 wk of IV daptomycin as above. discussed with ID, doubt acute infection at this time so no further IV antibiotics needed. sepsis - resolved. workup of non-ostemyelitis sources included: CXR with central peribronchial thickening but no focal consolidation; no respiratory symptoms. calculus at L UVJ with mild hydronephrosis; no intervention at this time per Urology; can follow-up as outpatient. 1 of 2 BCx with Bacillus species, likely contaminant per ID; stopped vancomycin + piperacillin-tazobactam. ultimately, the only acute infection was found to be nonpurulent cellulitis on his RUE, which was treated with 7 days of PO doxycycline with complete resolution. OUD cocaine abuse - Addiction Medicine consulted; methadone increased to 65 mg/d and to be continued at [facility] then as outpatient. acute/chronic normocytic anemia - likely due to MIKE + ACD; FOBT negative. Gastroenterology was consulted and recommended low-dose PPI for stress ulcer prevention and outpt EGD/C-scope. she was transfused 1u pRBCs 07/27/23 with appropriate rise in H/H. continue Fe supplementation HIV/AIDS - viral load 55, CD4 192 (07/27/23); continue Biktarvy. has been virologically suppressed [low-level viremia but RNA <200] as outpt for years; no PCP prophylaxis given suppresed viral load and CD4 >100. needs to follow-up with [facility] for HIV and primary care. chronic HCV - outpt treatment, either through [facility] HIV clinic or [facility] GI. sev pr-isaias malnutrition - given Ensure tid He was discharged to [facility] for short-term rehabilitation for less than 30 days . Time Spent with Patient Time attestation: Total time managing care of this patient today ____ minutes. Discharge coordination time: Greater than 30 minutes Quality: Safe Use of Opioids Does Pt have an Active Cancer Diagnosis on the Problem List?: No Quality: Stroke Does the patient have a stroke diagnosis?: No Physical Exam Vital Signs: Vital Signs: Last Vital Signs Temp 98.0 F 08/05/23 12:00 Pulse 67 08/05/23 12:00 Resp 16 08/05/23 12:00 BP 114/60 08/05/23 12:00 Pulse Ox 97 08/05/23 12:00 O2 Del Method Room Air 08/05/23 12:00 BMI result Body Mass Index 16.7 Const: Other: Gen: in no acute distress, cachectic HEENT: sclera anicteric, moist mucus membranes Neck: supple Lungs: clear to auscultation bilaterally Heart: regular rate and rhythm, no murmurs Abd: soft, non-tender, non-distended Ext: no edema, cellulitis of R forearm resolved Skin: warm/well-perfused Neuro: alert and oriented x3, no focal findings Psych: appropriate affect Discharge Plan Discharge Anticipated Discharge Date/Time: 08/05/23 09:44 Patient Disposition: [facility] SN[facility] Discharge Diagnosis: hx discitis/epidural abscess/paraspinal abscess/MRSA bacteremia sepsis due to cellulitis opioid use disorder cocaine abuse acute/chronic normocytic anemia kidney stone HIV/AIDS hepatitis C severe protein-calorie malnutrition Referrals: [facility] [Other] - 1 Week [facility] [Provider Group] - 1 Week Kti Riggs MD [Physician] - 1 Month Lee Evans MD [Physician] - 1 Month Physician,Unknown J [Primary Care Provider] - 1 Week Discharge Medications: New methadone [Methadose] 10 mg/mL Concentrate 65 mg PO DAILY Qty: 1 0RF Rx Instructions: Partial Fill upon patient request. acetaminophen 325 mg Tablet 650 mg PO Q6H PRN (Reason: Pain, Mild (Pain Scale 1-3)) Qty: 1 0RF omeprazole 20 mg Capsule,Delayed Release(Dr/Ec) 20 mg PO DAILY@0630 Qty: 30 0RF lidocaine [Lidocaine Pain Relief] 4 % Adhesive Patch,Medicated 1 patch transdermal DAILY Qty: 1 0RF Protocol: Apply to: Apply to: mid-lumbar Continued multivitamin Tablet 1 tab PO DAILY baclofen 20 mg tablet 10 mg PO TID gabapentin 800 mg tablet 800 mg PO TID ropinirole 4 mg tablet 4 mg PO TID fluticasone propion-salmeterol 250-50 mcg/dose blister with device 1 ea INHALATION BID nystatin 100,000 unit/mL suspension 1 ml PO QID pravastatin 40 mg tablet 40 mg PO BEDTIME ferrous sulfate [FeroSul] 325 mg (65 mg iron) tablet 325 mg PO DAILY albuterol sulfate [Ventolin HFA] 90 mcg/actuation HFA aerosol inhaler 2 puff inhalation Q6H PRN (Reason: wheezing) doxepin 150 mg capsule 150 mg PO BEDTIME Biktarvy 50-200-25 mg tablet 1 tab PO QAM Discontinued oxycodone 5 mg tablet 5 mg PO Q6H methadone 10 mg/mL Syringe 60 mg PO DAILY Patient Comments: Verified by [facility] Discharge Orders: Discharge Order (Routine); Ordered 08/05/23 Ordered By: Hermelinda Francis Diet: Ensure 1 can tid Activity on Discharge: As tolerated Stand Alone Forms: Patient Portal Discharge page Care Plan Goals: recovery from osteomyelitis/discitis avoid substance abuse and its complications control HIV Health Concerns: hx discitis/epidural abscess/paraspinal abscess/MRSA bacteremia sepsis due to cellulitis opioid use disorder cocaine abuse kidney stone acute/chronic normocytic anemia HIV/AIDS hepatitis C severe protein-calorie malnutrition Plan of Treatment: transfer to [facility] for STR for less than 30 days methadone to be arranged completed PO antibiotics for cellulitis avoid substance abuse continue Biktarvy drink plenty of water and follow up with Dr Riggs from [facility] Urology in 1 month for follow-up of kidney stone follow up with [facility] Gastroenterology in 1 month for EGD/colonoscopy to evaluate anemia follow up with either [facility] Gastroenterology or [facility] for HCV treatment take Ensure 1 can 3x a day follow up after discharge with [facility] for primary care and HIV care Assessment: See Discharge Summary. Discharged to short-term rehab for less than 30 days
--- NOTE | 2023-08-05 13:31 | MHC.CM.PN ---
pt to go to [facility] today at 2:30
--- NOTE | 2023-08-05 13:35 | MHC.RECOVRN ---
Met with pt in 346 to follow up and provide support after syringes found in pts bed. Pt sitting in bed, awake, alert, easily engages in conversation. Pt reports they were his partners and he is no longer going to be with her. Pt states I've been with her for 10 years and it's been out of empathy. Pt reports partner has negatively influenced his life and is hopeful to go to [facility] not only for STR but also for space. Pt reports methadone is going good. Denies withdrawal symptoms. Pt denies other questions or concerns.
[2023-08-05 15:24] VITALS: BP 114/60; PULSE 64; RESP 16; TEMP 36.7; O2SAT 96
--- NOTE | 2023-08-05 15:26 | MHC.CM.PN ---
UPDATE - PER [facility] PT IS NOT ABLE TO BE ADMITTED TODAY, WILL NEED TO WAIT UNTIL TOMORROW DUE TO DELAY IN GUEST DOSING. AND RN AWARE. BLS TRANSPORT CANCELLED. CM WILL FOLLOW.
--- NOTE | 2023-08-05 15:33 | HO.PM.IMPN ---
Subjective Subjective Date of Service: 08/05/23 Interval History: Complaining of right sided lower back and hip pain with ambulation, tolerating diet denies nausea vomiting, no abdominal pain, no diarrhea denies fever, no chills, no other acute issues overnight. Review of Systems All other system reviewed and negative. Physical Exam Vital Signs: Vital Signs: Last Vital Signs Temp 98.0 F 08/05/23 15:24 Pulse 64 08/05/23 15:24 Resp 16 08/05/23 15:24 BP 114/60 08/05/23 15:24 Pulse Ox 96 08/05/23 15:24 O2 Del Method Room Air 08/05/23 15:24 BMI result Body Mass Index 16.7 Const: Other: Gen: in no acute distress, cachectic HEENT: sclera anicteric, moist mucus membranes Neck: supple Lungs: clear to auscultation bilaterally Heart: regular rate and rhythm, no murmurs Abd: soft, non-tender, non-distended Ext: no edema, cellulitis of R forearm resolved Skin: warm/well-perfused Right hip normal examination good range of motion, no swelling Neuro: alert and oriented x3, no focal findings Psych: appropriate affect Objective Data Active Medications Acetaminophen (Acetaminophen 325 Mg Tablet) 650 mg PO Q6H PRN PRN Reason: Pain, Mild (Pain Scale 1-3) Last Admin: 08/04/23 01:52 Dose: 650 mg Documented By: YUNG Albuterol Sulfate (Albuterol Sulfate 90 Mcg 8 Gm Inhaler) 2 puff INHALE Q6H PRN PRN Reason: wheezing Last Admin: 08/03/23 02:38 Dose: 2 puff Documented By: SARAH Baclofen (Baclofen 10 Mg Tablet) 10 mg PO TID [facility] Last Admin: 08/05/23 14:43 Dose: 10 mg Documented By: TONG Bictegravir/Emtricitabine/Tenofovir (Bictegrav/Emtricit/Tenofov Ala Tablet) 1 tab PO DAILY [facility] Last Admin: 08/05/23 09:26 Dose: 1 tab Documented By: TONG Doxepin HCl (Doxepin Hcl 25 Mg Capsule) 150 mg PO BEDTIME [facility] Last Admin: 08/04/23 20:37 Dose: 150 mg Documented By: HERMELINDA Enoxaparin Sodium (Enoxaparin Sodium 40 Mg/0.4 Ml Syringe) 40 mg SUBCUT Q24H [facility] Last Admin: 08/05/23 05:33 Dose: 40 mg Documented By: HERMELINDA Ferrous Sulfate (Ferrous Sulfate 324 Mg Tablet.) 324 mg PO DAILY [facility] Last Admin: 08/05/23 09:26 Dose: 324 mg Documented By: TONG Fluticasone/Vilanterol (Fluticasone/Vilanterol 100/25 Blst.W.Dev) 1 puff INHALE RDAILY [facility] Last Admin: 08/04/23 08:26 Dose: 1 puff Documented By: NEERAJ Gabapentin (Gabapentin 400 Mg Capsule) 400 mg PO TID [facility] Last Admin: 08/05/23 14:43 Dose: 400 mg Documented By: TONG Lidocaine (Lidocaine 4 % Patch Adh..Patch) 1 patch TRANSDERMA DAILY [facility]; Protocol Last Admin: 08/05/23 09:27 Dose: 1 patch Documented By: TONG Melatonin (Melatonin 3 Mg Tablet) 6 mg PO BEDTIME PRN PRN Reason: Insomnia Last Admin: 07/31/23 21:00 Dose: 6 mg Documented By: OTIS Methadone HCl (Methadone Hcl 20 Mg/2 Ml Oral.Conc) 65 mg PO DAILY [facility] Last Admin: 08/05/23 09:27 Dose: 65 mg Documented By: TONG Multivitamins/Vitamin C (Multivitamin Tablet) 1 tab PO DAILY [facility] Last Admin: 08/05/23 09:26 Dose: 1 tab Documented By: TONG Nystatin (Nystatin Oral Susp 500,000 Unit/5 Ml Oral.Susp) 100,000 unit PO QID [facility]; Protocol Last Admin: 08/05/23 14:45 Dose: 100,000 unit Documented By: TONG Omeprazole (Omeprazole 20 Mg Capsule.) 20 mg PO DAILY@0630 [facility] Last Admin: 08/05/23 05:34 Dose: 20 mg Documented By: HERMELINDA Pravastatin Sodium (Pravastatin Sodium 40 Mg Tablet) 40 mg PO BEDTIME [facility] Last Admin: 08/04/23 20:38 Dose: 40 mg Documented By: HERMELINDA Ropinirole HCl (Ropinirole Hcl 2 Mg Tablet) 4 mg PO TID [facility] Last Admin: 08/05/23 14:43 Dose: 4 mg Documented By: TONG Sodium Chloride (0.9 % Sodium Chloride Flush 3 Ml Syringe) 3 ml IVFLUSH QSHIFT [facility] Last Admin: 08/05/23 09:38 Dose: Not Given Documented By: TONG Non-Admin Reason: No Access Labs 07/30/23 05:18 08/03/23 04:56 Assessment and Plan (1) Anemia: Status: Acute (2) Bacteremia: Status: Acute (3) Kidney stone on left side: Status: Acute Plan 62yo M with HIV, HCV, HTN, OUD, recent epidural abscess/discitis/MRSA bacteremia treated [place] [facility] in May 2023 with drainage + 6 wk of IV daptomycin [completed 07/02/23] hx discitis/epidural abscess/paraspinal abscess/MRSA bacteremia - CT A/P with findings @ L3-L5 suspicious for sequelae of discitis/osteomyelitis; MRI L-spine shows stable findings since prior MRI at [facility] 05/17/23, after which pt was treated with 6 wk of IV daptomycin. Case discussed with ID she recommend no further antibiotics. sepsis - resolved. ?source. CXR with central peribronchial thickening but no focal consolidation; no respiratory symptoms. Calculus at L UVJ with mild hydronephrosis; no intervention at this time per Urology. 1 of 2 BCx with Bacillus sp, likely contaminant per ID; stopped vanco + pip-sakina. Cellulitis on RUE- finished course of doxycycline OUD cocaine abuse, Addiction Medicine consulted; methadone dose increased acute/chronic normocytic anemia - MIKE + ACD; FOBT negative - per GI, low-dose PPI for stress ulcer prevention, outpt EGD/C-scope - s/p 1u pRBCs 07/27/23 with appropriate rise in H/H - continue Fe supplementation HIV/AIDS - viral load 55, CD4 192 (07/27/23) - continue Biktarvy; has been virologically suppressed [low-level viremia but RNA <200] as outpt for years - no PCP prophylaxis given suppresed viral load and CD4 >100 chronic HCV - outpt treatment asthma without acute exac - continue ICS/LABA, prn JOSE DANIEL restless legs - ropinirole chronic pain - doxepin, baclofen, gabapentin sev pr-isaias malnutrition - Ensure tid VTE ppx - LMWH dispo - anticipate STR @ [facility]; continue methadone In my clinical judgment, the patient requires continued inpatient hospitalization for the following reasons: placement Time Spent With Patient Time: Total time managing care of this patient today ____ minutes. Quality Stroke Does the patient have a stroke diagnosis?: No VTE Prior VTE?: No VTE Risk Level:: Medical - moderate - high VTE Device Contraindication: Treatment Not Indicated VTE Drug Contraindication: N/A - Med Ordered
[2023-08-05 19:12] VITALS: BP 120/61; PULSE 63; RESP 17; TEMP 36.2; O2SAT 98
[2023-08-05] MEDS: Doxepin HCl 25 MG CAPSULE 150 MG PO (21:20)
[2023-08-05] MEDS: Pravastatin Sodium 40 MG TABLET PO (21:21)
[2023-08-05] MEDS: Albuterol Sulfate 90 MCG 8 GM INHALER 2 PUFF INHALE (22:11)
[2023-08-06] MEDS: Omeprazole 20 MG CAPSULE.DR PO (06:11)
[2023-08-06] MEDS: Enoxaparin Sodium 40 MG/0.4 ML SYRINGE SUBCUT (06:11)
[2023-08-06 07:13] VITALS: BP 106/64; PULSE 66; RESP 18; TEMP 36.3; O2SAT 97
[2023-08-06] MEDS: Fluticasone/Vilanterol 100/25 BLST.W.DEV 1 PUFF INHALE (08:31)
[2023-08-06 08:32] VITALS: PULSE 67; O2SAT 96
[2023-08-06] MEDS: Bictegrav/Emtricit/Tenofov Ala TABLET 1 TAB PO (08:43)
[2023-08-06] MEDS: Ferrous Sulfate 324 MG TABLET.DR PO (08:43)
[2023-08-06] MEDS: Gabapentin 400 MG CAPSULE PO ×2 (08:43→15:08)
[2023-08-06] MEDS: Lidocaine 4 % Patch ADH..PATCH 1 PATCH TRANSDERMA (08:43)
[2023-08-06] MEDS: rOPINIRole HCL 2 MG TABLET 4 MG PO ×2 (08:43→15:08)
[2023-08-06] MEDS: Multivitamin TABLET 1 TAB PO (08:44)
[2023-08-06] MEDS: Baclofen 10 MG TABLET PO ×2 (08:44→15:08)
[2023-08-06] MEDS: methADONE HCl 20 MG/2 ML ORAL.CONC 65 MG PO (08:44)
--- NOTE | 2023-08-06 14:43 | MHC.CM.PN ---
pt going to [facility] today at 3
--- NOTE | 2023-08-06 14:52 | P.DS_ITS ---
DS: Providers Provider Date of Service: 08/06/23 Date of admission: 07/27/23 04:25 Primary care physician: Unknown Physician Consults: 07/27/23 04:27 Consult to Infectious Diseases Routine Consulting Provider: [facility] Infectious Disease Reason for consultation: ?discitis osteomyelitis 07/27/23 04:33 Addiction Medicine Routine Consulting Provider: Addiction Covering Reason for consultation: Cocaine and heroin use disorder Consult to Urology Routine Consulting Provider: Kit Riggs Reason for consultation: calculus at left ureterovesical junction 07/27/23 10:47 Consult to Gastroenterology Routine Consulting Provider: Lee Evans Reason for consultation: anemia Has provider been notified: No 07/28/23 07:13 Consult to General Surgery Routine Consulting Provider: [facility] General Surgeons Reason for consultation: fluid collection right arm; IVDU Has provider been notified: No DS: Diagnosis Discharge Diagnosis (1) Anemia: Status: Acute (2) Bacteremia: Status: Acute (3) Kidney stone on left side: Status: Acute DS: Summary Hospital Course Hospital Course: from admission H+P by hospitalist Yusra Munroe, 07/27/23: This is a 62-year-old male with pertinent history of HIV, unknown last CD4 count, essential hypertension, IV substance use disorder, hepatitis-C who presents to the emergency department for evaluation of fevers. Patient states he was recently discharged from outside facility on 07/24 for spinal infection . Since discharge, patient states he has been lethargic and drowsy. Admits to using IV heroin and IV cocaine prior to presentation. Also has been complaining of fevers and chills. Does endorse back pain which has been progressive and without any relieving factors. No chest discomfort, palpitations, shortness of breath, abdominal pain, changes in urinary or bowel habits. In the emergency department, patient was found to be septic and imaging concerning for discitis/osteomyelitis. Also noted calculus at the left ureterovesical junction Mr Interiano is a homeless 62yo M with HIV, HCV, HTN, and OUD who recently had epidural and paraspinal abscesses with lumbar osteomyelitis, discitis, and MRSA bacteremia that was treated at [facility] and [facility] in May-June 2023 with drainage + 6 wk of IV daptomycin. Antibiotic therapy was completed 07/02/23. He was admitted to the hospitalist service here for concern of sepsis from recurrent infection. Hospital course by problem: hx recent osteomyelitis/discitis/epidural abscess/paraspinal abscess/MRSA bacteremia - CT A/P with findings @ L3-L5 suspicious for sequelae of discitis/osteomyelitis; MRI L-spine shows stable findings since prior MRI at [facility] 05/17/23, after which pt was treated with 6 wk of IV daptomycin as above. discussed with ID, doubt acute infection at this time so no further IV antibiotics needed. sepsis - resolved. workup of non-ostemyelitis sources included: CXR with central peribronchial thickening but no focal consolidation; no respiratory symptoms. calculus at L UVJ with mild hydronephrosis; no intervention at this time per Urology; can follow-up as outpatient. 1 of 2 BCx with Bacillus species, likely contaminant per ID; stopped vancomycin + piperacillin-tazobactam. ultimately, the only acute infection was found to be nonpurulent cellulitis on his RUE, which was treated with 7 days of PO doxycycline with complete resolution. OUD cocaine abuse - Addiction Medicine consulted; methadone increased to 65 mg/d and to be continued at [facility] then as outpatient. acute/chronic normocytic anemia - likely due to MIKE + ACD; FOBT negative. Gastroenterology was consulted and recommended low-dose PPI for stress ulcer prevention and outpt EGD/C-scope. she was transfused 1u pRBCs 07/27/23 with appropriate rise in H/H. continue Fe supplementation HIV/AIDS - viral load 55, CD4 192 (07/27/23); continue Biktarvy. has been virologically suppressed [low-level viremia but RNA <200] as outpt for years; no PCP prophylaxis given suppresed viral load and CD4 >100. needs to follow-up with [facility] for HIV and primary care. chronic HCV - outpt treatment, either through [facility] HIV clinic or [facility] GI. sev pr-isaias malnutrition - given Ensure tid He was discharged to [facility] for short-term rehabilitation for less than 30 days . Time Spent with Patient Time attestation: Total time managing care of this patient today ____ minutes. Discharge coordination time: Greater than 30 minutes Quality: Safe Use of Opioids Does Pt have an Active Cancer Diagnosis on the Problem List?: No Quality: Stroke Does the patient have a stroke diagnosis?: No Physical Exam Vital Signs: Vital Signs: Last Vital Signs Temp 97.4 F 08/06/23 07:13 Pulse 67 08/06/23 08:32 Resp 18 08/06/23 07:13 BP 106/64 08/06/23 07:13 Pulse Ox 97 08/06/23 07:13 O2 Del Method Room Air 08/06/23 07:13 BMI result Body Mass Index 16.7 Const: Other: Gen: in no acute distress, cachectic HEENT: sclera anicteric, moist mucus membranes Neck: supple Lungs: clear to auscultation bilaterally Heart: regular rate and rhythm, no murmurs Abd: soft, non-tender, non-distended Ext: no edema, cellulitis of R forearm resolved Skin: warm/well-perfused Neuro: alert and oriented x3, no focal findings Psych: appropriate affect Discharge Plan Discharge Anticipated Discharge Date/Time: 08/05/23 09:44 Patient Disposition: Xfer SNF Discharge Diagnosis: hx discitis/epidural abscess/paraspinal abscess/MRSA bacteremia sepsis due to cellulitis opioid use disorder cocaine abuse acute/chronic normocytic anemia kidney stone HIV/AIDS hepatitis C severe protein-calorie malnutrition Referrals: alysa [Other] - 1 Week [facility] [Provider Group] - 1 Week Kit Riggs MD [Physician] - 1 Month Lee Evans MD [Physician] - 1 Month Physician,Diallo J [Primary Care Provider] - 1 Week Discharge Medications: New methadone [Methadose] 10 mg/mL Concentrate 65 mg PO DAILY Qty: 1 0RF Rx Instructions: Partial Fill upon patient request. acetaminophen 325 mg Tablet 650 mg PO Q6H PRN (Reason: Pain, Mild (Pain Scale 1-3)) Qty: 1 0RF omeprazole 20 mg Capsule,Delayed Release(Dr/Ec) 20 mg PO DAILY@0630 Qty: 30 0RF lidocaine [Lidocaine Pain Relief] 4 % Adhesive Patch,Medicated 1 patch transdermal DAILY Qty: 1 0RF Protocol: Apply to: Apply to: mid-lumbar Continued multivitamin Tablet 1 tab PO DAILY baclofen 20 mg tablet 10 mg PO TID gabapentin 800 mg tablet 800 mg PO TID ropinirole 4 mg tablet 4 mg PO TID fluticasone propion-salmeterol 250-50 mcg/dose blister with device 1 ea INHALATION BID nystatin 100,000 unit/mL suspension 1 ml PO QID pravastatin 40 mg tablet 40 mg PO BEDTIME ferrous sulfate [FeroSul] 325 mg (65 mg iron) tablet 325 mg PO DAILY albuterol sulfate [Ventolin HFA] 90 mcg/actuation HFA aerosol inhaler 2 puff inhalation Q6H PRN (Reason: wheezing) doxepin 150 mg capsule 150 mg PO BEDTIME Biktarvy 50-200-25 mg tablet 1 tab PO QAM Discontinued oxycodone 5 mg tablet 5 mg PO Q6H methadone 10 mg/mL Syringe 60 mg PO DAILY Patient Comments: Verified by [facility] Discharge Orders: Discharge Order (Routine); Ordered 08/06/23 Ordered By: Hermelinda Francis Diet: Ensure 1 can tid Activity on Discharge: As tolerated Stand Alone Forms: Patient Portal Discharge page Care Plan Goals: recovery from osteomyelitis/discitis avoid substance abuse and its complications control HIV Health Concerns: hx discitis/epidural abscess/paraspinal abscess/MRSA bacteremia sepsis due to cellulitis opioid use disorder cocaine abuse kidney stone acute/chronic normocytic anemia HIV/AIDS hepatitis C severe protein-calorie malnutrition Plan of Treatment: transfer to [facility] for STR for less than 30 days methadone to be arranged completed PO antibiotics for cellulitis avoid substance abuse continue Biktarvy drink plenty of water and follow up with Dr Riggs from [facility] Urology in 1 month f or follow-up of kidney stone follow up with [facility] Gastroenterology in 1 month for EGD/colonoscopy to evaluate anemia follow up with either [facility] Gastroenterology or [facility] for HCV treatment take Ensure 1 can 3x a day follow up after discharge with [facility] for primary care and HIV care Assessment: See Discharge Summary. Discharged to short-term rehab for less than 30 days
== END 2023-08-06 15:35 | disposition skilled nursing facility (03) | DRG 974 ==
LOC: HO.ED 07-27 00:31 → HO.EDOVER 07-27 05:52 → HO.S3 07-27 14:30
PROVIDERS: Internal Medicine; Nurse Practitioner Acute Care; Physician Assistant Medical; Admitting Provider Student in an Organized Health Care Education/Training Program; Emergency Provider Internal Medicine; Visit Provider Hospitalist
DX: A41.9 Sepsis, unspecified organism (principal); E43 Unspecified severe protein-calorie malnutrition; B20 Human immunodeficiency virus [HIV] disease; F11.20 Opioid dependence, uncomplicated; N13.2 Hydronephrosis with renal and ureteral calculous obstruction; Z68.1 Body mass index [BMI] 19.9 or less, adult; Z59.02 Unsheltered homelessness; M46.26 Osteomyelitis of vertebra, lumbar region; B18.2 Chronic viral hepatitis C; J45.909 Unspecified asthma, uncomplicated; F14.10 Cocaine abuse, uncomplicated; G89.29 Other chronic pain; G25.81 Restless legs syndrome; D50.9 Iron deficiency anemia, unspecified; Z23 Encounter for immunization; F17.210 Nicotine dependence, cigarettes, uncomplicated; Z86.14 Personal history of Methicillin resistant Staphylococcus aureus infection; Z71.6 Tobacco abuse counseling; Z79.51 Long term (current) use of inhaled steroids; Z79.899 Other long term (current) drug therapy
CPT/HCPCS: 36415; 71046; 72158; 74177; 80048; 80053; 80202; 80307; 81001; 82272; 82565; 82728; 83540; 83605; 85014; 85018; 85025; 85027; 85652; 86140; 86359; 86360; 86780; 86850; 86900; 86901; 86923; 87040; 87086; 87205; 87522; 87536; 90686; 93971; 97116; 97162; 97530; 99285; A9585; J1170; J1650; J2543; J3370; J3371; P9016; P9047; Q9967

== ENCOUNTER → 2023-07-27 00:31 | Outpatient (BNV) | payer OTHER, SELFPAY | PROVIDERS: Emergency Provider Internal Medicine; Visit Provider Student in an Organized Health Care Education/Training Program | DX: D64.9 Anemia, unspecified (principal); R78.81 Bacteremia; N20.0 Calculus of kidney | CPT/HCPCS: 99223; 99232; 99233; 99239; 99499 ==

== ENCOUNTER → 2023-07-27 04:25 | Outpatient (BNV) | payer OTHER, SELFPAY | PROVIDERS: Admitting Provider Student in an Organized Health Care Education/Training Program; Emergency Provider Internal Medicine; Visit Provider Nurse Practitioner Psychiatric/Mental Health | DX: F11.90 Opioid use, unspecified, uncomplicated (principal) | CPT/HCPCS: 99221 ==

== ENCOUNTER → 2023-07-27 04:25 | Outpatient (BNV) | payer OTHER, SELFPAY | PROVIDERS: Admitting Provider Student in an Organized Health Care Education/Training Program; Emergency Provider Internal Medicine; Visit Provider Surgery | DX: F19.10 Other psychoactive substance abuse, uncomplicated (principal) | CPT/HCPCS: 99222 ==

== ENCOUNTER → 2023-07-27 04:25 | Outpatient (BNV) | payer OTHER, SELFPAY | PROVIDERS: Admitting Provider Student in an Organized Health Care Education/Training Program; Emergency Provider Internal Medicine; Visit Provider Internal Medicine Gastroenterology | DX: D64.9 Anemia, unspecified (principal) | CPT/HCPCS: 99223 ==

== ENCOUNTER → 2023-07-27 04:25 | Outpatient (BNV) | payer OTHER, SELFPAY | PROVIDERS: Admitting Provider Student in an Organized Health Care Education/Training Program; Emergency Provider Internal Medicine; Visit Provider Urology | DX: N20.0 Calculus of kidney (principal) | CPT/HCPCS: 99222 ==

== ENCOUNTER → 2023-07-27 04:25 | Outpatient (BNV) | payer OTHER, SELFPAY | PROVIDERS: Admitting Provider Student in an Organized Health Care Education/Training Program; Emergency Provider Internal Medicine; Visit Provider Internal Medicine | DX: F11.90 Opioid use, unspecified, uncomplicated (principal); N20.0 Calculus of kidney | CPT/HCPCS: 99222 ==

== ENCOUNTER 2023-09-11 18:37 | Emergency (ER) | payer OTHER, SELFPAY ==
--- NOTE | ~2023-09-11 | XR_ITS ---
EXAMINATION: XR LUMBOSACRAL SPINE CLINICAL INFORMATION: Pain COMPARISON: Previous lumbar spine MRI July [address] May 2023 TECHNIQUE: Three views of the lumbosacral spine. FINDINGS: Abnormal widening L5-S1 disc space. Endplate irregularity at L5-S1. Increased sclerosis of the L5 vertebral body and superior S1 vertebral body. L5 vertebral body fracture. Appearance is suggestive of discitis and osteomyelitis with pathologic fracture of L5. This is not appear appreciably changed from previous exams. There is increased sclerosis at the L4-L5 disc space questionable for discitis and osteomyelitis as well. No other fracture. Disc spaces are otherwise normal. There is lower lumbar spine facet arthritis. There is atherosclerotic disease. Constipation. XR/XR lumbar spine 2-3V IMPRESSION: L5-S1 discitis and osteomyelitis. Pathologic fracture of L5. Question discitis and osteomyelitis at L4-L5 as well. Findings are unchanged from previous exams.
[2023-09-11 19:07] VITALS: BP 144/72; BP 155/81; PULSE 81; PULSE 96; RESP 18; TEMP 37; O2SAT 99; BMI 17.3
--- NOTE | 2023-09-11 19:11 | PC.NURSE ---
pt comes from abandoned building where he has been staying with his . was arrested this am/last night for drugs and called 911 for pt. pt unable to ambulate, severe 10/10 lower back pain. pt comes in multiple layers, sts he is freezing asking for warm blankets. pt feels warm, oral temp afebrile, refusing rectal temp. pt advised that he could have unknown infection and could lead to sepsis and . pt sts he doesn't care. MD aware and tried to educate pt on obtaining rectal temp. still refused. sts he is seeking detox for heroin. last use last night. MD to put in consult to care team. pt given food and drink per MD. awaiting changeover with security. rr even/unlabored. call vinson within pt reach. pt within eye sight of ED staff. plan of care ongoing. report given to SYLVIA Penn.
--- NOTE | 2023-09-11 20:09 | ED.BACK ---
HPI - Back Pain/Injury General Chief Complaint: Back Pain/Injury Stated Complaint: low back pain, hx iv drug use Time Seen by Provider: 09/11/23 19:25 Source: patient Mode of arrival: EMS Limitations: no limitations History of Present Illness HPI Narrative: 62 years old presenting to the emergency room for back pain. Patient has past medical history of spine osteomyelitis/diskitis which was treated in June with 6 weeks of IV daptomycin, he was also seen in July here at [facility] and admitted for sepsis at the time new SP does on the osteomyelitis diskitis was ruled out. Patient also history of HIV not on anti-retroviral therapy, hep C, hypertension an opiate abuse disorder. Patient is brought in by EMS. Patient is homeless and up until yesterday was living with his which however is now in police custody. She was concerned because patient is wheelchair-bound due to his back pain and the not have any help therefore she called an ambulance to bring him to the hospital. EMS reports the patient lives in an abandoned building. On arrival patient reports that he is called because he has been outside, reports 10/10 back pain localized in the lumbar area. Denies dysuria, urinary retention, urinary incontinence or fecal incontinence. Patient reported he is interested in opiate detox. reports hx of prior infection in his back Related Data Home Medications Medication Instructions Recorded Confirmed baclofen 20 mg tablet 10 mg PO TID 05/17/23 07/27/23 gabapentin 800 mg tablet 800 mg PO TID 05/17/23 07/27/23 multivitamin 1 tab PO DAILY 05/17/23 07/27/23 ropinirole 4 mg tablet 4 mg PO TID 05/17/23 07/27/23 albuterol sulfate 90 mcg/actuation 2 puff inhalation Q6H PRN wheezing 07/27/23 07/27/23 aerosol inhaler (Ventolin HFA) bictegravir 50 mg-emtricitabine 1 tab PO QAM 07/27/23 07/27/23 200 mg-tenofovir alafenam 25 mg tablet (Biktarvy) doxepin 150 mg capsule 150 mg PO BEDTIME 07/27/23 07/27/23 ferrous sulfate 325 mg (65 mg 325 mg PO DAILY 07/27/23 07/27/23 iron) tablet (FeroSul) fluticasone 250 mcg-salmeterol 50 1 ea inhalation BID 07/27/23 07/27/23 mcg/dose blistr powdr for inhalation nystatin 100,000 unit/mL oral 1 ml PO QID 07/27/23 07/27/23 suspension pravastatin 40 mg tablet 40 mg PO BEDTIME 07/27/23 07/27/23 Previous Rx's Medication Instructions Recorded acetaminophen 325 mg tablet 650 mg (2 x 325 mg) PO Q6H PRN 08/04/23 Pain, Mild (Pain Scale 1-3) #1 tab lidocaine 4 % topical patch 1 patch transdermal DAILY #1 ea 08/04/23 (Lidocaine Pain Relief) methadone 10 mg/mL oral 65 mg (6.5 mL) PO DAILY #1 mL 08/04/23 concentrate (Methadose) omeprazole 20 mg capsule,delayed 20 mg PO DAILY@0630 #30 caps 08/04/23 release Allergies Allergy/AdvReac Type Severity Reaction Status Date / Time aspirin [ASA] Allergy Intermediate HIVES Verified 07/27/23 00:14 tuberculin, purified protein Allergy Intermediate RASH, Verified 07/27/23 00:14 deriva ITCHING [TUBERCULIN,PURIF.PROT.DERIV.] chlorthalidone AdvReac Severe hypokalemia Verified 07/27/23 00:14 [CHLORTHALIDONE] tb serum Allergy Unknown Hives Uncoded 07/27/23 00:14 Review of Systems Review of Systems: Yes all other systems are reviewed and are negative PMFSH Past Medical History Medical History Spinal cord abscess Epidural abscess High cholesterol Leg cramp HTN (hypertension) Back pain Surgical History H/O colonoscopy Social History Social History Household Members: Other Housing: Homeless Alcohol intake: current Alcohol intake frequency: holidays/special occasions only Patient Tobacco Use Status: Current someday Tobacco user Tobacco use type: Cigarette Cigarettes Per Day: 2 Smoked in Last 30 Days: Yes Use of substances other than those prescribed or required for medical reasons: Yes Substance Use Type: Heroin Last Used Substance: Days (ago) Advance Directives: No Advance Directives Information Provided: No service: No Physical Exam Vital Signs: Vital Signs: Last Vital Signs Temp 98 F 11/08/23 20:33 Pulse 85 09/11/23 20:33 Resp 16 09/11/23 20:33 BP 132/78 09/11/23 20:33 Pulse Ox 99 09/11/23 19:07 O2 Del Method Room Air 09/11/23 19:07 BMI result Body Mass Index 17.3 General: Alert, Not in Distress Skin: No rash, warm HEENT: Atraumatic, No Exudate or Pharyngeal Erythema Resp: Normal Breath sounds bilaterally Cardio: Regular rate and Rhythm, Normal S1, S2 ABD: Abd soft, non tender, no guarding or rebound. Normal Bowel sounds. : No cva tenderness Neuro: Alert, oriented x4, PERRL Strenght 5/5 on all extremities Sensation is preserved in both lower and upper extremities Index to nose: normal Cranial Nerves II-XII grossly intact No dysarthria, or aphasia No neglet. Visual donahue are normal bilaterally Psych: Cooperative, NO SI MSK: tenderness on palpation of the lower back. patient moving both lower extremities Course Reevaluation(s) Reevaluation #1: Patient imaging are unchanged from baseline. VS are stable. i have low suspicion for sepsis or infection Time: 20:52 Reevaluation #2: Patient's lab work showed a normal WBC, minimally increased CRP with stable x-ray finding. At this time wanting patient's back pain is secondary to recurrence of osteomyelitis and I think is secondary to his pathologic fracture which patient already knew to have. Patient was able to tolerate p.o., was given analgesia. My concern is that people is wheelchair-bound and is homeless therefore I did not think that can be safely discharged back in the street. Will involve Case Management tomorrow will sign out to Dr. Nielsen Time: 21:26 Medications Administered Discontinued Medications Generic Name Dose Route Start Last Admin Trade Name Ashokq PRN Reason Stop Dose Admin Acetaminophen 975 mg 09/11/23 19:40 09/11/23 20:25 Acetaminophen 325 Mg Tablet PO 09/11/23 19:41 975 mg ONCE ONE Administration Ketorolac Tromethamine 30 mg 09/11/23 19:40 09/11/23 20:25 Ketorolac Tromethamine 30 Mg/Ml Vial IM 09/11/23 19:41 30 mg ONCE ONE Administration Lidocaine 1 patch 09/11/23 19:40 09/11/23 20:43 Lidocaine 4 % Patch Adh..Patch TRANSDERMA 09/11/23 19:41 Not Given ONCE ONE Protocol Medical Decision Making Medical Decision Making [facility] Narrative: 62 years old presented to emergency room for back pain. Patient has a history of osteomyelitis of the spine however he is not febrile with normal vital signs in the emergency room at this time of low suspicions for infection or sepsis. Impression chronic back pain, musculoskeletal pain, less likely diskitis, osteomyelitis. Plan: X-ray back, analgesia CBC, BMP, sed rate Lab Data [facility] Lab Attestation statement: I reviewed the patient's lab results. 09/11/23 21:02 09/11/23 21:02 Labs: Lab Results 09/11/23 Range/Units 21:02 WBC 7.0 (4.8-10.8) X10*3/uL RBC 4.73 D (4.60-5.80) X10*6/uL Hgb 12.4 L D (14.0-18.0) g/dl Hct 38.9 L D (42.0-52.0) % MCV 82.2 (80.0-98.0) fL MCH 26.2 L (27.0-33.0) pg MCHC 31.9 (31.0-36.0) g/dl RDW 16.6 H (11.0-16.0) % Plt Count 431 H (160-400) X10*3/uL MPV 9.2 L (9.4-12.4) fL Immature Gran % (Auto) 0.4 (0.0-0.4) % Neut % (Auto) 83.4 H (45-73) % Lymph % (Auto) 13.3 L (20-40) % [place] % (Auto) 2.3 (2-11) % Eos % (Auto) 0.3 (0-4) % Baso % (Auto) 0.3 (0-2) % Lymph # (Auto) 0.9 L (1.2-4.9) X10*3/uL [place] # (Auto) 0.2 (0.1-1.2) X10*3/uL Eos # (Auto) 0.0 (0.0-0.4) X10*3/uL Baso # (Auto) 0.0 (0.0-0.2) X10*3/uL Abs Immat Gran (auto) 0.03 (0.00-0.03) X10*3/uL Absolute Neuts (auto) 5.8 (2.0-8.3) x10*3/uL Absolute Nucleated RBC 0.000 (0.0-0.012) X10*3/uL Nucleated RBC % (auto) 0.0 (0.0-0.2) /100WBC Sodium 141 (135-145) mmol/L Potassium 3.8 (3.3-5.1) mmol/L Chloride 103 (96-108) mmol/L Carbon Dioxide 28 (22-29) mmol/L Anion Gap 14 (12-20) BUN 22 H (9-16) mg/dL Creatinine 0.81 (0.5-1.4) mg/dL Estim Creat Clear Calc 69.8 Estimated GFR > 60 Random Glucose 194 H (60-115) mg/dL Calcium 9.5 D (8.4-10.2) mg/dL C-Reactive Protein 0.97 H (< or = 0.50) mg/dL Independent Interpretation I performed an independent interpretation of an: Plain X-Ray Discharge Plan Discharge Clinical Impression: Back pain Prescriptions: No Action multivitamin Tablet 1 tab PO DAILY baclofen 20 mg tablet 10 mg PO TID gabapentin 800 mg tablet 800 mg PO TID ropinirole 4 mg tablet 4 mg PO TID fluticasone propion-salmeterol 250-50 mcg/dose blister with device 1 ea INHALATION BID nystatin 100,000 unit/mL suspension 1 ml PO QID pravastatin 40 mg tablet 40 mg PO BEDTIME ferrous sulfate [FeroSul] 325 mg (65 mg iron) tablet 325 mg PO DAILY albuterol sulfate [Ventolin HFA] 90 mcg/actuation HFA aerosol inhaler 2 puff inhalation Q6H PRN (Reason: wheezing) doxepin 150 mg capsule 150 mg PO BEDTIME Biktarvy 50-200-25 mg tablet 1 tab PO QAM methadone [Methadose] 10 mg/mL Concentrate 65 mg PO DAILY Qty: 1 0RF Rx Instructions: Partial Fill upon patient request. acetaminophen 325 mg Tablet 650 mg PO Q6H PRN (Reason: Pain, Mild (Pain Scale 1-3)) Qty: 1 0RF omeprazole 20 mg Capsule,Delayed Release(Dr/Ec) 20 mg PO DAILY@0630 Qty: 30 0RF lidocaine [Lidocaine Pain Relief] 4 % Adhesive Patch,Medicated 1 patch transdermal DAILY Qty: 1 0RF Protocol: Apply to: Apply to: mid-lumbar
[2023-09-11] MEDS: Ketorolac Tromethamine 30 MG/ML VIAL IM (20:25)
[2023-09-11] MEDS: Acetaminophen 325 MG TABLET 975 MG PO (20:25)
[2023-09-11 20:33] VITALS: BP 132/78; PULSE 85; RESP 16; TEMP 36.6
[2023-09-11 21:07] LABS: MANUAL DIFF FLAG NO
[2023-09-11 21:09] LABS: Basophils Percent Auto 0.3 % (0-2); Eosinophils Percent Auto 0.3 % (0-4); Hematocrit 38.9 % (42.0-52.0); Hemoglobin 12.4 g/dl (14.0-18.0); Imm Gran Abs Auto 0.03 X10*3/uL (0.00-0.03); Imm Gran Pct Auto 0.4 % (0.0-0.4); Lymphocytes Absolute Auto 0.9 X10*3/uL (1.2-4.9); Lymphocytes Percent Auto 13.3 % (20-40); Mean Corpuscular HGB Conc 31.9 g/dl (31.0-36.0); Mean Corpuscular Hemoglobin 26.2 pg (27.0-33.0); Mean Corpuscular Volume 82.2 fL (80.0-98.0); Mean Platelet Volume 9.2 fL (9.4-12.4); Monocytes Absolute Auto 0.2 X10*3/uL (0.1-1.2); Monocytes Percent Auto 2.3 % (2-11); Neutrophils Absolute Auto 5.8 x10*3/uL (2.0-8.3); Neutrophils Percent Auto 83.4 % (45-73); Platelet Count 431 X10*3/uL (160-400); Red Blood Count 4.73 X10*6/uL (4.60-5.80); Red Cell Distribution Width 16.6 % (11.0-16.0)
[2023-09-11 21:22] LABS: Anion Gap 14 (12-20); Blood Urea Nitrogen 22 mg/dL (9-16); C Reactive Protein 0.97 mg/dL (< or = 0.50); Calcium 9.5 mg/dL (8.4-10.2); Carbon Dioxide 28 mmol/L (22-29); Chloride 103 mmol/L (96-108); Creatinine Clr Calc Pharmacy 69.8; Estimated Glomerular Filt Rate > 60; Glucose Random 194 mg/dL (60-115); Potassium 3.8 mmol/L (3.3-5.1); Sodium 141 mmol/L (135-145)
[2023-09-11 21:56] LABS: Erythrocyte Sedimentation Rate 25 MM/HR (0-15)
--- NOTE | 2023-09-11 22:28 | PC.NURSE ---
Patient is alert and oriented x3, VSS. Patient reports slight improvement in lower back pain 8/10 at present. Patient received turkey sandwich and sarah leann, tolerated well. Patient currently resting in stretcher bed, eyes closed,, respirations are even, unlabored. Call vinson within patient's reach.
[2023-09-11 23:02] VITALS: BP 156/81; PULSE 74; RESP 16; TEMP 36.7; O2SAT 100
[2023-09-12] VITALS (7 sets, daily range): BP systolic 134–146; BP diastolic 71–87; PULSE 68–99; RESP 16–18; TEMP 36.9–37.2; O2SAT 94–100
[2023-09-12] MEDS: LORazepam 1 MG TABLET 2 MG PO (00:33)
[2023-09-12] MEDS: Ondansetron ODT 4 MG TAB.RAPDIS TRANSLINGU (00:33)
[2023-09-12] MEDS: methADONE HCl 20 MG/2 ML ORAL.CONC 60 MG PO (00:37)
--- NOTE | 2023-09-12 03:27 | MHC.EDTECH ---
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
--- NOTE | 2023-09-12 09:40 | PC.NURSE ---
patient appears to be sleeping in room, sarah leann and pudding provided this morning - breakfast tray in room. respirations even and unlabored, call vinson within reach
--- NOTE | 2023-09-12 10:27 | PC.NURSE ---
patient sitting up in bed eating breakfast, stating that he is having back pain again and that sitting up is hurting his back. offering no other complaints at this time, patient is still seeking rehab, aware he is waiting to speak with them.
--- NOTE | 2023-09-12 10:31 | PC.NURSE ---
recovery team meeting with patient
[2023-09-12 11:43] LABS: COVID-19 Test Negative (Negative); IDNOW Serial# 08D9AD1C
--- NOTE | 2023-09-12 12:48 | MHC.CM.ED ---
Addendum entered by Chinyere Solano 09/12/23 13:49: [facility] does not have a male bed. Referral sent to all faciltiies within 50 miles that are contracted with patient's insurance. Original Note: Received notification from Bib Estrada RN that patient is interested in short term rehab. Patient is homeless and has a substance abuse history. Patient will be difficult to place. Referral made to [facility]. Continue to monitor for d/c needs.
--- NOTE | 2023-09-12 13:08 | PHA.MEDREC ---
Pharmacy Consult ? Medication Reconciliation Pharmacy has reviewed the medication reconciliation by Isamar. Methadone needs to be verified by RN. Katherine Asher, BenitoD
--- NOTE | 2023-09-12 13:50 | MHC.RECOVRN ---
Pt. presented to ED for back pain. Upon evaluation pt. expressed desire for rehab . T/W met with patient and he stated that he wanted to go to medical rehab not substance use rehab. He reported he had been in rehab at [facility] approx 1 month ago but left AMA because his needed me . He is now from his and wishes to return to medical rehab. Pt reports currently using 1 bundle of heroin IV daily along with $10-15 dollars of cocaine IV/daily. Last use not disclosed. Pt reports he was taking methadone in the past and was re started on it last night. Chart reflects a 60 mg dose but pt reports he only took 40 as he could not get the other 20 down . Patients wishes to return to medical rehab were communicated to Technical Administrative Assistant Chinyere and bed search initiated. Will provide assist with connection to methadone services once rehab facility is identified.
--- NOTE | 2023-09-12 15:24 | MHC.CM.ED ---
Patient's is currently in correction. 's vp purchasing, Bridger called looking to speak with Bronson. Bridger can be reached via telephone at [phone]. This info was relayed to overflow. Portable provided to patient to contact Simon.
--- NOTE | 2023-09-12 16:34 | P.EN_ITS ---
Event Note Date of Service: 09/12/23 Event Note: Addiction note business operations consultant met with patient earlier in the day. Has been using a bundle of opiates daily. Know to the [facility] via previous admission, where he was restarted on methadone. recieved methadone 60mg yesterday. Has not been connected to [facility] for the last month or so. Plan is to seek placement at SNF due to patients lack of housing and impaired mobility Methadone 40mg QD starting in AM business operations consultant to assist with coordination to [facility] once placement is secured. Time Spent With Patient Time: Total time managing care of this patient today ____ minutes.
--- NOTE | 2023-09-12 19:21 | PC.NURSE ---
Assumed care of pt. Pt lying on stretcher, no acute distress at this time, respirations even and unlabored. Planning for administration of night time medications.
[2023-09-12] MEDS: Acetaminophen 325 MG TABLET 650 MG PO (22:45)
[2023-09-13 06:20] VITALS: BP 144/78; PULSE 63; TEMP 37; O2SAT 97
--- NOTE | 2023-09-13 08:18 | MHC.EDTECH ---
pt requested a commode at bedside for a bowel movement. pt was able to ambulate from bed to commode on own. RN aware
[2023-09-13] MEDS: methADONE HCl 20 MG/2 ML ORAL.CONC 40 MG PO (09:15)
[2023-09-13] MEDS: Bictegrav/Emtricit/Tenofov Ala TABLET 1 TAB PO (09:16)
[2023-09-13] MEDS: Multivitamin TABLET 1 TAB PO (09:16)
[2023-09-13] MEDS: Ferrous Sulfate 324 MG TABLET.DR PO (09:16)
[2023-09-13] MEDS: Sennosides 8.6 MG TABLET 17.2 MG PO (09:16)
[2023-09-13] MEDS: Gabapentin 400 MG CAPSULE PO ×3 (09:17→19:52)
[2023-09-13] MEDS: NaPROXEN 500 MG TABLET PO ×2 (09:17→19:52)
[2023-09-13] MEDS: Fluticasone/Vilanterol 100/25 BLST.W.DEV 1 PUFF INHALE (10:17)
[2023-09-13] MEDS: rOPINIRole HCL 2 MG TABLET 4 MG PO ×3 (11:39→19:52)
[2023-09-13] MEDS: Baclofen 10 MG TABLET PO ×3 (11:40→19:52)
--- NOTE | 2023-09-13 12:33 | MHC.RECOVRN ---
Met with pt in Overflow 8 to follow up regarding placement after pt expressed interest in [facility]. Educated pt regarding [facility] and requirements for residency, pt does not meet those requirements. Pt aware there is a [facility] bed at [facility], pt unsure if he is willing to go to [place]. Pt requesting to speak with sister prior to making decision. CM aware.
--- NOTE | 2023-09-13 14:39 | MHC.CM.ED ---
Met with patient in regards to d/c planning. Explained [facility] doesn't have a bed to offer. Explained [facility] in [place] is able to offer a bed. Patient will need to bring his HIV medications. He left his medications at the house he was staying at. T/W spoke with [facility]. They have his HIV meds available and would need a Rx sent to their pharmacy. Patient is unsure if he wants to go to [place]. He will speak with his sister and get back to . Patient aware if he doesn't accept bed in [place] he will not be able to stay in ER. Patient will need [facility] PASRR Level 2. T/W already submitted for Level 1. If patient is agreeable to rehab at [facility], anticipate he would not leave before Saturday. Continue to monitor for d/c needs.
--- NOTE | 2023-09-13 15:55 | PC.NURSE ---
A.M. BACLOFEN AND REQUIP GIVEN LATE, MEDS WERE NOT LOADED IN [facility]. PHARMACY WAS MADE AWARE AND BROUGHT TO UNIT. MEDS DOCUMENTED UNSCHEDULED.
[2023-09-13 15:59] VITALS: BP 135/79; PULSE 81; RESP 16; TEMP 36.7; O2SAT 98
--- NOTE | 2023-09-13 16:28 | MHC.EDTECH ---
This pct assumed care of Pt at 1500 ,vitals taken ,pt use the bedside commode independently ,and void ,back to bed ,had sarah leann and ramón cracker and Peanut butter for snack ,Pt was assisted to make a Phone call .
--- NOTE | 2023-09-13 16:50 | MHC.EDTECH ---
Patient name band is in her chart and also attached on the foot of bed ,because Patient removing bracelet ,SYLVIA Blackmon aware .
--- NOTE | 2023-09-13 18:00 | MHC.EDTECH ---
PATIENT ATE 100 % OF MEAL ,DRANK 600 ML FLUIDS .
--- NOTE | 2023-09-13 19:00 | MHC.EDTECH ---
Patient had a can of sarah leann for snack .
[2023-09-13] MEDS: Pravastatin Sodium 40 MG TABLET PO (19:52)
[2023-09-13 21:25] VITALS: BP 140/68; PULSE 71; RESP 16; TEMP 36.8; O2SAT 98
--- NOTE | 2023-09-13 21:33 | MHC.EDTECH ---
Pt vitals taken and gram crackers with Peanut butter and sarah leann given for snack ,Pt refused to get wash up .
[2023-09-13] MEDS: Doxepin HCl 25 MG CAPSULE 150 MG PO (22:02)
--- NOTE | 2023-09-14 03:24 | PC.NURSE ---
Pt resting in bed at this time, no complaints, waiting for placement
[2023-09-14 06:00] VITALS: BP 111/63; PULSE 60; RESP 16; TEMP 36.1; O2SAT 97
--- NOTE | 2023-09-14 06:19 | MHC.EDTECH ---
Patient slept all night ,0600 vitals taken ,pt asked for sandwich and sarah leann ,was given also warm blanket ,call vinson within pt reach ,600 ml out put empty .
[2023-09-14] MEDS: Lidocaine 4 % Patch ADH..PATCH 1 PATCH TRANSDERMA (08:00)
[2023-09-14] MEDS: methADONE HCl 20 MG/2 ML ORAL.CONC 40 MG PO (08:00)
[2023-09-14] MEDS: NaPROXEN 500 MG TABLET PO ×2 (08:00→20:48)
[2023-09-14] MEDS: Sennosides 8.6 MG TABLET 17.2 MG PO (08:01)
[2023-09-14] MEDS: Bictegrav/Emtricit/Tenofov Ala TABLET 1 TAB PO (08:01)
[2023-09-14] MEDS: rOPINIRole HCL 2 MG TABLET 4 MG PO ×3 (08:01→20:49)
[2023-09-14] MEDS: Gabapentin 400 MG CAPSULE PO ×3 (08:01→20:49)
[2023-09-14] MEDS: Baclofen 10 MG TABLET PO ×3 (08:01→20:49)
[2023-09-14] MEDS: Multivitamin TABLET 1 TAB PO (08:01)
[2023-09-14] MEDS: Ferrous Sulfate 324 MG TABLET.DR PO (08:01)
[2023-09-14 08:33] VITALS: BP 121/66; PULSE 72; RESP 18; TEMP 36.3; O2SAT 99
--- NOTE | 2023-09-14 16:35 | MHC.EDTECH ---
Patient given shower and total bed changed
[2023-09-14 17:37] VITALS: BP 114/70; PULSE 81; RESP 18; TEMP 36.7; O2SAT 99
[2023-09-14 20:35] VITALS: BP 139/65; PULSE 65; RESP 18; TEMP 36.6; O2SAT 99
--- NOTE | 2023-09-14 20:42 | PC.NURSE ---
Assumed care of patient 19:00. VSS. Patient complains of chronic pain in his back. Medicated as ordered and appropriate. Pt's scheduled doxepin is missing. Pharmacy notified and delivery to unit requested.
[2023-09-14] MEDS: Acetaminophen 325 MG TABLET 650 MG PO (20:49)
[2023-09-14] MEDS: Pravastatin Sodium 40 MG TABLET PO (20:50)
[2023-09-14] MEDS: Doxepin HCl 25 MG CAPSULE 150 MG PO (21:21)
--- NOTE | 2023-09-14 23:18 | PC.NURSE ---
Handoff report given 23:00 to oncoming RN.
--- NOTE | 2023-09-15 02:14 | PC.NURSE ---
Pt sleeping at the bedside in no apparent distress. Breaths are even regular and unlabored with equal chest rises. Monitoring is ongoing.
[2023-09-15 05:40] VITALS: BP 109/64; PULSE 60; RESP 18; TEMP 36.4; O2SAT 98
[2023-09-15] MEDS: Acetaminophen 325 MG TABLET 650 MG PO (06:42)
[2023-09-15] MEDS: Fluticasone/Vilanterol 100/25 BLST.W.DEV 1 PUFF INHALE (08:06)
[2023-09-15 08:07] VITALS: PULSE 64; RESP 16; O2SAT 96
[2023-09-15] MEDS: Bictegrav/Emtricit/Tenofov Ala TABLET 1 TAB PO (09:54)
[2023-09-15] MEDS: NaPROXEN 500 MG TABLET PO ×2 (09:54→22:03)
[2023-09-15] MEDS: Sennosides 8.6 MG TABLET 17.2 MG PO (09:54)
[2023-09-15] MEDS: Gabapentin 400 MG CAPSULE PO ×3 (09:54→22:02)
[2023-09-15] MEDS: rOPINIRole HCL 2 MG TABLET 4 MG PO ×3 (09:54→22:03)
[2023-09-15] MEDS: Baclofen 10 MG TABLET PO ×3 (09:55→22:02)
[2023-09-15] MEDS: methADONE HCl 20 MG/2 ML ORAL.CONC 40 MG PO (09:55)
[2023-09-15] MEDS: Multivitamin TABLET 1 TAB PO (09:55)
[2023-09-15] MEDS: Lidocaine 4 % Patch ADH..PATCH 1 PATCH TRANSDERMA (09:55)
[2023-09-15] MEDS: Ferrous Sulfate 324 MG TABLET.DR PO (09:55)
--- NOTE | 2023-09-15 12:00 | MHC.CM.PN ---
CM MET W/PT AT BEDSIDE TO DISCUSS DISPO, PT REPORTS HE WOULD LIKE TO STR IN [place] HE IS UNABLE TO CARE FOR HIMSELF AT THIS TIME, PT IS HOMELESS AND REPORTS HIS WAS ARRESTED IN A BUST. PT WOULD LIKE TO BE TRANSFERRED BACK TO THIS POSSIBLE HOWEVER AWARE THAT IS UNLIKELY, GE [facility]ARD UPDATED VIA [facility].
[2023-09-15 14:00] VITALS: BP 117/59; PULSE 70; RESP 18; TEMP 36.6; O2SAT 100
--- NOTE | 2023-09-15 18:51 | PC.NURSE ---
Patient stayed in bed all shift, using urinal, continuously asking for snacks. Sister Jennifer called asking to be contact when patient is transferred to the rehab.
[2023-09-15 21:57] VITALS: BP 117/63; PULSE 71; RESP 20; TEMP 36.2; O2SAT 100
[2023-09-15] MEDS: Pravastatin Sodium 40 MG TABLET PO (22:02)
[2023-09-15] MEDS: Doxepin HCl 25 MG CAPSULE 150 MG PO (22:03)
--- NOTE | 2023-09-16 01:08 | PC.NURSE ---
Pt sleeping in no apparent distress. Breaths are even regular and unlabored with equal chest rises. Bed alarm is on. Monitoring is ongoing.
[2023-09-16 06:39] VITALS: BP 107/60; PULSE 68; RESP 16; TEMP 36.4; O2SAT 97
[2023-09-16] MEDS: Fluticasone/Vilanterol 100/25 BLST.W.DEV 1 PUFF INHALE (07:16)
[2023-09-16 07:17] VITALS: PULSE 89; RESP 18; O2SAT 94
--- NOTE | 2023-09-16 08:55 | MHC.CM.ED ---
Addendum entered by Chinyere Solano 09/16/23 15:57: Guest dosing arranged at [facility] for Methadone by Bib Estrada RN. [facility] is still waiting for insurance auth. Patient will leave ER tomorrow 09/17 at 1pm. Maryjo AVILA booked. Med nec with chart. Patient, Marcela WARD and Zkaiya PAUL aware. Original Note: Patient remains in ER overflow. Has agreed to [facility]. [facility] has been asked to go for insurance auth. [facility] PASRR Level 2 obtained and sent to [facility]. Continue to monitor for d/c needs.
[2023-09-16] MEDS: methADONE HCl 20 MG/2 ML ORAL.CONC 40 MG PO (10:41)
[2023-09-16] MEDS: Gabapentin 400 MG CAPSULE PO ×3 (10:42→21:20)
[2023-09-16] MEDS: Sennosides 8.6 MG TABLET 17.2 MG PO (10:42)
[2023-09-16] MEDS: Ferrous Sulfate 324 MG TABLET.DR PO (10:43)
[2023-09-16] MEDS: Bictegrav/Emtricit/Tenofov Ala TABLET 1 TAB PO (10:43)
[2023-09-16] MEDS: Multivitamin TABLET 1 TAB PO (10:43)
[2023-09-16] MEDS: NaPROXEN 500 MG TABLET PO ×2 (10:43→21:21)
[2023-09-16] MEDS: Baclofen 10 MG TABLET PO ×3 (10:43→21:20)
[2023-09-16] MEDS: rOPINIRole HCL 2 MG TABLET 4 MG PO ×3 (10:43→21:21)
--- NOTE | 2023-09-16 10:55 | MHC.RECOVRN ---
Pts referral faxed to [facility] in [place]. Letter requested from [facility] to be sent to [facility] to confirm pt is able to return to [facility] upon dc from [facility]. Awaiting confirmation that letter has been sent. CM aware.
[2023-09-16 13:47] VITALS: BP 132/78; PULSE 88; RESP 20; TEMP 36.7; O2SAT 98
--- NOTE | 2023-09-16 14:16 | MHC.RECOVRN ---
Spoke with intake at [facility], pts referral currently being reviewed by MD. Still awaiting confirmation letter from [facility] has been sent. CM aware.
[2023-09-16 15:49] VITALS: BP 116/59; PULSE 72; RESP 16; TEMP 36.7; O2SAT 98
--- NOTE | 2023-09-16 15:50 | MHC.EDTECH ---
This pct assumed care of pt at 1500 ,vitals taken ,pt had some grham crackers and sarah leann for snack .
--- NOTE | 2023-09-16 18:16 | PC.NURSE ---
MEDS GIVEN DOCUMENTED, HE REFUSED [facility]. TENTATIVE DISCHARGE TO [facility] IN [place] TOMORROW AT 1300. PT AWARE OF PLAN.
--- NOTE | 2023-09-16 18:27 | MHC.EDTECH ---
Patient was given dinner ,ate 100 % of meal ,drank 600 ml fluids .
[2023-09-16 20:21] VITALS: BP 133/71; PULSE 74; RESP 16; TEMP 36.9; O2SAT 98
--- NOTE | 2023-09-16 20:30 | MHC.EDTECH ---
Patient refused to get wash up ,vitals taken , had sofia for snack ,600 ml urine empty from urinal .
--- NOTE | 2023-09-16 20:50 | MHC.EDTECH ---
At 8:43 i was typing on the computer ,Patient was next to me , Patient mixing picker tender her left foot and became off balance ,i saw her leaning back i held her hand and sat on the floor ,SYLVIA hope ,And charge auditorSYLVIA hope at 2044 .
[2023-09-16] MEDS: Doxepin HCl 25 MG CAPSULE 150 MG PO (21:20)
[2023-09-16] MEDS: Acetaminophen 325 MG TABLET 650 MG PO (21:20)
[2023-09-16] MEDS: Pravastatin Sodium 40 MG TABLET PO (21:20)
--- NOTE | 2023-09-16 22:23 | MHC.EDTECH ---
Patient rang for sandwich and sarah leann,was given .
--- NOTE | 2023-09-16 23:33 | PC.NURSE ---
pt resting comfortably with eyes closed, breathing even and unlabored, no apparent distress noted at this time
--- NOTE | 2023-09-16 23:58 | MHC.EDTECH ---
Pt up to bedside commode ,had large bowel movement ,back in bed watching television .
[2023-09-17 05:55] VITALS: BP 121/75; PULSE 63; RESP 16; TEMP 36.9; O2SAT 98
--- NOTE | 2023-09-17 05:57 | MHC.EDTECH ---
Patient slept all night ,just woke up ,vitals taken ,urinal empty 750 ml out put ,Patient asked for a sandwich and sarah leann ,was given ,bed alarm on bed .
[2023-09-17] MEDS: Fluticasone/Vilanterol 100/25 BLST.W.DEV 1 PUFF INHALE (07:39)
--- NOTE | 2023-09-17 08:30 | PC.NURSE ---
assumed care of pt at 0700. pt sleeping all morning with exception of eating breakfast. pt back to bed. rr even/unlabored. awaiting 1300 transfer to rehab. bed alarm on for pt safety. pt offers no complaints xin. call vinson within pt reach. rr even/unlabored. plan of care ongoing.
[2023-09-17 11:00] VITALS: BP 115/61; PULSE 74; RESP 18; TEMP 36.6; O2SAT 98
[2023-09-17] MEDS: rOPINIRole HCL 2 MG TABLET 4 MG PO (11:02)
[2023-09-17] MEDS: NaPROXEN 500 MG TABLET PO (11:03)
[2023-09-17] MEDS: Sennosides 8.6 MG TABLET 17.2 MG PO (11:03)
[2023-09-17] MEDS: Ferrous Sulfate 324 MG TABLET.DR PO (11:04)
[2023-09-17] MEDS: Baclofen 10 MG TABLET PO (11:04)
[2023-09-17] MEDS: Bictegrav/Emtricit/Tenofov Ala TABLET 1 TAB PO (11:04)
[2023-09-17] MEDS: Gabapentin 400 MG CAPSULE PO (11:04)
[2023-09-17] MEDS: methADONE HCl 20 MG/2 ML ORAL.CONC 40 MG PO (11:04)
[2023-09-17] MEDS: Multivitamin TABLET 1 TAB PO (11:05)
--- NOTE | 2023-09-17 11:41 | MHC.CM.ED ---
Addendum entered by Chinyere Solano 09/17/23 12:20: HIV medication Rx sent to [facility]. T/W picked up prescription and provided to Tiana WARD so this med can transport with patient and EMS to facility. Original Note: Patient remains in ER overflow. Will d/c to [facility] via BLS at 1pm. Patient, Tiana WARD and Zakiya PAUL aware. Continue to monitor for d/c needs.
--- NOTE | 2023-09-17 12:11 | PC.NURSE ---
nurse to nurse report given to rehab facility. [facility] is obtainint pt's HIV medication to bring to facility. awaiting pt transport.
== END 2023-09-17 13:18 ==
PROVIDERS: Physician Assistant; Emergency Provider Student in an Organized Health Care Education/Training Program; PCP Nurse Practitioner Primary Care
DX: M54.50 Low back pain, unspecified (principal); B19.20 Unspecified viral hepatitis C without hepatic coma; F11.10 Opioid abuse, uncomplicated; R26.81 Unsteadiness on feet; I10 Essential (primary) hypertension; F17.210 Nicotine dependence, cigarettes, uncomplicated; Z11.52 Encounter for screening for COVID-19; Z20.822 Contact with and (suspected) exposure to COVID-19; Z71.51 Drug abuse counseling and surveillance of drug abuser; Z21 Asymptomatic human immunodeficiency virus [HIV] infection status; Z71.6 Tobacco abuse counseling; Z59.00 Homelessness unspecified; Z79.899 Other long term (current) drug therapy
CPT/HCPCS: 36415; 72100; 80048; 85025; 85652; 86140; 87635; 97162; 99285; J1885